=== PATIENT | female | born 1955 | race Caucasian/White ===

== ENCOUNTER → 2018-04-05 07:00 | Outpatient (CLI) | payer OTHER, SELFPAY ==
--- NOTE | 2018-04-05 06:59 | BI_ITS ---
MAMMOGRAPHY - BILATERAL SCREENING REASON FOR EXAM: Female, 62 years old. Routine annual screening examination. PERTINENT HISTORY: Mother with breast cancer. Remote left stereotactic breast biopsy. TECHNIQUE: Digital bilateral breast salty (3D mammographic acquisition) in the CC and MLO projections. 2-D mediolateral oblique (MLO) and craniocaudad (CC) views of both breasts were obtained. CAD: Full Field Digital Mammography with Computer Added Detection was performed. COMPARISON: Comparison is made with prior study dated January 28, 2017 and May 19, 2015. FINDINGS: Breast Composition: The breasts are extremely dense, which lowers the sensitivity of mammography. There are no dominant masses or suspicious calcifications. Once again, a tissue clip marker is seen in the upper lateral aspect of the left breast. This is unchanged. No other significant abnormalities are identified. There has been no significant change since the prior study. BI/SCREENING MAMM (CAD), BILAT IMPRESSION: Stable bilateral screening mammogram. Yearly follow-up mammogram recommended. (A) ASSESSMENT CATEGORY: BIRADS Category 2: Benign. A letter regarding these results will be sent to the patient by the facility within 30 days. Approximately 10% of breast cancers are not detected by mammography. A normal mammogram should not delay biopsy of a clinically suspicious abnormality. [id number] Electronically Signed: Chris Shaffer MD at 8:31 EST Tel [phone], Service support ,
--- OUTSIDE RECORDS SUMMARY | 2018-05-22 00:46 | XMS RPT_ITS ---
:1955 Author Organization [facility] Care Team Providers Name Role Phone Tessa Woodard Attending Unavailable Shiva Walls Primary Care Unavailable PROBLEMS PROBLEMS DATE TYPE CONDITION / CODE ATTENDING STATUS SOURCE 05/08/2018 Unknown Z12.31 - Tessa Woodard Active [facility] Encounter for [facility] mammogram for Repository malignant neoplasm of breast / Z12.31(ICD-10) PROCEDURES PROCEDURES No Procedure Records FoundRESULTS RESULTS SCREENING MAMM (CAD), Observed: 04/05/2018 Status: F Source: [place] 6:59 AM [facility] REPOSITORY [facility] Imaging Services [address] [place] [address] SCREENING MAMM (CAD), BILAT MR#: [id number] Acct: [id number] Name: JACQUELINE SANDHU Rep #: [id number] : 1955 F 62 From: Chris Shaffer MD PCP: Shiva Walls MD Status: [facility] CL Study: SCREENING MAMM (CAD), BILAT Date of Exam: 04/05/18 Exam# [id number] Ordering Dr: Tessa Woodard MD MAMMOGRAPHY - BILATERAL SCREENING REASON FOR EXAM: Female, 62 years old. Routine annual screening examination. PERTINENT HISTORY: Mother with breast cancer. Remote left stereotactic breast biopsy. TECHNIQUE: Digital bilateral breast salty (3D mammographic acquisition) in the CC and MLO projections. 2-D mediolateral oblique (MLO) and craniocaudad (CC) views of both breasts were obtained. CAD: Full Field Digital Mammography with Computer Added Detection was performed. COMPARISON: Comparison is made with prior study dated January 28, 2017 and May 19, 2015. FINDINGS: Breast Composition: The breasts are extremely dense, which lowers the sensitivity of mammography. There are no dominant masses or suspicious calcifications. Once again, a tissue clip marker is seen in the upper lateral aspect of the left breast. This is unchanged. No other significant abnormalities are identified. There has been no significant change since the prior study. BI/SCREENING MAMM (CAD), BILAT IMPRESSION: Stable bilateral screening mammogram. Yearly follow-up mammogram recommended. (A) ASSESSMENT CATEGORY: BIRADS Category 2: Benign. A letter regarding these results will be sent to the patient by the facility within 30 days. Approximately 10% of breast cancers are not detected by mammography. A normal mammogram should not delay biopsy of a clinically suspicious abnormality. [id number] Electronically Signed: Chris Shaffer MD at 8:31 EST Tel [phone], Service support , CC: Tessa Woodard MD; Shiva Walls MD [employer] Attendant: Signed ALLERGIES ALLERGIES DATE TYPE / CODE NAME / CODE REACTION SEVERITY SOURCE 10/17/2014 Drug No Known Unknown [facility] Former[facility] Allergy/4160 Allergies/F00 Hospital [address](SNOMED [id number](RXNOR Repository CT) M) ENCOUNTERS ENCOUNTERS ADMIT/DISCHARGE ACCOUNT ADMITTING ENCOUNTER LOCATION SOURCE NUMBER CLASS 04/05/2018 [id number] Ambulatory [facility] [address] [facility] ing:OPBI Repository PAYERS PAYERS ENCOUNTER GUARANTOR PAYER SUBSCRIBER SOURCE 04/05/2018 LE [facility] Primary JACQUELINE [id number] Insurance:MEDICAL PAIGERDOB: [facility] [id number] Number: Repository [id number]: ([phone] [id number] [phone] () Date:[id number] [address] [place], [place] [address]WP: 04/05/2018 Secondary NOT GIVENUNK [facility] Insurance:SELF PAY [facility] Number: Effective Repository Date:2018-02-19
== END ==
PROVIDERS: Family Provider Family Medicine; PCP Family Medicine; Visit Provider Obstetrics & Gynecology
DX: Z12.31 Encounter for screening mammogram for malignant neoplasm of breast (principal)
CPT/HCPCS: 77063; 77067

== ENCOUNTER → 2019-06-04 07:54 | Outpatient (CLI) | payer OTHER, SELFPAY ==
--- NOTE | 2019-06-04 07:56 | BI_ITS ---
MAMMOGRAPHY - BILATERAL SCREENING REASON FOR EXAM: Female, 63 years old. Routine annual screening examination. PERTINENT HISTORY: Mother with breast cancer. Remote left stereotactic breast biopsy. TECHNIQUE: Digital bilateral breast asif (3D mammographic acquisition) in the CC and MLO projections. 2-D mediolateral oblique (MLO) and craniocaudad (CC) views of both breasts were obtained. CAD: Full Field Digital Mammography with Computer Added Detection was performed. COMPARISON: Comparison is made with prior examination dated April 05, 2018 and January 28, 2017. FINDINGS: Breast Composition: The breasts are extremely dense, which lowers the sensitivity of mammography. There are no dominant masses or suspicious calcifications. A tissue clip marker is once again seen in the upper lateral aspect of the left breast. No other significant abnormalities are identified. There has been no significant change since the prior study. BI/SCREEN MAMM (CAD) W/ASIF BILAT IMPRESSION: Stable bilateral screening mammogram. Yearly follow-up mammogram recommended. (A) ASSESSMENT CATEGORY: Approximately 10% of breast cancers are not detected by mammography. A normal mammogram should not delay biopsy of a clinically suspicious abnormality. [id number] Electronically Signed: Chris Shaffer, at 8:41 EST , Service support ,
--- NOTE | 2019-06-04 08:18 | BD_ITS ---
STUDY: DUAL ENERGY X-RAY ABSORPTIOMETRY / DXA REASON FOR EXAM: Female, 63 years old. INDUSTRIAL ELECTRICIAN -- HX OF HRT -- TAKES 1000MG CALCIUM + MULTIVITAMIN -- HX OF TAKING FOSAMAX IN PAST FOR 3 YRS -- DOES MODERATE AMOUNT OF EXERCISE -- FAMILY HX OF OSTEO- MOTHER -- NO MIRTHA TECHNIQUE: Bone Mineral Density (BMD) measurements of lumbar spine and bilateral hips were obtained. COMPARISON: Comparison is made with prior examination dated May 19, 2015. FINDINGS: Lumbar Spine (L1-L4): g/cm2 (0.948) / T-score (-1.9) / Z-score (-0.6) Findings are suggestive of osteopenia with a moderate fracture risk. Left Femur Total: g/cm2 (0.690) / T-score (-2.5) / Z-score (-1.5) Left Femoral Neck: g/cm2 (0.664) / T-score (-2.7) / Z-score (-1.4) Right Femur Total: g/cm2 (0.707) / T-score (-2.4) / Z-score (-1.4) Right Femoral Neck: g/cm2 (0.701) / T-score (-2.4) / Z-score (-1.1) The T-Scores on the most recent prior examination were: Lumbar Spine (L1-L4): There has been worsening of bone density since the previous examination. Left Femur Total: which represents a worsening of 7%. Right Femur Total: which represents a worsening of 3.9%. BD/Dexa Bone Density Study IMPRESSION: The patient is considered osteoporotic as outlined below according to World Tito Organization (WHO) criteria with a high fracture risk. There has been worsening of bone density since the previous examination. Reference Information: The T-score is the number of standard deviations above or below the standard which is normal for young adults at their peak bone mineral density. The World Health Organization (WHO) interprets the T-scores as follows: Above -1 Normal bone density Between -1 and -2.5 Osteopenia Equal to / or below -2.5 Osteoporosis As a practical clinical guideline, osteopenia may be graded as follows: Mild -1 through -1.5 Moderate -1.6 through -2.0 Severe -2.1 through -2.4 The Z-score is the number of standard deviations above or below age-matched controls. A Z-score of less than -1.5 would be considered abnormal. References: 1. NIH Osteoporosis and Related Bone Diseases http://www.osteo.org 2. International Society for Clinical Densitometry http://www.iscd.org 3. National Osteoporosis Foundation http://www.nof.org Electronically Signed: Chris Shaffer, at 10:13 EST , Service support ,
== END ==
PROVIDERS: PCP Family Medicine; Referring Provider Student in an Organized Health Care Education/Training Program; Visit Provider Student in an Organized Health Care Education/Training Program
DX: Z12.31 Encounter for screening mammogram for malignant neoplasm of breast (principal); M81.0 Age-related osteoporosis without current pathological fracture; Z80.3 Family history of malignant neoplasm of breast
CPT/HCPCS: 77063; 77067; 77080

== ENCOUNTER → 2021-01-19 13:06 | Outpatient (CLI) | payer OTHER, SELFPAY | PROVIDERS: PCP Student in an Organized Health Care Education/Training Program; Referring Provider Student in an Organized Health Care Education/Training Program; Visit Provider Student in an Organized Health Care Education/Training Program | DX: Z01.84 Encounter for antibody response examination (principal) | CPT/HCPCS: 36415; 86769 ==

== ENCOUNTER 2021-12-03 12:54 | Emergency (ER) | payer OTHER, SELFPAY ==
[2021-12-03 12:55] VITALS: BP 144/90; PULSE 83; RESP 18; TEMP 36.9; O2SAT 99; BMI 17.6
--- NOTE | 2021-12-03 13:10 | RAD_ITS ---
HISTORY: pain. TECHNIQUE: XR Ribs Unilateral W/ PA Chest Min 3 Views. COMPARISON: 01/24/2017. FINDINGS: CARDIOMEDIASTINAL BORDERS: Cardiac silhouette within normal limits in size. Mediastinal contour unremarkable. LUNGS: Radiographically clear. PLEURA: No pleural effusion or pneumothorax seen. OSSEOUS STRUCTURES: No acute displaced rib fracture identified. RAD/Ribs Uni Min 3V w/PA Chest IMPRESSION: No acute abnormality identified. Electronically Signed: Flower Joyce MD at 13:33 EDT ,
--- NOTE | 2021-12-03 13:16 | ED.VIS.CHEST ---
HPI History of Present Illness Chief Complaint: Chest Pain Informant: patient Narrative Narrative: Patient presents with an area on the right anterior lateral lower rib cage that is been sore for about 4 5 days. She states she was doing a lot of gardening. She thought she heard it gardening. There was not a specific event that suddenly cause pain but its been sore since. It is mostly sore to press on the area. She does not and has never felt short of breath. Her states she coughed a little last night but she generally has not been coughing. She does not feel ill. No congestion. No problems eating or drinking or pain with eating or drinking. No history of biliary disease. No change in medicines. No recent travel surgery or history of DVT or PE. She has been wearing a splint on her right foot for about 2 weeks. But if the due to inflammation of the toes and she takes the splint off frequently. She has no swelling or discomfort in the leg at all. She overall does not feel ill. She just has a sore area with palpation. She is about to take a trip up to [place] and wanted to make sure that she did not have a pneumonia or something like that developing before she left. She went to urgent care and because she had chest pain she was sent here. [facility] Medical History Anxiety with depression Vitamin D deficiency Home Medications ascorbic acid (vitamin C) 500 mg capsule mg PO 02/22/21 [History Last Taken Unknown] aspirin 81 mg chewable tablet 81 mg PO DAILY 02/22/21 [History Last Taken Unknown] calcium citrate 315 mg calcium-vitamin D3 6.25 mcg (250 unit) tablet (Citracal + Vitamin D Maximum) 1 tab PO DAILY 02/22/21 [History Last Taken Unknown] cholecalciferol (vitamin D3) 250 mcg (10,000 unit) capsule 250 mcg PO DAILY 02/22/21 [History Last Taken Unknown] estradiol 0.01% (0.1 mg/gram) vaginal cream (Estrace) See Rx Instructions vaginal .COMPLEX #42.5 grams 02/22/21 [Rx Last Taken Unknown] krill oil 500 mg capsule mg PO 02/22/21 [History Last Taken Unknown] trazodone 300 mg tablet 300 mg PO DAILY 02/22/21 [History Last Taken Unknown] venlafaxine 100 mg tablet 100 mg PO DAILY 02/22/21 [History Last Taken Unknown] venlafaxine 75 mg tablet 75 mg PO DAILY 02/22/21 [History Last Taken Unknown] zinc 50 mg tablet 50 mg PO DAILY 02/22/21 [History Last Taken Unknown] Allergy/AdvReac Type Severity Reaction Status Date / Time No Known Allergies Allergy Verified 12/03/21 12:58 Family History Mother Breast cancer Father Heart disease Grandmother Breast cancer CVA (cerebral vascular accident) Grandfather Prostate CA Diabetes Surgical History H/O: hysterectomy History of bladder surgery Hx of wisdom tooth extraction Varicose vein of leg Social History Smoking Status: Never smoker alcohol intake: never substance use type: does not use caffeine: Yes what type of physical activity do you participate in: walking seatbelt use: always do you feel safe at home: Yes additional social history: retired- Den ROS ROS ED Constitutional Constitutional ED: Denies chills, fever(s) or sweats ENT ENT ED: Denies rhinorrhea or sore throat Cardiovascular Cardiovascular: Reports as per HPI; Denies orthopnea or paroxysmal nocturnal dyspnea Respiratory/Chest Respiratory/Chest: Denies dyspnea, dyspnea on exertion, orthopnea, paroxysmal nocturnal dyspnea or sputum Gastrointestinal Gastrointestinal: Denies abdominal pain, nausea or vomiting Genitourinary Genitourinary ED: Denies hematuria Musculoskeletal Musculoskeletal: Denies arthralgias, back pain, myalgias or neck pain Integumentary Denies rash Neurologic Neurologic: Denies headache(s) Endocrine Endocrinology: Denies polydipsia or polyuria Hematologic/Lymphatic Hematologic/Lymphatic: Denies easy bleeding or easy bruising Allergic/Immunologic Allergic/Immunologic ED: Denies urticaria EXAM Physical Exam Const Vital Signs: 12/03/21 12:55 12/03/21 13:07 Temperature 98.5 F Temperature Source Temporal Pulse Rate 83 Respiratory Rate 18 Respiratory Effort Normal Blood Pressure 144/90 H Blood Pressure Mean 108 Pulse Ox 99 Oxygen Delivery Method Room Air Positive well nourished and well developed General Appearance ED: well developed and NAD; Negative for pallor HEENT Reports moist mucous membranes Eyes EOMs intact bilaterally Neck no lymphadenopathy, supple and no JVD Chest Wall inspection of chest normal Chest Narrative: There are no vesicles that I see. No erythema. No change in skin color. There is a small area about 3 to 4 cm around on the anterior axillary line down low in the rib cage that has localized tenderness. But I do not see or feel any abnormalities. Resp normal respiratory effort and clear to auscultation bilaterally Resp Narrative: No pain with deep breaths Cardio regular rate and regular rhythm GI normal to inspection, nondistended, normoactive bowel sounds GI Narrative: Abdomen is soft. There is no right upper quadrant tenderness. There was a paper sent over from the urgent care about right upper quadrant pain but she is not having pain in this area. This is clearly right anterior lateral rib pain. Below the ribs is not tender. Back/Spine no CVA tenderness Extremity normal to inspection Extremity Narrative: She has a removable Velcro splint on her lower right leg. But there is no edema or cords. No swelling. No distended veins. General Extremety ED: Negative for edema General Extremity: Negative for edema Neuro Sensorium / Orientation: awake and alert Psych mental status grossly normal Skin no rashes or lesions noted General Skin Exam: Negative for jaundice or pallor Rashes: No rashes noted MDM MDM MDM Narrative Medical decision making narrative: Three-view x-ray of chest and right rib cage looked at by me read by radiology shows no acute process. I talked with the patient again. She has reproducible chest wall pain with palpation and slightly with motion after doing a lot of gardening. She is not short of breath at any time. No sputum production or hemoptysis. No pleuritic pain. No hypoxia tachycardia or tachypnea. I do not think we need to pursue pulmonary embolus. Her abdomen is also benign and she has no nausea vomiting or trouble eating. I do not think this represents an atypical cholecystitis type picture. I think rest and [id number] medications and ice are appropriate. She is comfortable with this plan. We did discuss reasons for return. Radiography Diagnostic Testing: Clinical Impression(s) from Imaging Studies Ribs w/Chest X-Ray 12/03/21 13:10 IMPRESSION: No acute abnormality identified. Electronically Signed: Flower Joyce MD at 13:33 EDT , Discharge Plan Triage Chief Complaint: Chest Pain ED Provider: Jese Thompson Dx/Rx/DC Orders Clinical Impression: Right-sided chest wall pain Instructions: ED Chest Pain, Uncertain Cause Prescriptions: No Action zinc 50 mg tablet 50 mg PO DAILY trazodone 300 mg tablet 300 mg PO DAILY venlafaxine 100 mg tablet 100 mg PO DAILY venlafaxine 75 mg tablet 75 mg PO DAILY ascorbic acid (vitamin C) 500 mg capsule PO cholecalciferol (vitamin D3) 250 mcg (10,000 unit) capsule 250 mcg PO DAILY aspirin 81 mg tablet,chewable 81 mg PO DAILY krill oil 500 mg capsule PO calcium citrate-vitamin D3 [Citracal + D Maximum] 315 mg-6.25 mcg (250 unit) tablet 1 tab PO DAILY estradiol [Estrace] 0.01 % (0.1 mg/gram) cream See Rx Instructions vaginal .COMPLEX Qty: 42.5 3RF Rx Instructions: use fingertip amount or 1-2g every night vaginally x 2 weeks, then 1-3x weekly for maintenance Primary Care Provider: Jay Morales Referrals: Jay Morales, [Primary Care Provider] - 1 Week if not improving Disposition Disposition: Home, Self Care
== END 2021-12-03 14:21 | disposition home or self-care (01) ==
PROVIDERS: Emergency Provider Emergency Medicine; PCP Student in an Organized Health Care Education/Training Program; Visit Provider Emergency Medicine
DX: R07.89 Other chest pain (principal)
CPT/HCPCS: 71101; 99282

== ENCOUNTER → 2022-03-04 | Outpatient (CLI) | payer OTHER, SELFPAY ==
--- NOTE | 2022-03-04 08:01 | BI_ITS ---
MAMMOGRAPHY - BILATERAL SCREENING REASON FOR EXAM: Female, 66 years old. Routine annual screening examination. PERTINENT HISTORY: Mother with breast cancer. Grandmother with breast cancer. Prior left stereotactic breast biopsy. TECHNIQUE: Digital bilateral breast asif (3D mammographic acquisition) in the CC and MLO projections. 2-D mediolateral oblique (MLO) and craniocaudad (CC) views of both breasts were obtained. CAD: Full Field Digital Mammography with Computer Added Detection was performed. COMPARISON: Comparison is made with prior examination dated 01/03/2020 and 04/05/2018. FINDINGS: Breast Composition: The breasts are extremely dense, which lowers the sensitivity of mammography. There are no dominant masses or suspicious calcifications. A tissue clip marker is seen in the upper lateral aspect of the left breast. No other significant abnormalities are identified. There has been no significant change since the prior study. BI/SCRN MAMM (CAD)W/ASIF BILAT IMPRESSION: Stable bilateral screening mammogram. Yearly follow-up mammogram recommended. (A) ASSESSMENT CATEGORY: BIRADS Category 2: Benign. A letter regarding these results will be sent to the patient by the facility within 30 days. Approximately 10% of breast cancers are not detected by mammography. A normal mammogram should not delay biopsy of a clinically suspicious abnormality. [id number] Electronically Signed: Chris Shaffer MD at 9:21 EST ,
== END | disposition home or self-care (01) ==
LOC: OPBI 08:00
PROVIDERS: PCP Student in an Organized Health Care Education/Training Program; Visit Provider Nurse Practitioner Women's Health
DX: Z12.31 Encounter for screening mammogram for malignant neoplasm of breast (principal); Z80.3 Family history of malignant neoplasm of breast
CPT/HCPCS: 77063; 77067

== ENCOUNTER → 2022-05-30 | Outpatient (CLI) | payer OTHER, SELFPAY ==
[2022-05-30 15:15] LABS: NATERA MAILED SPECIMEN
== END | disposition home or self-care (01) ==
LOC: PAVLAB 14:11
PROVIDERS: PCP Student in an Organized Health Care Education/Training Program; Referring Provider Nurse Practitioner Women's Health; Visit Provider Nurse Practitioner Women's Health
DX: Z00.00 Encounter for general adult medical examination without abnormal findings (principal); Z80.3 Family history of malignant neoplasm of breast
CPT/HCPCS: 36415

== ENCOUNTER → 2023-06-20 | Outpatient (CLI) | payer MEDICARE, SELFPAY ==
--- NOTE | 2023-06-20 07:28 | BI_ITS ---
MAMMOGRAPHY - BILATERAL SCREENING REASON FOR EXAM: Female, 67 years old. Routine annual screening examination. PERTINENT HISTORY: Mother with breast cancer. Grandmother with breast cancer. Remote left stereotactic breast biopsy. TECHNIQUE: Digital bilateral breast asif (3D mammographic acquisition) in the CC and MLO projections. 2-D mediolateral oblique (MLO) and craniocaudad (CC) views of both breasts were obtained. CAD: Full Field Digital Mammography with Computer Added Detection was performed. COMPARISON: Comparison is made with prior study March 04, 2022 and June 04, 2019. FINDINGS: Breast Composition: The breasts are extremely dense, which lowers the sensitivity of mammography. There are no dominant masses or suspicious calcifications. A tissue clip marker is in the upper lateral aspect of the left breast. No other significant abnormalities are identified. There has been no significant change since the prior study. BI/SCRN MAMM (CAD)W/ASIF BILAT IMPRESSION: Stable bilateral screening mammogram. Yearly follow-up mammogram recommended. (A) ASSESSMENT CATEGORY: BIRADS Category 2: Benign. A letter regarding these results will be sent to the patient by the facility within 30 days. Approximately 10% of breast cancers are not detected by mammography. A normal mammogram should not delay biopsy of a clinically suspicious abnormality. [id number] Electronically Signed: Chris Shaffer MD at 8:36 EST ,
--- OUTSIDE RECORDS SUMMARY | 2023-06-20 07:30 | XMS RPT_ITS | CCD ---
Author Name Unknown Address [address] [place] [address] Organization [facility] Care Team Providers Care Day Spa Manager Name Role Phone Jay Olivier DO Primary Care Provider [phone] JAY OLIVIER Primary Care Unavailable MARIANNA GERMAN Attending Unavailable OLIVIERJAY Referring Unavailable OLIVIER, JAY Primary Care Unavailable OLIVIERJAY Attending Unavailable OLIVIER JAY Primary Care Unavailable MAXI, MARIANNA Referring Unavailable OLIVIER JAY Primary Care Unavailable MAXIMARIANNA Referring Unavailable OLIVIER, JAY Primary Care Unavailable OLIVIER, JAY Primary Care Unavailable MAXI, MARIANNA Referring Unavailable OLIVIER, JAY Primary Care Unavailable MARIANNA GERMAN Attending Unavailable OLIVIERJAY Primary Care Unavailable OLIVIER, JAY Primary Care Unavailable MAXIMARIANNA MEDINA Referring Unavailable OLIVIERJAY Referring Unavailable OLIVIER, JAY Primary Care Unavailable Jay Olivier DO Primary Care Provider [phone] Medications Current Medications Medication Drug Class(es) Dates Sig (Normalized) Sig (Original) 1 ml denosumab 60 mg/ml prefilled syringe (1 source) RANK Ligand Inhibitor Start: 08-26-2020 End: 08-21-2021 denosumab 60 mg injection (PROLIA) doxycycline hyclate 100 mg oral tablet (1 source) Tetracycline-clas s Drug Start: 05-04-2022 End: 05-14-2022 take 1 tablet by mouth twice daily doxycycline (VIBRA-TABS) 100 mg tablet Indications: Subacute cough Take 1 tablet by mouth twice daily for 10 days. 20 tablet 0 05/04/2022 05/14/2022 Active Completed/Discontinued Medications Medication Drug Class(es) Dates Sig (Normalized) Sig (Original) alendronic acid 70 mg oral tablet (5 sources) Bisphosphonate Start: 06-18-2019 End: 11-25-2021 take 1 tablet by mouth every week alendronate (FOSAMAX) 70 mg tablet Take 1 tablet by mouth one time a week. Take with a full glass of water, on an empty stomach; do NOT lie down for 30minutes. 12 tablet 3 06/18/2019 11/25/2021 Discontinued Problems Active Problems Problem Classification Problem Date Documented Da te Episodic/Chronic Abdominal pain (3 sources) Right upper quadrant pain; Translations: [Right upper quadrant pain] Onset: 04-26-2022 Episodic Chronic obstructive pulmonary disease and bronchiectasis (17 sources) Mucopurulent chronic bronchitis; Translations: [Mucopurulent chronic bronchitis] Onset: 05-13-2019 05-13-2019 Chronic Disorders of lipid metabolism (18 sources) Dyslipidemia; Translations: [Hyperlipidemia, unspecified] Onset: 05-13-2019 05-13-2019 Chronic Miscellaneous mental health disorders (5 sources) Chronic insomnia; Translations: [Psychophysiologic insomnia] Onset: 11-22-2021 Chronic Nutritional deficiencies (17 sources) Vitamin D deficiency; Translations: [Vitamin D deficiency, unspecified] Onset: 11-12-2010 11-12-2010 Chronic Other connective tissue disease (1 source) Pain in right foot; Translations: [Pain in right foot] Episodic Other gastrointestinal disorders (2 sources) Right upper quadrant abdominal mass; Translations: [Right upper quadrant abdominal swelling, mass and lump] Episodic Other lower respiratory disease (1 source) Cough; Translations: [Subacute cough] Episodic Other skin disorders (1 source) Localized swelling of right foot; Translations: [Localized swelling, mass and lump, right lower limb] Episodic Residual codes; unclassified (2 sources) Poor short-term memory ; Translations: [Other amnesia] Episodic Residual codes; unclassified (1 source) Family history of dementia; Translations: [Family history of other mental and behavioral disorders] Episodic Residual codes; unclassified (1 source) Other amnesia; Translations: [Poor short term memory] Onset: 08-05-2022 Episodic Past or Other Problems Problem Classification Problem Date Documented Da te Episodic/Chronic Hemorrhoids (17 sources) Internal hemorrhoids; Translations: [Other hemorrhoids] Onset: 8 11-15-2007 Episodic Nonmalignant breast conditions (17 sources) Breast problem; Translations: [Disorder of breast, unspecified] Onset: 7 03-13-2007 Episodic Other and unspecified benign neoplasm (17 sources) Benign neoplasm of colon; Translations: [Benign neoplasm of colon, unspecified] Onset: 8 11-15-2007 Episodic Other bone disease and musculoskeletal deformities (17 sources) Osteopenia; Translations: [Other specified disorders of bone density and structure, multiple sites] Onset: 0 05-13-2019 Episodic Other connective tissue disease (17 sources) Lateral epicondylitis of left humerus; Translations: [Lateral epicondylitis, left elbow] Onset: 0 06-20-2019 Episodic Other connective tissue disease (1 source) Pain in right foot; Translations: [Foot pain, right] Onset: 2 Episodic Other gastrointestinal disorders (1 source) Right upper quadrant abdominal swelling, mass and lump; Translations: [Right upper quadrant abdominal mass] Onset: 3 Episodic Other screening for suspected conditions (not mental disorders or infectious disease) (20 sources) Decreased triiodothyronine level; Translations: [Other specified abnormal findings of blood chemistry] Onset: 0 05-13-2019 Episodic Other skin disorders (1 source) Localized swelling, mass and lump, right lower limb; Translations: [Localized swelling of right foot] Onset: 2 Episodic Pneumonia (except that caused by tuberculosis or sexually transmitted disease) (17 sources) Pneumonia; Translations: [Pneumonia, unspecified organism] Onset: 1 04-19-2019 Episodic Results Test Name Value Interpretation Reference Range Facil ity Vital Signs Date Time Vital Sign Value Performing Clinician Faci lity 07-18-2022 14:06-0400 Body temperature 98.29 [degF] Jay Olivier DO Work Phone: [facility] 07-18-2022 14:06-0400 Body weight 48.53 kg Jay Olivier DO Work Phone: [facility] 07-18-2022 14:06-0400 Diastolic blood pressure 96 mm[Hg] Jay Olivier DO Work Phone: [facility] 07-18-2022 14:06-0400 Heart rate 64 /min Jay Olivier DO Work Phone: [facility] 07-18-2022 14:06-0400 Respiratory rate 16 /min Jay Olivier DO Work Phone: [facility] 07-18-2022 14:06-0400 Systolic blood pressure 146 mm[Hg] Jay Olivier DO Work Phone: [facility] 04-13-2022 15:19-0500 Body weight 48.44 kg Marianna Maxi [employer]CKING SUPERVISOR.[employer] Work Phone: [facility] 04-13-2022 15:19-0500 Diastolic blood pressure 80 mm[Hg] Marianna Maxi WRECKING SUPERVISOR.[employer] Work Phone: [facility] 04-13-2022 15:19-0500 Heart rate 72 /min Marianna Maxi WRECKING SUPERVISOR.[employer]ER Work Phone: [facility] 04-13-2022 15:19-0500 Respiratory rate 16 /min Marianna Maxi WRECKING SUPERVISOR.[employer]ER Work Phone: [facility] 04-13-2022 15:19-0500 SaO2% (BldA) [Mass fraction] 98 % Marianna Maxi WRECKING SUPERVISOR.[employer] Work Phone: [facility] 04-13-2022 15:19-0500 Systolic blood pressure 118 mm[Hg] Marianna Maxi WRECKING SUPERVISOR.[employer] Work Phone: [facility] 11-22-2021 15:31-0400 Body weight 47.9 kg Marianna Maxi WRECKING SUPERVISOR.[employer]ER Work Phone: [facility] 11-22-2021 15:31-0400 Diastolic blood pressure 86 mm[Hg] Marianna Maxi WRECKING SUPERVISOR.[employer]ER Work Phone: [facility] 11-22-2021 15:31-0400 Heart rate 64 /min Marianna Maxi WRECKING SUPERVISOR.[employer] Work Phone: [facility] 11-22-2021 15:31-0400 Respiratory rate 16 /min Marianna Maxi WRECKING SUPERVISOR.[employer] Work Phone: [facility] 11-22-2021 15:31-0400 SaO2% (BldA) [Mass fraction] 99 % Marianna Maxi WRECKING SUPERVISOR.[employer] Work Phone: [facility] 11-22-2021 15:31-0400 Systolic blood pressure 142 mm[Hg] Marianna Maxi WRECKING SUPERVISOR.[employer] Work Phone: [facility] Encounters Encounter Date Encounter Type Care Provider Facility Start: 10-31-2022 Refill Jay Richmilka tom DO Work Phone: [facility] Procedures Date Procedure Procedure Detail Performing Clinician Start: 04-26-2022 Ct abdomen w/contras t material Marianna Maxi WRECKING SUPERVISOR.[employer] Work Phone: Start: 08-24-2020 Adult depression scr eening assessment Jay Olivier DO Work Phone: Start: 07-23-2020 Mammography Jay pate DO Work Phone: Start: 06-19-2019 Lipid 1996 panel - S pito or Plasma Ct Wstr Start: 03-11-2019 Colonoscopy Jay pate DO Work Phone: Plan of Treatment Date Care Activity Detail Author Start: 05-10-2027 Urine microalbumin profile [facility] Start: 07-18-2025 DIABETES SCREEN DIABETES SCREEN [facility] Start: 07-18-2025 Diabetes Screening Diabetes Screening [facility] Start: 04-13-2025 DIABETES SCREEN DIABETES SCREEN [facility] Start: 06-19-2024 Lipid 1996 panel - Serum or Plasma Lipid Screening [facility] Start: 06-19-2024 LIPID SCREEN LIPID SCREEN [facility] Start: 12-23-2022 Influenza vaccination [facility] Start: 2022 Advance Directive Discussion Advance Directive Discussion [facility] Start: 2022 Bone Density Screening Bone Density Screening [facility] Start: 2022 Pneumococcal Vaccine: 65+ (2 - PCV) Pneumococcal Vaccine: 65+ (2 - PCV) [facility] Start: 07-20-2022 End: 09-19-2022 Thyrotropin [Units/volume] in Serum or Plasma TSH BLD Lab Routine Low serum triiodothyronine (T3) Expected: 07/20/2022, Expires: 09/19/2022 [facility] Work Phone: Immunizations Immunization Date Immunization Notes Care Provider Jeanne long 02-02-2022 influenza, seasonal, injectable Jay Olivier DO Work Phone: [facility] Work Phone: 02-02-2022 influenza virus vacc ine, unspecified formulation Ct [facility] 01-19-2021 influenza, injectabl e, quadrivalent, contains preservative Jay Olivier DO Work Phone: [facility] Work Phone: 10-21-2019 zoster vaccine recombinant Jay Olivier DO Work Phone: [facility] Work Phone: 05-13-2019 pneumococcal polysaccharide vaccine, 23 valent Jay Olivier DO Work Phone: [facility] Work Phone: 05-13-2019 zoster vaccine recombinant Jay Olivier DO Work Phone: [facility] Work Phone: 01-08-2019 influenza, injectabl e, quadrivalent, contains preservative Jay Olivier DO Work Phone: [facility] 05-10-2017 tetanus toxoid, redu jesse diphtheria toxoid, and acellular pertussis vaccine, adsorbed Jay Olivier DO Work Phone: [facility] 08-13-2014 zoster vaccine, live Jay Olivier DO Work Phone: [facility] 07-11-2011 tetanus and diphther ia toxoids, adsorbed, preservative free, for adult use (2 Lf of tetanus toxoid and 2 Lf of diphtheria toxoid) Jay Olivier DO Work Phone: [facility] 02-22-2007 influenza virus vacc ine, unspecified formulation Jay Olivier DO Work Phone: [facility] Payers Date Payer Category Payer Unknown MMO MMO [employer] [id number] 2019-Present [phone] [address] [place] [address] PPO [id number] 2019 Unknown [id number] 2019 Unknown [id number] Social History Date Type Detail Facility Start: 12-03-2021 Tobacco smoking stat us [facility] Never smoked tobacco [facility] Work Phone: Start: 01-19-2021 End: 04-13-2022 Alcohol intake Current non-drinker of alcohol (finding) [facility] Start: 08-24-2020 History SDOH Alcohol Frequency 1 [facility] Start: 08-24-2020 History SDOH Social Connections Phone 5 [facility] Start: 08-24-2020 History SDOH Social Connections Caodaism 3 [facility] Start: 08-24-2020 History SDOH Physica l Activity MPS 4 [facility] Start: 08-24-2020 History SDOH Transpo rt Med 2 [facility] Start: 08-24-2020 Education 18 [facility] Start: 1955 Sex Assigned At Female C [facility] Start: 11-12-2021 End: 11-22-2021 Exposure to SARS-CoV-2 (event) Not sure [facility] Start: 12-03-2021 Tobacco use and exposure Smokeless tobacco non-user [facility] Start: 03-29-2020 End: 07-18-2022 History of Social function [facility] Work Phone: Start: 03-29-2020 End: 07-18-2022 Tobacco use panel [facility] Work Phone: Adult Depression Screening Assessment 2 [facility] Work Phone: Start: 02-18-2019 Gender identity Identifies as female gender (finding) [facility] Start: 10-28-2019 Sexual orientation Heterosexual (fin ding) [facility] Are you now , , , , never or living with a partner? [facility] How often to you hav e a drink containing alcohol? Never [facility] Do you feel stress - tense, restless, nervous, or anxious, or unable to sleep at night because your mind is troubled all the time - these days [OSQ] Not at all [facility] (I/We) worried wheth er (my/our) food would run out before (I/we) got money to buy more. Never true [facility] In the past 12 month s, was there a time when you were not able to pay the mortgage or rent on time? No [facility] Clinical Notes 06-01-2021 to 10-31-2022 Telephone Encounter - Deysi Ramírez Ma - 10/31/2022 1:40 PM EDTTelephone Encounter - Jacqueline Parker - 10/31/2022 10:56 AM EDTTelephone Encounter - Carmen Farfan - 09/01/2022 11:43 AM EDT Note Date & Type Note Facility 10-31-2022 Miscellaneous Notes Formattin g of this note might be different from the original. Last office visit: 07/18/22 F/u scheduled: none Deysi Ramírez Ma Patient has been identified by name and date of : Yes Last office visit in this department: 07/18/2022 RX INSTRUCTIONS: Patient aware RX will be sent to pharmacy. No need to notify patient. Patient phones requesting refills as follows: Requested Prescriptions Pending Prescriptions Disp Refills venlafaxine ER (EFFEXOR XR) 75 mg 24 hr capsule 90 capsule 1 Sig: Take 1 capsule by mouth once daily. Please review and advise. Jacqueline Amezcua documented in this encounter [facility] 09-01-2022 Miscellaneous Notes Formattin g of this note might be different from the original. PSS calls and reports pt requesting refill trazodone Last refilled 11/22/2021 #90 2 refills. Carmen Farfan documented in this encounter [facility] 08-29-2022 Miscellaneous Notes Formattin g of this note might be different from the original. Pharmacy request denied. Patient needs to contact office for refills. Albina Vazquez MA documented in this encounter [facility] 08-10-2022 Note Patient Outreach (IN [facility]) JACQUELINE SANDHU ([id number]) 1955 F Date Time Provider Department 08/10/22 JAY OLIVIER During your visit today, we recorded the following information about you: Allergies As of Date: 08/10/2022 (No Known Allergies) Date Reviewed: 04/21/2022 Reviewed by: Noemi Ruiz, RT(R) - Fully Assessed Visit Diagnosis:Encounter for screening mammogram for breast cancer [Z12.31] Order(s):[facility] SCREENING W ASIF [3001080] Order #: [id number] FUTURE Prescriptions as of 08/15/2022 - venlafaxine ER (EFFEXOR XR) 75 mg 24 hr capsule Take 1 capsule by mouth once daily. - traZODone HCl (DESYREL) 300 mg tablet Take 1 tablet by mouth daily at bedtime. - Biotin 10,000 mcg cap Take 1 capsule by mouth once daily. - vit A,C,B-Xwbw-Tynxsd (OCUVITE PRESERVISION) 7,160-113-100 vjkz-tk-biii tab Take 1 tablet by mouth daily with breakfast. - Cholecalciferol, Vitamin D3, 50 mcg (2,000 unit) cap Take 1 tablet by mouth once daily. - Calcium Carb-Cholecalciferol (NUBIA-600 WITH VITAMIN D) 600 (1,500)-200 mg-unit ORAL Tab Take one(1) tablet twice daily. Problem List As Of Date 08/10/2022 Noted Resolved BREAST DISORDER NOS [N64.9] 03/13/2007 BENIGN NEOPLASM LG BOWEL [D12.6] 11/15/2007 INT HEMORRHOID W/O COMPL [K64.8] 11/15/2007 Vitamin D deficiency [E55.9] 11/12/2010 Pneumonia [J18.9] 08/2010 Osteopenia of multiple sites [M85.89] 05/13/2019 T3 low in serum [R79.89] 05/13/2019 Dyslipidemia [E78.5] 05/13/2019 Bronchitis, mucopurulent recurrent (HCC) [J41.1]05/13/2019 Well adult exam [Z00.00] 05/13/2019 Epicondylitis, lateral, left [M77.12] 06/20/2019 Encounter Status:Closed by FRANDY APONTEUSER on 08/15/22 [facility] 07-20-2022 Miscellaneous Notes Formattin g of this note might be different from the original. Pt was notified of results & voiced understanding. Pt states she will repeat in 2-4 wks. Meli Portillo LPN Left message to return call. Please inform patient that her labs are all okay except for low T3 thyroid levels. Her free t4 and TSH levels for thyroid are normal. Would recommend thyroid labs be rechecked in 2-4 weeks, these are ordered Jay Olivier DO documented in this encounter [facility] 07-18-2022 Note HNO ID: [id number] Author: Jay Olivier DO Service: ? Author Type: Physician Type: Progress Notes Filed: 07/21/2022 10:36 AM Note Text: CC: Jacqueline Sandhu is a 66 year old female who presents to the office for follow up HPI: Struggling recently with concerns for memory loss. Has had a lot of recent stress in her life since her son living in [place] and his with metastatic breast cancer with poor prognosis and her daughter lives in [place] with her other 2 grandchildren and helping care for her aging parents, mother has dementia and father with macular degeneration. 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 Otherwise eats a very healthy high vegetable and healthy fat diet. Minimal sugar and processed foods, no soda in diet. + fatigue PAST MEDICAL HISTORY Diagnosis Date Anxiety disorder in conditions classified elsewhere Benign neoplasm of colon Diffuse cystic mastopathy 02/13/07 Family history of abdominal aortic aneurysm Female bladder prolapse Insomnia, unspecified Internal hemorrhoids without mention of complication Pneumonia 08/2010 Sleep apnea [address] Anthony Snoring Varicose vein of leg PAST SURGICAL HISTORY Procedure Laterality Date COLONOSCOPY FLX DX W/COLLJ SPEC WHEN PFRMD 03/11/2019 Colonoscopy COLSC FLX W/RMVL OF TUMOR POLYP LESION SNARE TQ 11/15/2007 inflammatory polyp OTHER 06/2009 Bladder repair - Dr. Arndt PAST SURGICAL HISTORY OF 1988 varicose stripping, left leg X2 SEPTOPLASTY 09/2010 STEREOTACTIC CORE BIOPSY 02/05/07 LEFT VAGINAL HYSTERECTOMY UTERUS 250 GM/< 1987 Current Outpatient Medications Medication Sig venlafaxine ER (EFFEXOR XR) 75 mg 24 hr capsule Take 1 capsule by mouth once daily. traZODone HCl (DESYREL) 300 mg tablet Take 1 tablet by mouth daily at bedtime. Biotin 10,000 mcg cap Take 1 capsule by mouth once daily. vit A,C,Z-Cbjn-Ntxhuu (OCUVITE PRESERVISION) 7,160-113-100 yiou-zb-olgv tab Take 1 tablet by mouth daily with breakfast. Cholecalciferol, Vitamin D3, 50 mcg (2,000 unit) cap Take 1 tablet by mouth once daily. Calcium Carb-Cholecalciferol (NUBIA-600 WITH VITAMIN D) 600 (1,500)-200 mg-unit ORAL Tab Take one(1) tablet twice daily. No current facility-administered medications for this visit. ALLERGIES No Known Allergies Social History Tobacco Use Smoking status: Never Smokeless tobacco: Never Vaping Use Vaping Use: Never used Substance Use Topics Alcohol use: No Drug use: No ROS: See HPI PE: BP 146/96 Pulse 64 Temp (Src) 98.3 (Right Tympanic) Resp 16 Wt 107 lb (48.5kg) Gen: AANDOX3, NAD, non-toxic appearing HEENT: PERRLA, EOMs intact b/l, nares without drainage, pharynx without erythema, exudate, lesions, or drainage. Uvula midline. Neck: No LAD, no thyromegaly, no meningismus. CV: RRR, no murmur Lungs: CTA b/l, no wheezing Skin: No rashes, lesions, or wounds on exposed skin. Non focal normal neurologic exam except for mild hyperreflexia patellar reflexes at 3/4 b/l and mild dis coordination of rapid alternating hand movements. MINI MENTAL STATE EXAMINATION ORIENTATION 1. What is the.. ? year season date day month 08/26 2. Where are we? [facility] Floor 08/26 REGISTRATION 3. Name 3 objects, ask patient to repeat all three afterwards. 06/24 ATTENTION AND CALCULATION 4. serial sevens OR spell WORLD backwards 08/26 RECALL 5.Repeat the objects from question #3 06/24 LANGUAGE 6. Point to a pencil and a watch, have patient name them 05/26 7. Have the patient repeat 'no ifs ands or buts' 04/24 8. Have the patient follow a three-step command: 'Take a piece of paper in your right hand. Fold the paper in half. Put the paper on the floor.' 06/24 9. Have the patient read and obey the following 'Close your eyes' 04/24 10. Have the patient write a sentence of his/her choice 04/24 11. Have the patient copy the design: (Intersecting quadrangles) 04/24 [id number]) Has there ever been a period of time when you were not your usual self and... ... you felt so good or so hyper that other people thought you were not your normal self or you were so hyper that you got into trouble? No ... you were so irritable that you shouted at people or started fights or arguments? No ... you felt much more self-confident than usual? No ... you got much less sleep than usual and found you didn't really miss it? No ... you were much more talkative or spoke much faster than usual? No ... thoughts raced through your head or you couldn't slow your mind down? No ... you were so easily distracted by things around you that you had trouble concentrating or staying on track? No ... you had much more energy than usual? No ... you were much more social or outgoing than usual, for example, you telephoned friends in the middle of the night? (more content not included)... [facility] 07-18-2022 History of Presen t illness Narrative CC: Jacqueline Sandhu is a 66 year old female who presents to the office for follow up HPI: Struggling recently with concerns for memory loss. Has had a lot of recent stress in her life since her son living in [place] and his with metastatic breast cancer with poor prognosis and her daughter lives in [place] with her other 2 grandchildren and helping care for her aging parents, mother has dementia and father with macular degeneration. 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 Otherwise eats a very healthy high vegetable and healthy fat diet. Minimal sugar and processed foods, no soda in diet. + fatigue PAST MEDICAL HISTORY Diagnosis Date Anxiety disorder in conditions classified elsewhere Benign neoplasm of colon Diffuse cystic mastopathy 02/13/07 Family history of abdominal aortic aneurysm Female bladder prolapse Insomnia, unspecified Internal hemorrhoids without mention of complication Pneumonia 08/2010 Sleep apnea [address] Anthony Snoring Varicose vein of leg PAST SURGICAL HISTORY Procedure Laterality Date COLONOSCOPY FLX DX W/COLLJ SPEC WHEN PFRMD 03/11/2019 Colonoscopy COLSC FLX W/RMVL OF TUMOR POLYP LESION SNARE TQ 11/15/2007 inflammatory polyp OTHER 06/2009 Bladder repair - Dr. Arndt PAST SURGICAL HISTORY OF 1988 varicose stripping, left leg X2 SEPTOPLASTY 09/2010 STEREOTACTIC CORE BIOPSY 02/05/07 LEFT VAGINAL HYSTERECTOMY UTERUS 250 GM/< 1987 Current Outpatient Medications Medication Sig venlafaxine ER (EFFEXOR XR) 75 mg 24 hr capsule Take 1 capsule by mouth once daily. traZODone HCl (DESYREL) 300 mg tablet Take 1 tablet by mouth daily at bedtime. Biotin 10,000 mcg cap Take 1 capsule by mouth once daily. vit A,C,M-Cmpi-Exvzxt (OCUVITE PRESERVISION) 7,160-113-100 jxgn-ym-dwwz tab Take 1 tablet by mouth daily with breakfast. Cholecalciferol, Vitamin D3, 50 mcg (2,000 unit) cap Take 1 tablet by mouth once daily. Calcium Carb-Cholecalciferol (NUBIA-600 WITH VITAMIN D) 600 (1,500)-200 mg-unit ORAL Tab Take one(1) tablet twice daily. No current facility-administered medications for this visit. ALLERGIES No Known Allergies Social History Tobacco Use Smoking status: Never Smokeless tobacco: Never Vaping Use Vaping Use: Never used Substance Use Topics Alcohol use: No Drug use: No ROS: See HPI PE: BP 146/96 Pulse 64 Temp (Src) 98.3 (Right Tympanic) Resp 16 Wt 107 lb (48.5kg) Gen: A&OX3, NAD, non-toxic appearing HEENT: PERRLA, EOMs intact b/l, nares without drainage, pharynx without erythema, exudate, lesions, or drainage. Uvula midline. Neck: No LAD, no thyromegaly, no meningismus. CV: RRR, no murmur Lungs: CTA b/l, no wheezing Skin: No rashes, lesions, or wounds on exposed skin. Non focal normal neurologic exam except for mild hyperreflexia patellar reflexes at 3/4 b/l and mild dis coordination of rapid alternating hand movements. MINI MENTAL STATE EXAMINATION ORIENTATION 1. What is the.. ? year season date day month 08/26 2. Where are we? [facility] Floor 08/26 REGISTRATION 3. Name 3 objects, ask patient to repeat all three afterwards. 06/24 ATTENTION AND CALCULATION 4. serial sevens OR spell WORLD backwards 08/26 RECALL 5.Repeat the objects from question #3 06/24 LANGUAGE 6. Point to a pencil and a watch, have patient name them 05/26 7. Have the patient repeat 'no ifs ands or buts' 04/24 8. Have the patient follow a three-step command: 'Take a piece of paper in your right hand. Fold the paper in half. Put the paper on the floor.' 06/24 9. Have the patient read and obey the following 'Close your eyes' 04/24 10. Have the patient write a sentence of his/her choice 04/24 11. Have the patient copy the design: (Intersecting quadrangles) 04/24 [id number]) Has there ever been a period of time when you were not your usual self and... ... you felt so good or so hyper that other people thought you were not your normal self or you were so hyper that you got into trouble? No ... you were so irritable that you shouted at people or started fights or arguments? No ... you felt much more self-confident than usual? No ... you got much less sleep than usual and found you didn't really miss it? No ... you were much more talkative or spoke much faster than usual? No ... thoughts raced through your head or you couldn't slow your mind down? No ... you were so easily distracted by things around you that you had trouble concentrating or staying on track? No ... you had much more energy than usual? No ... you were much more social or outgoing than usual, for example, you telephoned friends in the middle of the night? No ... you were much more interested in sex than usual? No ... you did things that were unusual for you or that other people might have thought were excessive, foolish, or risky? No ... spending money got you or your family into trouble? No 2) If you checked YES to more than one of the above, have several of these ever happened during the same period of time? No 3) How much of a problem did any of these cause you, like being unable to work; having family, money or legal troubles; getting into arguments or fights? (select one response only, please) No problem. Normal clock drawing ASSESSMENT/PLAN: 1. Poor short term memory - ICD9: 780.93, ICD10: R41.3 Recommend labs to be checked. MMSE 30/30. Consider CT brain as d/w her today since her neurologic examination was slightly abnormal. Has risk of dementia- mother with Alzheimer's - TSH BLD - T4 FREE/FREE THYROX - T3 FREE BLD - CBC + DIFF - COMP METABOLIC PANEL - VITAMIN B12 BLOOD - VITAMIN D 25 HYDROXY - FOLATE SERUM - MAGNESIUM BLD Jay Olivier DO Return if no improvement. Follow up with Jay Olivier DO. To ER if develops chest pain, shortness of breath Discussed risks, benefits, alternatives, and potential side effects of medications. Patient/Guardian expressed understanding and agreed with the plan. See patient instructions. Jay Olivier DO [address] [place] [id number] documented in this encounter [facility] 05-05-2022 Miscellaneous Notes Formattin g of this note might be different from the original. Pt informed, verbalized understanding Carmen Rosado Ma Please inform patient that I am absolutely okay with treating her with a steroid and antibiotic to see if cough resolves. If it doesn't, then recommend CT chest Jay Olivier DO The following approved medication requests have been transmitted electronically. Requested Prescriptions Signed Prescriptions Disp Refills doxycycline (VIBRA-TABS) 100 mg tablet 20 tablet 0 Sig: Take 1 tablet by mouth twice daily for 10 days. Authorizing Provider: JAY OLIVIER methylPREDNISolone (MEDROL, KASIA,) 4 mg Dose-Pack 21 tablet 0 Sig: Follow dosing instructions, take with food. Authorizing Provider: JAY OLIVIER DO Spoke with pt she states yes the bottom of that ct report there is mention of her bottom rt lung. She states and this cough has not gotten better in last two weeks. Brings nothing up with it, no fevers. Family was sick with strep but around mona time. Been just doing teas no meds for this. States this was just caught with lung by accident. Please call patient and clarify. I just see a CT abd/pelvis done as ordered by Luci. No lung testing. How long has cough been going on? Any sputum? Any fevers? Sick contacts? Any medication use? Jay Olivier DO Patient asking pcp to review and advise on CT results. Reports she has a dry cough and is getting worse. No fever. documented in this encounter [facility] 04-26-2022 Note HNO ID: [id number] Author: RT Fransisco(R) Service: ? Author Type: Power System Engineer Type: Progress Notes Filed: 04/26/2022 3:41 PM Note Text: Radiology Service Progress Note DATE OF SERVICE: April 26, 2022 TIME: 3:40 PM PATIENT IDENTITY VERIFICATION COMPLETED USING TWO (2) STANDARD IDENTIFIERS: Name and Date of confirmed by patient verbally. FALL SCREENING: Has the patient had 2 falls in the last year or 1 fall with injury or currently using an Ambulatory Assistive Device (Walker, Cane, Wheelchair, Crutches, etc.)? No PATIENT GENDER DATA: Female. status: : No status: NO. PATIENT RELEVANT IMPLANT DATA REVIEWED: Yes ALLERGIES: Reviewed and unchanged CONTRAST ALLERGY: NO. EXAM: CT -CONTRAST INDUCED NEPHROPATHY RISK FACTORS: Patient age > 60 years CREATININE: Creatinine Date Value Ref Range Status 04/13/2022 0.70 0.58 - 0.96 mg/dL Final 01/08/2019 0.69 0.58 - 0.96 mg/dL Final 08/24/2007 0.7 0.7 - 1.4 mg/dL Final Estimated Glomerular Filtration Rate Date Value Ref Range Status 04/13/2022 97 >=60 mL/min/1.73m? Final Comment: Estimated Glomerular Filtration Rate (eGFR) is calculated using the 2020 CKD-EPI creatinine equation. This equation utilizes serum creatinine, sex, and age as parameters. The creatinine assay has traceable calibration to isotope dilution-mass spectrometry. Refer to KDIGO guidelines for clinical interpretation. In patients with unstable renal function, e.g. those with acute kidney injury, the eGFR may not accurately reflect actual GFR. eGFR- Date Value Ref Range Status 01/08/2019 >60 Final P.O.C.T. RESULTS: POC done: Yes, See Lab Tab April 26, 2022 TREATMENT: N/A PERIPHERAL IV DATA: Ambulatory: A peripheral IV was started in the Left antecubital site with a Angio cath: 22 gauge. RADIOLOGY DEPARTMENT: CT; Exam(s) Completed: Abdomen SIGNATURE: RT Marcus(R) PATIENT NAME: Jacqueline Sandhu DATE: April 26, 2022 TIME: 3:40 PM [facility] 04-26-2022 History of Presen t illness Narrative Radiology Service Progress Note DATE OF SERVICE: April 26, 2022 TIME: 3:40 PM PATIENT IDENTITY VERIFICATION COMPLETED USING TWO (2) STANDARD IDENTIFIERS: Name and Date of confirmed by patient verbally. FALL SCREENING: Has the patient had 2 falls in the last year or 1 fall with injury or currently using an Ambulatory Assistive Device (Walker, Cane, Wheelchair, Crutches, etc.)? No PATIENT GENDER DATA: Female. status: : No status: NO. PATIENT RELEVANT IMPLANT DATA REVIEWED: Yes ALLERGIES: Reviewed and unchanged CONTRAST ALLERGY: NO. EXAM: CT -CONTRAST INDUCED NEPHROPATHY RISK FACTORS: Patient age > 60 years CREATININE: Creatinine Date Value Ref Range Status 04/13/2022 0.70 0.58 - 0.96 mg/dL Final 01/08/2019 0.69 0.58 - 0.96 mg/dL Final 08/24/2007 0.7 0.7 - 1.4 mg/dL Final Estimated Glomerular Filtration Rate Date Value Ref Range Status 04/13/2022 97 >=60 mL/min/1.73m Final Comment: Estimated Glomerular Filtration Rate (eGFR) is calculated using the 2020 CKD-EPI creatinine equation. This equation utilizes serum creatinine, sex, and age as parameters. The creatinine assay has traceable calibration to isotope dilution-mass spectrometry. Refer to KDIGO guidelines for clinical interpretation. In patients with unstable renal function, e.g. those with acute kidney injury, the eGFR may not accurately reflect actual GFR. eGFR- Date Value Ref Range Status 01/08/2019 >60 Final P.O.C.T. RESULTS: POC done: Yes, See Lab Tab April 26, 2022 TREATMENT: N/A PERIPHERAL IV DATA: Ambulatory: A peripheral IV was started in the Left antecubital site with a Angio cath: 22 gauge. RADIOLOGY DEPARTMENT: CT; Exam(s) Completed: Abdomen SIGNATURE: RT Marcus(R) PATIENT NAME: Jacqueline Sandhu DATE: April 26, 2022 TIME: 3:40 PM documented in this encounter [facility] 04-13-2022 Note HNO ID: [id number] Author: Marianna German APRN.CHAINSTITCH P[employer]S OUTSEAMER Service: ? Author Type: Nurse Practitioner Type: Progress Notes Filed: 04/14/2022 9:02 AM Note Text: Chief Complaint Patient presents with: Hernia: Right side of abdomen x couple years, area is painful HPI Jacqueline Sandhu is a 66 year old female who presents here today for Above Complaints. Today: For a couple years has had a bulge just below her right ribs in her upper stomach. Now has become painful. Coughing, exercising, carrying grandkids causes increased pain. Memory has been a concern. With significant family stresses right now seems exacerbated. Mother has dementia. Short term memory is worst. Past medical history, appointments, medications, allergies reviewed. Previous Medical History PAST MEDICAL HISTORY Diagnosis Date Anxiety disorder in conditions classified elsewhere Benign neoplasm of colon Diffuse cystic mastopathy 02/13/07 Family history of abdominal aortic aneurysm Female bladder prolapse Insomnia, unspecified Internal hemorrhoids without mention of complication Pneumonia 08/2010 Sleep apnea [address] Anthony Snoring Varicose vein of leg Previous Surgical History PAST SURGICAL HISTORY Procedure Laterality Date COLONOSCOPY FLX DX W/COLLJ SPEC WHEN PFRMD 03/11/2019 Colonoscopy COLSC FLX W/RMVL OF TUMOR POLYP LESION SNARE TQ 11/15/2007 inflammatory polyp OTHER 06/2009 Bladder repair - Dr. Meier-Karlie PAST SURGICAL HISTORY OF 1988 varicose stripping, left leg X2 SEPTOPLASTY 09/2010 STEREOTACTIC CORE BIOPSY 02/05/07 LEFT VAGINAL HYSTERECTOMY UTERUS 250 GM/< 1987 Family History FAMILY HISTORY Problem Relation Age of Onset Breast Cancer Mother Cancer Mother Cancer Maternal Grandmother Stroke Maternal Grandmother Cancer Maternal Grandfather Diabetes Maternal Grandfather Prostate Cancer Maternal Grandfather Coronary Artery Disease Father CABG Ischemic Heart Disease Paternal Grandmother MT at 50 Patient Allergies ALLERGIES No Known Allergies Current Medications Current Outpatient Medications on File Prior to Visit Medication Sig venlafaxine ER (EFFEXOR XR) 75 mg 24 hr capsule Take 1 capsule by mouth once daily. traZODone HCl (DESYREL) 300 mg tablet Take 1 tablet by mouth daily at bedtime. Biotin 10,000 mcg cap Take 1 capsule by mouth once daily. vit A,C,U-Hkos-Efymsi (OCUVITE PRESERVISION) 7,160-113-100 hmmh-rv-zghy tab Take 1 tablet by mouth daily with breakfast. Cholecalciferol, Vitamin D3, 50 mcg (2,000 unit) cap Take 1 tablet by mouth once daily. Calcium Carb-Cholecalciferol (NUBIA-600 WITH VITAMIN D) 600 (1,500)-200 mg-unit ORAL Tab Take one(1) tablet twice daily. No current facility-administered medications on file prior to visit. Social History Social History Tobacco Use Smoking status: Never Smokeless tobacco: Never Vaping Use Vaping Use: Never used Substance Use Topics Alcohol use: No Drug use: No Review of Symptoms REVIEW OF SYSTEMS See HPI, otherwise negative EXAM: BP 118/80 (BP Site: Left Arm, BP Position: Sitting, BP Cuff Size: Regular Adult) Pulse 72 Resp 16 Wt 48.4 kg (106 lb 12.8 oz) SpO2 98% BMI 18.33 kg/m? General Appearance: Well appearing, alert, in no acute distress, well-hydrated, well nourished.. Lungs: Lungs clear to auscultation. No wheezing, rhonchi, rales.. Heart: RRR without murmur, gallop, or rubs. No ectopy. Abdomen: Normal abdominal exam, Abdomen soft, non-tender. Bowel sounds normal. No masses, organomegaly. Health Maintenance List COVID-19 VACCINE(1) Never done HEPATITIS C SCREENING Never done HIV SCREENING Never done HPV TESTING Never done COLORECTAL CANCER SCREENING due on 03/11/2021 DEPRESSION ASSESSMENT Never done MAMMOGRAM due on 07/23/2021 INFLUENZA(1) due on 12/23/2021 DIABETES SCREEN due on 01/08/2022 LIPID SCREEN due on 06/19/2024 DTAP,TDAP,TD(2 - Td or Tdap) due on 05/10/2027 SHINGRIX VACCINE Completed PAP TESTING Discontinued Data reviewed Previous results, office notes ASSESSMENT/PLAN: 1. RUQ pain - ICD9: 789.01, ICD10: R10.11 (primary diagnosis) Despite negative assessment given today, per patient and 's report over the past 2 years and worsening pain, CT is necessary to assess for hernia. - CT ABDOMEN W IVCON 2. Right upper quadrant abdominal mass - ICD9: 789.31, ICD10: R19.01 Despite negative assessment given today, per patient and 's report over the past 2 years and worsening pain, CT is necessary to assess for hernia. - CT ABDOMEN W IVCON 3. Preprocedural examination - ICD9: V72.84, ICD10: Z01.818 - IV CONTRAST (RADIOLOGY PROCEDURE) - ENTERIC CONTRAST (RADIOLOGY PROCEDURE) - CBC - COMP METABOLIC PANEL 4. Poor short term memory - ICD9: 780.93, ICD10: R41.3 Suspect r/t significant stress. She will schedule another appointment for MMSE. Likely no CT at that time, but continue to monit (more content not included)... [facility] 04-13-2022 History of Presen t illness Narrative Chief Complaint Patient presents with: Hernia: Right side of abdomen x couple years, area is painful HPI Jacqueline Sandhu is a 66 year old female who presents here today for Above Complaints. Today: For a couple years has had a bulge just below her right ribs in her upper stomach. Now has become painful. Coughing, exercising, carrying grandkids causes increased pain. Memory has been a concern. With significant family stresses right now seems exacerbated. Mother has dementia. Short term memory is worst. Past medical history, appointments, medications, allergies reviewed. Previous Medical History PAST MEDICAL HISTORY Diagnosis Date Anxiety disorder in conditions classified elsewhere Benign neoplasm of colon Diffuse cystic mastopathy 02/13/07 Family history of abdominal aortic aneurysm Female bladder prolapse Insomnia, unspecified Internal hemorrhoids without mention of complication Pneumonia 08/2010 Sleep apnea [address] Anthony Snoring Varicose vein of leg Previous Surgical History PAST SURGICAL HISTORY Procedure Laterality Date COLONOSCOPY FLX DX W/COLLJ SPEC WHEN PFRMD 03/11/2019 Colonoscopy COLSC FLX W/RMVL OF TUMOR POLYP LESION SNARE TQ 11/15/2007 inflammatory polyp OTHER 06/2009 Bladder repair - Dr. Arndt PAST SURGICAL HISTORY OF 1988 varicose stripping, left leg X2 SEPTOPLASTY 09/2010 STEREOTACTIC CORE BIOPSY 02/05/07 LEFT VAGINAL HYSTERECTOMY UTERUS 250 GM/< 1987 Family History FAMILY HISTORY Problem Relation Age of Onset Breast Cancer Mother Cancer Mother Cancer Maternal Grandmother Stroke Maternal Grandmother Cancer Maternal Grandfather Diabetes Maternal Grandfather Prostate Cancer Maternal Grandfather Coronary Artery Disease Father CABG Ischemic Heart Disease Paternal Grandmother MT at 50 Patient Allergies ALLERGIES No Known Allergies Current Medications Current Outpatient Medications on File Prior to Visit Medication Sig venlafaxine ER (EFFEXOR XR) 75 mg 24 hr capsule Take 1 capsule by mouth once daily. traZODone HCl (DESYREL) 300 mg tablet Take 1 tablet by mouth daily at bedtime. Biotin 10,000 mcg cap Take 1 capsule by mouth once daily. vit A,C,W-Sblo-Iqojdt (OCUVITE PRESERVISION) 7,160-113-100 exji-uz-dvlj tab Take 1 tablet by mouth daily with breakfast. Cholecalciferol, Vitamin D3, 50 mcg (2,000 unit) cap Take 1 tablet by mouth once daily. Calcium Carb-Cholecalciferol (NUBIA-600 WITH VITAMIN D) 600 (1,500)-200 mg-unit ORAL Tab Take one(1) tablet twice daily. No current facility-administered medications on file prior to visit. Social History Social History Tobacco Use Smoking status: Never Smokeless tobacco: Never Vaping Use Vaping Use: Never used Substance Use Topics Alcohol use: No Drug use: No Review of Symptoms REVIEW OF SYSTEMS See HPI, otherwise negative EXAM: BP 118/80 (BP Site: Left Arm, BP Position: Sitting, BP Cuff Size: Regular Adult) Pulse 72 Resp 16 Wt 48.4 kg (106 lb 12.8 oz) SpO2 98% BMI 18.33 kg/m General Appearance: Well appearing, alert, in no acute distress, well-hydrated, well nourished.. Lungs: Lungs clear to auscultation. No wheezing, rhonchi, rales.. Heart: RRR without murmur, gallop, or rubs. No ectopy. Abdomen: Normal abdominal exam, Abdomen soft, non-tender. Bowel sounds normal. No masses, organomegaly. Health Maintenance List COVID-19 VACCINE(1) Never done HEPATITIS C SCREENING Never done HIV SCREENING Never done HPV TESTING Never done COLORECTAL CANCER SCREENING due on 03/11/2021 DEPRESSION ASSESSMENT Never done MAMMOGRAM due on 07/23/2021 INFLUENZA(1) due on 12/23/2021 DIABETES SCREEN due on 01/08/2022 LIPID SCREEN due on 06/19/2024 DTAP,TDAP,TD(2 - Td or Tdap) due on 05/10/2027 SHINGRIX VACCINE Completed PAP TESTING Discontinued Data reviewed Previous results, office notes ASSESSMENT/PLAN: 1. RUQ pain - ICD9: 789.01, ICD10: R10.11 (primary diagnosis) Despite negative assessment given today, per patient and 's report over the past 2 years and worsening pain, CT is necessary to assess for hernia. - CT ABDOMEN W IVCON 2. Right upper quadrant abdominal mass - ICD9: 789.31, ICD10: R19.01 Despite negative assessment given today, per patient and 's report over the past 2 years and worsening pain, CT is necessary to assess for hernia. - CT ABDOMEN W IVCON 3. Preprocedural examination - ICD9: V72.84, ICD10: Z01.818 - IV CONTRAST (RADIOLOGY PROCEDURE) - ENTERIC CONTRAST (RADIOLOGY PROCEDURE) - CBC - COMP METABOLIC PANEL 4. Poor short term memory - ICD9: 780.93, ICD10: R41.3 Suspect r/t significant stress. She will schedule another appointment for MMSE. Likely no CT at that time, but continue to monitor. 5. Family history of dementia - ICD9: V17.2, ICD10: Z81.8 Suspect r/t significant stress. She will schedule another appointment for MMSE. Likely no CT at that time, but continue to monitor. Marianna German APRN.CNP documented in this encounter [facility] 03-24-2022 Miscellaneous Notes Formattin g of this note might be different from the original. Last office visit: 11/22/21 F/u scheduled: none Deysi Ramírez Ma documented in this encounter [facility] 02-11-2022 Miscellaneous Notes Formattin g of this note is different from the original. The following approved medication requests have been transmitted electronically. Requested Prescriptions Signed Prescriptions Disp Refills ciprofloxacin HCl (CIPRO) 500 mg tablet 20 tablet 0 Sig: Take 1 tablet by mouth twice daily for 10 days. Authorizing Provider: JAY OLIVIER DO documented in this encounter [facility] 12-03-2021 Note HNO ID: [id number] Author: Misbah Roger APRN.CHAINSTITCH P[employer] OUTSEAMER Service: ? Author Type: Nurse Practitioner Type: Progress Notes Filed: 12/03/2021 12:55 PM Note Text: Subjective HPI HPI Jacqueline Sandhu is a 66 year old female who presents today for CC of right rib pain. This started 6 days ago/worsening. Has tried otc medication for relief. Symptoms are worsened by nothing. Has gallbladder intact. Had drippy nose and cough/resolved. .Patient presents with: side pain: R side pain, cough, runny nose x6 days PAST MEDICAL HISTORY Diagnosis Date Anxiety disorder in conditions classified elsewhere Benign neoplasm of colon Diffuse cystic mastopathy 02/13/07 Family history of abdominal aortic aneurysm Female bladder prolapse Insomnia, unspecified Internal hemorrhoids without mention of complication Pneumonia 08/2010 Sleep apnea [address] Anthony Snoring Varicose vein of leg PAST SURGICAL HISTORY Procedure Laterality Date COLONOSCOPY FLX DX W/COLLJ SPEC WHEN PFRMD 03/11/2019 Colonoscopy COLSC FLX W/RMVL OF TUMOR POLYP LESION SNARE TQ 11/15/2007 inflammatory polyp OTHER 06/2009 Bladder repair - Dr. Arndt PAST SURGICAL HISTORY OF 1988 varicose stripping, left leg X2 SEPTOPLASTY 09/2010 STEREOTACTIC CORE BIOPSY 02/05/07 LEFT VAGINAL HYSTERECTOMY UTERUS 250 GM/< 1986 ALLERGIES Patient has no known allergies. MEDICATIONS traZODone HCl (DESYREL) 300 mg tablet Take 1 tablet by mouth daily at bedtime. venlafaxine ER (EFFEXOR XR) 75 mg 24 hr capsule Take 1 capsule by mouth once daily. Biotin 10,000 mcg cap Take 1 capsule by mouth once daily. vit A,C,V-Yzcl-Gmgyai (OCUVITE PRESERVISION) 7,160-113-100 ybzh-zi-rprs tab Take 1 tablet by mouth daily with breakfast. Cholecalciferol, Vitamin D3, (VITAMIN D-3) 2,000 unit ORAL Cap Take 1 tablet by mouth once daily. Calcium Carb-Cholecalciferol (NUBIA-600 WITH VITAMIN D) 600 (1,500)-200 mg-unit ORAL Tab Take one(1) tablet twice daily. FAMILY HISTORY Problem Relation Age of Onset Breast Cancer Mother Cancer Mother Cancer Maternal Grandmother Stroke Maternal Grandmother Cancer Maternal Grandfather Diabetes Maternal Grandfather Prostate Cancer Maternal Grandfather Coronary Artery Disease Father CABG Ischemic Heart Disease Paternal Grandmother MT at 50 Social History Tobacco Use Smoking status: Never Smokeless tobacco: Never Vaping Use Vaping Use: Never used Substance Use Topics Alcohol use: No Drug use: No ROS Objective Blood pressure 120/84, pulse 85, temperature 36.8 ?C (98.3 ?F), resp. rate 20, weight 47.6 kg (105 lb), SpO2 100 %. Physical Exam Constitutional: General: She is not in acute distress. Appearance: She is not toxic-appearing or diaphoretic. HENT: Head: Normocephalic and atraumatic. Pulmonary: Effort: Pulmonary effort is normal. No accessory muscle usage or respiratory distress. Abdominal: General: Abdomen is flat. Bowel sounds are normal. Palpations: Abdomen is soft. Tenderness: There is abdominal tenderness in the right upper quadrant. There is guarding. Neurological: Mental Status: She is alert and oriented to person, place, and time. ASSESSMENT/PLAN: 1. RUQ pain - ICD9: 789.01, ICD10: R10.11 D/t worsening s/s and guarding on exam. I will refer patient to ER. Will drive pov to [facility] ER. Misbah Roger APRN.CHAINSTITCH PANTS OUTSEAMER [facility] 11-22-2021 Note HNO ID: [id number] Author: RT David(R) Service: ? Author Type: Power System Engineer Type: Progress Notes Filed: 11/22/2021 4:28 PM Note Text: Radiology Service Progress Note PATIENT NAME: Jacqueline Sandhu DATE OF SERVICE: November 22, 2021 TIME: 4:16 PM PATIENT IDENTITY VERIFICATION COMPLETED USING TWO (2) IDENTIFIERS: Name and Date of confirmed by patient verbally. FALL SCREENING: Has the patient had 2 falls in the last year or 1 fall with injury or currently using an Ambulatory Assistive Device (Walker, Cane, Wheelchair, Crutches, etc.)? No PATIENT GENDER DATA: Female. status: : No status: NO. PATIENT RELEVANT IMPLANT DATA REVIEWED: Yes RADIOLOGY DEPARTMENT: General X-ray: Exam(s) Completed: Lower Extremity X-Ray(s): Foot, Right PERIPHERAL IV DATA: Not applicable SIGNED BY: RT David(R) November 22, 2021 4:16 PM [facility] 11-22-2021 Miscellaneous Notes Spoke with patient. Given message from provider's office. Patient verbalizes understanding. Flaca Osborn RN Message left to return call. Alyson Pritchett LPN Please let Jacqueline know that there is no fracture in her foot or toes. Let's give the interventions that we planned today, including the boot, 2 weeks. If no improvement or things are worsening, we'll get her in to see podiatry. Marianna German APRN.OPAL documented in this encounter [facility] 11-22-2021 Note HNO ID: [id number] Author: Marianna German APRN.CNP Service: ? Author Type: Nurse Practitioner Type: Progress Notes Filed: 11/25/2021 10:11 AM Note Text: Chief Complaint Patient presents with: Foot Pain (Midfoot): right foot HPI Jacqueline Sandhu is a 65 year old female who presents here today for Above Complaints.. About 5-6 days ago her toes on her right foot started hurting, are swollen. Hurts on the bottoms of her toes. No injury. Wearing tennis shoes, but this makes the puffiness worse. Took Tylenol, which took the edge off. Icing helps, but is temporary. Past medical history, appointments, medications, allergies reviewed. Previous Medical History PAST MEDICAL HISTORY Diagnosis Date - Anxiety disorder in conditions classified elsewhere - Benign neoplasm of colon - Diffuse cystic mastopathy 02/13/07 - Family history of abdominal aortic aneurysm - Female bladder prolapse - Insomnia, unspecified - Internal hemorrhoids without mention of complication - Pneumonia 08/2010 - Sleep apnea [address] Anthony - Snoring - Varicose vein of leg Previous Surgical History PAST SURGICAL HISTORY Procedure Laterality Date - COLONOSCOPY FLX DX W/COLLJ SPEC WHEN PFRMD 03/11/2019 Colonoscopy - COLSC FLX W/RMVL OF TUMOR POLYP LESION SNARE TQ 11/15/2007 inflammatory polyp - OTHER 06/2009 Bladder repair - Dr. Arndt - PAST SURGICAL HISTORY OF 1988 varicose stripping, left leg X2 - SEPTOPLASTY 09/2010 - STEREOTACTIC CORE BIOPSY 02/05/07 LEFT - VAGINAL HYSTERECTOMY UTERUS 250 GM/< 1987 Family History FAMILY HISTORY Problem Relation Age of Onset - Breast Cancer Mother - Cancer Mother - Cancer Maternal Grandmother - Stroke Maternal Grandmother - Cancer Maternal Grandfather - Diabetes Maternal Grandfather - Prostate Cancer Maternal Grandfather - Coronary Artery Disease Father CABG - Ischemic Heart Disease Paternal Grandmother MT at 50 Patient Allergies ALLERGIES No Known Allergies Current Medications Current Outpatient Medications on File Prior to Visit Medication Sig - traZODone HCl (DESYREL) 300 mg tablet Take 1 tablet by mouth daily at bedtime. - venlafaxine ER (EFFEXOR XR) 150 mg 24 hr capsule Take 1 capsule by mouth once daily. - Biotin 10,000 mcg cap Take 1 capsule by mouth once daily. - vit A,C,A-Iiil-Cvlcwn (OCUVITE PRESERVISION) 7,160-113-100 yomu-ed-hbtr tab Take 1 tablet by mouth daily with breakfast. - Cholecalciferol, Vitamin D3, (VITAMIN D-3) 2,000 unit ORAL Cap Take 1 tablet by mouth once daily. - Calcium Carb-Cholecalciferol (NUBIA-600 WITH VITAMIN D) 600 (1,500)-200 mg-unit ORAL Tab Take one(1) tablet twice daily. - alendronate (FOSAMAX) 70 mg tablet Take 1 tablet by mouth one time a week. Take with a full glass of water, on an empty stomach; do NOT lie down for 30minutes. (Patient not taking: Reported on 11/22/2021 ) - tacrolimus (PROTOPIC) 0.1 % ointment Apply 1 application to affected area twice daily. - COMPOUNDED PRESCRIPTION Stool softner as needed. No current facility-administered medications on file prior to visit. Social History Social History Tobacco Use - Smoking status: Never Smoker - Smokeless tobacco: Never Used Vaping Use - Vaping Use: Never used Substance Use Topics - Alcohol use: No - Drug use: No Review of Symptoms REVIEW OF SYSTEMS see HPI, otherwise negative EXAM: BP 142/86 (BP Site: Left Arm, BP Position: Sitting, BP Cuff Size: Regular Adult) Pulse 64 Resp 16 Wt 47.9 kg (105 lb 9.6 oz) SpO2 99% BMI 18.13 kg/m? General Appearance: Thin. Musculoskeletal: swelling to middle 3 toes of right foot. Painful to palpation plantar and dorsal surfaces of toes. Decreased ROM, likely d/t edema. Health Maintenance List COVID-19 VACCINE(1) Never done HEPATITIS C SCREENING Never done HIV SCREENING Never done HPV TESTING Never done COLORECTAL CANCER SCREENING due on 03/11/2021 MAMMOGRAM due on 07/23/2021 DEPRESSION SCREENING due on 08/24/2021 INFLUENZA(1) due on 12/23/2021 DIABETES SCREEN due on 01/08/2022 LIPID SCREEN due on 06/19/2024 DTAP,TDAP,TD(2 - Td or Tdap) due on 05/10/2027 SHINGRIX VACCINE Completed PAP TESTING Discontinued Data reviewed Previous records, office notes ASSESSMENT/PLAN: 1. Foot pain, right - ICD9: 729.5, ICD10: M79.671 (primary diagnosis) Concern for stress fracture. Boot given, icing with frozen water bottle, ibuprofen/acetaminophen prn, elevate foot. - XR FOOT GENERAL 3V AP/LAT/OBL RIGHT - PNEUMATI WALKING BOOT PREFAB 2. Localized swelling of right foot - ICD9: 729.81, ICD10: R22.41 Concern for stress fracture. Boot given, icing with frozen water bottle, ibuprofen/acetaminophen prn, elevate foot. - XR FOOT GENERAL 3V AP/LAT/OBL RIGHT - PNEUMATI WALKING BOOT PREFAB 3. Chronic insomnia - ICD9: 780.52, ICD10: F51.04 Trazodone refill given. Would like to begin cutting back on Effexor. (more content not included)... [facility] 11-22-2021 Instructions Marianna German APRN.CNP - 11/22/2021 3:57 PM EDT Cut back your Effexor to 75mg daily. I sent this to [facility] in [place]. Have your foot xray completed. Ice your foot with a frozen water bottle 3-4 times daily for 15-20 minutes at a time. Use ibuprofen/Tylenol as needed for pain, swelling. Elevate your foot as much as possible. Keep your boot on whenever up and around and walking. Ok to have off when sitting and propping it up, ok to be off when you're sleeping. documented in this encounter [facility] 11-22-2021 History of Presen t illness Narrative Chief Complaint Patient presents with: Foot Pain (Midfoot): right foot HPI Jacqueline Sandhu is a 65 year old female who presents here today for Above Complaints.. About 5-6 days ago her toes on her right foot started hurting, are swollen. Hurts on the bottoms of her toes. No injury. Wearing tennis shoes, but this makes the puffiness worse. Took Tylenol, which took the edge off. Icing helps, but is temporary. Past medical history, appointments, medications, allergies reviewed. Previous Medical History PAST MEDICAL HISTORY Diagnosis Date Anxiety disorder in conditions classified elsewhere Benign neoplasm of colon Diffuse cystic mastopathy 02/13/07 Family history of abdominal aortic aneurysm Female bladder prolapse Insomnia, unspecified Internal hemorrhoids without mention of complication Pneumonia 08/2010 Sleep apnea [address] Anthony Snoring Varicose vein of leg Previous Surgical History PAST SURGICAL HISTORY Procedure Laterality Date COLONOSCOPY FLX DX W/COLLJ SPEC WHEN PFRMD 03/11/2019 Colonoscopy COLSC FLX W/RMVL OF TUMOR POLYP LESION SNARE TQ 11/15/2007 inflammatory polyp OTHER 06/2009 Bladder repair - Dr. Arndt PAST SURGICAL HISTORY OF 1988 varicose stripping, left leg X2 SEPTOPLASTY 09/2010 STEREOTACTIC CORE BIOPSY 02/05/07 LEFT VAGINAL HYSTERECTOMY UTERUS 250 GM/< 1987 Family History FAMILY HISTORY Problem Relation Age of Onset Breast Cancer Mother Cancer Mother Cancer Maternal Grandmother Stroke Maternal Grandmother Cancer Maternal Grandfather Diabetes Maternal Grandfather Prostate Cancer Maternal Grandfather Coronary Artery Disease Father CABG Ischemic Heart Disease Paternal Grandmother MT at 50 Patient Allergies ALLERGIES No Known Allergies Current Medications Current Outpatient Medications on File Prior to Visit Medication Sig traZODone HCl (DESYREL) 300 mg tablet Take 1 tablet by mouth daily at bedtime. venlafaxine ER (EFFEXOR XR) 150 mg 24 hr capsule Take 1 capsule by mouth once daily. Biotin 10,000 mcg cap Take 1 capsule by mouth once daily. vit A,C,Q-Egsv-Aswvzs (OCUVITE PRESERVISION) 7,160-113-100 cpbl-me-wnms tab Take 1 tablet by mouth daily with breakfast. Cholecalciferol, Vitamin D3, (VITAMIN D-3) 2,000 unit ORAL Cap Take 1 tablet by mouth once daily. Calcium Carb-Cholecalciferol (NUBIA-600 WITH VITAMIN D) 600 (1,500)-200 mg-unit ORAL Tab Take one(1) tablet twice daily. alendronate (FOSAMAX) 70 mg tablet Take 1 tablet by mouth one time a week. Take with a full glass of water, on an empty stomach; do NOT lie down for 30minutes. (Patient not taking: Reported on 11/22/2021 ) tacrolimus (PROTOPIC) 0.1 % ointment Apply 1 application to affected area twice daily. COMPOUNDED PRESCRIPTION Stool softner as needed. No current facility-administered medications on file prior to visit. Social History Social History Tobacco Use Smoking status: Never Smoker Smokeless tobacco: Never Used Vaping Use Vaping Use: Never used Substance Use Topics Alcohol use: No Drug use: No Review of Symptoms REVIEW OF SYSTEMS see HPI, otherwise negative EXAM: BP 142/86 (BP Site: Left Arm, BP Position: Sitting, BP Cuff Size: Regular Adult) Pulse 64 Resp 16 Wt 47.9 kg (105 lb 9.6 oz) SpO2 99% BMI 18.13 kg/m General Appearance: Thin. Musculoskeletal: swelling to middle 3 toes of right foot. Painful to palpation plantar and dorsal surfaces of toes. Decreased ROM, likely d/t edema. Health Maintenance List COVID-19 VACCINE(1) Never done HEPATITIS C SCREENING Never done HIV SCREENING Never done HPV TESTING Never done COLORECTAL CANCER SCREENING due on 03/11/2021 MAMMOGRAM due on 07/23/2021 DEPRESSION SCREENING due on 08/24/2021 INFLUENZA(1) due on 12/23/2021 DIABETES SCREEN due on 01/08/2022 LIPID SCREEN due on 06/19/2024 DTAP,TDAP,TD(2 - Td or Tdap) due on 05/10/2027 SHINGRIX VACCINE Completed PAP TESTING Discontinued Data reviewed Previous records, office notes ASSESSMENT/PLAN: 1. Foot pain, right - ICD9: 729.5, ICD10: M79.671 (primary diagnosis) Concern for stress fracture. Boot given, icing with frozen water bottle, ibuprofen/acetaminophen prn, elevate foot. - XR FOOT GENERAL 3V AP/LAT/OBL RIGHT - PNEUMATI WALKING BOOT PREFAB 2. Localized swelling of right foot - ICD9: 729.81, ICD10: R22.41 Concern for stress fracture. Boot given, icing with frozen water bottle, ibuprofen/acetaminophen prn, elevate foot. - XR FOOT GENERAL 3V AP/LAT/OBL RIGHT - PNEUMATI WALKING BOOT PREFAB 3. Chronic insomnia - ICD9: 780.52, ICD10: F51.04 Trazodone refill given. Would like to begin cutting back on Effexor. Will cut from Effexor 150mg daily to 75mg daily. - TRAZODONE 300 MG TABLET Marianna German APRN.CHAINSTITCH PANTS OUTSEAMER documented in this encounter [facility] 08-25-2021 Miscellaneous Notes Message sent through my chart. Patient is overdue for blood work. Blood work orders placed. The following approved medication requests have been transmitted electronically. Signed Prescriptions Disp Refills traZODone HCl (DESYREL) 300 mg tablet 90 tablet 0 Sig: Take 1 tablet by mouth daily at bedtime. CHALO: No Authorizing Provider: MONTY KUMARI APRN.CHAINSTITCH PANTS OUTSEAMER Patient has been identified by name and date of : Yes Patient phones for refill(s): Pending Prescriptions Disp Refills TRAZODONE 300 MG TABLET 90 tablet 3 Sig: Take 1 tablet by mouth daily at bedtime. CHALO: No Date of last office visit with pcp: 01-19-21. Next appt: none Last 2 Encounter Wt Readings: Date: Wt: 01/19/2021 48.5 kg (107 lb) 08/26/2020 48.1 kg (106 lb) Previous labs/tests for medication: Blood Pressure: BUN (mg/dL) Date Value 01/08/2019 16 Sodium (mmol/L) Date Value 01/08/2019 139 Last 1 Encounter BP Readings: Date: BP: 01/19/2021 136/80 Liver Function: ALT (U/L) Date Value 01/08/2019 16 AST (U/L) Date Value 01/08/2019 21 Please advise. Thank you. Swapnil oCwart RN documented in this encounter [facility] 06-01-2021 Miscellaneous Notes The following approved medication requests have been transmitted electronically. Signed Prescriptions Disp Refills venlafaxine ER (EFFEXOR XR) 150 mg 24 hr capsule 10 capsule 0 Sig: Take 1 capsule by mouth once daily. CHALO: No Authorizing Provider: JAY OLIVIER DO documented in this encounter [facility] Diagnosis Encounter for screening mammogram for breast cancer [facility] Diagnosis Foot pain, right- Primary Pain in limb Localized swelling of right foot Chronic insomnia Insomnia, unspecified documented in this encounter [facility] note* Diagnosis RUQ pain- Primary Abdominal pain, right upper quadrant Right upper quadrant abdominal mass Abdominal or pelvic swelling, mass, or lump, right upper quadrant Preprocedural examination Preoperative examination, unspecified Poor short term memory Memory loss Family history of dementia Family history of other neurological diseases documented in this encounter [facility] note* Diagnosis Subacute cough- Primary Cough documented in this encounter [facility] note* Diagnosis Low serum triiodothyronine (T3)- Primary documented in this encounter [facility] note* Diagnosis Poor short term memory- Primary Memory loss documented in this encounter [facility] note* Diagnosis Encounter for screening mammogram for breast cancer documented in this encounter [facility] note* Diagnosis Chronic insomnia Insomnia, unspecified documented in this encounter [facility] note* Diagnosis Chronic insomnia Insomnia, unspecified documented in this encounter [facility] note* Diagnosis RUQ pain Abdominal pain, right upper quadrant Right upper quadrant abdominal mass Abdominal or pelvic swelling, mass, or lump, right upper quadrant documented in this encounter [facility] for referral (narrative)* Diagnostic Procedure Only (Routine) - Pending Review Specialty Diagnoses / Procedures Referred By Keith tatum Referred To Contact [facility] Diagnoses Encounter for screening mammogram for breast cancer Procedures [place] SCREENING W ASIF SCREENING DIGITAL BREAST TOMOSYNTHESIS BI SCREENING MAMMOGRAPHY BI 2-VIEW BREAST INC Jay Voung DO [address] [place] [address] [facility] [address] [place] [id number] Referral ID Status Reason Start Date Expiration Date Visits Requested Visits Authorized [id number] Pending Review Auto-Generat ed Referral 09/01/2021 10/01/2022 1 1 [facility] for referral (narrative)* Diagnostic Procedure Only (Urgent) - Closed Specialty Diagnoses / Procedures Referred By Keith tautm Referred To Contact XR IMAGING Diagnoses Foot pain, right Localized swelling of right foot Procedures XR FOOT GENERAL 3V AP/LAT/OBL RIGHT RADEX FOOT COMPLETE MINIMUM 3 VIEWS Marianna German APRN.CH[employer]ST[employer] OUTSEAMER [address] [place] [address] Xr Imaging Referral ID Status Reason Start Date Expiration Date V isits Requested Visits Authorized [id number] Closed Auto-Generate d Referral 11/22/2021 12/22/2022 1 1 [facility] Diagnostic Procedure Only (Routine) - Pending Review Specialty Diagnoses / Procedures Referred By Contac t Referred To Contact [facility] Diagnoses Encounter for screening mammogram for breast cancer Procedures [place] SCREENING W ASIF SCREENING DIGITAL BREAST TOMOSYNTHESIS BI SCREENING MAMMOGRAPHY BI 2-VIEW BREAST INC CAD Jya Olivier DO [address] [place] [address] [facility] [address] [place] [address] Referral ID Status Reason Start Date Expiration Date Visits Requested Visits Authorized [id number] Pending Review Auto-Generat ed Referral 08/10/2022 09/09/2023 1 1 [facility] Advance Directives Documents on File Type Date Recorded Patient E M Assembler Expl anation Advance Directive(s) 03/11/2019 1:35 PM Documents on File Type Date Recorded Patient E M Assembler Expl anation Advance Directive(s) 03/11/2019 1:35 PM Reason for Referral Specialty Diagnoses / Procedures Referred By Contac t Referred To Contact CT IMAGING Diagnoses RUQ pain Right upper quadrant abdominal mass Procedures CT ABDOMEN W IVCON CT ABDOMEN W/CONTRAST Marianna German APRN.[employer]SE[employer]ER [address] [place] [address] Ct Imaging Referral ID Status Reason Start Date Expiration Date Visits Requested Visits Authorized [id number] Authorized Auto-Generat ed Referral 05/28/2022 2 2 Specialty Diagnoses / Procedures Referred By Contac t Referred To Contact CT IMAGING Diagnoses RUQ pain Right upper quadrant abdominal mass Procedures CT ABDOMEN W IVCON CT ABDOMEN W/CONTRAST Marianna German, WRECKING SUPERVISOR.CH[employer]STITCH PANTS OUTSEAMER [address] [place] [address] [place] [address] Referral ID Status Reason Start Date Expiration Date V isits Requested Visits Authorized [id number] Closed Auto-Generate d Referral 04/13/2022 05/28/2022 2 2 Summary Purpose Family History No Family History Records Found Additional Source Comments Source Comments (unrecognize d section and content) In the event this informatio n is protected by the Federal Confidentiality of Alcohol and Drug Abuse Patient Records regulations: The Federal rules restrict any use of the information to criminally investigate or prosecute any alcohol or drug abuse patient.[facility] event this information is protected by the Federal Confidentiality of Alcohol and Drug Abuse Patient Records regulations: The Federal rules restrict any use of the information to criminally investigate or prosecute any alcohol or drug abuse patient.[facility] the event this information is protected by the Federal Confidentiality of Alcohol and Drug Abuse Patient Records regulations: The Federal rules restrict any use of the information to criminally investigate or prosecute any alcohol or drug abuse patient.[facility] the event this information is protected by the Federal Confidentiality of Alcohol and Drug Abuse Patient Records regulations: The Federal rules restrict any use of the information to criminally investigate or prosecute any alcohol or drug abuse patient.[facility] the event this information is protected by the Federal Confidentiality of Alcohol and Drug Abuse Patient Records regulations: The Federal rules restrict any use of the information to criminally investigate or prosecute any alcohol or drug abuse patient.[facility] the event this information is protected by the Federal Confidentiality of Alcohol and Drug Abuse Patient Records regulations: The Federal rules restrict any use of the information to criminally investigate or prosecute any alcohol or drug abuse patient.[facility] the event this information is protected by the Federal Confidentiality of Alcohol and Drug Abuse Patient Records regulations: The Federal rules restrict any use of the information to criminally investigate or prosecute any alcohol or drug abuse patient.[facility] the event this information is protected by the Federal Confidentiality of Alcohol and Drug Abuse Patient Records regulations: The Federal rules restrict any use of the information to criminally investigate or prosecute any alcohol or drug abuse patient.[facility] the event this information is protected by the Federal Confidentiality of Alcohol and Drug Abuse Patient Records regulations: The Federal rules restrict any use of the information to criminally investigate or prosecute any alcohol or drug abuse patient.[facility] the event this information is protected by the Federal Confidentiality of Alcohol and Drug Abuse Patient Records regulations: The Federal rules restrict any use of the information to criminally investigate or prosecute any alcohol or drug abuse patient.[facility] the event this information is protected by the Federal Confidentiality of Alcohol and Drug Abuse Patient Records regulations: The Federal rules restrict any use of the information to criminally investigate or prosecute any alcohol or drug abuse patient.[facility] the event this information is protected by the Federal Confidentiality of Alcohol and Drug Abuse Patient Records regulations: The Federal rules restrict any use of the information to criminally investigate or prosecute any alcohol or drug abuse patient.[facility] the event this information is protected by the Federal Confidentiality of Alcohol and Drug Abuse Patient Records regulations: The Federal rules restrict any use of the information to criminally investigate or prosecute any alcohol or drug abuse patient.[facility] the event this information is protected by the Federal Confidentiality of Alcohol and Drug Abuse Patient Records regulations: The Federal rules restrict any use of the information to criminally investigate or prosecute any alcohol or drug abuse patient.[facility] the event this information is protected by the Federal Confidentiality of Alcohol and Drug Abuse Patient Records regulations: The Federal rules restrict any use of the information to criminally investigate or prosecute any alcohol or drug abuse patient.[facility] the event this information is protected by the Federal Confidentiality of Alcohol and Drug Abuse Patient Records regulations: The Federal rules restrict any use of the information to criminally investigate or prosecute any alcohol or drug abuse patient.[facility] the event this information is protected by the Federal Confidentiality of Alcohol and Drug Abuse Patient Records regulations: The Federal rules restrict any use of the information to criminally investigate or prosecute any alcohol or drug abuse patient.[facility] Reason for Visit (unrecogniz ed section and content) Specialty Diagnoses / Procedures Referred By Contac t Referred To Contact CT IMAGING Diagnoses RUQ pain Right upper quadrant abdominal mass Procedures CT ABDOMEN W IVCON CT ABDOMEN W/CONTRAST Marianna German, WRECKING SUPERVISOR.CHAINSTITCH PANTS OUTSEAMER [address] [place] [address] [place] [address] Referral ID Status Reason Start Date Expiration Date V isits Requested Visits Authorized [id number] Closed Auto-Generate d Referral 04/13/2022 05/28/2022 2 2 Reason Comments Refill Request Reason Onset Date Comments Refill Request 08/25/2021 Reason Comments Results Reason Comments Foot Pain (Midfoot) right foot Reason Onset Date Comments Refill Request 03/24/2022 Reason Comments Hernia Right side of abdome n x couple years, area is painful Reason Comments Results Lab Reason Comments Follow Up Reason Onset Date Comments Refill Request 09/01/2022 Reason Comments Orders Reason Onset Date Comments Refill Request 10/31/2022 Specialty Diagnoses / Procedures Referred By Keith tatum Referred To Contact CT IMAGING Diagnoses RUQ pain Right upper quadrant abdominal mass Procedures CT ABDOMEN W IVCON CT ABDOMEN W/CONTRAST Marianna German, WRECKING SUPERVISOR.CH[employer] PANTS OUTSEAMER [address] [facility] [place] [place] [address] [place] [address] Referral ID Status Reason Start Date Expiration Date V isits Requested Visits Authorized [id number] Closed Auto-Generate d Referral 04/13/2022 05/28/2022 [address] Care Teams (unrecognized sec tion and content) Day Spa Manager Relationship Specialty Start Date End Date Jay Olivier, DO [address] [place] [address] PCP - General Family Practice 05/13/19 Day Spa Manager Relationship Specialty Start Date End Date Jay Olivier DO [address] [place] [address] PCP - General Family Practice 05/13/19 Day Spa Manager Relationship Specialty Start Date End Date Jay Olivier, DO [address] [place] [address] PCP - General Family Practice 05/13/19 Day Spa Manager Relationship Specialty Start Date End Date Jay Olivier, DO [address] [place] [address] PCP - General Family Practice 05/13/19 Day Spa Manager Relationship Specialty Start Date End Date Jay Olivier, DO [address] [place] [address] PCP - General Family Medicine 05/13/19 Day Spa Manager Relationship Specialty Start Date End Date Jay Olivier DO [address] [place] [address] PCP - General Family Medicine 05/13/19 Day Spa Manager Relationship Specialty Start Date End Date Jay Olivier, DO [address] [place] [address] PCP - General Family Medicine 05/13/19 Day Spa Manager Relationship Specialty Start Date End Date Jay Olivier, DO [address] [place] [address] PCP - General Family Medicine 05/13/19 Day Spa Manager Relationship Specialty Start Date End Date Jay Olivier, DO [address] [place] [address] PCP - General Family Medicine 05/13/19 Day Spa Manager Relationship Specialty Start Date End Date Jay Olivier, DO [address] [place] [address] PCP - General Family Medicine 05/13/19 Day Spa Manager Relationship Specialty Start Date End Date Jay Olivier, DO [address] [place] [address] PCP - General Family Medicine 05/13/19 Day Spa Manager Relationship Specialty Start Date End Date Jay Olivier, DO [address] [place] [address] PCP - General Family Medicine 05/13/19 Day Spa Manager Relationship Specialty Start Date End Date Jay Olivier DO [address] [place] [address] PCP - General Family Medicine 05/13/19 Day Spa Manager Relationship Specialty Start Date End Date Jay Olivier DO [address] [place] [address] PCP - General Family Medicine 05/13/19 Day Spa Manager Relationship Specialty Start Date End Date Jay Olivier DO [address] [place] [address] PCP - General Family Medicine 05/13/19 INFORMATION SOURCE (unrecogn ized section and content) FOR RECORDS PERTAINING TO PATIENTS WHO ARE OR HAVE BEEN ENROLLED IN A CHEMICAL DEPENDENCY/SUBSTANCEABUSE PROGRAM, SOME INFORMATION MAY BE OMITTED. This clinical summary was aggregated from multiple sources. Caution should be exercised in using it in the provision of clinical care. This summary normalizes information from multiple sources, and as a consequence, information in this document may materially change the coding, format and clinical context of patient data. In addition, data may be omitted in some cases. CLINICAL DECISIONS SHOULD BE BASED ON THE PRIMARY CLINICAL RECORDS. [employer] provides no warranty or guarantee of the accuracy or completeness of information in this document.
== END | disposition home or self-care (01) ==
LOC: OPBI 07:28
PROVIDERS: PCP Student in an Organized Health Care Education/Training Program; Referring Provider Nurse Practitioner Women's Health; Visit Provider Nurse Practitioner Women's Health
DX: Z12.31 Encounter for screening mammogram for malignant neoplasm of breast (principal); Z80.3 Family history of malignant neoplasm of breast
CPT/HCPCS: 77063; 77067

== ENCOUNTER → 2023-07-17 | Outpatient (CLI) | payer MEDICARE, SELFPAY ==
--- NOTE | 2023-07-17 08:01 | US_ITS ---
STUDY: ULTRASOUND OF THE FEMALE PELVIS - COMPLETE REASON FOR EXAM: Female, 67 years old. Left adnexal mass LMP: Patient is postmenopausal. Status post hysterectomy. TECHNIQUE: Transabdominal and Transvaginal TECHNICAL QUALITY: Adequate. COMPARISON: None. FINDINGS: The patient is status post hysterectomy. The right ovary is non-visualized due to overlying bowel gas. The left ovary is non-visualized due to overlying bowel gas. There is no fluid in the cul-de-sac. The pre void volume of the bladder was 342 ml. US/Pelvic w/ Transvaginal IMPRESSION: Status post hysterectomy. The ovaries were not visualized due to overlying bowel gas. Electronically Signed: Chris Shaffer MD at 10:16 EDT ,
== END | disposition home or self-care (01) ==
PROVIDERS: PCP Student in an Organized Health Care Education/Training Program; Referring Provider Nurse Practitioner Women's Health; Visit Provider Nurse Practitioner Women's Health
DX: N83.9 Noninflammatory disorder of ovary, fallopian tube and broad ligament, unspecified (principal); Z78.0 Asymptomatic menopausal state
CPT/HCPCS: 76830; 76856

== ENCOUNTER → 2024-06-21 | Outpatient (CLI) | payer MEDICARE, SELFPAY ==
--- NOTE | 2024-06-21 09:10 | BI_ITS ---
PROCEDURE: SCRN MAMM (CAD)W/ASIF BILAT REASON FOR EXAM: F, Age 68 y/o, presents for annual screening mammogram. Family history of breast cancer in her mother at age 65 and maternal grandmother. TECHNIQUE: Bilateral screening digital breast tomosynthesis with 2D and 3D images. Computer aided detection. COMPARISON: 06/20/2023, 03/04/2022 FINDINGS: The breasts are heterogeneously dense which may obscure small masses. The mammogram demonstrates that the patient has dense breasts. Supplemental screening with whole breast ultrasound or MRI may be considered for further evaluation. No suspicious masses, areas of developing architectural distortion, or suspicious calcifications. BI/SCRN MAMM (CAD)W/ASIF BILAT IMPRESSION: There is no mammographic evidence of malignancy. BI-RADS 1: NEGATIVE. RECOMMEND ANNUAL MAMMOGRAPHIC SCREENING. Follow-up code: Routine Follow-up The patient will be notified of the results by letter. Reading Location: [id number]
== END | disposition home or self-care (01) ==
LOC: OPBI 09:09
PROVIDERS: PCP Student in an Organized Health Care Education/Training Program; Referring Provider Nurse Practitioner Women's Health; Visit Provider Nurse Practitioner Women's Health
DX: Z12.31 Encounter for screening mammogram for malignant neoplasm of breast (principal)
CPT/HCPCS: 77063; 77067

== ENCOUNTER 2025-02-05 09:43 | Day surgery (SDC) | payer MEDICARE, SELFPAY ==
[2025-02-05] VITALS (8 sets, daily range): BP systolic 106–123; BP diastolic 70–84; PULSE 55–68; RESP 16–18; TEMP 36.3–36.6; O2SAT 98–100; BMI 17.7
[2025-02-05] MEDS: Lactated Ringers 1,000 ML 15 ML IV (10:30)
== END 2025-02-05 12:50 | disposition home or self-care (01) ==
LOC: EN 09:44 → AC 09:47
PROVIDERS: PCP Student in an Organized Health Care Education/Training Program; Referring Provider Student in an Organized Health Care Education/Training Program; Visit Provider Internal Medicine Gastroenterology
PROC: 0DJD8ZZ Inspection of Lower Intestinal Tract, Via Natural or Artificial Opening Endoscopic (ICD-10-PCS; CPT 45378; principal; 2025-02-05 10:40)
DX: R19.5 Other fecal abnormalities (principal); K63.5 Polyp of colon; G47.30 Sleep apnea, unspecified; Z99.89 Dependence on other enabling machines and devices; Z90.710 Acquired absence of both cervix and uterus
CPT/HCPCS: 45380; 88305; J2405

== ENCOUNTER 2025-03-16 15:46 | Emergency (ER) | payer MEDICARE, SELFPAY ==
[2025-03-16] VITALS (16 sets, daily range): BP systolic 137–206; BP diastolic 79–128; PULSE 60–109; RESP 12–22; TEMP 36.6; O2SAT 82–100; BMI 20.2
--- NOTE | 2025-03-16 15:51 | CT_ITS ---
PROCEDURE: SPINE CERVICAL WITHOUT CONTRAS; BRAIN/HEAD WITHOUT CONTRAST N/A REASON FOR EXAM: FALL UNABLE TO CLEAR C-SPINE; ACUTE HEADACHE, GCS 3, DISCONJUGATE GAZE TECHNIQUE: Procedure Code: CTSPC; CTBR Modality: CT Procedure: SPINE CERVICAL WITHOUT CONTRAS; BRAIN/HEAD WITHOUT CONTRAST Coronal and Sagittal reconstruction series were provided. One or more dose reduction techniques were used (e.g., Automated exposure control, adjustment of the mA and/or kV according to patient size, use of iterative reconstruction technique. RADIATION DOSE SUMMARY: CTDlvol: 12.26 mGy DLP: 1187.42 mGycm COMPARISON: None. FINDINGS: CT head: Large acute intraventricular hemorrhage with hemodynamic level and ventriculomegaly. The hemorrhage is likely originating from acute parenchymal right basilar ganglia hemorrhage. Diffuse brain edema. Midline shift to the left by 8 mm. No uncal or transtentorial herniation. CT cervical spine: Alignment: Normal alignment. Vertebrae: No acute bony abnormalities. Soft Tissues: No soft tissue abnormalities. ET tube and NG tube are in place. Disc levels: Disc space narrowing, facet joint arthropathy and mild bilateral foramina stenosis at C3-C4. Left facet joint arthropathy at C2-C3 causing severe left foramina stenosis. Tubes and lines: NG tube and ET tube are in place. CT/Brain/Head without Contrast IMPRESSION: Acute parenchymal and intraventricular hemorrhage with ventriculomegaly. Midli ne shift to the left by 8 mm. No acute skull fracture. No acute injury to the cervical spine. Findings were discussed with Dr. Garsia on 03/16/2025 4:28 p.m. Reading Location: [facility]
--- NOTE | 2025-03-16 15:51 | EKG12_ITS ---
Test Reason : Blood Pressure : */* mmHG Vent. Rate : 82 BPM Atrial Rate : 82 BPM P-R Int : 142 ms QRS Dur : 86 ms QT Int : 406 ms P-R-T Axes : 74 70 201 degrees QTcB Int : 474 ms Normal sinus rhythm Marked ST abnormality, possible inferior subendocardial injury Abnormal ECG Confirmed by JANE NIEVES, JESUS ([id number]), electronic news gathering editor MATEUS PARTIDA ([id number]) on 03/17/2025 1:08:56 PM Referred By: Confirmed By: JESUS LARA MD
--- NOTE | 2025-03-16 15:53 | EX.ED.DYSGE1 ---
HPI History of Present Illness Chief Complaint: Unresponsive Detail of Chief Complaint: Unresponsiveness Informant: EMS Onset/Context/Timing Onset: Hours Context: Sudden Onset Timing: Continuous Quality: Unresponsive Location: Presents from home Current Severity: Severe Maximum Severity: Severe Worsened by: Unknown Relieved by: Unknown nodes Associated Symptoms Associated Symptoms: Unable to determine Narrative Narrative: Per EMS patient is on no medication with no past medical history. Her BGT was 208. She apparently complained of a headache. She was last known well at 1300. She was found unresponsive on the floor and had aspirated per EMS. No other history is available. Prior similar symptoms: No Recent Illness/Hospitalization: No PFSH PFS Medical History Wears glasses Wears contact lenses Anxiety Arthritis Kidney stones Non-smoker CPAP (continuous positive airway pressure) dependence Sleep apnea History of stress test Vitamin D deficiency Anxiety with depression Home Medications ?Medication ?Instructions ?Recorded ?Last Taken ?Type calcium 315 mg (as 1 tab PO DAILY 02/22/21 02/04/25 History citrate)-vitamin D3 6.25 mcg (250 unit) tablet (Citracal + Vitamin D Maximum) cholecalciferol (vitamin D3) 250 250 mcg PO DAILY 02/22/21 02/04/25 History mcg (10,000 unit) capsule krill oil 500 mg capsule 500 mg PO DAILY 02/22/21 02/01/25 History trazodone 300 mg tablet 300 mg PO DAILY 02/22/21 02/04/25 History venlafaxine 75 mg tablet 75 mg PO DAILY 02/22/21 02/04/25 History Brain & Power Boost 4 tab PO DAILY 12/18/24 02/04/25 History acetylcysteine 600 mg capsule (NAC) 600 mg PO QDAY 12/18/24 02/04/25 History Allergy/AdvReac Type Severity Reaction Status Date / Time No Known Allergies Allergy Verified 03/16/25 17:01 Family History Mother Breast cancer Father Heart disease Grandmother Breast cancer CVA (cerebral vascular accident) Grandfather Prostate CA Diabetes Surgical History Hx of wisdom tooth extraction Varicose vein of leg History of bladder surgery H/O: hysterectomy Social History Smoking Status: Never smoker alcohol intake: never substance use type: does not use caffeine: Yes what type of physical activity do you participate in: walking seatbelt use: always do you feel safe at home: Yes additional social history: retired- Den ROS ROS ED Review of Systems ROS Unobtainable: due to mental status EXAM Physical Exam Const Vital Signs: 03/16/25 15:47 03/16/25 15:52 03/16/25 16:00 Temperature 98 F Temperature Source Temporal Pulse Rate 109 H 65 Respiratory Rate 22 H 12 Respiratory Effort Mechanically Ventilated Respiratory Depth Normal Respiratory Pattern Normal Blood Pressure 164/128 H 206/117 H Blood Pressure Mean 140 146 Pulse Ox 100 100 Oxygen Delivery Method Ambu-Bag Mechanical Ventilator Fraction of Inspired Oxygen (FIO2) 03/16/25 16:05 03/16/25 16:09 03/16/25 16:20 Temperature Temperature Source Pulse Rate 66 62 Respiratory Rate 14 14 Respiratory Effort Respiratory Depth Respiratory Pattern Normal Blood Pressure Blood Pressure Mean Pulse Ox 95 Oxygen Delivery Method Mechanical Ventilator Fraction of Inspired Oxygen (FIO2) 100 03/16/25 16:22 03/16/25 16:24 03/16/25 16:26 Temperature Temperature Source Pulse Rate 63 68 60 Respiratory Rate 16 14 14 Respiratory Effort Respiratory Depth Respiratory Pattern Blood Pressure 180/113 H 175/97 H 175/97 H Blood Pressure Mean 135 123 120 Pulse Ox 100 100 100 Oxygen Delivery Method Mechanical Ventilator Fraction of Inspired Oxygen (FIO2) 03/16/25 16:30 03/16/25 16:35 Temperature Temperature Source Pulse Rate 74 63 Respiratory Rate 14 14 Respiratory Effort Respiratory Depth Respiratory Pattern Blood Pressure 168/92 H 168/92 H Blood Pressure Mean 116 117 Pulse Ox 100 99 Oxygen Delivery Method Mechanical Ventilator Mechanical Ventilator Fraction of Inspired Oxygen (FIO2) Positive well nourished and well developed Constitutional Narrative: Patient is being bagged. She obviously aspirated. There is emesis noted on her face and chest. General Appearance ED: well developed; Negative for pallor HEENT Reports moist mucous membranes HEENT Narrative: Head is atraumatic normocephalic. Ears normal. Nares patent. Posterior pharynx reveals gastric contents. Eyes Negative for PERRL Eyes Narrative: Right pupil slightly larger than left. She has disconjugate gaze. General Eye ED: Negative for pale conjunctiva or scleral icterus Neck no lymphadenopathy and No supple Chest Wall inspection of chest normal and palpation of chest normal Resp No normal respiratory effort and No clear to auscultation bilaterally Resp Narrative: Rhonchorous breath sounds noted bilaterally. Breath sounds are symmetric. She was being ventilated by [id number]. Cardio regular rhythm, S1 normal heart sound, S2 normal heart sound and no murmurs Rate: tachycardic GI normal to inspection, nondistended, normoactive bowel sounds, non-tender, non-distended and no masses; Negative for hepatosplenomegaly Back/Spine Back/Spine Narrative: Inspection of the back appears normal. Unable to turn she has tenderness because she has a GCS of 3. Extremity normal to inspection Neuro No oriented x3, No CN's II-XII intact bilaterally and No no sensory deficits noted Neuro Narrative: GCS 3 Psych Psych Narrative: Unresponsive Skin no rashes or lesions noted and no wounds General Skin Exam: Negative for jaundice or pallor MDM MDM MDM Narrative Medical decision making narrative: With history of headache the procedure to her unresponsiveness considered she is an intracranial bleed. Since patient is unable to protect her airway she was innervated by RSI technique. She only required 10 mg of etomidate. She was easily orotracheally mated using glide scope. There is evidence that she aspirated. There was appropriate color change on the capnometer. Breath sounds were noted bilaterally. Will place patient in c-collar and obtain cervical spine CAT scan as well as CT of the head. Since there is no history of allergies we will treat her aspiration with Unasyn. She was placed on a ventilator. Ordered a propofol drip after successful intubation. Respiratory therapist informing that she is biting down on the tube. For this reason she received rocuronium 50 mg. Patient received 1 g/kg of mannitol, placed on Cardene drip for blood pressure control and Keppra. She received approximately 28 mg/kg. History & Record Review Discussion w/independent historian: EMS personnel and Family Lab Data Attestation: I reviewed the patient's lab results. Lab results narrative: UA is unremarkable. CBC reveals elevated white count at 13.8 with slight shift. H&H and platelet count normal. Comprehensive metabolic panel reveals an anion gap of 16. CO2 is normal. AST is slightly elevated. Coags are normal. Labs: Laboratory Results - last 24 hr 11/23/25 11/23/25 11/23/25 15:52 16:20 16:21 WBC 13.8 H RBC 4.94 Hgb 14.8 Hct 44.6 MCV 90.3 MCH 30.0 MCHC 33.2 RDW Std Deviation 42.7 RDW Coeff of Shelley 13.0 Plt Count 263 MPV 10.0 Immature Gran % (Auto) 0.300 Neut % (Auto) 90.4 H Lymph % (Auto) 5.6 L Thomas % (Auto) 3.3 Eos % (Auto) 0.1 Baso % (Auto) 0.3 Absolute Neuts (auto) 12.5 H Absolute Lymphs (auto) 0.77 L Nucleated RBC % 0 PT Cancelled INR Cancelled APTT Cancelled Sodium 137 Potassium 3.4 Chloride 96 L Carbon Dioxide 24.6 Anion Gap 16 H BUN 14 Creatinine 0.85 Estim Creat Clear Calc 54.14 Est GFR (MDRD) Non-Af 75 BUN/Creatinine Ratio 16.3 Glucose 201 H Calcium 8.9 Total Bilirubin 0.47 AST 35 H ALT 26 Alkaline Phosphatase 77 Troponin T High Sens 27 H Total Protein 8.0 Albumin 4.9 H Globulin 3.2 Albumin/Globulin Ratio 1.5 Urine Color Straw Urine Clarity Clear Urine pH 8.0 Ur Specific [place] 1.015 Urine Protein 30 H Urine Glucose (UA) 50 H Urine Ketones 15 H Urine Occult Blood 10 H Urine Nitrite Negative Urine Bilirubin Negative Urine Urobilinogen Normal Ur Leukocyte Esterase Negative Urine RBC 0-5 SEEN Urine WBC 0 SEEN Ur Squamous Epith Cells 0 SEEN Urine Bacteria 0 SEEN Urine Mucus 0 SEEN 03/16/25 16:52 WBC RBC Hgb Hct MCV MCH MCHC RDW Std Deviation RDW Coeff of Shel[place] Plt Count MPV Immature Gran % (Auto) Neut % (Auto) Lymph % (Auto) Thomas % (Auto) Eos % (Auto) Baso % (Auto) Absolute Neuts (auto) Absolute Lymphs (auto) Nucleated RBC % PT 13.4 INR 1.0 APTT 23.1 L Sodium Potassium Chloride Carbon Dioxide Anion Gap BUN Creatinine Estim Creat Clear Calc Est GFR (MDRD) Non-Af BUN/Creatinine Ratio Glucose Calcium Total Bilirubin AST ALT Alkaline Phosphatase Troponin T High Sens Total Protein Albumin Globulin Albumin/Globulin Ratio Urine Color Urine Clarity Urine pH Ur Specific [place] Urine Protein Urine Glucose (UA) Urine Ketones Urine Occult Blood Urine Nitrite Urine Bilirubin Urine Urobilinogen Ur Leukocyte Esterase Urine RBC Urine WBC Ur Squamous Epith Cells Urine Bacteria Urine Mucus ABG Data ABG results: ABG 03/16/25 16:16 Specimen Type ART Sample Site R Radial pH 7.44 Bicarbonate Actual 25.7 Total CO2 27 Base Excess 2 O2 Saturation 100 H O2 % 100.0 ABG pCO2 37.7 ABG pO2 487 H* Respiration Rate 14 O2 Delivery Device Adult Vent Vent Mode AC Tidal Volume 450.0 POC PEEP 5 Crit Call To/Read Back Yes Blood Gas Notified Whom JAN Blood Gas Notified Time 16:18:13 Radiography Chest X-Ray - ED: 1 View and Read by ED Physician (Endotracheal tube is approximate 3 cm from the greg. OG is in proper position. She has mild hyperaeration. There is no evidence of infiltrate. There is no Insa pneumothorax or effusion. Cardiac silhouette and size normal. This independently reviewed interpreted by me at 1623) Diagnostic Testing: Clinical Impression(s) from Imaging Studies Brain CT 03/16/25 15:51 IMPRESSION: Acute parenchymal and intraventricular hemorrhage with ventriculomegaly. Midline shift to the left by 8 mm. No acute skull fracture. No acute injury to the cervical spine. Findings were discussed with Dr. Garsia on 03/16/2025 4:28 p.m. Reading Location: [facility] Cervical Spine CT 03/16/25 15:56 IMPRESSION: Acute parenchymal and intraventricular hemorrhage with ventriculomegaly. Midline shift to the left by 8 mm. No acute skull fracture. No acute injury to the cervical spine. Findings were discussed with Dr. Garsia on 03/16/2025 4:28 p.m. Reading Location: [facility] EKG Initial EKG: Attestation: I personally reviewed and interpreted this EKG as follows: Interpretation: Sinus Rhythm (Obtained postintubation. Rate is 82. There is marked ST changes which is not inconsistent with an intracranial bleed. This may also represent true cardiac ischemia. For this reason we will add on troponin. ND interval is under 42 ms. QS duration 86 ms. QT duration 406 ms. [place] is normal.) Management Discussion w/another healthcare provider: Sorting Livestock Worker (Spoke with neurosurgeon at [facility] who is excepted patient in ED to ED. Agrees with Keppra, mannitol and Cardene drip.) Procedures Intubations Intubation Method: orotracheal Intubation Verification: Positive color change and Bilateral breath sounds confirmed Intubation Complications: no complications Critical Care Time Critical Care Time: Yes Critical care time (excluding procedures): 30-74 minutes (31), Discussing w/Patient &/or Family/Mail Handler Equipment Operator (Informed and brother patient's condition. Informed him that should be transferred to [facility] and the neurosurgeon I spoke to), Discussing w/Consultants (Vascular neurosurgeon at [facility]), Arranging Admission or Transfer, Performing Direct Patient Care at Bedside (Intubation by RSI technique) and - ([facility] critical care nurse was informed of patient's history, physical, treatment and findings. 169.) Discharge Plan Triage Chief Complaint: Unresponsive ED Provider: Jaren Garsia Dx/Rx/DC Orders Clinical Impression: Hypertensive emergency, Hemorrhage of brain, nontraumatic, Andrew coma scale score 3-8, at arrival to emergency department, Aspiration pneumonitis Prescriptions: No Action trazodone 300 mg tablet 300 mg PO DAILY venlafaxine 75 mg tablet 75 mg PO DAILY cholecalciferol (vitamin D3) 250 mcg (10,000 unit) capsule 250 mcg PO DAILY krill oil 500 mg capsule 500 mg PO DAILY calcium citrate-vitamin D3 [Citracal + D Maximum] 315 mg-6.25 mcg (250 unit) tablet 1 tab PO DAILY acetylcysteine [NAC] 600 mg capsule 600 mg PO QDAY Brain & Power Boost 4 tab PO DAILY Primary Care Provider: Jay Morales Referrals: Jay Morales DO [Primary Care Provider, Medical] Print Language: Hungarian Disposition Disposition: Acute Care Hospital Discharge Location: [facility] [place]
--- OUTSIDE RECORDS SUMMARY | 2025-03-16 15:55 | XMS RPT_ITS | CCD ---
Author Organization [facility] Care Team Providers Care Dog Handler Name Role Phone Jay Morales DO Primary Care Provider Dr. Jay Morales Primary Care Provider Dr. Jay Morales Referring Provider Stacey SPEECH CORRECTION ASSISTANT, SPEECH CORRECTION ASSISTANT-C Tanvi Attending Provider Jay Morales DO Primary Care Provider Dr. Jay Morales Primary Care Provider Dr. Jay Morales Referring Provider Stacey SPEECH CORRECTION ASSISTANT, SPEECH CORRECTION ASSISTANT-C Tanvi Attending Provider Jay Morales DO Primary Care Provider Roddy NEWS VIDEO EDITOR.HL7 INTERFACE DEVELOPERNaila Unavailable Urvashi NEWS VIDEO EDITOR.Zain JOSEPH Unavailable Dr. Jay Morales DO Primary Care Provider Stacey SPEECH CORRECTION ASSISTANT-C, Tanvi Attending Provider Stacey SPEECH CORRECTION ASSISTANT-CTanvi Referring Provider Sameer NEWS VIDEO EDITOR.Leela JOSEPH Unavailable Dr. Jay Morales DO Primary Care Provider [phone] Dr. Jay Morales DO Referring Provider Dr. Miguelangel Waller DO Attending Provider JAY MORALES Attending Unavailable JAY MORALES Primary Care Unavailable KORINA CALDWELL Attending Unavailable JAY MORALES Primary Care Unavailable MARTINE ALMONTE Attending Unavailable MORALES, JAY L Primary Care Unavailable VICKI LANDINEKAH Attending Unavailable MORALES, JAY L Primary Care Unavailable URVASHI, ZAIN Referring Unavailable MORALES, JAY L Primary Care Unavailable MORALES, JAY L Referring Unavailable MORALES, JAY L Primary Care Unavailable MORALES, JAY L Referring Unavailable MORALES, JAY L Primary Care Unavailable Morales Dr. Jay MADSEN Primary Care Physician Friend , Dr. Means Attending Physician Friend , Dr. Means Nurse Practitioner Morales, Jay Primary Care Unavailable Stacey SPEECH CORRECTION ASSISTANT, Tanvi Attending Unavailable Stacey SPEECH CORRECTION ASSISTANT, Tanvi Referring Unavailable Morales, Jay Referring Unavailable Morales, Jay Primary Care Unavailable FriendMiguelangel Attending Unavailable Morales, Jay Referring Unavailable Morales, Jay Primary Care Unavailable Miguelangel Waller Consulting Unavailable Miguelangel Waller Attending Unavailable Morales, Jay Referring Unavailable Amy Osman Attending Unavailable Morales, Jay Primary Care Unavailable Morales, Jay Referring Unavailable Miguelangel Waller Attending Unavailable Morales, Jay Primary Care Unavailable Medications Current Medications Medication Drug Class(es) Dates Sig (Normalized) Sig (Original) acetylcysteine 600 mg oral capsule (18 sources) Antidote, Mucolytic, Antidote for Acetaminophen Overdose Start: 12-18-2024 take 1 capsule by mouth once daily acetylcysteine ( NAC ORAL) Take by mouth. Active ascorbic acid 113 mg / beta carotene 7160 mg / cuprous oxide 0.4 mg / dl-alpha tocopheryl acetate 100 unt / zinc oxide 17.4 mg oral tablet (20 sources) Vitamin C Start: 01-08-2019 take 1 tablet by mouth once daily at breakfast vit A,C,D-Lknz-Bizhqr (OCUVITE PRESERVISION) 7,160-113-100 okmu-lw-ejuu tab Take 1 tablet by mouth daily with breakfast. 01/08/2019 Active Comment on above: Take 1 tablet by shai th daily with breakfast. azithromycin 250 mg oral tablet (1 source) Macrolide Antimicrobial Start: 08-05-2024 End: 08-05-2024 take 2 tablets by mouth once, then take 1 tablet by mouth once daily azithromycin (ZITHROMAX Z-KASIA) 250 mg tablet Indications: Acute bronchitis, unspecified organism Take 2 tablets by mouth one time only for 1 dose. THEN 1 TAB DAILY FOR 4 DAYS. 6 tablet 08/05/2024 08/05/2024 Active benzonatate 100 mg oral capsule (3 sources) Non-narcotic Antitussive Start: 08-09-2024 End: 08-24-2024 take 1 capsule by mouth three times daily as needed benzonatate (TESSALON PERLES) 100 mg capsule Indications: Seasonal allergic rhinitis, unspecified trigger Take 1 capsule by mouth three times a day as needed for up to 15 days. 45 capsule 08/09/2024 08/24/2024 Active Start: 02-12-2024 End: 02-27-2024 take 1 capsule by mouth three times daily as needed benzonatate (TESSALON PERLES) 100 mg capsule Indications: Seasonal allergic rhinitis, unspecified trigger Take 1 capsule by mouth three times a day as needed for up to 15 days. 45 capsule 02/12/2024 02/27/2024 Active biotin 10 mg oral capsule (20 sources) Start: 01-08-2019 take 1 capsule by mouth once daily Biotin 10,000 mcg cap Take 1 capsule by mouth once daily. 01/08/2019 Active Comment on above: Take 1 capsule by [facility] once daily. Brain & Power Boost (2 sources) Start: 12-18-2024 Start: 12-18-2024 Brain & Power Boost Active PO December 18, 2024 12:00am calcium carbonate 1500 mg / cholecalciferol 200 unt oral tablet (20 sources) Vitamin D Start: 01-30-2007 take 1 tablet by mouth twice daily Calcium Carb-Cholecalciferol (NUBIA-600 WITH VITAMIN D) 600 (1,500)-200 mg-unit ORAL Tab Take one(1) tablet twice daily. 0 01/30/2007 Active Comment on above: Take one(1) tablet t wice daily. calcium citrate 1500 mg / cholecalciferol 250 unt oral tablet (8 sources) Vitamin D Start: 02-22-2021 cephalexin 500 mg oral capsule (1 source) Cephalosporin Antibacterial Start: 08-20-2024 End: 08-25-2024 take 1 capsule by mouth three times daily cephALEXin (KEFLEX) 500 mg capsule Take 1 capsule by mouth three times a day for 5 days. 15 capsule 08/20/2024 08/25/2024 Active cholecalciferol 0.25 mg oral capsule (20 sources) Vitamin D Start: 02-22-2021 take 1 capsule by mouth once daily take 1 tablet by mouth once ramona y Cholecalciferol, Vitamin D3, 50 mcg (2,000 unit) cap Take 1 tablet by mouth once daily. Active Comment on above: Take 1 tablet by shai th once daily. 1 ml denosumab 60 mg/ml prefilled syringe (10 sources) RANK Ligand Inhibitor Start: 11-06-2024 End: 10-31-2025 denosumab 60 mg injection (PROLIA) Start: 11-06-2024 End: 10-31-2025 60 mg, SUBCUTANEOUS, EVERY 6 MONTHS, 2 doses, First dose on Mon11/06/24 at 0000, Last dose on Mon05/05/25 at 0000, Allow To Come To Room Temperature Before Administration. REFRIGERATE Start: 10-30-2024 End: 10-30-2024 denosumab (PROLIA) 60 mg/mL syringe Indications: Osteoporosis without current pathological fracture, unspecified osteoporosis type Inject 60 mg subcutaneously one time only for 1 dose. Q 6 months 1 mL 10/30/2024 10/30/2024 Start: 08-23-2023 End: 08-23-2023 inject 1 mL by subcutaneous injection once denosumab (PROLIA) 60 mg/mL Indications: Osteoporosis without current pathological fracture, unspecified osteoporosis type Inject 1 mL subcutaneously one time only for 1 dose. 1 mL 5 08/23/2023 08/23/2023 Start: 08-26-2020 End: 08-21-2021 denosumab 60 mg injection (P ROLIA) doxycycline hyclate 100 mg oral tablet (1 source) Tetracycline-class Drug Start: 05-04-2022 End: 05-14-2022 take 1 tablet by mouth twice daily doxycycline (VIBRA-TABS) 100 mg tablet Indications: Subacute cough Take 1 tablet by mouth twice daily for 10 days. 20 tablet 0 05/04/2022 05/14/2022 Active Comment on above: Take 1 tablet by shai th twice daily for 10 days. krill oil 500 mg oral capsule (20 sources) Start: 02-22-2021 take 1 capsule by mouth once daily Start: 02-22-2021 Krill Oil Acti ve MG PO February 22, 2021 12:00am iecvu-kv-[id number]-dha-e wx-didjave-hav (KRILL OIL) 1,399-755-16-80 mg cap Take by mouth. Active methylPREDNISolone (2 sources) Corticosteroid Start: 02-12-2024 End: 02-18-2024 methylPREDNISolone (MEDROL, KASIA,) 4 mg Dose-Pack Indications: Seasonal allergic rhinitis, unspecified trigger Follow dosing instructions, take with food. 21 tablet 02/12/2024 02/18/2024 Active Start: 05-04-2022 End: 05-10-2022 methylPREDNISolone (MEDROL, KASIA,) 4 mg Dose-Pack Indications: Subacute cough Follow dosing instructions, take with food. 21 tablet 0 05/04/2022 05/10/2022 Active Comment on above: Follow dosing instru ctions, take with food. nitrofurantoin, macrocrystals 25 mg / nitrofurantoin, monohydrate 75 mg oral capsule (1 source) Nitrofuran Antibacterial Start: End: take 1 capsule by mouth twice daily at mealtime nitrofurantoin monohydrate and macrocrystal (MACROBID) 100 mg capsule Indications: UTI symptoms Take 1 capsule by mouth two times a day with meals for 7 days. 14 capsule 07/25/2024 08/01/2024 Active polyethylene glycol 3350 946645 mg / potassium chloride 2970 mg / sodium bicarbonate 6740 mg / sodium chloride 5860 mg / sodium sulfate 64055 mg powder for oral solution (1 source) Osmotic Laxative Start: End: peg 3350-Electrolytes (GOLYTELY) 236-22.74-6.74 -5.86 gram suspension Take 4,000 mL by mouth one time only for 1 dose. Refer to printed prep instructions from your provider. 4000 mL 10/15/2024 10/15/2024 Active traZODone hydrochloride 300 mg oral tablet (20 sources) Serotonin Reuptake Inhibitor Start: End: take 1 tablet by mouth once daily Comment on above: Take 1 tablet by shai th daily at bedtime. Turmeric extract (16 sources) TURMERIC ORAL Ta ke by mouth. Active 24 hr venlafaxine 75 mg extended release oral capsule (20 sources) Serotonin and Norepinephrine Reuptake Inhibitor Start: 024 End: 025 take 1 capsule by mouth once daily venlafaxine ER (EFFEXOR XR) 75 mg 24 hr capsule Take 1 capsule by mouth once daily. 90 capsule 1 09/17/2024 Active Start: 11-22-2021 End: 10-31-2022 take 1 capsule by mouth once daily venlafaxine ER (EFFEXOR XR) 75 mg 24 hr capsule Take 1 capsule by mouth once daily. 90 capsule 1 03/24/2022 10/31/2022 Discontinued Start: 03-09-2021 End: 11-22-2021 take 1 capsule by mouth once daily venlafaxine ER (EFFEXOR XR) 150 mg 24 hr capsule Take 1 capsule by mouth once daily. 10 capsule 0 06/01/2021 11/22/2021 Discontinued Start: 02-22-2021 take 1 tablet by shai th once daily Start: 02-22-2021 End: 07-05-2023 take 1 tablet by mouth once daily Venlafaxine 100 mg tablet Discontinued 100 mg PO DAILY February 22, 2021 12:00am July 05, 2023 9:15am Comment on above: Take 1 capsule by mo [facility] once daily. vitamin b complex capsule (16 sources) take 1 capsule by mouth once daily vitamin b complex capsule Take 1 capsule by mouth once daily. 50 Active Completed/Discontinued Medications Medication Drug Class(es) Dates [...] 30minutes. 12 tablet 3 06/18/2019 11/25/2021 Discontinued Comment on above: Take 1 tablet by shai th one time a week. Take with a full glass of water, on an empty stomach; do NOT lie down for 30minutes. ascorbic acid 500 mg oral capsule (8 sources) Vitamin C Start: 02-22-2021 End: 08-27-2025 Ascorbic Acid (Vitamin C) 500 mg capsule Discontinued mg PO February 22, 2021 12:00am December 18, 2024 7:53am Start: 02-22-2021 Ascorbic Acid (Vitamin C) Active MG PO February 22, 2021 12:00am aspirin 81 mg chewable tablet (8 sources) Platelet Aggregation Inhibitor, Nonsteroidal Anti-inflammatory Drug Start: 02-22-2021 End: 12-18-2024 take 1 tablet by mouth once daily Aspirin 81 mg tablet,chewable Discontinued 81 mg PO DAILY February 22, 2021 12:00am December 18, 2024 7:53am ciprofloxacin 500 mg oral tablet (1 source) Quinolone Antimicrobial Start: 02-11-2022 End: 02-21-2022 take 1 tablet by mouth twice daily ciprofloxacin HCl (CIPRO) 500 mg tablet Take 1 tablet by mouth twice daily for 10 days. 20 tablet 0 02/11/2022 02/21/2022 Comment on above: Take 1 tablet by shai twice daily for 10 days. COMPOUNDED PRESCRIPTION (5 sources) End: 11-25-2021 COMPOUNDED PRESCRIPTION Stool softner as needed. 0 11/25/2021 Discontinued COMPOUNDED PRESC RIPTION Stool softner as needed. 0 Active Comment on above: Stool softner as nee ded. enteric contrast (will be provided with radiology test) (1 source) Start: 04-13-2022 End: 04-14-2022 enteric contrast (will be provided with radiology test) Indications: Preprocedural examination For CT ABD W IVCON order Administer, As Directed One Time Only, via Oral, Rectal, both Oral and Rectal, Enteric Tube, Stoma or Indwelling Catheter, Enteric Contrast as designated per enteric contrast guidelines 1 Each 0 04/13/2022 04/14/2022 Comment on above: For CT ABD W IVCON o rder Administer, As Directed One Time Only, via Oral, Rectal, both Oral and Rectal, Enteric Tube, Stoma or Indwelling Catheter, Enteric Contrast as designated per enteric contrast guidelines estradiol 0.1 mg/ml vaginal cream (12 sources) Estrogen Start: 02-22-2021 End: 02-03-2025 Estradiol (Estrace) 0.01 % (0.1 mg/gram) cream Discontinued 0 VAGINAL .COMPLEX 42.5 3 July 05, 2023 9:22am February 03, 2025 10:00am use fingertip amount or 1-2g every night vaginally x 2 weeks, then 1-3x weekly for maintenance Start: 02-22-2021 End: 07-05-2023 Estradiol (Estrace) 0.01 % ( 0.1 mg/gram) cream Active 0 VAGINAL .COMPLEX 42.5 July 05, 2023 9:22am use fingertip amount or 1-2g every night vaginally x 2 weeks, then 1-3x weekly for maintenance iv contrast (will be provided with radiology test) (1 source) Start: 04-13-2022 End: 04-14-2022 iv contrast (will be provided with radiology test) Indications: Preprocedural examination CT ABD W -Inject, intravenously, once for 1 dose.No IV access, insert saline lock prior to the beginning of sedation, infusion, injection of imaging exam. Discontinue saline lock post exam. If Pt. has a central line or IVAD, may access for administration according to line specific nursing protocol. Once exam is complete flush line and de-access according to line specific nursing protocol in the CT contrast administration guidelines link. 1 Each 0 04/13/2022 04/14/2022 Comment on above: CT ABD W -Inject, intravenously, once fo r 1 dose.No IV access, insert saline lock prior to the beginning of sedation, infusion, injection of imaging exam. Discontinue saline lock post exam. If Pt. has a central line or IVAD, may access for administration according to line specific nursing protocol. Once exam is complete flush line and de-access according to line specific nursing protocol in the CT contrast administration guidelines link. tacrolimus 0.001 mg/mg topical ointment (5 sources) Calcineurin Inhibitor Immunosuppressant Start: 01-08-2019 End: 11-25-2021 tacrolimus (PROTOPIC) 0.1 % ointment Indications: Eczematous dermatitis of upper and lower eyelids of both eyes Apply 1 application to affected area twice daily. 30 g 1 01/08/2019 11/25/2021 Discontinued Comment on above: Apply 1 application to affected area twi ce daily. Zinc (8 sources) Start: 02-22-2021 End: 12-18-2024 take 1 tablet by mouth once daily Zinc 50 mg tablet Discontinued 50 mg PO DAILY February 22, 2021 12:00am December 18, 2024 7:53am Start: 02-22-2021 take 1 tablet by mouth once da steff Zinc 50 mg tablet Active 50 mg PO DAILY February 22, 2021 12:00am Start: 02-22-2021 take 50 mg by mouth once daily Zinc Active 50 MG PO DAILY February 21, 2021 11:00pm Start: 02-22-2021 take 50 mg by mouth once daily Zinc Active 50 MG PO DAILY February 22, 2021 12:00am Problems Active Problems Problem Classification Problem Date Documented Da te Episodic/Chronic Abdominal pain (2 sources) Right upper quadrant pain; Translations: [Right upper quadrant pain] Episodic Acquired foot deformities (2 sources) Hammer toe; Translations: [Other hammer toe(s) (acquired), right foot] 08-10-2023 Chronic Acute bronchitis (1 source) Acute bronchitis; Translations: [Acute bronchitis, unspecified] 08-05-2024 Episodic Anxiety disorders (1 source) Generalized anxiety disorder; Translations: [GONZALO (generalized anxiety disorder)] Onset: 02-04-2025 Chronic Chronic obstructive pulmonary disease and bronchiectasis (20 sources) Mucopurulent chronic bronchitis; Translations: [Mucopurulent chronic bronchitis] Onset: 05-13-2019 05-13-2019 Chronic Disorders of lipid metabolism (20 sources) Dyslipidemia; Translations: [Hyperlipidemia, unspecified] Onset: 05-13-2019 05-13-2019 Chronic Genitourinary symptoms and ill-defined conditions (1 source) Urinary symptoms ; Translations: [Unspecified symptoms and signs involving the genitourinary system] 07-25-2024 Episodic Headache; including migraine (1 source) Headache; Translations: [Headaches] 08-01-2023 Episodic Immunizations and screening for infectious disease (1 source) Encounter for immunization; Translations: [Encounter for immunization] Onset: 02-04-2025 Episodic Menopausal disorders (8 sources) Atrophic vaginitis; Translations: [Postmenopausal atrophic vaginitis] 05-30-2022 Chronic Comment on above: estrace cream Miscellaneous mental health disorders (8 sources) Chronic insomnia; Translations: [Psychophysiologic insomnia] Onset: 02-04-2025 Chronic Nonspecific chest pain (8 sources) Chest wall pain; Translations: [Other chest pain] 12-11-2021 Episodic Nutritional deficiencies (20 sources) Vitamin D deficiency; Translations: [Vitamin D deficiency, unspecified] Onset: 11-12-2010 11-12-2010 Chronic Osteoporosis (11 sources) Osteoporosis; Translations: [Age-related osteoporosis without current pathological fracture] Onset: 11-07-2024 07-05-2023 Chronic Comment on above: prolia PCP Other congenital anomalies (1 source) Porokeratosis; Translations: [Other specified congenital malformations of skin] 08-10-2023 Chronic Other congenital anomalies (3 sources) Herniated urinary bladder 07-05-2023 Chronic Comment on above: multiple repairs, se en [place]. Restart estradiol cream, is doing pelvic floor exercises Other connective tissue disease (2 sources) Pain in right foot; Translations: [Pain in right foot] Episodic Other female genital disorders (4 sources) Mass of uterine adnexa; Translations: [Other specified conditions associated with female genital organs and menstrual cycle] 07-05-2023 Episodic Comment on above: left-US Other female genital disorders (1 source) Other specified conditions associated with female genital organs and menstrual cycle; Translations: [Other specified symptoms associated with female genital organs] 07-05-2023 Episodic Other gastrointestinal disorders (2 sources) Right upper quadrant abdominal mass; Translations: [Right upper quadrant abdominal swelling, mass and lump] Episodic Other gastrointestinal disorders (4 sources) Stool DNA-based colorectal cancer screening positive; Translations: [Other fecal abnormalities] 10-15-2024 Episodic Other gastrointestinal disorders (2 sources) Other fecal abnormalities; Translations: [Other fecal abnormalities] Onset: 02-20-2025 Episodic Other lower respiratory disease (1 source) Cough; Translations: [Subacute cough] Episodic Other skin disorders (2 sources) Localized swelling of right foot; Translations: [Localized swelling, mass and lump, right lower limb] Episodic Other skin disorders (1 source) Callosity between toes; Translations: [Corns and callosities] 08-10-2023 Episodic Other upper respiratory disease (2 sources) Seasonal allergic rhinitis; Translations: [Other seasonal allergic rhinitis] 02-12-2024 Chronic Residual codes; unclassified (3 sources) Poor short-term memory ; Translations: [Other amnesia] Episodic Residual codes; unclassified (2 sources) Family history of dementia; Translations: [Family history of other mental and behavioral disorders] Episodic Residual codes; unclassified (6 sources) Family history of malignant neoplasm of breast in first degree relative; Translations: [Family history of malignant neoplasm of breast] 05-30-2022 Episodic Comment on above: Mother 2003. Empower negative. Patient did take tamoxifen X 5 yr as preventative. Residual codes; unclassified (2 sources) Family history of malignant neoplasm of breast; Translations: [Family history of malignant neoplasm of breast] 05-30-2022 Episodic Residual codes; unclassified (1 source) Forgetful; Translations: [Other general symptoms and signs] 08-01-2023 Episodic Residual codes; unclassified (1 source) Menopause present; Translations: [Asymptomatic menopausal state] 08-03-2023 Episodic Unclassified (7 sources) Herniated urinary bladder; Translations: [Cystocele] 02-22-2021 Unclassified (2 sources) Patient encounter status 10-15-2024 Past or Other Problems Problem Classification Problem Date Documented Date Episodic/Chronic Diabetes mellitus without complication (2 sources) Hyperglycemia; Translations: [Hyperglycemia, unspecified] Onset: 08-21-2024 08-05-2024 Episodic Hemorrhoids (20 sources) Internal hemorrhoids; Translations: [Other hemorrhoids] Onset: 11-15-2007 11-15-2007 Episodic Malaise and fatigue (19 sources) Fatigue; Translations: [Other fatigue] Onset: 08-05-2024 08-05-2024 Episodic Nonmalignant breast conditions (20 sources) Breast problem; Translations: [Disorder of breast, unspecified] Onset: 03-13-2007 03-13-2007 Episodic Other and unspecified benign neoplasm (20 sources) Benign neoplasm of colon; Translations: [Benign neoplasm of colon, unspecified] Onset: 11-15-2007 11-15-2007 Episodic Other bone disease and musculoskeletal deformities (20 sources) Osteopenia; Translations: [Other specified disorders of bone density and structure, multiple sites] Onset: 05-13-2019 05-13-2019 Episodic Other connective tissue disease (20 sources) Lateral epicondylitis of left humerus; Translations: [Lateral epicondylitis, left elbow] Onset: 06-20-2019 06-20-2019 Episodic Other screening for suspected conditions (not mental disorders or infectious disease) (20 sources) Decreased triiodothyronine level; Translations: [Other specified abnormal findings of blood chemistry] Onset: 05-13-2019 05-13-2019 Episodic Pneumonia (except that caused by tuberculosis or sexually transmitted disease) (20 sources) Pneumonia; Translations: [Pneumonia, unspecified organism] Onset: 08-22-2010 04-19-2019 Episodic Urinary tract infections (19 sources) Recurrent urinary tract infection; Translations: [Urinary tract infection, site not specified] Onset: 08-05-2024 08-05-2024 Episodic Results Test Name Value Interpretation Reference Range Facility Surgical pathology reportOrd ered By: Sandra Mcgowan on 02-14-2025 Surgical pathology study [facility] Colonoscopy Reporton 025 Colonoscopy Report [facility] Medical Records Department [address] [place] [address] Colonoscopy Report MR#: [id number] Acct: [id number] Name: JACQUELINE GASTON Rep #: [id number] : 1955 69 From: Miguelangel Waller DO PCP: Dr. Jay Morales, Status:[facility] Patient Name: Jacqueline Gaston Procedure Date: 02/05/2025 9:24 AM Date of : 1955 Age: 69 Procedure: Colonoscopy Indications: Screening for colorectal malignant neoplasm Providers: Miguelangel Waller DO Referring MD: Jay Morales Medicines: Monitored Anesthesia Care Patient Profile: This is a 69 year old female. Refer to note in patient chart for documentation of history and physical. Last Colonoscopy: several years ago. Complications: No immediate complications. Procedure: Pre-Anesthesia Assessment: - Prior to the procedure, a History and Physical was performed, and patient medications and allergies were reviewed. The patient is competent. The risks and benefits of the procedure and the sedation options and risks were discussed with the patient. All questions were answered and informed consent was obtained. Patient identification and proposed procedure were verified by the physician in the pre-procedure area. Mental Status Examination: alert and oriented. Airway Examination: normal oropharyngeal airway and neck mobility. Respiratory Examination: clear to auscultation. CV Examination: normal. ASA Grade Assessment: II - A patient with mild systemic disease. After reviewing the risks and benefits, the patient was deemed in satisfactory condition to undergo the procedure. The anesthesia plan was to use monitored anesthesia care (MAC). Immediately prior to administration of medications, the patient was re-assessed for adequacy to receive sedatives. The heart rate, respiratory rate, oxygen saturations, blood pressure, adequacy of pulmonary ventilation, and response to care were monitored throughout the procedure. The physical status of the patient was re-assessed after the procedure. After I obtained informed consent, the scope was passed under direct vision. Throughout the procedure, the patient's blood pressure, pulse, and oxygen saturations were monitored continuously. The pediatric colonoscope was introduced through the anus and advanced to the cecum, identified by appendiceal orifice and ileocecal valve. The colonoscopy was performed without difficulty. The patient tolerated the procedure well. The quality of the bowel preparation was adequate. The ileocecal valve, appendiceal orifice, and rectum were photographed. Scope In: 11:20:23 AM Scope Withdrawal Time 0 hours 14 minutes 3 seconds Scope Out: 11:49:24 AM Total Procedure Duration Time 0 hours 29 minutes 1 second Findings: The perianal and digital rectal examinations were normal. A 5 mm polyp was found in the hepatic flexure. The polyp was sessile. The polyp was removed with a jumbo cold forceps. Resection and retrieval were complete. Verification of patient identification for the specimen was done. Estimated blood loss was minimal. The exam was otherwise without abnormality on direct and retroflexion views. Impression: - One 5 mm polyp at the hepatic flexure, removed with a jumbo cold forceps. Resected and retrieved. - The examination was otherwise normal on direct and retroflexion views. Recommendation: - Discharge patient to home. - Resume previous diet. - Continue present medications. - Await pathology results. - Repeat colonoscopy in 5 years for surveillance. Procedure Code(s): --- Professional --- 84160, Colonoscopy, flexible; with biopsy, single or multiple CPT copyright 2021 [employer]. All rights reserved. The codes documented in this report are preliminary and upon vasc tech review may be revised to meet current compliance requirements. Miguelangel Waller DO 02/05/2025 11:59:52 AM This report has been signed electronically. Number of Addenda: 0 Note Initiated On: 02/05/2025 9:24 AM 02/05/25 1200 Date Miguelangel Owensignchika Signature: Date (if indicated) CC: Dr. Jay Morales DO; Miguelangel Waller DO Date Dictated: 02/05/2524 Date Transcribed: After School Teacher: RF Signed [facility] MR/OP.Sandoval 02-05-2025 MR/OP.[facility] Medical Records Department [address] [place] [address] Provation Physician Letter MR#: [id number] Acct: [id number] Name: JACQUELINE GASTON Rep #: [id number] : 1955 69 From: Miguelangel Waller DO PCP: Dr. Jay Morales DO Status:REG [facility] 02/05/2025 Jay Morales [address] [place] [address] Re : Colonoscopy procedure for Jacqueline Gaston Dear Dr. Morales This procedure was performed on Monday, February 05, 2025. My impressions and recommendations are as follows: Impressions : - One 5 mm polyp at the hepatic flexure, removed with a jumbo cold forceps. Resected and retrieved. - The examination was otherwise normal on direct and retroflexion views. Recommendations : - Discharge patient to home. - Resume previous diet. - Continue present medications. - Await pathology results. - Repeat colonoscopy in 5 years for surveillance. My findings are described in the full procedure note, which is enclosed. If I can be of further assistance, please feel free to contact me at . Sincerely, Miguelangel Waller DO 02/05/2025 11:59:52 AM This report has been signed electronically. 02/05/25 1200 Date Miguelangel Waller DO Cosignchika Signature: Date (if indicated) CC: Dr. Jay Morales DO; Miguelangel Waller DO Date Dictated: 02/05/25923 Date Transcribed: After School Teacher: RF Signed [facility] MR/POSTOP.ANE 02-05-2025 MR/POSTOP.[facility] Medical Records Department [address] [place] [address] Anesthesia Postop Eval I 02/05/25 1219 MR#: [id number] Acct: [id number] Name: JACQUELINE GASTON Rep #: [id number] : 1955 69 From: Jose Inman PCP: Dr. Jay Morales DO Status:REG SDC Y Race: C Location: [place] [address] Anesthesia: Postop Eval I Current Vital Signs Temperature: 97.3 F Pulse Rate: 64 Blood Pressure: 109/70 Respiratory Rate: 16 Pulse Ox: 100 Oxygen Delivery Method: Room Air Assessment Airway patent: Yes Spontaneous unlabored respirations: Yes Mental status: Awake and Calm nausea: No Vomiting: No Anesthesia Complication: No Fluid Hydration Crystalloid volume administer (ml): 800 Total IV fluid infused: 800 Progress Note Anesthesia document: Postop Eval 1 completed: Yes 02/05/25 1223 Date Jose Lam Signature: Date CC: Signed [facility] MR/VESGJWEL8yp 02-05-2025 MR/POST[address] Medical Records Department [address] [place] [address] Anesthesia Postop Eval II 02/05/25 1354 MR#: [id number] Acct: [id number] Name: JACQUELINE GASTON Rep #: [id number] : 1955 69 From: Trace Harris MD PCP: Dr. Jay Morales, DO Status:DEP [facility] Y Race: C Location: [place] Anesthesia Postop Eval I Sum Postop Eval Completion status Anesthesia document: Postop Eval 1 completed: Yes Anesthesia Postop Eval I Summary Anesthesia Postop Eval I Summary: Anesthesia Postop Eval I: Assessment Summary Airway patent Yes 02/05/25 12:21 [email or web address] Spontaneous unlabored Yes 02/05/25 12:21 [email or web address] respirations Mental status Awake,Calm 02/05/25 12:21 [email or web address] nausea No 02/05/25 12:21 [email or web address] Vomiting No 02/05/25 12:21 [email or web address] Anesthesia Postop Eval I: Fluid Summary Crystalloid volume administer 800 02/05/25 12:21 [email or web address] (ml) Colloids volume administered ( ml) Blood Product volume administered (ml) Total IV fluid infused 800 02/05/25 12:21 [email or web address] Anesthesia Postop Eval I: Summary Notes Anesthesia Complication No 02/05/25 12:21 [email or web address] Anesthesia Complication Comment: Post-operative progress note Anesthesia: Postop Eval II Evaluation Mental status: Awake and Calm Pain Level: 1 nausea: No Vomiting: No Complications Anesthesia Complication: No 02/05/25 1354 Date Trace Harris MD [facility] Signature: Date CC: Signed Normal [facility] Surgery Specimen Level Charles 02-05-2025 Surgery Specimen Level IV ---- Patient Age/Sex Location Account Attending Physician ---- JACQUELINE GASTON 69/F EN [id number] Miguelangel Waller DO ---- Specimen: [id number] Received: 02/05/25 Status: JN Anand Num: [id number] Spec Type: COLON BX Subm Dr: Miguelangel Waller DO HEADER OPERATION: Colonoscopy with biopsy PRE-OP DIAGNOSIS: Positive colorectal cancer screening using Cologuard test TISSUE SUBMITTED: A- Hepatic flexure biopsy ---- MICROSCOPIC DIAGNOSIS A. Colon, hepatic flexure, biopsy: * Tubular adenoma MICROSCOPIC DESCRIPTION Slides are reviewed. GROSS DESCRIPTION A. Received in fixative is one container labeled with the patient's name and designated Hepatic flexure biopsy. The specimen consists of one irregular fragment of arias tissue that measures 0.2 cm. The specimen is totally submitted in one cassette. DC 02/05/2025 CPT:14760 ---- Patient Age/Sex Location Account Attending Physician ---- JACQUELINE GASTON 69/F EN [id number] Miguelangel Waller DO ---- Signed (signature on file) Dr. Sandra Mcgowan DO 02/14/25 161 ---- Normal [facility] Comment on above: Performed By: #### P MIREILLE #### [facility] [address] [place], [address] Abdiel 02-04-2025 CNOV Office Visit (WALTPWS ) JACQUELINE GASTON ([id number]) 1955 F Date Time Provider Department 02/04/25 7:00 AM ZAIN LANDIN During your visit today, we recorded the following information about you: Pulse Blood pressure Weight 83/minute 130/64 46 kg Zain Landin APRN.HL7 INTERFACE DEVELOPER 02/04/2025 7:46 AM Signed 02/04/2025 Recording using ambient Rainbow software for draft documentation of the visit was discussed with the patient/authorized food service sales representatives; all questions welcomed and answered. Patient/authorized food service sales representatives agreed to proceed HPI: The patient is a 69-year-old female with insomnia, presenting for evaluation of difficulty maintaining sleep and medication management. Jacqueline is a 69-year-old female with a history of insomnia, presenting for a follow-up visit. Insomnia: - Difficulty staying asleep; wakes up at 0330 and unable to return to sleep. - Currently taking Trazodone 300 mg. - Previously on Effexor XR 150 mg, now taking 75 mg. - Has not tried Ambien. Colonoscopy: - Scheduled for a colonoscopy with Dr. Waller. - Expresses desire to get it over with. Family Concerns: - Mother is currently in [facility], receiving rehab following a hip fracture, experiencing increased confusion and pain. - Mother is receiving PT; pain managed with intermittent Oxycodone. - Jacqueline is concerned about her father's desire to bring her mother home before she is ready. - Jacqueline and her sister, Caroline, are providing support and care, leading to stress and disrupted sleep. PAST MEDICAL HISTORY Diagnosis Date Anxiety disorder in conditions classified elsewhere Benign neoplasm of colon Diffuse cystic mastopathy 02/13/07 Family history of abdominal aortic aneurysm Female bladder prolapse Insomnia, unspecified Internal hemorrhoids without mention of complication Pneumonia 08/2010 Sleep apnea [address] Anthony Snoring Varicose vein of leg Current Outpatient Medications on File Prior to Visit Medication Sig traZODone HCl (DESYREL) 300 mg tablet Take 1 tablet by mouth daily at bedtime. TURMERIC ORAL Take by mouth. vitamin b complex capsule Take 1 capsule by mouth once daily. 50 huisa-qi-6-dha-epa-jose miguel spho-ast (KRILL OIL) 1,669-819-99-80 mg cap Take by mouth. acetylcysteine (NAC ORAL) Take by mouth. Biotin 10,000 mcg cap Take 1 capsule by mouth once daily. vit A,C,Z-Emkd-Hbmtaa (OCUVITE PRESERVISION) 7,160-113-100 msrh-pg-bwyd tab Take 1 tablet by mouth daily with breakfast. Cholecalciferol, Vitamin D3, 50 mcg (2,000 unit) cap Take 1 tablet by mouth once daily. Calcium Carb-Cholecalciferol (NUBIA-600 WITH VITAMIN D) 600 (1,500)-200 mg-unit ORAL Tab Take one(1) tablet twice daily. Current Facility-Administered Medications on File Prior to Visit Medication denosumab 60 mg injection (PROLIA) Review of Systems: Constitutional: (+) sleep maintenance insomnia Musculoskeletal: (+) back muscle pain Psychiatric: (+) anxiety Physical Exam: BP 130/64 Pulse 83 Wt 46 kg (101 lb 6.4 oz) SpO2 97% BMI 17.53 kg/m? GENERAL: NAD, alert and oriented, well-groomed, thin. SKIN: Unremarkable, no rash or skin lesions. HEAD: Normocephalic. LUNGS: Clear to auscultation bilaterally, no wheezes/rhonchi/rales. HEART: Regular rate and rhythm, no murmurs. No ectopy. EXTREMITIES: Normal, no deformities, no skin discoloration, no edema. NEURO: Awake, alert and oriented x3, cranial nerves II-XII grossly intact, normal gait, no involuntary motions. PSYCHIATRIC: pleasant, cooperative Assessment/Plan: 1. Chronic insomnia (F51.04) 2. Situational insomnia (F51.09) 3. GONZALO (generalized anxiety disorder) (F41.1) - Chronic insomnia with situational exacerbation due to family stressors. - Currently on trazodone 300 mg nightly and venlafaxine XR 75 mg daily; previously tolerated venlafaxine XR 150 mg daily-increase to this dose today. - Start zolpidem; discussed that it can be taken in addition to trazodone and does not typically cause a hangover effect. - Advised patient to ensure at least 8 hours of sleep opportunity when taking zolpidem. - Patient expressed understanding and willingness to try zolpidem. - Encouraged patient to keep me updated on sleep quality and family situation. 4. Encounter for immunization (Z23) - Administer flu vaccine today. - Administer pneumococcal 20-valent conjugate vaccine today. - Educated patient that vaccines will not interfere with upcoming colonoscopy. The patient indicates understanding of these issues and agrees with the plan. Red flag symptoms reviewed as needed. Follow up: Zain Landin APRN.HL7 INTERFACE DEVELOPER PDMP website checked and validated. All prescriptions have been APPROPRIATELY filled. No suspicious activity was identified. 02/04/2025 by Zain Landin CNP. Allergies As of Date: 02/04/2025 (No Known Allergies) Markie (more content not included)... Normal [facility] Visit Repor ton 12-18-2024 Gastroenterology Visit Report [facility] [address] [place] [address] OFFICE VISIT Date of Service: 12/18/24 MR#: [id number] Acct: [id number] Name: JACQUELINE GASTON Rep #: [id number] : 1955 Provider: Miguelangel Waller DO Age/Sex: 69/F Location: [facility] Status: Signed Intake Vital Signs 07/05/23 09:15 Height 5 ft 4 in Intake Visit Reasons: POS COLOGUARD Allergies No Known Allergies Allergy (Verified 07/05/23 09:08) Medications ???Medication ???Instructions ???Recorded ???Confirmed ???Type calcium 315 mg (as 1 tab PO DAILY 02/22/21 12/18/24 H istory citrate)-vitamin D3 6.25 mcg (250 unit) tablet (Citracal + Vitamin D Maximum) cholecalciferol (vitamin D3) 250 250 mcg PO DAILY 02/22/21 12/18/24 History mcg (10,000 unit) capsule krill oil 500 mg capsule mg PO 02/22/21 12/18/24 History trazodone 300 mg tablet 300 mg PO DAILY 02/22/21 12/18/24 History venlafaxine 75 mg tablet 75 mg PO DAILY 02/22/21 12/18/24 H istory estradiol 0.01% (0.1 mg/gram) See Rx Instructions vaginal 12/18/24 Rx vaginal cream (Estrace) .COMPLEX #42.5 grams Brain Power Boost PO 12/18/24 12/18/24 History acetylcysteine 600 mg capsule (NAC) 600 mg PO QDAY 12/18/24 5 History Have you fallen in the past year?: No Nurse's Note: Pt was scheduled for colonoscopy on 02.05.25 at the end of their appt today. Reviewed prep instructions and which medications to hold prior to procedure with pt in office. A paper copy of miralax prep instructions were given to pt. Pt denies any questions or concerns at this time. PFSH Medical History Vitamin D deficiency Anxiety with depression Surgical History Hx of wisdom tooth extraction Varicose vein of leg History of bladder surgery H/O: hysterectomy Family History Mother Breast cancer Father Heart disease Grandmother Breast cancer CVA (cerebral vascular accident) Grandfather Prostate CA Diabetes Social History Smoking Status: Never smoker alcohol intake: never substance use type: does not use caffeine: Yes what type of physical activity do you participate in: walking seatbelt use: always do you feel safe at home: Yes additional social history: retired- Den HPI HPI Details: JACQUELINE GASTON, is a 69 F who presents to the office today for initial consult. *BGI established 12.18.24 pt reports that she is here to follow up from positive cologuard test that she did a few months ago. Pt reports constipation, but states this has been an ongoing issue. Pt also reports that for the past few years she has had muscle spasms over her diaphragm, reports she has mentioned this to her PCP, they did some testing, but states nothing was ever resolved. The patient, an average-risk individual for colorectal cancer, recently completed a routine Cologuard screening test. She was notified by the lab of a positive result, prompting this visit. She has no new gastrointestinal symptoms, including no abdominal pain, rectal bleeding, or changes in bowel habits. She denies any other new complaints.Past Medical History: Normal screening colonoscopy (10 years ago). Reports no immediate family history of colorectal cancer. ROS Const Constitutional: No fatigue, fever(s) or weight change ENT ENT: No difficulty swallowing Gastro GI: Positive for constipation; No abdominal pain, belching, bloating, change in bowel habits, change in stool character, coffee ground emesis, cramping, diarrhea, heartburn, difficulty swallowing, feeling full early, excessive flatus, incontinent of stools, Vomiting blood/hematemesis, Blood in stool, loose stools, Black,tarry stools, nausea/dyspepsia, pain with swallowing, vomiting or other Musc Musculoskeletal: Positive for muscle cramps; No joint pain Skin Skin: No yellowing of the eye or itchy eyes Psych Psychiatric: Positive for anxiety and No depression Endo Endocrine: No fatigue or weight change Aller/Imm Allergy/Immunologic: No itchy eyes Robson/Lymp Hematologic/Lymphatic: No easy bleeding or easy bruising Exam Const General: cooperative, healthy appearing, comfortable and no acute distress Nutritional Appearance: well nourished Orientation: alert, awake and oriented x3 HENMT Ears: hearing grossly normal bilaterally Face and sinus: normal facial exam Teeth and gingiva: dentition normal Eyes General: appearance normal, both eyes and all related structures Sclera: sclerae normal Neck Neck: normal visual inspection Resp Effort Inspection: normal respiratory effort Auscultation: Bilateral: Clear to Auscultation Cardio Rat (more content not included)... Normal [facility] 11-22-2024 [facility] Telephone (INTMWS) JACQUELINE GASTON ([id number]) 1955 F Date Time Provider Department 11/22/24 JAY MORALES INTMWS During your visit today, we recorded the following information about you: Tracey Castillo LPN 11/22/2024 8:35 AM Signed [facility] 11/05/24 to 11/05/25. To scanned documents Allergies As of Date: 11/22/2024 (No Known Allergies) Date Reviewed: 08/05/2024 Reviewed by: Alyson Pritchett LPN - Fully Assessed Reason for Visit: Insurance Authorization [[id number]] Prescriptions as of 11/22/2024 - traZODone HCl (DESYREL) 300 mg tablet Take 1 tablet by mouth daily at bedtime. - venlafaxine ER (EFFEXOR XR) 75 mg 24 hr capsule Take 1 capsule by mouth once daily. - TURMERIC ORAL Take by mouth. - vitamin b complex capsule Take 1 capsule by mouth once daily. 50 - laqac-by-8-dha-epa-jose miguel spho-ast (KRILL OIL) 1,575-916-08-80 mg cap Take by mouth. - acetylcysteine (NAC ORAL) Take by mouth. - Biotin 10,000 mcg cap Take 1 capsule by mouth once daily. - vit A,C,E-Kwaf-Bfmaga (OCUVITE PRESERVISION) 7,160-113-100 plez-is-gpau tab Take 1 tablet by mouth daily with breakfast. - Cholecalciferol, Vitamin D3, 50 mcg (2,000 unit) cap Take 1 tablet by mouth once daily. - Calcium Carb-Cholecalciferol (NUBIA-600 WITH VITAMIN D) 600 (1,500)-200 mg-unit ORAL Tab Take one(1) tablet twice daily. Facility-Administered Medications as of 11/22/2024 - denosumab 60 mg injection (PROLIA) Problem List As Of Date 11/22/2024 Noted Resolved BREAST DISORDER NOS [N64.9] 03/13/2007 BENIGN NEOPLASM LG BOWEL [D12.6] 11/15/2007 INT HEMORRHOID W/O COMPL [K64.8] 11/15/2007 Vitamin D deficiency [E55.9] 11/12/2010 Pneumonia [J18.9] 08/2010 Osteopenia of multiple sites [M85.89] 05/13/2019 T3 low in serum [R79.89] 05/13/2019 Dyslipidemia [E78.5] 05/13/2019 Bronchitis, mucopurulent recurrent (HCC) [J41.1]05/13/2019 Well adult exam [Z00.00] 05/13/2019 Epicondylitis, lateral, left [M77.12] 06/20/2019 Recurrent UTI (urinary tract infection) [N39.0] 08/05/2024 Fatigue [R53.83] 08/05/2024 Encounter Status:Closed by TRACEY [facility]ILLO [facility] Nurse Visit (FAMPWS) JACQUELINE GASTON ([id number]) 1955 F Date Time Provider Department 11/07/24 8[facility] [facility] your visit today, we recorded the following information about you: BHAVANA GRIMM 11/07/2024 8:13 AM Signed Patient presents for Prolia injection. Denies any problems at this time. Brought own medication. Patient instructed on any SE of medication, verbalized understanding and agreed to proceed with treatment. Tolerated injection well. Bhavana Grimm LPN Referring Provider: ZAIN LANDIN [[id number]] Allergies As of Date: 11/07/2024 (No Known Allergies) Date Reviewed: 08/05/2024 Reviewed by: Alyson Pritchett LPN - Fully Assessed Reason for Visit: Imm/Inj [58] Primary Visit Diagnosis:Osteoporosis without current pathological fracture, unspecified osteoporosis type [M81.0] Prescriptions as of 11/07/2024 - traZODone HCl (DESYREL) 300 mg tablet Take 1 tablet by mouth daily at bedtime. - venlafaxine ER (EFFEXOR XR) 75 mg 24 hr capsule Take 1 capsule by mouth once daily. - TURMERIC ORAL Take by mouth. - vitamin b complex capsule Take 1 capsule by mouth once daily. 50 - eyztu-qc-5-dha-epa-jose miguel spho-ast (KRILL OIL) 1,387-640-15-80 mg cap Take by mouth. - acetylcysteine (NAC ORAL) Take by mouth. - Biotin 10,000 mcg cap Take 1 capsule by mouth once daily. - vit A,C,L-Ezyr-Jmahkd (OCUVITE PRESERVISION) 7,160-113-100 cwwr-el-fmap tab Take 1 tablet by mouth daily with breakfast. - Cholecalciferol, Vitamin D3, 50 mcg (2,000 unit) cap Take 1 tablet by mouth once daily. - Calcium Carb-Cholecalciferol (NUBIA-600 WITH VITAMIN D) 600 (1,500)-200 mg-unit ORAL Tab Take one(1) tablet twice daily. Facility-Administered Medications as of 11/07/2024 - denosumab 60 mg injection (PROLIA) Problem List As Of Date 11/07/2024 Noted Resolved BREAST DISORDER NOS [N64.9] 03/13/2007 BENIGN NEOPLASM LG BOWEL [D12.6] 11/15/2007 INT HEMORRHOID W/O COMPL [K64.8] 11/15/2007 Vitamin D deficiency [E55.9] 11/12/2010 Pneumonia [J18.9] 08/2010 Osteopenia of multiple sites [M85.89] 05/13/2019 T3 low in serum [R79.89] 05/13/2019 Dyslipidemia [E78.5] 05/13/2019 Bronchitis, mucopurulent recurrent (HCC) [J41.1]05/13/2019 Well adult exam [Z00.00] 05/13/2019 Epicondylitis, lateral, left [M77.12] 06/20/2019 Recurrent UTI (urinary tract infection) [N39.0] 08/05/2024 Fatigue [R53.83] 08/05/2024 Encounter Status:Closed by BHAVANA GRIMM on 11/07/24 [facility] 11-04-2024 [facility] Telephone (FAMPWS) JACQUELINE GASTON ([id number]) 1955 F Date Time Provider Department 11/04/24 JAY MORALES During your visit today, we recorded the following information about you: BHAVANA GRIMM 11/04/2024 8:37 AM Signed Patient scheduled for nurse visit 11/06/24 to receive Prolia injection. Please place order at this time. Bhavana Grimm LPN Allergies As of Date: 11/04/2024 (No Known Allergies) Date Reviewed: 08/05/2024 Reviewed by: Alyson Pritchett LPN - Fully Assessed Reason for Visit: Orders [681] Primary Visit Diagnosis:Osteoporosis without current pathological fracture, unspecified osteoporosis type [M81.0] Order(s):[START ON 11/06/2024] denosumab 60 mg injection (PROLIA)Disp: Rfl: Prescriptions as of 11/04/2024 - traZODone HCl (DESYREL) 300 mg tablet Take 1 tablet by mouth daily at bedtime. - venlafaxine ER (EFFEXOR XR) 75 mg 24 hr capsule Take 1 capsule by mouth once daily. - TURMERIC ORAL Take by mouth. - vitamin b complex capsule Take 1 capsule by mouth once daily. 50 - mppmp-dn-2-dha-epa-jose miguel spho-ast (KRILL OIL) 1,301-577-96-80 mg cap Take by mouth. - acetylcysteine (NAC ORAL) Take by mouth. - Biotin 10,000 mcg cap Take 1 capsule by mouth once daily. - vit A,C,N-Cppf-Rxgfyk (OCUVITE PRESERVISION) 7,160-113-100 bqjx-ni-toap tab Take 1 tablet by mouth daily with breakfast. - Cholecalciferol, Vitamin D3, 50 mcg (2,000 unit) cap Take 1 tablet by mouth once daily. - Calcium Carb-Cholecalciferol (NUBIA-600 WITH VITAMIN D) 600 (1,500)-200 mg-unit ORAL Tab Take one(1) tablet twice daily. Facility-Administered Medications as of 11/04/2024 - denosumab 60 mg injection (PROLIA) Problem List As Of Date 11/04/2024 Noted Resolved BREAST DISORDER NOS [N64.9] 03/13/2007 BENIGN NEOPLASM LG BOWEL [D12.6] 11/15/2007 INT HEMORRHOID W/O COMPL [K64.8] 11/15/2007 Vitamin D deficiency [E55.9] 11/12/2010 Pneumonia [J18.9] 08/2010 Osteopenia of multiple sites [M85.89] 05/13/2019 T3 low in serum [R79.89] 05/13/2019 Dyslipidemia [E78.5] 05/13/2019 Bronchitis, mucopurulent recurrent (HCC) [J41.1]05/13/2019 Well adult exam [Z00.00] 05/13/2019 Epicondylitis, lateral, left [M77.12] 06/20/2019 Recurrent UTI (urinary tract infection) [N39.0] 08/05/2024 Fatigue [R53.83] 08/05/2024 Prescriptions ordered this encounter Disp Refills Start End DENOSUMAB 60 MG/ML SUBCUTANEOUS SYRI* 11/06/2024 10/31/2025 Route: SQ Encounter Status:Closed by BHAVANA GRIMM on 11/04/24 [facility] JACQU[facility] GASTON ([id number]) 1955 F Date Time Provider Department 11/04/24 JAY MORALES During your visit today, we recorded the following information about you: Ranulfo Yu, RN 11/04/2024 6:13 PM [phone] calling to confirm delivery of Prolia to PCP's office. Please call to confirm. Jay Morales DO 11/05/2024 7:09 AM Signed Was this delivered? Please verify DO PARAM Jasso HEATHER 11/05/2024 1:22 PM Signed I have not received any medication for this patient in office. DEJA Shi Jordan L, DO 11/05/2024 2:49 PM Signed Please call the number below and clarify rx for Prolia Jay Jha DO PARAM Morales HEATHER 11/05/2024 3:07 PM Signed Spoke with [facility] specialty pharmacy at this time. They confirmed delivery of medication for 11/06/24. Phoned patient to update of delivery and change appt to ensure available for administration. New appt given. Bhavana Grimm LPN Allergies As of Date: 11/04/2024 (No Known Allergies) Date Reviewed: 08/05/2024 Reviewed by: Alyson Pritchett LPN - Fully Assessed Reason for Visit: Medication Update [2591] Prescriptions as of 11/05/2024 - traZODone HCl (DESYREL) 300 mg tablet Take 1 tablet by mouth daily at bedtime. - venlafaxine ER (EFFEXOR XR) 75 mg 24 hr capsule Take 1 capsule by mouth once daily. - TURMERIC ORAL Take by mouth. - vitamin b complex capsule Take 1 capsule by mouth once daily. 50 - rgnae-kl-9-dha-epa-jose miguel spho-ast (KRILL OIL) 1,870-222-57-80 mg cap Take by mouth. - acetylcysteine (NAC ORAL) Take by mouth. - Biotin 10,000 mcg cap Take 1 capsule by mouth once daily. - vit A,C,E-Welr-Jsdeby (OCUVITE PRESERVISION) 7,160-113-100 pdka-on-tswe tab Take 1 tablet by mouth daily with breakfast. - Cholecalciferol, Vitamin D3, 50 mcg (2,000 unit) cap Take 1 tablet by mouth once daily. - Calcium Carb-Cholecalciferol (NUBIA-600 WITH VITAMIN D) 600 (1,500)-200 mg-unit ORAL Tab Take one(1) tablet twice daily. Facility-Administered Medications as of 11/05/2024 - denosumab 60 mg injection (PROLIA) Problem List As Of Date 11/04/2024 Noted Resolved BREAST DISORDER NOS [N64.9] 03/13/2007 BENIGN NEOPLASM LG BOWEL [D12.6] 11/15/2007 INT HEMORRHOID W/O COMPL [K64.8] 11/15/2007 Vitamin D deficiency [E55.9] 11/12/2010 Pneumonia [J18.9] 08/2010 Osteopenia of multiple sites [M85.89] 05/13/2019 T3 low in serum [R79.89] 05/13/2019 Dyslipidemia [E78.5] 05/13/2019 Bronchitis, mucopurulent recurrent (HCC) [J41.1]05/13/2019 Well adult exam [Z00.00] 05/13/2019 Epicondylitis, lateral, left [M77.12] 06/20/2019 Recurrent UTI (urinary tract infection) [N39.0] 08/05/2024 Fatigue [R53.83] 08/05/2024 Encounter Status:Closed by BHAVANA GRIMM on 11/05/24 [facility] 10-29-2024 [facility] JACQUELINE GASTON ([id number]) 1955 F Date Time Provider Department 10/29/24 [facility]ORAL[facility] During your visit today, we recorded the following information about you: Vandana Murcia LPN 10/29/2024 8:32 AM Signed Pt calls for the followin) Requesting order for colonoscopy be re-faxed to Dr. Patel office. [phone]. Faxed as requested. 2) Asking about Prolia injection. This was ordered 08/23/23 after bone density results. Pt was advised to check with insurance to see if they wanted clinic to provide prolia or if pt needed to product picker at the pharmacy. Rx is . Notified pt of this. Pt is going to contact insurance again to see what is needed and will call office back. DEJA Quinn Sherrie, RN 10/30/2024 3:46 PM Signed In reference to #2 below, pt states her insurance covers the Prolia. Asking for provider to send script to [facility] for product picker there. SAVANA Simpson Alyson Taylor, APRN.HL7 INTERFACE DEVELOPER 10/30/2024 7:22 PM Signed The following approved medication requests have been transmitted electronically. Requested Prescriptions Signed Prescriptions Disp Refills denosumab (PROLIA) 60 mg/mL syringe 1 mL 0 Sig: Inject 60 mg subcutaneously one time only for 1 dose. Q 6 months Authorizing Provider: NAILA PEREYRA APRN.HL7 INTERFACE DEVELOPER Allergies As of Date: 10/29/2024 (No Known Allergies) Date Reviewed: 08/05/2024 Reviewed by: Alyson Pritchett LPN - Fully Assessed Reason for Visit: Referral Information [0054] Medication Question [2758] Visit Diagnosis:Osteoporosis without current pathological fracture, unspecified osteoporosis type [M81.0] Order(s):denosumab (PROLIA) 60 mg/mL syringeInject 60 mg subcutaneously one time only for 1 dose. Q 6 monthsDisp: 1 mLRfl: 0 Prescriptions as of 10/30/2024 - traZODone HCl (DESYREL) 300 mg tablet Take 1 tablet by mouth daily at bedtime. - denosumab (PROLIA) 60 mg/mL syringe Inject 60 mg subcutaneously one time only for 1 dose. Q 6 months - venlafaxine ER (EFFEXOR XR) 75 mg 24 hr capsule Take 1 capsule by mouth once daily. - TURMERIC ORAL Take by mouth. - vitamin b complex capsule Take 1 capsule by mouth once daily. 50 - jmghw-uh-0-dha-epa-jose miguel spho-ast (KRILL OIL) 1,239-175-02-80 mg cap Take by mouth. - acetylcysteine (NAC ORAL) Take by mouth. - Biotin 10,000 mcg cap Take 1 capsule by mouth once daily. - vit A,C,C-Mmqy-Xwrvyr (OCUVITE PRESERVISION) 7,160-113-100 usqq-mw-dfro tab Take 1 tablet by mouth daily with breakfast. - Cholecalciferol, Vitamin D3, 50 mcg (2,000 unit) cap Take 1 tablet by mouth once daily. - Calcium Carb-Cholecalciferol (NUBIA-600 WITH VITAMIN D) 600 (1,500)-200 mg-unit ORAL Tab Take one(1) tablet twice daily. Problem List As Of Date 10/29/2024 Noted Resolved BREAST DISORDER NOS [N64.9] 03/13/2007 BENIGN NEOPLASM LG BOWEL [D12.6] 11/15/2007 INT HEMORRHOID W/O COMPL [K64.8] 11/15/2007 Vitamin D deficiency [E55.9] 11/12/2010 Pneumonia [J18.9] 08/2010 Osteopenia of multiple sites [M85.89] 05/13/2019 T3 low in serum [R79.89] 05/13/2019 Dyslipidemia [E78.5] 05/13/2019 Bronchitis, mucopurulent recurrent (HCC) [J41.1]05/13/2019 Well adult exam [Z00.00] 05/13/2019 Epicondylitis, lateral, left [M77.12] 06/20/2019 Recurrent UTI (urinary tract infection) [N39.0] 08/05/2024 Fatigue [R53.83] 08/05/2024 Prescriptions ordered this encounter Disp Refills Start End PROLIA 60 MG/ML SUBCUTANEOUS SYRINGE 1 mL 0 10/30/2024 10/30/2024 Route: SQ Sig: Inject 60 mg subcutaneously one time only for 1 dose. Q 6 months Medications Discontinued During This Encounter Prescriptions - denosumab (PROLIA) 60 mg/mL (Discontinued) Inject 1 mL subcutaneously one time only for 1 dose. Encounter Status:Closed by LEELA ANGUIANO on 10/30/24 [facility] JACQUELINE GASTON ([id number]) 1955 F Date Time Provider Department 10/16/24 [facility] During your visit today, we recorded the following information about you: Yang Bhatt 10/16/2024 9:02 AM Signed Spoke with patient to schedule colonoscopy. She requested Dr. Waller, faxed order and patient information to [facility]. Allergies As of Date: 10/16/2024 (No Known Allergies) Date Reviewed: 08/05/2024 Reviewed by: Alyson Pritchett LPN - Fully Assessed Reason for Visit: Appointment [186] Prescriptions as of 10/16/2024 - venlafaxine ER (EFFEXOR XR) 75 mg 24 hr capsule Take 1 capsule by mouth once daily. - TURMERIC ORAL Take by mouth. - vitamin b complex capsule Take 1 capsule by mouth once daily. 50 - wywch-kd-4-dha-epa-jose miguel spho-ast (KRILL OIL) 1,399-732-81-80 mg cap Take by mouth. - acetylcysteine (NAC ORAL) Take by mouth. - traZODone HCl (DESYREL) 300 mg tablet Take 1 tablet by mouth daily at bedtime. - Biotin 10,000 mcg cap Take 1 capsule by mouth once daily. - vit A,C,C-Xyvp-Jplbdw (OCUVITE PRESERVISION) 7,160-113-100 qpmg-nz-lfax tab Take 1 tablet by mouth daily with breakfast. - Cholecalciferol, Vitamin D3, 50 mcg (2,000 unit) cap Take 1 tablet by mouth once daily. - Calcium Carb-Cholecalciferol (NUBIA-600 WITH VITAMIN D) 600 (1,500)-200 mg-unit ORAL Tab Take one(1) tablet twice daily. Problem List As Of Date 10/16/2024 Noted Resolved BREAST DISORDER NOS [N64.9] 03/13/2007 BENIGN NEOPLASM LG BOWEL [D12.6] 11/15/2007 INT HEMORRHOID W/O COMPL [K64.8] 11/15/2007 Vitamin D deficiency [E55.9] 11/12/2010 Pneumonia [J18.9] 08/2010 Osteopenia of multiple sites [M85.89] 05/13/2019 T3 low in serum [R79.89] 05/13/2019 Dyslipidemia [E78.5] 05/13/2019 Bronchitis, mucopurulent recurrent (HCC) [J41.1]05/13/2019 Well adult exam [Z00.00] 05/13/2019 Epicondylitis, lateral, left [M77.12] 06/20/2019 Recurrent UTI (urinary tract infection) [N39.0] 08/05/2024 Fatigue [R53.83] 08/05/2024 Encounter Status:Closed by YANG BHATT on 10/16/24 [facility] 25(OH)D3 SerPl-mCncon 2024 25-hydroxyvitamin D3 [Mass/Vol] 121.0 ng/mL High 31.0-80.0 [facility] Comment on above: Order Comment: Speci men Type: BLOOD SPECIMENOrdering Facility: [facility] Address: [address] [place] [address] Performed By: #### 6 30-4 #### [facility] CLIA [id number] [address] [place] [address] [place] CBC W Auto Differential pane l (Bld)on 08-21-2024 Basophils (Bld) [#/Vol] 0.03 10*3/uL Normal <0.11 [facility] Comment on above: Order Comment: Speci men Type: BLOOD SPECIMENOrdering Facility: [facility] Address: [address] [place] [address] Performed By: #### 6 30-4 #### [facility] CLIA [id number] [address] [place] [address] [place] Basophils/100 WBC (Bld) 0.6 % Normal [facility] Comment on above: Order Comment: Speci men Type: BLOOD SPECIMENOrdering Facility: [facility] Address: [address] [place] [address] Performed By: #### 6 30-4 #### [facility] CLIA [id number] [address] [place] [address] [place] Differential cell count method Nom (Bld) Auto Normal [facility] Comment on above: Order Comment: Speci men Type: BLOOD SPECIMENOrdering Facility: [facility] Address: [address] [place] [address] Performed By: #### 6 30-4 #### [facility] CLIA [id number] [address] [place] [address] [place] Eosinophils (Bld) [#/Vol] 0.06 10*3/uL Normal <0.46 [facility] Comment on above: Order Comment: Speci men Type: BLOOD SPECIMENOrdering Facility: [facility] Address: [address] [place] [address] Performed By: #### 6 30-4 #### [facility] CLIA [id number] [address] [place] [address] [place] Eosinophils/100 WBC (Bld) 1.2 % Normal [facility] Comment on above: Order Comment: Speci men Type: BLOOD SPECIMENOrdering Facility: [facility] Address: [address] [place] [address] Performed By: #### 6 30-4 #### [facility] CLIA [id number] [address] [place] [address] [place] Erythrocyte distribution width (RBC) [Ratio] 13.0 % Normal 11.5-15.0 [facility] Comment on above: Order Comment: Speci men Type: BLOOD SPECIMENOrdering Facility: [facility] Address: [address] [place] [address] Performed By: #### 6 30-4 #### [facility] CLIA [id number] [address] [place] [address] [place] Hematocrit (Bld) [Volume fraction] 40.4 % Normal 36.0-46.0 [facility] Comment on above: Order Comment: Speci men Type: BLOOD SPECIMENOrdering Facility: [facility] Address: [address] [place] [address] Performed By: #### 6 30-4 #### [facility] CLIA [id number] [address] [place] [address] [place] Hemoglobin (Bld) [Mass/Vol] 13.3 g/dL Normal 11.5-15.5 [facility] Comment on above: Order Comment: Speci men Type: BLOOD SPECIMENOrdering Facility: [facility] Address: [address] [place] [address] Performed By: #### 6 30-4 #### [facility] CLIA [id number] [address] [place] [address] [place] Immature granulocytes (Bld) [#/Vol] 10*3/uL Normal <0.10 [facility] Comment on above: Order Comment: Speci men Type: BLOOD SPECIMENOrdering Facility: [facility] Address: [address] [place] [address] Performed By: #### 6 30-4 #### [facility] CLIA [id number] [address] [place] [address] [place] Immature granulocytes/100 WBC (Bld) 0.2 % Normal [facility] Comment on above: Order Comment: Speci men Type: BLOOD SPECIMENOrdering Facility: [facility] Address: [address] [place] [address] Performed By: #### 6 30-4 #### [facility] CLIA [id number] [address] [place] [address] [place] Lymphocytes (Bld) [#/Vol] 1.21 10*3/uL Normal 1.00-4.00 [facility] Comment on above: Order Comment: Speci men Type: BLOOD SPECIMENOrdering Facility: [facility] Address: [address] [place] [address] Performed By: #### 6 30-4 #### [facility] CLIA [id number] [address] [place] [address] [place] Lymphocytes/100 WBC (Bld) 24.6 % Normal [facility] Comment on above: Order Comment: Speci men Type: BLOOD SPECIMENOrdering Facility: [facility] Address: [address] [place] [address] Performed By: #### 6 30-4 #### [facility] CLIA [id number] [address] [place] [address] [place] MCH (RBC) [Entitic mass] 30.0 pg Normal 26.0-34.0 [facility] Comment on above: Order Comment: Speci men Type: BLOOD SPECIMENOrdering Facility: [facility] Address: [address] [place] [address] Performed By: #### 6 30-4 #### [facility] CLIA [id number] [address] [place] [address] [place] MCHC (RBC) [Mass/Vol] 32.9 g/dL Normal 30.5-36.0 [facility] Comment on above: Order Comment: Speci men Type: BLOOD SPECIMENOrdering Facility: [facility] Address: [address] [place] [address] Performed By: #### 6 30-4 #### [facility] CLIA [id number] [address] [place] [address] [place] MCV (RBC) [Entitic vol] 91.0 fL Normal 80.0-100.0 [facility] Comment on above: Order Comment: Speci men Type: BLOOD SPECIMENOrdering Facility: [facility] Address: [address] [place] [address] Performed By: #### 6 30-4 #### [facility] CLIA [id number] [address] [place] [address] [place] Monocytes (Bld) [#/Vol] 0.45 10*3/uL Normal <0.87 [facility] Comment on above: Order Comment: Speci men Type: BLOOD SPECIMENOrdering Facility: [facility] Address: [address] [place] [address] Performed By: #### 6 30-4 #### [facility] CLIA [id number] [address] [place] [address] [place] Monocytes/100 WBC (Bld) 9.1 % Normal [facility] Comment on above: Order Comment: Speci men Type: BLOOD SPECIMENOrdering Facility: [facility] Address: [address] [place] [address] Performed By: #### 6 30-4 #### [facility] CLIA [id number] [address] [place] [address] [place] Neutrophils (Bld) [#/Vol] 3.16 10*3/uL Normal 1.45-7.50 [facility] Comment on above: Order Comment: Speci men Type: BLOOD SPECIMENOrdering Facility: [facility] Address: [address] [place] [address] Performed By: #### 6 30-4 #### [facility] CLIA [id number] [address] [place] [address] [place] Neutrophils/100 WBC (Bld) 64.3 % Normal [facility] Comment on above: Order Comment: Speci men Type: BLOOD SPECIMENOrdering Facility: [facility] Address: [address] [place] [address] Performed By: #### 6 30-4 #### [facility] CLIA [id number] [address] [place] [address] [place] Nucleated RBC (Bld) [#/Vol] 10*3/uL Normal <0.01 [facility] Comment on above: Order Comment: Speci men Type: BLOOD SPECIMENOrdering Facility: [facility] Address: [address] [place] [address] Performed By: #### 6 30-4 #### [facility] CLIA [id number] [address] [place] [address] [place] Nucleated RBC/100 WBC (Bld) [Ratio] 0.0 /100 WBC Normal [facility] Comment on above: Order Comment: Speci men Type: BLOOD SPECIMENOrdering Facility: [facility] Address: [address] [place] [address] Performed By: #### 6 30-4 #### [facility] CLIA [id number] [address] [place] [address] [place] Platelet mean volume (Bld) [Entitic vol] 10.1 fL Normal 9.0-12.7 [facility] Comment on above: Order Comment: Speci men Type: BLOOD SPECIMENOrdering Facility: [facility] Address: [address] [place] [address] Performed By: #### 6 30-4 #### [facility] CLIA [id number] [address] [place] [address] [place] Platelets (Bld) [#/Vol] 313 10*3/uL Normal 150-400 [facility] Comment on above: Order Comment: Speci men Type: BLOOD SPECIMENOrdering Facility: [facility] Address: [address] [place] [address] Performed By: #### 6 30-4 #### [facility] CLIA [id number] [address] [place] [address] [place] RBC (Bld) [#/Vol] 4.44 10*6/uL Normal 3.90-5.20 [facility] Comment on above: Order Comment: Speci men Type: BLOOD SPECIMENOrdering Facility: [facility] Address: [address] [place] [address] Performed By: #### 6 30-4 #### [facility] CLIA [id number] [address] [place] [address] [place] WBC (Bld) [#/Vol] 4.92 10*3/uL Normal 3.70-11.00 [facility] Comment on above: Order Comment: Speci men Type: BLOOD SPECIMENOrdering Facility: [facility] Address: [address] [place] [address] Performed By: #### 6 30-4 #### [facility] CLIA [id number] [address] [place] [address] [place] Comprehensive metabolic 2000 panelon 08-21-2024 Albumin [Mass/Vol] 4.2 g/dL Normal 3.9-4.[address] [facility] Comment on above: Order Comment: Speci men Type: BLOOD SPECIMENOrdering Facility: [facility] Address: [address] [place] [address] Performed By: #### 6 30-4 #### [facility] CLIA [id number] [address] [place] [address] [place] ALP [Catalytic activity/Vol] 95 U/L Normal 34-123 [facility] Comment on above: Order Comment: Speci men Type: BLOOD SPECIMENOrdering Facility: [facility] Address: [address] [place] [address] Performed By: #### 6 30-4 #### [facility] CLIA [id number] [address] [place] [address] [place] ALT [Catalytic activity/Vol] 22 U/L Normal 7-38 [facility] Comment on above: Order Comment: Speci men Type: BLOOD SPECIMENOrdering Facility: [facility] Address: [address] [place] [address] Performed By: #### 6 30-4 #### [facility] CLIA [id number] [address] [place] [address] [place] Anion gap [Moles/Vol] 17 mmol/L High 8-15 [facility] Comment on above: Order Comment: Speci men Type: BLOOD SPECIMENOrdering Facility: [facility] Address: [address] [place] [address] Performed By: #### 6 30-4 #### [facility] CLIA [id number] [address] [place] [address] [place] AST [Catalytic activity/Vol] 28 U/L Normal 13-35 [facility] Comment on above: Order Comment: Speci men Type: BLOOD SPECIMENOrdering Facility: [facility] Address: [address] [place] [address] Performed By: #### 6 30-4 #### [facility] CLIA [id number] [address] [place] [address] [place] Bilirubin [Mass/Vol] 0.3 mg/dL Normal 0.2-1.[address] [facility] Comment on above: Order Comment: Speci men Type: BLOOD SPECIMENOrdering Facility: [facility] Address: [address] [place] [address] Performed By: #### 6 30-4 #### [facility] CLIA [id number] [address] [place] [address] [place] Calcium [Mass/Vol] 9.1 mg/dL Normal 8.5-10.[address] [facility] Comment on above: Order Comment: Speci men Type: BLOOD SPECIMENOrdering Facility: [facility] Address: [address] [place] [address] Performed By: #### 6 30-4 #### [facility] CLIA [id number] [address] [place] [address] [place] Chloride [Moles/Vol] 99 mmol/L Normal 98-[address] [facility] Comment on above: Order Comment: Speci men Type: BLOOD SPECIMENOrdering Facility: [facility] Address: [address] [place] [address] Performed By: #### 6 30-4 #### [facility] CLIA [id number] [address] [place] [address] [place] CO2 [Moles/Vol] 23 mmol/L Normal 22-30 [facility] Comment on above: Order Comment: Speci men Type: BLOOD SPECIMENOrdering Facility: [facility] Address: [address] [place] [address] Performed By: #### 6 30-4 #### [facility] CLIA [id number] [address] [place], [place] [id number] [place] Creatinine [Mass/Vol] 0.71 mg/dL Normal 0.58-0.96 [facility] Comment on above: Order Comment: Wilton mtz Type: BLOOD SPECIMENOrdering Facility: [facility] Address: [address] [place] [address] Performed By: #### 6 30-4 #### [facility] CLIA [id number] [address] [place] [address] [place] Creatinine and Glomerular filtration rate.predicted panel (S/P/Bld) 94 mL/min/1.73m??? Normal >=60 [facility] Comment on above: Order Comment: Wilton mtz Type: BLOOD SPECIMENOrdering Facility: [facility] Address: [address] [place] [address] Result Comment: Bessie mated Glomerular Filtration Rate (eGFR) is calculated using the 2020 CKD-EPI creatinine equation. This equation utilizes serum creatinine, sex, and age as parameters. The creatinine assay has traceable calibration to isotope dilution-mass spectrometry. Refer to KDIGO guidelines for clinical interpretation. In patients with unstable renal function, e.g. those with acute kidney injury, the eGFR may not accurately reflect actual GFR. Performed By: #### 6 30-4 #### [facility] CLIA [id number] [address] [place] [address] [place] Glucose [Mass/Vol] 99 mg/dL Normal 74-[address] [facility] Comment on above: Order Comment: Wilton mtz Type: BLOOD SPECIMENOrdering Facility: [facility] Address: [address] [place] [address] Result Comment: The [place] Diabetes [employer] (ADA) provides guidance for cutoff values for fasting glucose and random glucose. The ADA defines fasting as no caloric intake for at least 8 hours. Fasting plasma glucose results between 100 to 125 mg/dL indicate increased risk for diabetes (prediabetes). Fasting plasma glucose results greater than or equal to 126 mg/dL meet the criteria for diagnosis of diabetes. In the absence of unequivocal hyperglycemia, results should be confirmed by repeat testing. In a patient with classic symptoms of hyperglycemia or hyperglycemic crisis, random plasma glucose results greater than or equal to 200 mg/dL meet the criteria for diagnosis of diabetes. Reference: Standards of Medical Care in Diabetes 2016, [place] [employer]. Diabetes Care. 2016.39(Suppl 1). Performed By: #### 6 30-4 #### [facility] CLIA [id number] [address] [place] [address] [place] Potassium [Moles/Vol] 4.1 mmol/L Normal 3.7-5.1 [facility] Comment on above: Order Comment: Speci men Type: BLOOD SPECIMENOrdering Facility: [facility] Address: [address] [place] [address] Performed By: #### 6 30-4 #### [facility] CLIA [id number] [address] [place] [address] [place] Protein [Mass/Vol] 7.2 g/dL Normal 6.3-8.[address] [facility] Comment on above: Order Comment: Speci men Type: BLOOD SPECIMENOrdering Facility: [facility] Address: [address] [place] [address] Performed By: #### 6 30-4 #### [facility] CLIA [id number] [address] [place] [address] [place] Sodium [Moles/Vol] 139 mmol/L Normal 136-[address] [facility] Comment on above: Order Comment: Speci men Type: BLOOD SPECIMENOrdering Facility: [facility] Address: [address] [place] [address] Performed By: #### 6 30-4 #### [facility] CLIA [id number] [address] [place] [address] [place] Urea nitrogen [Mass/Vol] 14 mg/dL Normal 7-21 [facility] Comment on above: Order Comment: Speci men Type: BLOOD SPECIMENOrdering Facility: [facility] Address: [address] [place] [address] Performed By: #### 6 30-4 #### [facility] CLIA [id number] [address] [place] [address] OF [facility] HbA1c (Bld)on 08-21-2024 Average glucose Estimated from glycated hemoglobin (Bld) [Mass/Vol] 111 mg/dL Normal [facility] Comment on above: Order Comment: Speci men Type: BLOOD SPECIMENOrdering Facility: [facility] Address: [address] [place] [address] Result Comment: eAG: (Estimated average glucose) is a calculated value from HgbA1c and is food service sales representatives of the average blood glucose level in the last 2-3 month period. Performed By: #### 6 30-4 #### [facility] [place] [id number] [address] [place] [address] STATES OF [facility] HbA1c (Bld) [Mass fraction] 5.5 % Normal 4.3-5.6 [facility] Comment on above: Order Comment: Irmai men Type: BLOOD SPECIMENOrdering Facility: [facility] Address: [address] [place] [address] Result Comment: Amer ican Diabetes Association guidelines indicate that patients with HgbA1c in the range 5.7-6.4% are at increased risk for development of diabetes, and intervention by lifestyle modification may be beneficial. HgbA1c greater or equal to 6.5% is considered diagnostic of diabetes. Performed By: #### 6 30-4 #### [facility] IA [id number] [address] [place] [address] OF [place] Lipid 1996 panelon 5 Cholesterol [Mass/Vol] 159 mg/dL Normal <200 [facility] Comment on above: Order Comment: Irmai men Type: BLOOD SPECIMENOrdering Facility: [facility] Address: [address] [place] [address] Result Comment: <200 mg/dL, Desirable 200-239 mg/dL, Borderline high >239 mg/dL, High Performed By: #### 6 30-4 #### [facility] CLIA [id number] [address] [place] [address] Cholesterol in HDL [Mass/Vol] 63 mg/dL Normal >39 [facility] Comment on above: Order Comment: Irmahumera mtz Type: BLOOD SPECIMENOrdering Facility: [facility] Address: [address] [place] [address] Result Comment: 40-5 9 mg/dL, Acceptable >59 mg/dL, High: Negative risk factor for coronary heart disease <40 mg/dL, Low: Positive risk factor for coronary heart disease Performed By: #### 6 30-4 #### [facility] IA [id number] [address] [place] [address] Cholesterol in LDL [Mass/Vol] 84 mg/dL Normal <100 [facility] Comment on above: Order Comment: Wilton smith Type: BLOOD SPECIMENOrdering Facility: [facility] Address: [address] [place] [address] Result Comment: <100 mg/dL, Optimal 100-129 mg/dL, Near optimal/above optimal 130-159 mg/dL, Borderline high 160-189 mg/dL, High >189 mg/dL, Very high Secondary prevention optimal LDL Cholesterol levels are recommended to be <70 mg/dL LDL cholesterol is calculated using the Mcfarland-NIH equation. Performed By: #### 6 30-4 #### [facility] IA [id number] [address] [place] [address] Cholesterol in LDL/Cholesterol in HDL [Mass ratio] 1.33 {ratio} Normal <2.54 [facility] Comment on above: Order Comment: Wilton mtz Type: BLOOD SPECIMENOrdering Facility: [facility] Address: [address] [place] [address] Result Comment: Merry chacon: 1. National Cholesterol Education Program ATP III Guideline At-A-Glance Quick Desk Reference: National Heart, Lung, and Blood Linch. National Institutes of Health. 2001: NIH Publication No. 01-3305. 2. An International Atherosclerosis Society position paper: global recommendations for the management of dyslipidemia: executive summary, Atherosclerosis. 2014: 232(2):410-413. Performed By: #### 6 30-4 #### [facility] CLIA [id number] [address] [place] [address] [place] Cholesterol in VLDL [Mass/Vol] 9 mg/dL Normal <30 [facility] Comment on above: Order Comment: Speci men Type: BLOOD SPECIMENOrdering Facility: [facility] Address: [address] [place] [address] Performed By: #### 6 30-4 #### [facility] CLIA [id number] [address] [place] [address] [place] Cholesterol non HDL [Mass/Vol] 96 mg/dL Normal <130 [facility] Comment on above: Order Comment: Speci men Type: BLOOD SPECIMENOrdering Facility: [facility] Address: [address] [place] [address] Result Comment: <130 mg/dL, Optimal 130-159 mg/dL, Near optimal/above optimal 160-189 mg/dL, Borderline high 190-219 mg/dL, High >219 mg/dL, Very high Secondary prevention optimal non HDL Cholesterol levels are recommended to be <100 mg/dL Performed By: #### 6 30-4 #### [facility] CLIA [id number] [address] [place] [address] [place] Cholesterol.total/Chol esterol in HDL [Mass ratio] 2.52 {ratio} Normal <5.10 [facility] Comment on above: Order Comment: Speci men Type: BLOOD SPECIMENOrdering Facility: [facility] Address: [address] [place] [address] Performed By: #### 6 30-4 #### [facility] CLIA [id number] [address] [place] [address] [place] FASTING TIME 15 hrs Normal [facility] Comment on above: Order Comment: Speci men Type: BLOOD SPECIMENOrdering Facility: [facility] Address: [address] [place] [address] Performed By: #### 6 30-4 #### [facility] CLIA [id number] [address] [place] [address] [place] Triglyceride [Mass/Vol] 59 mg/dL Normal <150 [facility] Comment on above: Order Comment: Speci men Type: BLOOD SPECIMENOrdering Facility: [facility] Address: [address] [place] [address] Result Comment: <150 mg/dL, Normal 150-199 mg/dL, Borderline high 200-499 mg/dL, High >499 mg/dL, Very high Performed By: #### 6 30-4 #### [facility] CLIA [id number] [address] [place] [address] [place] T4 Free SerPl-mCncon 025 Free T4 [Mass/Vol] 1.3 ng/dL Normal 0.9-1.[address] [facility] Comment on above: Order Comment: Speci men Type: BLOOD SPECIMENOrdering Facility: [facility] Address: [address] [place] [address] Performed By: #### 6 30-4 #### [facility] CLIA [id number] [address] [place] [address] [place] TSH SerPl-aCncon 08-21-2024 TSH Qn 2.170 m[IU]/L Normal 0.270-4.200 [facility] Comment on above: Order Comment: Speci men Type: BLOOD SPECIMENOrdering Facility: [facility] Address: [address] [place] [address] Performed By: #### 6 30-4 #### [facility] IA [id number] [address] [place] [address] [place] Vit B12 SerPl-mCncon 025 Cobalamin (Vitamin B12) [Mass/Vol] 1071 pg/mL Normal 232-1245 [facility] Comment on above: Order Comment: Speci men Type: BLOOD SPECIMENOrdering Facility: [facility] Address: [address] [place] [address] Performed By: #### 6 30-4 #### [facility] CLIA [id number] [address] [place] [address] OF [facility] CNPNahomy 08-20-2024 CNPN Telephone (FAMPWS) JACQUELINE GASTON ([id number]) 1955 F Date Time Provider Department 08/20/24 [facility] During your visit today, we recorded the following information about you: Monique Faria LPN 08/20/2024 9:08 AM Signed Patient calling she said she came in yesterday and did urine in the lab. computer shows urine culture in process, patient aware. Patient said having lower back discomfort, frequency. Patient said this is ongoing for a while now. Patient said she uses [facility]. Please advise Jay Morales DO 08/20/2024 11:27 AM Signed Noted, please let her know to start on rx as below Jay Morales DO The following approved medication requests have been transmitted electronically. Requested Prescriptions Signed Prescriptions Disp Refills cephALEXin (KEFLEX) 500 mg capsule 15 capsule 0 Sig: Take 1 capsule by mouth three times a day for 5 days. Authorizing Provider: JAY MORALES DO KEENER, HEATHER 08/20/2024 11:45 AM Signed Patient notified of results, verbalizes understanding of instructions. Bhavana Grimm LPN Allergies As of Date: 08/20/2024 (No Known Allergies) Date Reviewed: 08/05/2024 Reviewed by: Alyson Pritchett LPN - Fully Assessed Reason for Visit: UTI symptoms still [Other] Order(s):cephALEXin (KEFLEX) 500 mg capsuleTake 1 capsule by mouth three times a day for 5 days.Disp: 15 capsuleRfl: 0 Prescriptions as of 08/20/2024 - cephALEXin (KEFLEX) 500 mg capsule Take 1 capsule by mouth three times a day for 5 days. - benzonatate (TESSALON PERLES) 100 mg capsule Take 1 capsule by mouth three times a day as needed for up to 15 days. - TURMERIC ORAL Take by mouth. - vitamin b complex capsule Take 1 capsule by mouth once daily. 50 - aectd-ay-7-dha-epa-jose miguel spho-ast (KRILL OIL) 1,067-487-75-80 mg cap Take by mouth. - acetylcysteine (NAC ORAL) Take by mouth. - venlafaxine ER (EFFEXOR XR) 75 mg 24 hr capsule Take 1 capsule by mouth once daily. - traZODone HCl (DESYREL) 300 mg tablet Take 1 tablet by mouth daily at bedtime. - Biotin 10,000 mcg cap Take 1 capsule by mouth once daily. - vit A,C,F-Kgmm-Aodffb (OCUVITE PRESERVISION) 7,160-113-100 eoqa-ta-zbwc tab Take 1 tablet by mouth daily with breakfast. - Cholecalciferol, Vitamin D3, 50 mcg (2,000 unit) cap Take 1 tablet by mouth once daily. - Calcium Carb-Cholecalciferol (NUBIA-600 WITH VITAMIN D) 600 (1,500)-200 mg-unit ORAL Tab Take one(1) tablet twice daily. Problem List As Of Date 08/20/2024 Noted Resolved BREAST DISORDER NOS [N64.9] 03/13/2007 BENIGN NEOPLASM LG BOWEL [D12.6] 11/15/2007 INT HEMORRHOID W/O COMPL [K64.8] 11/15/2007 Vitamin D deficiency [E55.9] 11/12/2010 Pneumonia [J18.9] 08/2010 Osteopenia of multiple sites [M85.89] 05/13/2019 T3 low in serum [R79.89] 05/13/2019 Dyslipidemia [E78.5] 05/13/2019 Bronchitis, mucopurulent recurrent (HCC) [J41.1]05/13/2019 Well adult exam [Z00.00] 05/13/2019 Epicondylitis, lateral, left [M77.12] 06/20/2019 Recurrent UTI (urinary tract infection) [N39.0] 08/05/2024 Fatigue [R53.83] 08/05/2024 Prescriptions ordered this encounter Disp Refills Start End CEPHALEXIN 500 MG CAPSULE 15 c* 0 08/20/2024 08/25/2024 Route: ORAL Sig: Take 1 capsule by mouth three times a day for 5 days. Encounter Status:Closed by BHAVANA GRIMM on 08/20/24 Normal [facility] Bacteria Ur Culton 5 Bacteria identified Cx Nom (U) ORGANISM ID: 1 <10,000 CFU/ml Normal urogenital kezia Normal [facility] Comment on above: Performed By: #### 6 30-4 #### [facility] CLIA [id number] [address] [place] [address] [place] Urinalysis complete panel (U )on 08-19-2024 Bacteria LM.HPF (Urine sed) [#/Area] Negative Normal Negative [facility] Comment on above: Order Comment: Speci men Type: URINE SPECIMENOrdering Facility: [facility] Address: [address] [place] [address] Performed By: #### 2 4356-8 ####[facility] [id number] [place] [address] [place] Bilirubin Ql (U) Negative Normal Negative [facility] Comment on above: Order Comment: Speci men Type: URINE SPECIMENOrdering Facility: [facility] Address: [address] [place] [address] Performed By: #### 2 4356-8 ####[facility] [id number] [place] [address] [place] Clarity (Unsp spec) Clear Normal Clear [facility] Comment on above: Order Comment: Speci men Type: URINE SPECIMENOrdering Facility: [facility] Address: [address] [place] [address] Performed By: #### 2 4356-8 ####[facility]CLIA [id number] [place] [address] [place] Color (U) Yellow Normal Yellow [facility] Comment on above: Order Comment: Speci men Type: URINE SPECIMENOrdering Facility: [facility] Address: [address] [place] [address] Performed By: #### 2 4356-8 ####[facility]IA [id number] [address] [place] Epithelial cells LM.HPF (Urine sed) [#/Area] None Seen Normal [facility] Comment on above: Order Comment: Speci men Type: URINE SPECIMENOrdering Facility: [facility] Address: [address] [place] [address] Performed By: #### 2 4356-8 ####[facility]CLIA [id number] [address] [place] Glucose Test strip (U) [Mass/Vol] Negative Normal Negative [facility] Comment on above: Order Comment: Speci men Type: URINE SPECIMENOrdering Facility: [facility] Address: [address] [place] [address] Performed By: #### 2 4356-8 ####[facility]CLIA [id number] [place] [address] [place] Hemoglobin Ql (U) Negative Normal Negative [facility] Comment on above: Order Comment: Speci men Type: URINE SPECIMENOrdering Facility: [facility] Address: [address] [place] [address] Performed By: #### 2 4356-8 ####[facility]CLIA [id number] [place] [address] [place] Hyaline casts (Urine sed) [#/Area] 4-10 /LPF Abnormal 0 /LPF [facility] Comment on above: Order Comment: Speci men Type: URINE SPECIMENOrdering Facility: [facility] Address: [address] [place] [address] Performed By: #### 2 4356-8 ####[facility]CLIA [id number] [address], [facility] [place] Ketones Ql (U) Negative Normal Negative [facility] Comment on above: Order Comment: Speci men Type: URINE SPECIMENOrdering Facility: [facility] Address: [address] [place] [address] Performed By: #### 2 4356-8 ####[facility]CLIA [id number] [place] [address] [place] Leukocyte esterase Test strip Ql (U) Trace Abnormal Negative [facility] Comment on above: Order Comment: Speci men Type: URINE SPECIMENOrdering Facility: [facility] Address: [address] [place] [address] Performed By: #### 2 4356-8 ####[facility]CLIA [id number] [place] [address] [place] Nitrite Ql (U) Negative Normal Negative [facility] Comment on above: Order Comment: Speci men Type: URINE SPECIMENOrdering Facility: [facility] Address: [address] [place] [address] Performed By: #### 2 4356-8 ####[facility]CLIA [id number] [place] [id number] [place] pH (U) 6.0 [pH] Normal <8.5 [facility] Comment on above: Order Comment: Speci men Type: URINE SPECIMENOrdering Facility: [facility] Address: [address] [place] [address] Performed By: #### 2 4356-8 ####[facility]CLIA [id number] [address], [facility] [place] Protein (U) [Mass/Vol] Negative Normal Negative [facility] Comment on above: Order Comment: Speci men Type: URINE SPECIMENOrdering Facility: [facility] Address: [address] [place] [address] Performed By: #### 2 4356-8 ####[facility]IA [id number] [place] [address] [place] RBC LM.HPF (Urine sed) [#/Area] 0-2 /HPF Normal 0-2 /HPF [facility] Comment on above: Order Comment: Speci men Type: URINE SPECIMENOrdering Facility: [facility] Address: [address] [place] [address] Performed By: #### 2 4356-8 ####[facility] [id number] [place] [address] [place] Specific gravity (U) [Rel density] 1.013 Normal 1.005-1.030 [facility] Comment on above: Order Comment: Speci men Type: URINE SPECIMENOrdering Facility: [facility] Address: [address] [place] [address] Performed By: #### 2 4356-8 ####[facility] [id number] [place] [address] [place] Urobilinogen Ql (U) 0.2 EU/dL Normal 0.2-1.0 EU/dL [facility] Comment on above: Order Comment: Speci men Type: URINE SPECIMENOrdering Facility: [facility] Address: [address] [place] [address] Performed By: #### 2 4356-8 ####[facility] [id number] [place] [address] [place] WBC LM.HPF (Urine sed) [#/Area] 0-5 /HPF Normal 0-5 /HPF [facility] Comment on above: Order Comment: Speci men Type: URINE SPECIMENOrdering Facility: [facility] Address: [address] [place], [place] [address] Performed By: #### 2 4356-8 ####[facility] LABSTEPHEN [id number] RAFAEL CLEARY [id number] [place], [place] [address] [place] CNOVon 08-05-2024 CNOV Office Visit (FAMPWS ) EDSONJACQUELINE Fong ([id number]) 1955 F Date Time Provider Department 08/05/24 8:20 AM JAY MORALES FAMPWS During your visit today, we recorded the following information about you: Weight Height 46.3 kg 1.62 m Jay Morales, DO 08/05/2024 9:22 AM Signed Jacquelinesonya Gaston is a 68 year old female here for a Medicare wellness visit. Medicare Health Risk Assessment General Health Very good Exercise: Minutes/Day 30 min Exercise: Days/Week 7 days Alcohol: Daily Use Never Alcohol: Drinks/Day Patient does not drink Alcohol: 6 or more drinks Never Feel off balance Yes Concerns: Teeth/Dentures No Concerns: Sexual function No Troubled by feelings None of the above Frequency: Eating healthy diet Nearly every day ADLs requiring help None of the above Safety precautions in home/vehicle Yes Smoke, vape, chews tobacco No Difficulty hearing No Difficulty seeing No Current Providers Specialists: I have reviewed specialist-related care of the patient in the medical record. Medical/Family history review Reviewed and updated problem list, medical/surgical/famil y/social history, medications, and allergies. Opioid use review Opioid Medications (last 90 days) No data to display Anxiety/Depression screening PHQ-2 Score: 0 (Lower risk for depression) Recommendation: no further intervention at this time Cognitive screening Mini Cog Score: 5 Cognitive screening reviewed and No further action needed (score 3-5). Functional Observation Was the patient's Timed Up AND Go test unsteady or >= 12 seconds? No Advance Care Planning Surrogate decision maker and/or advance care plan documented Measurements Ht 162 cm (5' 3.78) Wt 46.3 kg (102 lb) BMI 17.63 kg/m? Vision Screening: Follows with optometry/ophthalmolog y Assessment/Plan Medicare annual wellness visit, subsequent (Z00.00) - Counseled on healthy diet and regular exercise - Fall avoidance information provided - Personalized prevention plan provided DO Andrew Jasso Jordan L, DO 08/05/2024 9:22 AM Signed CC: Jacqueline Gaston is a 68 year old female who presents to the office for followu p HPI: Recurrent UTI, recently with E coli UTI, hadn't had a UTI for 5+ years. URI symptoms, cough, chest congestion, decreased voice, PND symptoms,. + sick contacts. Has been trying OTC medications without relief. 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 Willing to do Cologuard for colon cancer screening. PAST MEDICAL HISTORY Diagnosis Date Anxiety disorder [...] GM/< 1987 Current Outpatient Medications Medication Sig TURMERIC ORAL Take by mouth. vitamin b complex capsule Take 1 capsule by mouth once daily. 50 fiygo-cx-1-dha-epa-jose miguel spho-ast (KRILL OIL) 1,980-568-23-80 mg cap Take by mouth. acetylcysteine (NAC ORAL) Take by mouth. azithromycin (ZITHROMAX Z-KASIA) 250 mg tablet Take 2 tablets by mouth one time only for 1 dose. THEN 1 TAB DAILY FOR 4 DAYS. venlafaxine ER (EFFEXOR XR) 75 mg 24 hr capsule Take 1 capsule by mouth once daily. traZODone HCl (DESYREL) 300 mg tablet Take 1 tablet by mouth daily at bedtime. Biotin 10,000 mcg cap Take 1 capsule by mouth once daily. vit A,C,S-Juno-Unpnnm (OCUVITE PRESERVISION) 7,160-113-100 hwzu-uf-qpuk tab Take 1 tablet by mouth daily [...] Never Smokeless tobacco: Never Vaping Use Vaping status: Never Used Substance Use Topics Alcohol use: No Drug use: No ROS: See HIP PE: Ht 5' 3.78 (1.62m) Wt 102 lb (46.3kg) BMI 17.63 kg/(m2). Gen: AANDOX3, NAD, non-toxic appearing, pleasant, cooperative, well dressed HEENT: PERRLA, EOMs inta (more content not included)... Normal [facility] Bacteria Ur Culton 5 Bacteria identified Cx Nom (U) CULTURE, URINE: Mixed microbiota, including predominantly: ORGANISM ID: 1 50,000-<100,000 CFU/ml Escherichia coli ORGANISM ID: 1 (ESCHERICHIA COLI) -- ANTIBIOTIC INTERPRETATION EDMUNDO STATUS REFERENCE RANGE -- Ampicillin S 4 F Susceptible <=8 , Intermediate >8 , Resistant >16 Cefazolin S <=4 F Susceptible 0-16 , Intermediate <0 or >16 , Resistant >16 For uncomplicated urinary tract infections, cefazolin results can be used to predict susceptibility or resistance to cephalexin. Ceftriaxone S <=1 F Susceptible <=1 , Intermediate >1 , Resistant >=4 Cefepime S <=1 F Susceptible <=2 , Susceptible-Dose Dependent >2 , Resistant >=16 Ertapenem S <=0.5 F Susceptible <=0.5 , Intermediate >.5 , Resistant >1 Meropenem S <=0.25 F Susceptible <=1 , Intermediate >1 , Resistant >2 Ampicillin/Sulbact S <=2 F Susceptible <=8 , Intermediate >8 , Resistant >16 Piperacillin/Tazobac S <=4 F Susceptible <16 , Susceptible-Dose Dependent >=16 , Resistant >=32 Gentamicin S <=1 F Susceptible <=2 , Intermediate >2 , Resistant >=8 Tobramycin S <=1 F Susceptible <4 , Intermediate >=4 , Resistant >=8 Trimeth sulfameth S <=20 F Susceptible <=40 , Resistant >40 Ciprofloxacin S <=0.25 F Susceptible <0.5 , Intermediate >=.5 , Resistant >=1 Nitrofurantoin S <=16 F Susceptible <=32 , Intermediate >32 , Resistant >64 Abnormal [facility] Comment on above: Performed By: #### 6 30-4 #### [facility] CLIA [id number] [address] [place] [address] [place] CNOVon 07-25-2024 CNOV Office Visit (INTMWS ) JACQUELINE GASTON ([id number]) 1955 F Date Time Provider Department 07/25/24 2:20 PM CALDWELLKORINA Flores JUNIOR During your visit today, we recorded the following information about you: Pulse Respiration Blood pressure Weight 73/minute 16/minute 138/82 47 kg Gato CaldwellAPRN. [facility] 07/25/2024 3:31 PM Signed Subjective Patient ID: Jacqueline is a 68 year old female who presents for uti symptom. HPI Urinary Tract Symptoms: - History of recurrent UTIs, but has not had one in a long time. - Symptoms began several days ago, including: - Urgency and frequency, with difficulty reaching the bathroom by the end of the day. - Mild dysuria. - Occasional clamminess; denies taking temperature. - No abdominal pain. Some lower back pain. - Took ygjy-wfo-henpgif Azo for symptom relief. - Denies allergies to antibiotics. Notes has not received Prolia injection 2023 due to family obligations and insurance concerns. ROS Gastrointestinal: (+) lower abdominal pain Genitourinary: (+) urinary frequency, (+) urinary urgency, (+) dysuria Objective BP 138/82 Pulse 73 Resp 16 Wt 47 kg (103 lb 9.9 oz) BMI 18.02 kg/m? Physical Exam Vitals and nursing note reviewed. Constitutional: Appearance: Normal appearance. HENT: Head: Normocephalic and atraumatic. Eyes: Conjunctiva/sclera: Conjunctivae normal. Cardiovascular: Rate and Rhythm: Normal rate. Pulmonary: Effort: Pulmonary effort is normal. Skin: General: Skin is warm and dry. Neurological: General: No focal deficit present. Mental Status: She is alert and oriented to person, place, and time. 1. UTI symptoms (R39.9) - Symptoms include urinary frequency, urgency, dysuria, and lower abdominal pain. No reported fever. - Urinalysis performed; results may be affected by recent Azo intake. - Urine culture ordered. - Initiated antibiotic therapy. - Prescription sent to [facility]. 2. Osteoporosis without current pathological fracture, unspecified osteoporosis type (M81.0) - Discussed Prolia injection; previous prescription not filled due to insurance and family demands. Will discuss in more detail at upcoming visit with Jay Morales DO. Medical Decision Making: Problems: Low: Acute, uncomplicated illness or injury Data: Unique test(s) ordered: 2 Risk: Moderate: Drug management Medical Decision Making Level: 3 - Low Allergies As of Date: 07/25/2024 (No Known Allergies) Date Reviewed: 07/25/2024 Reviewed by: Kelley Pardo LPN - Fully Assessed Reason for Visit: uti symptom [Other] Primary Visit Diagnosis:UTI symptoms [R39.9] Other Visit Diagnosis:Osteoporosis without current pathological fracture, unspecified osteoporosis type [M81.0] Order(s):UA DIP, URINE (POC) [9504305] Order #: [id number] BACTERIAL CULTURE, URINE [SQURCUL] Order #: [id number]. #:[id number] nitrofurantoin monohydrate and macrocrystal (MACROBID) 100 mg capsuleTake 1 capsule by mouth two times a day with meals for 7 days.Disp: 14 capsuleRfl: 0 Prescriptions as of 07/25/2024 - nitrofurantoin monohydrate and macrocrystal (MACROBID) 100 mg capsule Take 1 capsule by mouth two times a day with meals for 7 days. - venlafaxine ER (EFFEXOR XR) 75 mg 24 hr capsule Take 1 capsule by mouth once daily. - traZODone HCl (DESYREL) 300 mg tablet Take 1 tablet by mouth daily at bedtime. - Biotin 10,000 mcg cap Take 1 capsule by mouth once daily. - vit A,C,C-Mkqh-Vrsbvl (OCUVITE PRESERVISION) 7,160-113-100 ohfe-pa-znsj tab Take 1 tablet by mouth daily with breakfast. - Cholecalciferol, Vitamin D3, 50 mcg (2,000 unit) cap Take 1 tablet by mouth once daily. - Calcium Carb-Cholecalciferol (NUBIA-600 WITH VITAMIN D) 600 (1,500)-200 mg-unit ORAL Tab Take one(1) tablet twice daily. Problem List As Of Date 07/25/2024 Noted Resolved BREAST DISORDER NOS [N64.9] 03/13/2007 BENIGN NEOPLASM LG BOWEL [D12.6] 11/15/2007 INT HEMORRHOID W/O COMPL [K64.8] 11/15/2007 Vitamin D deficiency [E55.9] 11/12/2010 Pneumonia [J18.9] 08/2010 Osteopenia of multiple sites [M85.89] 05/13/2019 T3 low in serum [R79.89] 05/13/2019 Dyslipidemia [E78.5] 05/13/2019 Bronchitis, mucopurulent recurrent (HCC) [J41.1]05/13/2019 Well adult exam [Z00.00] 05/13/2019 Epicondylitis, lateral, left [M77.12] 06/20/2019 Prescriptions ordered this encounter Disp Refills Start End NITROFURANTOIN MONOHYDRATE AND MACROCR* 14 c* 0 07/25/2024 08/01/2024 Route: ORAL Sig: Take 1 capsule by mouth two times a day with meals for 7 days. Level of Service: OFFICE/OUTPATIENT ESTABLISHED LOW MDM 20 MIN [12727] Additional E/M codes: VISIT CPLX INHERENT EANDM ASSOC WITH MED * Encounter Status:Closed by KORINA CALDWELL on 07/25/24 [facility] 07-25-2024 CNPN Telephone (FAMPWS) JACQUELINE GASTON ([id number]) 1955 F Date Time Provider Department 07/25/24 [facility] During your visit today, we recorded the following information about you: Sara Tarango RN 07/25/2024 8:17 AM Signed Patient calling to request same day appt for evaluation of urinary symptoms, which began approximately 2-3 days ago. Symptoms include urinary frequency, occasional burning and mild back discomfort. Denies any other symptoms and no severe symptoms mentioned. No appts available with pt's PCP dyad today. Appt made with Korina NJ for 2:20 pm today. Sara Tarango RN Allergies As of Date: 07/25/2024 (No Known Allergies) Date Reviewed: 02/12/2024 Reviewed by: Martine Almonte APRN.[facility] - Fully Assessed Reason for Visit: Patient Request [[id number]] Prescriptions as of 07/25/2024 - venlafaxine ER (EFFEXOR XR) 75 mg 24 hr capsule Take 1 capsule by mouth once daily. - traZODone HCl (DESYREL) 300 mg tablet Take 1 tablet by mouth daily at bedtime. - Biotin 10,000 mcg cap Take 1 capsule by mouth once daily. - vit A,C,N-Jzex-Gfslgw (OCUVITE PRESERVISION) 7,160-113-100 vmdq-kq-asco tab Take 1 tablet by mouth daily with breakfast. - Cholecalciferol, Vitamin D3, 50 mcg (2,000 unit) cap Take 1 tablet by mouth once daily. - Calcium Carb-Cholecalciferol (NUBIA-600 WITH VITAMIN D) 600 (1,500)-200 mg-unit ORAL Tab Take one(1) tablet twice daily. Problem List As Of Date 07/25/2024 Noted Resolved BREAST DISORDER NOS [N64.9] 03/13/2007 BENIGN NEOPLASM LG BOWEL [D12.6] 11/15/2007 INT HEMORRHOID W/O COMPL [K64.8] 11/15/2007 Vitamin D deficiency [E55.9] 11/12/2010 Pneumonia [J18.9] 08/2010 Osteopenia of multiple sites [M85.89] 05/13/2019 T3 low in serum [R79.89] 05/13/2019 Dyslipidemia [E78.5] 05/13/2019 Bronchitis, mucopurulent recurrent (HCC) [J41.1]05/13/2019 Well adult exam [Z00.00] 05/13/2019 Epicondylitis, lateral, left [M77.12] 06/20/2019 Encounter Status:Closed by SARA TARANGO on 07/25/24 [facility] UA DIP, URINE (POC)on 2024 BILIRUBIN UA (POCT) Negative Negative [facility] CLARITY UA (POCT) Clear [facility] COLOR UA (POCT) Yellow [facility] GLUCOSE UA (POCT) 100 mg/dL Abnormal Negative [facility] Hemoglobin Ql (U) Trace-intact Abnormal Negative [facility] Interpretation and review of laboratory results Abnormal [facility] KETONE UA (POCT) Trace Negative mg/dL [facility] LEUKOCYTES UA (POCT) Small Abnormal Negative [facility] NITRITE UA (POCT) Positive Abnormal Negative [facility] PH UA (POCT) 6.5 4.5 - 8.0 [facility] Protein Ql (U) 30 mg/dL Abnormal Negative [facility] SPECIFIC GRAVITY UA (POCT) 1.015 1.005 - 1.030 [facility] UROBILINOGEN UA (POCT) 1 Xiomara l E.U./dL [facility] Location:[facility], [address] [place] [address], [place], [place], [id number] [place] [address] POINT OF CARE [facility] Breast imaging reportOrdered By: Brittany Denton on 06-21-2024 Study report [facility] Imaging Services [address] [place] [address] SCRN MAMM (CAD)W/ASIF BILAT MR#: [id number] Acct: [id number] Name: JACQUELINE GASTON Rep #: [id number] : 1955 F 68 From: Erica Denton MD PCP: Dr. Jay Morales, DO Status: RE G CLI Study:SCRN MAMM (CAD)W/ASIF BILAT Date of Exa m: 06/21/24 Exam# [id number] Ordering Dr: Tanvi Ibarra SPEECH CORRECTION ASSISTANT SPEECH CORRECTION ASSISTANT-C PROCEDURE: SCRN MAMM (CAD)W/ASIF BILAT REASON FOR EXAM: F, Age 68 y/o, presents for annual screening mammogram. Family history of breast cancer in her mother at age 65 and maternal grandmother. TECHNIQUE: Bilateral screening digital breast tomosynthesis with 2D and 3D images. Computeraided detection. COMPARISON: 06/20/2023, 03/04/2022 FINDINGS: The breasts are heterogeneously dense which may obscure small masses. The mammogram demonstrates that the patient has dense breasts. Supplemental screening with whole breast ultrasound or MRI may be considered for further evaluation. No suspicious masses, areas of developing architectural distortion, or suspicious calcifications. BI/SCRN MAMM (CAD)W/ASIF BILAT IMPRESSION: There is no mammographic evidence of malignancy. BI-RADS 1: NEGATIVE. RECOMMEND ANNUAL MAMMOGRAPHIC SCREENING. Follow-up code: Routine Follow-up The patient will be notified of the results by letter. Reading Location: [id number] CC: SPEECH CORRECTION ASSISTANT-Trevon Ibarra; Dr. Jay Morales DO ~ After School Teacher: Signed [facility] SCRN MAMM (CAD)W/ASIF BILATo n 06-21-2024 SCRN MAMM (CAD)W/ASIF BILAT [facility] Imaging Services [address] [place] [address] SCRN MAMM (CAD)W/ASIF BILAT MR#: [id number] Acct: [id number] Name: JACQUELINE GASTON Rep #: [id number] : 1955 F 68 From: Brittany Denton MD PCP: Dr. Jay Morales DO Status: REG CLI Study: SCRN MAMM (CAD)W/ASIF BILAT Date of Exam: 05/26 12/16 Exam# [id number] Ordering Dr: Tanvi Ibarra NP SPEECH CORRECTION ASSISTANT -C PROCEDURE: SCRN MAMM (CAD)W/ASIF BILAT REASON FOR EXAM: F, Age 68 y/o, presents for annual screening mammogram. Family history of breast cancer in her mother at age 65 and maternal grandmother. TECHNIQUE: Bilateral screening digital breast tomosynthesis with 2D and 3D images. Computer aided detection. COMPARISON: 06/20/2023, 03/04/2022 FINDINGS: The breasts are heterogeneously dense which may obscure small masses. The mammogram demonstrates that the patient has dense breasts. Supplemental screening with whole breast ultrasound or MRI may be considered for further evaluation. No suspicious masses, areas of developing architectural distortion, or suspicious calcifications. BI/SCRN MAMM (CAD)W/ASIF BILAT IMPRESSION: There is no mammographic evidence of malignancy. BI-RADS 1: NEGATIVE. RECOMMEND ANNUAL MAMMOGRAPHIC SCREENING. Follow-up code: Routine Follow-up The patient will be notified of the results by letter. Reading Location: [id number] CC: SIN Ibarra; Dr. Jay Morales DO After School Teacher: [facility] Office Visit (FAMPWS ) JACQUELINE GASTON ([id number]) 1955 F Date Time Provider Department 02/12/24 9:40 AM MARTINE ALMONTE [facility] During your visit today, we recorded the following information about you: Temperature Pulse Blood pressure Weight 98.3 degrees 82/minute 130/82 46.7 kg Martine Almonte APRN.CNP 02/12/2024 9:43 AM Signed This is a 68 year old female who presents today with: Patient presents with: Acute Visit: Cough, horse voice, chills HISTORY OF PRESENT ILLNESS: Jacqueline Gaston is a 68 year old female. Patient presents with: Acute Visit: Cough, horse voice, chills Went to [place] to visit grandchildren. Started with sore throat. Runny nose. Cough that is keeping her awake at night. Non-productive. Started about a week ago. Started on herbal remedies. Low grade temp and night sweats. Exhausted. No N/V. No diarrhea. PAST MEDICAL HISTORY: PAST MEDICAL HISTORY Diagnosis Date Anxiety disorder [...] LEFT VAGINAL HYSTERECTOMY UTERUS 250 GM/< 1987 ALLERGIES Patient has no known allergies. MEDICATIONS Current Outpatient Medications Medication Sig traZODone HCl (DESYREL) 300 mg tablet Take 1 tablet by mouth daily at bedtime. venlafaxine ER (EFFEXOR XR) 75 mg 24 hr capsule Take 1 capsule by mouth once daily. Biotin 10,000 mcg cap Take 1 capsule by mouth once daily. vit A,C,O-Dvxe-Goburf (OCUVITE PRESERVISION) 7,160-113-100 rqbb-bw-ykff tab Take 1 tablet by mouth daily with breakfast. Cholecalciferol, Vitamin D3, 50 mcg (2,000 unit) cap Take 1 tablet by mouth once daily. Calcium Carb-Cholecalciferol (NUBIA-600 WITH VITAMIN D) 600 (1,500)-200 mg-unit ORAL Tab Take one(1) tablet twice daily. No current facility-administered medications for this visit. FAMILY HISTORY Problem Relation Age of Onset Breast Cancer Mother Cancer Mother Cancer Maternal Grandmother Stroke Maternal Grandmother Cancer Maternal Grandfather Diabetes Maternal Grandfather Prostate Cancer Maternal Grandfather Coronary Artery Disease Father CABG Ischemic Heart Disease Paternal Grandmother CT at 50 Social History Tobacco Use Smoking status: Never Smokeless tobacco: Never Vaping Use Vaping status: Never Used Substance Use Topics Alcohol use: No Drug use: No EXAM: BP 130/82 Pulse 82 Temp 36.8 ?C (98.3 ?F) Wt 46.7 kg (102 lb 15.3 oz) SpO2 97% BMI 17.90 kg/m? PHYSICAL EXAM: Physical Exam Vitals reviewed. Constitutional: Appearance: Normal appearance. HENT: Head: Normocephalic. Right Ear: Tympanic membrane and ear canal normal. There is no impacted cerumen. Left Ear: Tympanic membrane and ear canal normal. There is no impacted cerumen. Nose: Congestion and rhinorrhea present. Mouth/Throat: Mouth: Mucous membranes are moist. Pharynx: Oropharynx is clear. Posterior oropharyngeal erythema present. No oropharyngeal exudate. Comments: Throat is slightly red. Neck: Vascular: No carotid bruit. Cardiovascular: Rate and Rhythm: Normal rate and regular rhythm. Pulses: Normal pulses. Heart sounds: Normal heart sounds. Pulmonary: Effort: Pulmonary effort is normal. No respiratory distress. Breath sounds: Normal breath sounds. No stridor. No wheezing, rhonchi or rales. Musculoskeletal: General: Normal range of motion. Cervical back: Normal range of motion. Lymphadenopathy: Cervical: No cervical adenopathy. Skin: General: Skin is warm and dry. Neurological: Mental Status: She is alert. LABS: ASSESSMENT/PLAN: 1. Seasonal allergic rhinitis, unspecified trigger - ICD9: 477.9, ICD10: J30.2 Ongoing - METHYLPREDNISOLONE 4 MG TABLETS IN A DOSE PACK - BENZONATATE 100 MG CAPSULE - if symptoms worsen, will call Discussed treatment plan and patient voices understanding. Patient's questions answered appropriately. Medications and potential side effects were discussed and patient voices understanding. Return to the office as scheduled or as needed for worsening/no improvement. JULISSA Mora Jacqueline A, APRN.CNP 02/12/2024 9:43 AM Signed 1) Medrol taper- as discussed 2) Benzonatate 100 mg 3 x day (more content not included)... Normal [facility] CT Head WO contraston 2023 [facility] VITAMIN D 25 HYDROXYon 07-19 25-hydroxyvitamin D3 [Mass/Vol] 51.8 ng/mL 31.0 - 80.0 ng/mL [facility] CBC W Auto Differential pane l (Bld)on 07-18-2022 Basophils (Bld) [#/Vol] 0.05 10*3/uL <0.11 k/uL [facility] Basophils/100 WBC (Bld) 0.8 % [facility] Differential cell count method Nom (Bld) Auto [facility] Eosinophils (Bld) [#/Vol] 0.10 10*3/uL <0.46 k/uL [facility] Eosinophils/100 WBC (Bld) 1.6 % [facility] Erythrocyte distribution width (RBC) [Ratio] 13.3 % 11.5 - 15.0 % [facility] Hematocrit (Bld) [Volume fraction] 45.3 % 36.0 - 46.0 % [facility] Hemoglobin (Bld) [Mass/Vol] 14.8 g/dL 11.5 - 15.5 g/dL [facility] Immature granulocytes (Bld) [#/Vol] <0.10 k/uL [facility] Immature granulocytes/100 WBC (Bld) 0.0 % [facility] Lymphocytes (Bld) [#/Vol] 2.36 10*3/uL 1.00 - 4.00 k/uL [facility] Lymphocytes/100 WBC (Bld) 37.2 % [facility] MCH (RBC) [Entitic mass] 30.1 pg 26.0 - 34.0 pg [facility] MCHC (RBC) [Mass/Vol] 32.7 g/dL 30.5 - 36.0 g/dL [facility] MCV (RBC) [Entitic vol] 92.1 fL 80.0 - 100.0 fL [facility] Monocytes (Bld) [#/Vol] 0.59 10*3/uL <0.87 k/uL [facility] Monocytes/100 WBC (Bld) 9.3 % [facility] Neutrophils (Bld) [#/Vol] 3.24 10*3/uL 1.45 - 7.50 k/uL [facility] Neutrophils/100 WBC (Bld) 51.1 % [facility] Nucleated RBC (Bld) [#/Vol] <0.01 k/uL [facility] Nucleated RBC/100 WBC (Bld) [Ratio] 0.0 /100 WBC [facility] Platelet mean volume (Bld) [Entitic vol] 10.3 fL 9.0 - 12.7 fL [facility] Platelets (Bld) [#/Vol] 244 10*3/uL 150 - 400 k/uL [facility] RBC (Bld) [#/Vol] 4.92 10*6/uL 3.90 - 5.2 0 m/uL [facility] WBC (Bld) [#/Vol] 6.34 10*3/uL 3.70 - 11. 00 k/uL [facility] Comprehensive metabolic 2000 panelon 07-18-2022 Albumin [Mass/Vol] 4.7 g/dL 3.9 - 4.9 g/dL [facility] ALP [Catalytic activity/Vol] 105 U/L 34 - 123 U/L [facility] ALT [Catalytic activity/Vol] 20 U/L 7 - 38 U/L [facility] Anion gap [Moles/Vol] 9 mmol/L 9 - 18 mmol/L [facility] AST [Catalytic activity/Vol] 24 U/L 13 - 35 U/L [facility] Bilirubin [Mass/Vol] 0.2 mg/dL 0.2 - 1 .3 mg/dL [facility] Calcium [Mass/Vol] 9.9 mg/dL 8.5 - 10. 2 mg/dL [facility] Chloride [Moles/Vol] 99 mmol/L 97 - 10 5 mmol/L [facility] CO2 [Moles/Vol] 28 mmol/L 22 - 30 mmol/L [facility] Creatinine [Mass/Vol] 0.75 mg/dL 0.58 - 0.96 mg/dL [facility] Estimated Glomerular Filtration Rate 89 mL/min/1.73m >=60 mL/min/1.73m [facility] Glucose [Mass/Vol] 94 mg/dL 74 - 99 mg/dL [facility] Potassium [Moles/Vol] 4.5 mmol/L 3.7 - 5.1 mmol/L [facility] Protein [Mass/Vol] 7.6 g/dL 6.3 - 8.0 g/dL [facility] Sodium [Moles/Vol] 136 mmol/L 136 - 144 mmol/L [facility] Urea nitrogen [Mass/Vol] 17 mg/dL 7 - 21 mg/dL [facility] FOLATE SERUMon 07-18-2022 Folate [Mass/Vol] >4.7 ng/mL [facility] T3 FREE [facility] 07-18-2022 Free T3 [Mass/Vol] 2.2 pg/mL Low 2.3 - 4.1 pg/mL [facility] T4 FREE/FREE THYROXon 2022 Free T4 [Mass/Vol] 1.2 ng/dL 0.9 - 1.7 ng/dL [facility] TSH Don 07-18-2022 TSH Qn 1.490 m[IU]/L 0.270 - 4.200 mIU/L [facility] VITAMIN B12 BLOODon 07-19-19 Cobalamin (Vitamin B12) [Mass/Vol] 740 pg/mL 232 - 1,245 pg/mL [facility] No Panel InformationOrdered By: Tanvi Ibarra on 05-30-2022 Miscellaneous Test Comment MAILED SPECIMEN [facility] CT ABDOMEN W IVCONon 023 [facility] CBC panel Auto (Bld)on 04-14 Erythrocyte distribution width (RBC) [Ratio] 12.6 % 11.5 - 15.0 % [facility] Hematocrit (Bld) [Volume fraction] 38.6 % 36.0 - 46.0 % [facility] Hemoglobin (Bld) [Mass/Vol] 12.8 g/dL 11.5 - 15.5 g/dL [facility] MCH (RBC) [Entitic mass] 30.8 pg 26.0 - 34.0 pg [facility] MCHC (RBC) [Mass/Vol] 33.2 g/dL 30.5 - 36.0 g/dL [facility] MCV (RBC) [Entitic vol] 92.8 fL 80.0 - 100.0 fL [facility] Nucleated RBC (Bld) [#/Vol] <0.01 k/uL [facility] Platelet mean volume (Bld) [Entitic vol] 10.6 fL 9.0 - 12.7 fL [facility] Platelets (Bld) [#/Vol] 305 10*3/uL 150 - 400 k/uL [facility] RBC (Bld) [#/Vol] 4.16 10*6/uL 3.90 - 5.2 0 m/uL [facility] WBC (Bld) [#/Vol] 9.09 10*3/uL 3.70 - 11. 00 k/uL [facility] Comprehensive metabolic 2000 panelon 04-14-2022 Albumin [Mass/Vol] 4.1 g/dL 3.9 - 4.9 g/dL [facility] ALP [Catalytic activity/Vol] 99 U/L 34 - 123 U/L [facility] ALT [Catalytic activity/Vol] 18 U/L 7 - 38 U/L [facility] Anion gap [Moles/Vol] 11 mmol/L 9 - 18 mmol/L [facility] AST [Catalytic activity/Vol] 19 U/L 13 - 35 U/L [facility] Bilirubin [Mass/Vol] Low 0.2 - 1 .3 mg/dL [facility] Calcium [Mass/Vol] 9.4 mg/dL 8.5 - 10. 2 mg/dL [facility] Chloride [Moles/Vol] 102 mmol/L 97 - 10 5 mmol/L [facility] CO2 [Moles/Vol] 26 mmol/L 22 - 30 mmol/L [facility] Creatinine [Mass/Vol] 0.70 mg/dL 0.58 - 0.96 mg/dL [facility] Estimated Glomerular Filtration Rate 97 mL/min/1.73m >=60 mL/min/1.73m [facility] Glucose [Mass/Vol] 104 mg/dL High 74 - 99 mg/dL [facility] Potassium [Moles/Vol] 4.5 mmol/L 3.7 - 5.1 mmol/L [facility] Protein [Mass/Vol] 6.6 g/dL 6.3 - 8.0 g/dL [facility] Sodium [Moles/Vol] 139 mmol/L 136 - 144 mmol/L [facility] Urea nitrogen [Mass/Vol] 20 mg/dL 7 - 21 mg/dL [facility] XR FOOT GENERAL 3V AP/LAT/OB L RIGHTon 11-22-2021 [facility] XR Foot - right AP and Later al and obliqueon 11-22-2021 IMPRESSION: No acute fracture or dislocation of the right foot After School Teacher: ROWAN Transcribe Date/Time: Nov 22 2021 4:35P Dictated by : BHAVANA BRENNAN MD This examination was interpreted and the report reviewed and electronically signed by: BHAVANA BRENNAN MD on Nov 22 2021 4:37PM EST [email or web address] E_DIVISION OF RADIOLOGY * * *Final Report* * * DATE OF EXAM: Nov 22 2021 4:27PM [id number] - XR FOOT 3V AP/LAT/OBL RT / PROCEDURE REASON: multiple diagnoses * * * * Physician Interpretation * * * * EXAMINATION: XR FOOT 3V AP/LAT/OBL RT CLINICAL HISTORY: Right foot pain Technique: XR FOOT 3V AP/LAT/OBL RT -- RIGHT with 3 views on 3 images Comparison: None RESULT: No acute fracture or dislocation. Joint spaces are maintained. Deformity of the right and left fifth metatarsal heads, possibly due to prior surgery. [email or web address] E_DIVISION OF RADIOLOGY Provider, Sina Zayas - 11/22/2021 * * *Final Report* * * DATE OF EXAM: Nov 22 2021 4:27PM WOX [id number] - XR FOOT 3V AP/LAT/OBL RT / PROCEDURE REASON: multiple diagnoses * * * * Physician Interpretation * * * * EXAMINATION: XR FOOT 3V AP/LAT/OBL RT CLINICAL HISTORY: Right foot pain Technique: XR FOOT 3V AP/LAT/OBL RT -- RIGHT with 3 views on 3 images Comparison: None RESULT: No acute fracture or dislocation. Joint spaces are maintained. Deformity of the right and left fifth metatarsal heads, possibly due to prior surgery. IMPRESSION IMPRESSION: No acute fracture or dislocation of the right foot After School Teacher: ROWAN Transcribe Date/Time: Nov 22 2021 4:35P Dictated by : BHAVANA BRENNAN MD This examination was interpreted and the report reviewed and electronically signed by: BHAVANA BRENNAN MD on Nov 22 2021 4:37PM EST [facility] Radiology Study observation (narrative) [facility] XR Foot - right AP and Later al and obliqueOrdered By: [facility] Provider on 11-22-2021 [facility] Vital Signs Date Time Vital Sign Value Performing Clinician Facility 02-05-2025 12:21-0400 Body temperature 97.3 [degF] Dr. Jay Morales DO Work Phone: [phone])[phone] [place] [address] 02-05-2025 12:21-0400 Diastolic blood pressure 70 mm[Hg] Dr. Jay Morales DO Work Phone: [phone] [place] [address] 02-05-2025 12:21-0400 Heart rate 64 /min Dr. Jay Morales DO Work Phone: 1(408)[phone] [place] [address] 02-05-2025 12:21-0400 Respiratory rate 16 /min Dr. Jay Morales DO Work Phone: [phone] [place] [address] 02-05-2025 12:21-0400 SaO2% (BldA) [Mass fraction] 100 % Dr. Jay Morales DO Work Phone: [phone] [place] [address] 02-05-2025 12:21-0400 Systolic blood pressure 109 mm[Hg] Dr. Jay Morales DO Work Phone: 0(154)[phone] [place] [address] 02-05-2025 10:18-0400 Body height 162.[address] Jay Morales DO Work Phone: [phone])[phone] [place] [address] 02-05-2025 10:18-0400 Body mass index (BMI) [Ratio] 17.7 kg/m2 Dr. Jay Morales DO Work Phone: [facility] 02-05-2025 10:18-0400 Body weight [address] Jay Morales DO Work Phone: [facility] 08-05-2024 08:26-0400 Body height 162 cm Jay Morales DO Work Phone: [facility] 08-05-2024 08:26-0400 Body mass index (BMI) [Ratio] 17.63 kg/m2 Jay Morales DO Work Phone: [facility] 08-05-2024 [id number] Body weight 46.27 kg Jay Morales DO Work Phone: [facility] 07-25-2024 14:32-0400 Diastolic blood pressure 82 mm[Hg] Korina Caldwell NEWS VIDEO EDITOR.CRYPTOGRAPHIC TECHNICIAN Work Phone: [facility] 07-25-2024 14:32-0400 Heart rate 73 /min Korinahumera Washingtons NEWS VIDEO EDITOR.CRYPTOGRAPHIC TECHNICIAN Work Phone: [facility] 07-25-2024 14:32-0400 Systolic blood pressure 138 mm[Hg] Korina Caldwell NEWS VIDEO EDITOR.CRYPTOGRAPHIC TECHNICIAN Work Phone: [facility] 07-25-2024 14:31-0400 Body mass index (BMI) [Ratio] 18.02 kg/m2 Korina Caldwell NEWS VIDEO EDITOR.CRYPTOGRAPHIC TECHNICIAN Work Phone: [facility] 07-25-2024 14:31-0400 Body weight 47 kg Korina Caldwell NEWS VIDEO EDITOR.CRYPTOGRAPHIC TECHNICIAN Work Phone: [facility] 07-25-2024 14:31-0400 Respiratory rate 16 /min Korina Caldwell NEWS VIDEO EDITOR.CRYPTOGRAPHIC TECHNICIAN Work Phone: [facility] 02-12-2024 09:26-0400 Body mass index (BMI) [Ratio] 17.9 kg/m2 Martine Almonte NEWS VIDEO EDITOR.HL7 INTERFACE DEVELOPER Work Phone: [facility] 02-12-2024 09:26-0400 Body temperature 98.29 [degF] Martine Suppan NEWS VIDEO EDITOR.HL7 INTERFACE DEVELOPER Work Phone: [facility] 02-12-2024 09:26-0400 Body weight 46.7 kg Martine Suppan NEWS VIDEO EDITOR.HL7 INTERFACE DEVELOPER Work Phone: [facility] 02-12-2024 09:26-0400 Diastolic blood pressure 82 mm[Hg] Martine Suppan NEWS VIDEO EDITOR.HL7 INTERFACE DEVELOPER Work Phone: [facility] 02-12-2024 09:26-0400 Heart rate 82 /min Martine Suppan NEWS VIDEO EDITOR.HL7 INTERFACE DEVELOPER Work Phone: [facility] 02-12-2024 09:26-0400 SaO2% (BldA) [Mass fraction] 97 % Martine Suppan NEWS VIDEO EDITOR.HL7 INTERFACE DEVELOPER Work Phone: [facility] 02-12-2024 09:26-0400 Systolic blood pressure 130 mm[Hg] Martine Suppan NEWS VIDEO EDITOR.HL7 INTERFACE DEVELOPER Work Phone: [facility] 07-05-2023 09:15-0400 Body height 162.[address] Jay Morales Work Phone: [facility] 07-05-2023 09:09-0400 Body mass index (BMI) [Ratio] 18.4 kg/m2 Dr. Jay Morales Work Phone: [facility] 07-05-2023 09:09-0400 Body weight 48.[address] Jay Morales Work Phone: 0(252)574-932079 [place] [address] 07-05-2023 09:09-0400 Diastolic blood pressure 82 mm[Hg] Dr. Jay Morales Work Phone: [facility] 07-05-2023 09:09-0400 Systolic blood pressure 128 mm[Hg] Dr. Jay Morales Work Phone: [facility] 07-18-2022 14:06-0400 Body temperature 98.29 [degF] Jay Morales DO Work Phone: [facility] 07-18-2022 14:06-0400 Body weight 48.53 kg Jay Morales DO Work Phone: [facility] 07-18-2022 14:06-0400 Diastolic blood pressure 96 mm[Hg] Jay Holmanon DO Work Phone: [facility] 07-18-2022 14:06-0400 Heart rate 64 /min Jay Morales DO Work Phone: [facility] 07-18-2022 14:06-0400 Respiratory rate 16 /min Jay Morales DO Work Phone: [facility] 07-18-2022 14:06-0400 Systolic blood pressure 146 mm[Hg] Jay Holmanon DO Work Phone: [facility] 05-30-2022 13:08-0500 Body height 162.[address] Jay Morales Work Phone: 3(789)201-969079 [place] [address] 05-30-2022 13:01-0500 Body mass index (BMI) [Ratio] 23.3 kg/m2 Dr. Jay Morales Work Phone: 1(821)[phone] [place] [address] 05-30-2022 13:01-0500 Body weight 61.[address] Jay Morales Work Phone: 1(831)183-612454 [place] [address] 05-30-2022 13:01-0500 Diastolic blood pressure 64 mm[Hg] Dr. Jay Morales Work Phone: 0(553)252-584479 [place] [address] 05-30-2022 13:01-0500 Systolic blood pressure 102 mm[Hg] Dr. Jay Morales Work Phone: 9(200)791-756679 [place] [address] 04-13-2022 15:19-0500 Body weight 48.44 kg Zain Urvashi NEWS VIDEO EDITOR.HL7 INTERFACE DEVELOPER Work Phone: [facility] 04-13-2022 15:19-0500 Diastolic blood pressure 80 mm[Hg] Zain Urvashi NEWS VIDEO EDITOR.HL7 INTERFACE DEVELOPER Work Phone: [facility] 04-13-2022 15:19-0500 Heart rate 72 /min Zain Roblesman NEWS VIDEO EDITOR.HL7 INTERFACE DEVELOPER Work Phone: [facility] 04-13-2022 15:19-0500 Respiratory rate 16 /min Zain Roblesman NEWS VIDEO EDITOR.HL7 INTERFACE DEVELOPER Work Phone: [facility] 04-13-2022 15:19-0500 SaO2% (BldA) [Mass fraction] 98 % Zain Roblesman NEWS VIDEO EDITOR.HL7 INTERFACE DEVELOPER Work Phone: [facility] 04-13-2022 15:19-0500 Systolic blood pressure 118 mm[Hg] Zain Landin NEWS VIDEO EDITOR.HL7 INTERFACE DEVELOPER Work Phone: [facility] 12-03-2021 12:55-0400 Body height 162.56 cm [facility] Work Phone: 12-03-2021 12:55-0400 Body mass index (BMI) [Ratio] 17.6 kg/m2 [facility] Work Phone: 12-03-2021 12:55-0400 Body temperature 98.5 [degF] [facility] Work Phone: 12-03-2021 12:55-0400 Body weight 46.72 kg [facility] Work Phone: 12-03-2021 12:55-0400 Diastolic blood pressure 90 mm[Hg] [facility] Work Phone: 12-03-2021 12:55-0400 Heart rate 83 /min [facility] Work Phone: 12-03-2021 12:55-0400 Respiratory rate 18 /min [facility] Work Phone: 12-03-2021 12:55-0400 SaO2% (BldA) [Mass fraction] 99 % [facility] Work Phone: 12-03-2021 12:55-0400 Systolic blood pressure 144 mm[Hg] [facility] Work Phone: 11-22-2021 15:31-0400 Body weight 47.9 kg Zainmichael Landin NEWS VIDEO EDITOR.HL7 INTERFACE DEVELOPER Work Phone: [facility] 11-22-2021 15:31-0400 Diastolic blood pressure 86 mm[Hg] Zain Roblesman NEWS VIDEO EDITOR.HL7 INTERFACE DEVELOPER Work Phone: [facility] 11-22-2021 15:31-0400 Heart rate 64 /min Zain Landin NEWS VIDEO EDITOR.HL7 INTERFACE DEVELOPER Work Phone: [facility] 11-22-2021 15:31-0400 Respiratory rate 16 /min Zain Roblesman NEWS VIDEO EDITOR.HL7 INTERFACE DEVELOPER Work Phone: [facility] 11-22-2021 15:31-0400 SaO2% (BldA) [Mass fraction] 99 % Zain Landin NEWS VIDEO EDITOR.HL7 INTERFACE DEVELOPER Work Phone: [facility] 11-22-2021 15:31-0400 Systolic blood pressure 142 mm[Hg] Zain Landin NEWS VIDEO EDITOR.HL7 INTERFACE DEVELOPER Work Phone: [facility] Encounters Encounter Date Encounter Type Care Provider Facility Start: 02-05-2025 Non-patient / Non-visit Miguelangel Connor nd, DO -[facility] Start: 02-05-2025 End: 02-05-2025 Admission to same day surgery center Miguelangel Waller DO -Endoscopy Work Phone: Start: 02-05-2025 End: 02-05-[address] Jay Morales DO Work Phone: -Endoscopy Start: 02-04-2025 End: 02-04-2025 ambulatory ZAINJB LANDIN Facility:[facility] Start: 01-03-2025 End: 01-03-2025 ambulatory Jay Morales DO Work Phone: [facility] [place] Start: 01-03-2025 End: 01-03-2025 Patient encounter procedure Jay Morales DO Work Phone: [facility] [place] Comment on above: Population Health Na vigation Outreach ([employer] [facility]/) Start: 12-18-2024 End: 12-18-2024 Patient encounter procedure Miguelangel Waller DO -[facility] Work Phone: Start: 12-18-2024 End: 12-18-[address] Jay Morales DO Work Phone: -[facility] Start: 12-04-2024 End: 12-04-2024 ambulatory Jay Morales DO Work Phone: [facility] Start: 12-04-2024 End: 12-04-2024 Patient encounter procedure Jay Morales DO Work Phone: [facility] [place] Comment on above: Population Health Na vigation Outreach ([employer] [facility]/) Start: 11-22-2024 End: 11-22-2024 Telephone encounter Jay Morales DO Work Phone: [facility] [place] Comment on above: Insurance Authorizat ion Start: 11-07-2024 End: 11-07-2024 Nursing evaluation of patient and report Mi Nurse Work Phone: [facility] [place] Comment on above: Osteoporosis without current pathological fracture, unspecified osteoporosis type (Primary Dx) Start: 11-07-2024 End: 11-07-2024 ambulatory [facility] Facility:[facility] Start: 11-04-2024 End: 11-05-2024 Telephone encounter Jay Morales DO Work Phone: [facility] [place] Comment on above: Orders Medication Update Start: 10-30-2024 End: 10-30-2024 Refill Jay Morales DO Work Phone: [facility] [place] Comment on above: Refill Request Start: 10-29-2024 End: 10-30-2024 Telephone encounter Jay Morales DO Work Phone: [facility] [place] Comment on above: Referral Information ; Medication Question Start: 10-16-2024 End: 10-16-2024 Telephone encounter Jay Morales DO Work Phone: Ambulatory Surgery Comment on above: Appointment Start: 10-14-2024 End: 10-15-2024 Refill Jay L Morales DO Work Phone: [facility] [place] Start: 09-23-2024 End: 09-23-2024 ambulatory Leola Sonya Martinez MA [facility] [place] [facility] Start: 09-23-2024 End: 09-23-2024 Patient encounter procedure Leola Sonya Martinez MA [facility] Comment on above: Population Health Na vigation Outreach ([facility]) Start: 09-17-2024 End: 09-17-2024 Refill Jay Abhijeet RichMorales DO Work Phone: [facility] [place] Comment on above: Refill Request Start: 08-23-2024 End: 08-26-2024 Follow-up encounter Jay Richrison DO Work Phone: [facility] [place] Start: 08-21-2024 End: 08-21-2024 ambulatory JAY L MORALES Facility:[facility] Start: 08-20-2024 End: 08-20-2024 Telephone encounter Jay Richrison DO Work Phone: [facility] [place] Comment on above: UTI symptoms still Start: 08-19-2024 End: 08-19-2024 ambulatory JAY L MORALES Facility:[facility] Start: 08-09-2024 End: 08-09-2024 Refill Jay Abhijeet RichMorales DO Work Phone: [facility] [place] Comment on above: Refill Request Start: 08-06-2024 ambulatory Jay Morales Facilit y:[facility] Start: 08-05-2024 End: 08-05-2024 ambulatory JAY L MORALES Facility:[facility] Start: 08-05-2024 End: 08-05-2024 Patient encounter procedure Jay Abhijeet Morales DO Work Phone: [facility] [place] Comment on above: Medicare annual well ness visit, subsequent (Primary Dx); Acute bronchitis, unspecified organism; Screening for colon cancer; Recurrent UTI (urinary tract infection); Dyslipidemia; T3 low in serum; Vitamin D deficiency; Fatigue, unspecified type; Hyperglycemia Start: 07-26-2024 End: 09-25-2024 Follow-up encounter Korina Caldwell APRN.CRYPTOGRAPHIC TECHNICIAN Work Phone: [facility] [place] Start: 07-25-2024 End: 07-25-2024 ambulatory KORINAHumera CALDWELL Facility:[facility] Start: 07-25-2024 End: 07-25-2024 Office outpatient visit 15 minutes Korina Caldwell NEWS VIDEO EDITOR.CRYPTOGRAPHIC TECHNICIAN Work Phone: [facility] [place] Comment on above: UTI symptoms (Primar y Dx); Osteoporosis without current pathological fracture, unspecified osteoporosis type Start: 07-25-2024 End: 07-25-2024 Telephone encounter Jay Morales DO Work Phone: [facility] [place] Comment on above: Patient Request Start: 06-21-2024 End: 06-21-[address] Jay Morales DO Work Phone: [facility] Work Phone: Start: 06-21-2024 End: 06-21-2024 Patient encounter procedure Tanvi VOGT -Outpatient Breast Imaging Work Phone: Start: 06-21-2024 End: 06-21-2024 ambulatory Jay Morales Facility:[facility] Start: 05-20-2024 End: 06-20-2024 Admission to same day surgery center Jay Morales DO Work Phone: Ambulatory Surgery Comment on above: Outpatient Colonosco py (Patient overdue for colorectal cancer screening. (since 2018). Please schedule open access colonoscopy) Start: 05-20-2024 End: 06-20-2024 ambulatory Jay Morales DO Work Phone: Ambulatory Surgery Start: 03-05-2024 End: 03-05-2024 Refill Jay Morales DO Work Phone: [facility] Comment on above: Refill Request Start: 02-12-2024 End: 02-12-2024 ambulatory MARTINE A SUPPAN Facility:[facility] Start: 02-12-2024 End: 02-12-2024 Office outpatient visit 15 minutes Martine A Suppan NEWS VIDEO EDITOR.HL7 INTERFACE DEVELOPER Work Phone: [facility] [place] Comment on above: Seasonal allergic rh initis, unspecified trigger (Primary Dx) Start: 01-24-2024 End: 01-24-2024 Refill Jay Morales DO Work Phone: [facility] [place] Comment on above: Refill Request Start: 01-02-2024 End: 01-02-2024 ambulatory Tori Gaitan MA [facility] [place] Start: 01-02-2024 End: 01-02-2024 Patient encounter procedure Tori Gaitan MA [facility] Comment on above: Population Health Na vigation Outreach ([place]/ /) Start: 11-14-2023 Telephone encounter Jay sheets DO Work Phone: [facility] [place] Comment on above: Patient Request Start: 11-08-2023 Refill Jay santos DO Work Phone: [facility] [place] Comment on above: Refill Request Start: 08-23-2023 Telephone encounter Jay sheets DO Work Phone: [facility] [place] Comment on above: Medication Problem ( patient is having problems with insurance covering prolia injection) Start: 08-11-2023 Telephone encounter Zain Enriquez APRN.CNP Work Phone: [facility] [place] Comment on above: Patient Update Start: 08-10-2023 End: 08-10-2023 Subsequent hospital visit by physician Lexa [facility] [place] Work Phone: Radiology Comment on above: Hammertoe of right f oot [M20.41] Start: 08-10-2023 End: 08-10-2023 Patient encounter procedure Jonh Garcia Work Phone: Podiatry Comment on above: Hammertoe of right f oot (Primary Dx); Callus between toes; Porokeratosis Start: 08-07-2023 Telephone encounter Zain Enriquez APRN.CNP Work Phone: [facility] [place] Comment on above: Results Start: 08-03-2023 End: 08-03-2023 Subsequent hospital visit by physician Bone Density [facility] Work Phone: Radiology Comment on above: Screening for osteop orosis [Z13.820] Start: 08-01-2023 End: 08-01-2023 Subsequent hospital visit by physician [facility] (I-Stat) Work Phone: Cat Scan Comment on above: Screening for osteop orosis [Z13.820] Start: 07-17-2023 End: 07-17-[address] aJy Morales Work Phone: [facility] Work Phone: Start: 07-17-2023 End: 07-17-[address] Jay Morales Work Phone: [facility]-Ultrasound, [facility] Work Phone: Start: 07-05-2023 End: 07-05-[address] Jay Morales Work Phone: [facility] Work Phone: Start: 06-20-2023 End: 06-20-2023 ambulatory [facility] Work Phone: Start: 06-20-2023 End: 06-20-2023 Patient encounter procedure [facility]-Outpatient Breast Imaging Work Phone: Start: 10-31-2022 Refill Jay Caldwell son DO Work Phone: [facility] Comment on above: Refill Request Start: 09-01-2022 Refill Jay Caldwell son DO Work Phone: [facility] Comment on above: Refill Request Start: 08-28-2022 Refill Zain rosa APRN.CNP Work Phone: [facility] Comment on above: Refill Request Start: 08-10-2022 ambulatory Jay santos DO Work Phone: [facility] [place] Start: 07-20-2022 Telephone encounter Jay sheets DO Work Phone: [facility] Comment on above: Results (Lab) Start: 07-18-2022 End: 07-18-2022 Patient encounter procedure Jay Morales DO Work Phone: [facility] Comment on above: Poor short term shantanu ry (Primary Dx) Start: 05-30-2022 End: 05-30-[address] Jay Morales Work Phone: [facility] Work Phone: Start: 05-30-2022 End: 05-30-[address] Jay Morales Work Phone: [facility]-Laboratory, [facility] Start: 05-30-2022 End: 05-30-[address] Jay Morales Work Phone: [facility] Start: 05-03-2022 Telephone encounter Jay sheets DO Work Phone: [facility] Comment on above: Results Start: 04-26-2022 End: 04-26-2022 Subsequent hospital visit by physician [facility] Cat Scan Comment on above: RUQ pain [R10.11] Start: 04-13-2022 End: 04-13-2022 Patient encounter procedure Zain Landin APRN.HL7 INTERFACE DEVELOPER Work Phone: [facility] Comment on above: RUQ pain (Primary Dx ); Right upper quadrant abdominal mass; Preprocedural examination; Poor short term memory; Family history of dementia Start: 04-13-2022 End: 04-13-2022 Preprocedural examination done Zain Landin APRN.HL7 INTERFACE DEVELOPER Work Phone: [facility] Start: 03-24-2022 Refill Jay santos DO Work Phone: [facility] Comment on above: Refill Request Start: 03-04-2022 End: 03-04-2022 ambulatory [facility] Work Phone: Start: 03-04-2022 End: 03-04-2022 Patient encounter procedure [facility]-Outpatient Breast Imaging Start: 02-11-2022 Telephone encounter Jay sheets DO Work Phone: [facility] Comment on above: Orders Start: 12-03-2021 End: 12-03-2021 Emergency department patient visit [facility]Emergency Department Start: 11-22-2021 End: 11-22-2021 Subsequent hospital visit by physician Xr [facility] Work Phone: Radiology Comment on above: Foot pain, right [M7 9.671] Start: 11-22-2021 End: 11-22-2021 Office outpatient visit 15 minutes Zain Landin APRN.HL7 INTERFACE DEVELOPER Work Phone: [facility] Comment on above: Foot pain, right (Pr imary Dx); Localized swelling of right foot; Chronic insomnia Start: 11-22-2021 Telephone encounter Zain Enriquez APRN.HL7 INTERFACE DEVELOPER Work Phone: [facility] [place] Comment on above: Results Start: 09-01-2021 ambulatory Jay santos DO Work Phone: [facility] [place] Start: 08-25-2021 Refill Jay santos DO Work Phone: [facility] Comment on above: Refill Request Start: 06-01-2021 Telephone encounter Jay Abhijeet Sood kortney DO Work Phone: [facility] [place] Comment on above: Refill Request Start: 05-13-2019 Patient encounter status Jay Morales DO Work Phone: [facility] Work Phone: Procedures Date Procedure Procedure Detail Performing Clinician Start: 08-21-2024 Lipid 1996 panel - S pito or Plasma Jay Morales DO Work Phone: Start: 07-25-2024 Urnls dip stick/tabl et rgnt auto w/o microscopy Korina Caldwell NEWS VIDEO EDITOR.CRYPTOGRAPHIC TECHNICIAN Work Phone: Start: 06-21-2024 Screening mammography D r. Jay Morales DO Work Phone: Start: 08-01-2023 Ct head/brain w/o co ntrast material Zain Landin NEWS VIDEO EDITOR.HL7 INTERFACE DEVELOPER Work Phone: Start: 07-17-[address] Keshav Morales Work Phone: Start: 06-20-2023 Screening mammography Start: 04-26-2022 Ct abdomen w/contras t material Zain Landin NEWS VIDEO EDITOR.HL7 INTERFACE DEVELOPER Work Phone: Start: 03-04-2022 Screening mammography Start: 12-03-2021 X-ray of chest posteroanterior view Start: 11-22-2021 Radex foot complete minimum 3 views Zain Landin NEWS VIDEO EDITOR.HL7 INTERFACE DEVELOPER Work Phone: Start: 08-24-2020 Adult depression scr eening assessment Jay Morales DO Work Phone: Start: 07-23-2020 Mammography Jay pate DO Work Phone: Start: 06-19-2019 Lipid 1996 panel - S pito or Plasma Ct [facility] Start: 03-11-2019 Colonoscopy Jay Hilario pate DO Work Phone: Plan of Treatment Date Care Activity Detail Author Start: 08-21-2029 Lipid panel Lipid Screening [facility] Start: 10-10-2027 Screening for malignant neoplasm of colon Cologuard (FIT-DNA) [facility] Start: 08-22-2027 Diabetes Screening Diabetes Screening [facility] Start: 05-10-2027 Urine microalbumin profile [facility] Start: 08-05-2025 Covid-19 Vaccine ( season) Covid-19 Vaccine () [facility] Comment on above: Postponed from 12/24/2023 (Declined at t his time) Start: 08-02-2025 Screening for osteoporosis Bone Density Screening [facility] Start: 07-18-2025 DIABETES SCREEN DIABETES SCREEN [facility] Start: 07-18-2025 Diabetes Screening Diabetes Screening [facility] Start: 06-23-2025 End: 06-23-2025 Patient encounter procedure 06/23/2025 8:30 AM EST Appointment Mammogram [address] [place] [address] encounter for screening mammogram for malignant neoplasm of breast Mammogram Comment on above: encounter for screening mammogram for ma lignant neoplasm of breast Start: 06-21-2025 End: 02-02-2026 DBT Breast - bilateral screening CHRISTIAN SCREENING W ASIF Radiology Routine Encounter for screening mammogram for malignant neoplasm of breast Expected: 06/21/2025, Expires: 02/02/2026 [facility] Work Phone: Comment on above: Expected: 06/21/2025, Expires: Start: 06-21-2025 Screening for malignant neoplasm of breast Mammogram Screening [facility] Start: 05-12-2025 End: 05-12-2025 Nursing evaluation of patient and report 05/12/2025 8:00 AM EST Nurse Visit [facility] [place] [address] [place] [address] Nurse, [facility] [place] [address] Prolia [facility] [place] Comment on above: Prolia Start: 04-13-2025 DIABETES SCREEN DIABETES SCREEN [facility] Start: 02-05-2025 Colonoscopy w/biopsy single/multiple COLONOSCOPY AND BIOPSY [facility] Start: 02-05-2025 Patient discharge [facility] Start: 02-04-2025 End: 02-04-2025 Patient encounter procedure [facility] Comment on above: 6 mo follow up Start: 12-23-2024 Influenza vaccination [facility] Start: 11-07-2024 End: 11-07-2024 Nursing evaluation of patient and report 11/07/2024 8:00 AM EDT Nurse Visit [facility] [place] [address] [place] [address] NurseLamar [address] [facility] [place] [address] Prolia Injection [facility] [place] Comment on above: Prolia Injection Start: 11-06-2024 End: 11-06-2024 Nursing evaluation of patient and report 11/06/2024 8:00 AM EDT Nurse Visit [facility] [place] [address] [facility] [place] [id number] Nurse, [place] [address] [facility] [place] [address] Prolia Injection [facility] [place] Comment on above: Prolia Injection Start: 10-21-2024 Influenza vaccination Influenza Vaccine (#1) [facility]elson Comment on above: Postponed from 12/24/2023 (Declined at t his time) Start: 10-10-2024 Screening for malignant neoplasm of colon Colorectal Cancer Screening [facility] Start: 08-05-2024 End: 11-04-2024 25-hydroxyvitamin D3 [Mass/volume] in Serum or Plasma VITAMIN D 25 HYDROXY Lab Routine Vitamin D deficiency Fatigue, unspecified type Expected: 08/05/2024, Expires: 11/04/2024 [facility] Comment on above: Expected: 08/05/2024, Expires: Start: 08-05-2024 End: 11-04-2024 CBC W Auto Differential panel - Blood COMPLETE BLOOD COUNT AND DIFFERENTIAL Lab Routine Dyslipidemia Expected: 08/05/2024, Expires: 11/04/2024 [facility] Comment on above: Expected: 08/05/2024, Expires: Start: 08-05-2024 End: 11-04-2024 Cobalamin (Vitamin B12) [Mass/volume] in Serum or Plasma VITAMIN B12 Lab Routine Fatigue, unspecified type Expected: 08/05/2024, Expires: 11/04/2024 [facility] Comment on above: Expected: 08/05/2024, Expires: Start: 08-05-2024 End: 11-04-2024 Comprehensive metabolic 2000 panel - Serum or Plasma COMPREHENSIVE METABOLIC PANEL Lab Routine Dyslipidemia Expected: 08/05/2024, Expires: 11/04/2024 [facility] Work Phone: Comment on above: Expected: 08/05/2024, Expires: Start: 08-05-2024 End: 11-04-2024 Hemoglobin A1c in Blood HEMOGLOBIN A1C Lab Routine Hyperglycemia Expected: 08/05/2024, Expires: 11/04/2024 [facility] Comment on above: Expected: 08/05/2024, Expires: Start: 08-05-2024 End: 11-04-2024 Lipid 1996 panel - Serum or Plasma LIPID PANEL, FASTING Lab Routine Dyslipidemia Expected: 08/05/2024, Expires: 11/04/2024 [facility] Comment on above: Expected: 08/05/2024, Expires: Start: 08-05-2024 End: 11-04-2024 Thyrotropin [Units/volume] in Serum or Plasma THYROID STIMULATING HORMONE Lab Routine T3 low in serum Expected: 08/05/2024, Expires: 11/04/2024 [facility] Comment on above: Expected: 08/05/2024, Expires: Start: 08-05-2024 End: 11-04-2024 Thyroxine (T4) free [Mass/volume] in Serum or Plasma T4 FREE/FREE THYROXINE Lab Routine T3 low in serum Expected: 08/05/2024, Expires: 11/04/2024 [facility] Comment on above: Expected: 08/05/2024, Expires: Start: 08-05-2024 End: 08-05-2024 Patient encounter procedure 08/05/2024 8:20 AM EDT Office Visit [facility] [place] [address] [place] [address] Jay Morales DO [address] [place] [address] MEDICARE WELLNESS Z00.00 [facility] [place] Comment on above: MEDICARE WELLNESS Z00.00 Start: 07-25-2024 End: 07-25-2024 Patient encounter procedure 07/25/2024 2:20 PM EDT Office [facility] [place] [address] [place] [address] Korina Caldwell APRN.CNS [address] [place] [address] urinary sx's x 2-3 days, see 07/25/24 telephone note for more details [facility] Comment on above: urinary sx's x 2-3 days, see 07/25/24 tele phone note for more details Start: 07-19-2024 Covid-19 Vaccine ( season) Covid-19 Vaccine ( season) [facility] Comment on above: Postponed from 12/23/2022 (Declined at t his time) Start: 07-19-2024 Pneumococcal Vaccine: 50+ (2 of 2 - PCV) Pneumococcal Vaccine: 50+ (2 of 2 - PCV) [facility] Comment on above: Postponed from 05/13/2020 (Declined at t his time) Start: 07-19-2024 Pneumococcal Vaccine: 65+ (2 of 2 - PCV) Pneumococcal Vaccine: 65+ (2 of 2 - PCV) [facility] Comment on above: Postponed from 2022 (Declined at t his time) Start: 07-19-2024 RSV Vaccine (1 - 1-dose 60+ series) RSV Vaccine (1 - 1-dose 60+ series) [facility] Comment on above: Postponed from 2017 (Declined at t his time) Start: 07-19-2024 RSV Vaccine (1 - Risk 60-74 years 1-dose series) RSV Vaccine (1 - Risk 60-74 years 1-dose series) [facility] Comment on above: Postponed from 2017 (Declined at t his time) Start: 06-20-2024 Screening for malignant neoplasm of breast Mammogram Screening [facility] Start: 06-19-2024 Lipid 1996 panel - Serum or Plasma Lipid Screening [facility] Start: 06-19-2024 Lipid panel Lipid Screening [facility] Start: 06-19-2024 LIPID SCREEN LIPID SCREEN [facility] Start: 04-24-2024 Advance Directive Discussion Advance Directive Discussion [facility] Start: 01-31-2024 End: 01-31-2024 Patient encounter procedure 01/31/2024 8:00 AM EDT Office [facility] [address] [place], [place] [id number] Zain Landin APRN.HL7 INTERFACE DEVELOPER [address] [place] [address] CAREGIVER FATIGUE/ANXIETY [facility] Comment on above: CAREGIVER FATIGUE/ANXIETY Start: 01-05-2024 End: 01-05-2024 Patient encounter procedure 01/05/2024 11:20 AM EDT Office [facility] [place] [address] [place] [address] Zain Landin APRN.HL7 INTERFACE DEVELOPER [address] [place] [address] CAREGIVER FATIGUE/ANXIETY [facility] Comment on above: CAREGIVER FATIGUE/ANXIETY Start: 12-24-2023 Covid-19 Vaccine ( season) Covid-19 Vaccine () [facility] Start: 12-24-2023 Covid-19 Vaccine () Covid-19 Vaccine () [facility] Start: 12-24-2023 Influenza vaccination [facility] Start: 04-24-2023 Advance Directive Discussion Advance Directive Discussion [facility] Start: 04-24-2023 Behavioral Health Screening Behavioral Health Screening [facility] Start: 12-23-2022 Influenza vaccination [facility] Start: 2022 Advance Directive Discussion Advance Directive Discussion [facility] Start: 2022 Bone Density Screening Bone Density Screening [facility] Start: 2022 Pneumococcal Vaccine: 65+ (2 - PCV) Pneumococcal Vaccine: 65+ (2 - PCV) [facility] Start: 2022 Screening for osteoporosis Bone Density Screening [facility] Start: 07-20-2022 End: 09-19-2022 Thyrotropin [Units/volume] in Serum or Plasma TSH BLD Lab Routine Low serum triiodothyronine (T3) Expected: 07/20/2022, Expires: 09/19/2022 [facility] Work Phone: Comment on above: Expected: 07/20/2022, Expires: Start: 07-20-2022 End: 09-19-2022 Thyroxine (T4) free [Mass/volume] in Serum or Plasma T4 FREE/FREE THYROX Lab Routine Low serum triiodothyronine (T3) Expected: 07/20/2022, Expires: 09/19/2022 [facility] Work Phone: Comment on above: Expected: 07/20/2022, Expires: 3 Start: 07-20-2022 End: 09-19-2022 Triiodothyronine (T3) Free [Mass/volume] in Serum or Plasma T3 FREE BLD Lab Routine Low serum triiodothyronine (T3) Expected: 07/20/2022, Expires: 09/19/2022 [facility] Work Phone: Comment on above: Expected: 07/20/2022, Expires: 3 Start: 07-18-2022 End: 09-17-2022 Magnesium [Mass/volume] in Serum or Plasma MAGNESIUM BLD Lab Routine Poor short term memory Expected: 07/18/2022, Expires: 09/17/2022 [facility] Work Phone: Comment on above: Expected: 07/18/2022, Expires: 3 Start: 04-24-2022 DEPRESSION ASSESSMENT DEPRESSION ASSESSMENT [facility] Start: 01-08-2022 DIABETES SCREEN DIABETES SCREEN [facility] Start: 12-23-2021 Influenza vaccination INFLUENZA (#1) [facility] Start: 08-25-2021 End: 10-25-2021 CBC panel - Blood by Automated count CBC Lab Routine Chronic insomnia Expected: 08/25/2021, Expires: 10/25/2021 [facility] Work Phone: Comment on above: Expected: 08/25/2021, Expires: 2 Start: 08-25-2021 End: 10-25-2021 Comprehensive metabolic 2000 panel - Serum or Plasma COMP METABOLIC PANEL Lab Routine Chronic insomnia Expected: 08/25/2021, Expires: 10/25/2021 [facility] Work Phone: Comment on above: Expected: 08/25/2021, Expires: 2 Start: 08-25-2021 End: 10-25-2021 Hemoglobin A1c/Hemoglobin.total in Blood HGB A1C Lab Routine Screening for diabetes mellitus Expected: 08/25/2021, Expires: 10/25/2021 [facility] Work Phone: Comment on above: Expected: 08/25/2021, Expires: 2 Start: 08-25-2021 End: 10-25-2021 LIPID PANEL BASIC LIPID PANEL BASIC Lab Routine Dyslipidemia Expected: 08/25/2021, Expires: 10/25/2021 [facility] Work Phone: Comment on above: Expected: 08/25/2021, Expires: 2 Start: 08-25-2021 End: 10-25-2021 Thyrotropin [Units/volume] in Serum or Plasma TSH BLD Lab Routine Screening for thyroid disorder Expected: 08/25/2021, Expires: 10/25/2021 [facility] Work Phone: Comment on above: Expected: 08/25/2021, Expires: 2 Start: 08-24-2021 Adult depression screening assessment DEPRESSION SCREENING [facility] Start: 07-23-2021 Mammography [facility] Start: 04-24-2021 DEPRESSION ASSESSMENT DEPRESSION ASSESSMENT [facility] Start: 03-11-2021 Colonoscopy COLONOSCOPY [facility] Start: 03-11-2021 COLORECTAL CANCER SCREENING COLORECTAL CANCER SCREENING [facility] Start: 03-11-2021 Screening for malignant neoplasm of colon [facility] Start: 05-13-2020 Pneumococcal Vaccine: 50+ (2 of 2 - PCV) Pneumococcal Vaccine: 50+ (2 of 2 - PCV) [facility] Start: 01-11-2020 FECAL OCCULT BLOOD FECAL OCCULT BLOOD [facility] Start: 01-11-2020 Screening for malignant neoplasm of colon Fecal Occult Blood [facility] Start: 2017 RSV Vaccine (1 - 1-dose 60+ series) RSV Vaccine (1 - 1-dose 60+ series) [facility] Start: 2017 RSV Vaccine (1 - Risk 60-74 years 1-dose series) RSV Vaccine (1 - Risk 60-74 years 1-dose series) [facility] Start: 2002 COLOGUARD (FIT-DNA) COLOGUARD (FIT-DNA) [facility] Start: [address] COLONOGRAPHY [facility] Start: 2002 Screening for malignant neoplasm of colon [facility] Start: 2002 SIGMOIDOSCOPY SIGMOIDOSCOPY [facility] Start: 11-30-1987 HPV TESTING HPV TESTING [facility] Start: 11-30-1975 Anxiety Screening Anxiety Screening [facility] Start: 11-30-1975 Depression Screening Depression Screening [facility] Start: 11-30-1975 HEPATITIS C SCREENING HEPATITIS C SCREENING [facility] Start: 11-30-1975 Hepatitis C screening Hepatitis C Screening [facility] Start: 11-30-1975 HIV SCREENING HIV SCREENING [facility] Start: 11-30-1975 HIV screening HIV Screening [facility] Start: 1962 COVID-19 VACCINE (#1) COVID-19 VACCINE (#1) [facility] Start: 1962 COVID-19 VACCINE (1) COVID-19 VACCINE (1) [facility] Start: 06-01-1958 COVID-19 VACCINE (#1) COVID-19 VACCINE (#1) [facility] Bacteria identified in Urine by Culture BACTERIAL CULTURE, URINE Microbiology Routine UTI symptoms 07/25/2024 2:40 PM EDT [facility] Work Phone: End: 08-05-2025 Bacteria identified in Urine by Culture BACTERIAL CULTURE, URINE Microbiology Routine Recurrent UTI (urinary tract infection) Once per month for 12 Occurrences starting 08/05/2024 until 08/05/2025 [facility] Comment on above: Once per month for 12 Occurrences starti ng 08/05/2024 until 08/05/2025 BD DXA TRABECULAR CHAD NE SCORE (TBS) BD DXA TRABECULAR BONE SCORE (TBS) Radiology Routine Screening for osteoporosis Asymptomatic menopause 08/03/2023 11:26 AM EDT [facility] Work Phone: COLOGUARD COLOGUARD Lab Ro utine Screening for colon cancer Ordered: 08/05/2024 [facility] Comment on above: Ordered: 08/05/2024 End: 05-13-2023 Ct abdomen w/contrast material CT ABDOMEN W IVCON Radiology Routine RUQ pain Right upper quadrant abdominal mass 1 Occurrences starting 04/13/2022 until 05/13/2023 [facility] Work Phone: Comment on above: 1 Occurrences starting 04/13/2022 until 05/13/2023 DXA Skeletal system. axial Views for bone density DXA-AXIAL SKELETON Radiology Routine Screening for osteoporosis Asymptomatic menopause 08/03/2023 11:26 AM EDT [facility] Work Phone: End: 10-15-2025 Flexible sigmoidoscopy study COLONOSCOPY DIAGNOSTIC Endoscopy Routine Positive colorectal cancer screening using Cologuard test Screening for colon cancer 1 Occurrences starting 10/15/2024 until 10/15/2025 [facility] Work Phone: Comment on above: 1 Occurrences starting 10/15/2024 until 10/15/2025 End: 10-01-2022 CHRISTIAN SCREENING W ASIF CHRISTIAN SCREENING W ASIF Radiology Routine Encounter for screening mammogram for breast cancer 1 Occurrences starting 09/01/2021 until 10/01/2022 [facility] Work Phone: Comment on above: 1 Occurrences starting 09/01/2021 until 10/01/2022 End: 09-09-2023 CHRISTIAN SCREENING W ASIF CHRISTIAN SCREENING W ASIF Radiology Routine Encounter for screening mammogram for breast cancer 1 Occurrences starting 08/10/2022 until 09/09/2023 [facility] Work Phone: Comment on above: 1 Occurrences starting 08/10/2022 until 09/09/2023 Patient Education ED Chest Pain, Uncertain Cause [facility] Work Phone: Patient referral [facility] Work Phone: End: 08-05-2025 Urinalysis complete panel - Urine URINALYSIS, WITH MICROSCOPIC Lab Routine Recurrent UTI (urinary tract infection) Once per month for 12 Occurrences starting 08/05/2024 until 08/05/2025 [facility] Comment on above: Once per month for 12 Occurrences starti ng 08/05/2024 until 08/05/2025 End: 09-08-2024 XR Foot - bilateral AP and Lateral and oblique XR FOOT GENERAL 3V AP/LAT/OBL BILATERAL Radiology Routine Hammertoe of right foot 1 Occurrences starting 08/10/2023 until 09/08/2024 [facility] Work Phone: Comment on above: 1 Occurrences starting 08/10/2023 until 09/08/2024 XR Foot - bilateral AP and Lateral and oblique XR FOOT GENERAL 3V AP/LAT/OBL BILATERAL Radiology Routine Hammertoe of right foot 08/10/2023 9:33 AM EDT [facility] Work Phone: [facility] Immunizations Immunization Date Immunization Notes Care Provider Jeanne long 02-02-2022 influenza, seasonal, injectable Jay Morales DO Work Phone: [facility] Work Phone: 02-02-2022 influenza virus vacc ine, unspecified formulation Ct Wstr [facility] 01-19-2021 influenza, injectabl e, quadrivalent, contains preservative Jay Morales DO Work Phone: [facility] Work Phone: 10-21-2019 zoster vaccine recombinant Jay Morales DO Work Phone: [facility] Work Phone: 05-13-2019 pneumococcal polysaccharide vaccine, 23 valent Jay Morales DO Work Phone: [facility] Work Phone: 05-13-2019 zoster vaccine recombinant Jay Morales DO Work Phone: [facility] Work Phone: 01-08-2019 influenza, injectabl e, quadrivalent, contains preservative Jay Morales DO Work Phone: [facility] 05-10-2017 tetanus toxoid, redu jesse diphtheria toxoid, and acellular pertussis vaccine, adsorbed Jay Morales DO Work Phone: [facility] 08-13-2014 zoster vaccine, live Jay Morales DO Work Phone: [facility] 07-11-2011 tetanus and diphther ia toxoids, adsorbed, preservative free, for adult use (2 Lf of tetanus toxoid and 2 Lf of diphtheria toxoid) Jay Morales DO Work Phone: [facility] 02-22-2007 influenza virus vacc ine, unspecified formulation Jay Morales DO Work Phone: [facility] Payers Date Payer Category Payer Self-pay [id number] 2023 Medicare [employer]ET[employer] MEDICARE A ETNA MEDICARE PPO [id number] 2023-Present [phone] [address] [place] [address] PPO [id number] 2023 Medicare (Managed Care) [employer] [place] DICARE [id number] 2023 Private Health Insurance [id number] 2022 Private Health Insurance [id number] 2022 Medicare [id number] 2019 Unknown MMO MMO [employer] [id number] 2019-Present [phone] [address] [place] [address] PPO [id number] 2019 Unknown [id number] Medicare [id number] Unknown [id number] Unknown [id number] Unknown [id number] Unknown [id number] Unknown [id number] Unknown [id number] Social History Date Type Detail Facility Start: 12-03-2021 End: 02-03-2025 Tobacco smoking status NHIS Never smoked tobacco [facility] Work Phone: Start: 01-19-2021 End: 08-05-2024 Alcohol intake Current non-drinker of alcohol (finding) [facility] Start: 08-24-2020 History SDOH Alcohol Frequency 1 [facility] Start: 08-24-2020 History SDOH Social Connections Phone 5 [facility] Start: 08-24-2020 History SDOH Social Connections [employer] [facility] Start: 08-24-2020 History SDOH Physica l Activity MPS 4 [facility] Start: 08-24-2020 History SDOH Transpo rt Med 2 [facility] Start: 08-24-2020 Education 18 [facility] Start: 1955 Sex Assigned At Female C [facility] Start: 11-12-2021 End: 11-22-2021 Exposure to SARS-CoV-2 (event) Not sure [facility] Start: 12-03-2021 End: 07-05-2023 Tobacco smoking status NHIS Unknown if ever smoked [facility] Start: 01-19-2021 None [facility] Start: 01-19-2021 Homeless [facility] Start: 01-19-2021 Non-smoker [facility] Start: 01-08-2019 End: 12-03-2021 Tobacco use and exposure Smokeless tobacco non-user [facility] Start: 07-18-2022 End: 07-20-2023 History of Social function [facility] Work Phone: Start: 07-18-2022 End: 07-20-2023 Tobacco use panel [facility] Work Phone: Start: 03-25-2012 Adult Depression Screening Assessment 2 [facility] Work Phone: Start: 02-18-2019 Gender identity Identifies as female gender (finding) [facility] Start: 02-18-2019 Sexual orientation Heterosexual (fin marisela) [facility] Are you now , , , , never or living with a partner? [facility] How often to you hav e a drink containing alcohol? Never [facility] Do you feel stress - tense, restless, nervous, or anxious, or unable to sleep at night because your mind is troubled all the time - these days [OSQ] Not at all [facility] (I/We) worried whedesiree er (my/our) food would run out before (I/we) got money to buy more. Never true [facility] In the past 12 month s, was there a time when you were not able to pay the mortgage or rent on time? No [facility] Start: 07-03-2024 Sex Female (finding) [facility] Goals Date Patient Goal Desired Activity /State Functional Status Date Assessment Result Facility 08-05-2024 Total score [AUDIT-C] 0 08/06/19 25 8:32 AM Alyson Dickson LPN [facility] 06-02-2014 Are you deaf, or do you have serious difficulty hearing No 06/02/2014 11:49 AM Rosalind Alcocer MA No [facility] 06-02-2014 Are you blind, or do you have serious difficulty seeing, even when wearing glasses No 06/02/2014 11:49 AM Rosalind Alcocer MA No [facility] 06-02-2014 Do you have serious difficulty walking or climbing stairs No 06/02/2014 11:49 AM Rosalind Alcocer MA No [facility] 06-02-2014 Do you have difficul ty dressing or bathing No 06/02/2014 11:49 AM Rosalind Alcocer MA No [facility] 06-02-2014 Because of a physica l, mental, or emotional condition, do you have difficulty doing errands alone such as visiting a physician's office or shopping No 06/02/2014 11:49 AM Rosalind Alcocer MA No [facility] Mental Status Date Assessment Result Facility 02-05-2025 Cognitive function Voice/Name [facility] Work Phone: 12-03-2021 Cognitive function Voice/Name [facility] Work Phone: 06-02-2014 Because of a physica l, mental, or emotional condition, do you have serious difficulty concentrating, remembering, or making decisions No 06/02/2014 11:49 AM Rosalind Alcocer MA No [facility] Clinical Notes 06-01-2021 to 02-05-2025 Note Date & Type Note Facility 02-05-2025 Procedure note [facility] 02-05-2025 Procedure note [facility] 02-05-2025 Consult note Note Date/Time February 05, 2025 10:40am [facility] Medical Records Department [address] [place] [address] Pre-Anesthesia Evaluation 02/05/25 1036 MR#: [id number] Acct: [id number] Name: JACQUELINE GASTON Rep #:[id number] 3 : 1955 69 From: Trace Naranjo PCP: Dr. Jay Morales, DO Status:RE G SDC Y Race: C Location: [place] [address] ASA Classification* ASA Classification ASA Classification: 2 Assessment & Plan Anesthesia* Anesthesia Assessment Anesthesia Assessment: Discussed sedation and/or anesthesia options, risks, benefits, and alternatives with patient/parents/legal guardian/POA. Questions invited. The patient/parents/legal guardian/POA seems to understand and agrees to proceedwith anesthesia plan. Reviewed the physical assessment, medical history, allergy history and patient home medications list prior to surgery/procedure/anesthetic and documented any changes. Performed airway and anesthesia risk assessments. Anesthesia Type Anesthesia Type: MAC History Source History Obtained from:: Patient and Chart Anesthesia Focused Assessment* Temperature: 97.8 F Pulse Rate: 68 Blood Pressure: 123/84 Respiratory Rate: 18 Pulse Ox: 100 Oxygen Delivery Method: Room Air Airway Assessment Mouth opens: >3 cm Mallampati Score: I Teeth Condition: Intact Neck Range of motion (ROM): Full ROM Labs Anesthesia Preop lab: CBC WBC, (4.4-11.0) 10.2 K/mm3 01/24/17, : RBC, (4.2-5.4) 4.05 M/mm3 L 01/24/17, Hgb, (12.0-15.0) 12.5 g/dl 01/24/17, : Hct, (37-47) 38.5 % 01/24/17, : Plt Count, (150-450) 400 K/mm3 01/24/17, : CHEMISTRY Potassium, (3.5-5.1) 3.8 mmol/L 01/24/17, : Sodium, (136-145) 138 mmol/L 01/24/17, BUN, (7-18) 14 mg/dL 01/24/17, : Creatinine, (0.55-1.02) 0.74 mg/dL 01/24/17, : Glucose, (70-110) 82 mg/dL 01/24/17, : TSH, (0.358-3.74) 1.29 uIU/mL 05/28/15, 14:21 COAG Pre-Assessment Diagnosis/Proposed Procedure Planned Operative Procedure(s): COLONOSCOPY Anesthesia History Anesthesia History - health service worker: Anesthesia History - health service worker Hx Hospitalization No 02/03/25 10:06 Any Problems With Anesthesia No 02/03/25 10:06 Cholinesterase deficiency No 02/03/25 10:06 You/Your Family Experience No 02/03/25 10:06 fever (hyperthermia) with Relationship Recent Exposure to Contagious No 02/05/25 10:18 Disease Does patient have nerve No 02/03/25 10:06 stimulator Patient instructed to have device shut off --Does patient have Pacemaker No 02/05/25 10:18 or ICD? When Was Last Pacemaker Check QUESTION #4 FULL TEXT: You/Your Family Experience fever (hyperthermia) with Anesthesia Last Oral Intake Last Oral intake: Last Oral Intake NPO since 07:00 02/05/25 10:18 Meds taken in AM with sips of No 02/05/25 10:18 water? Meds patient instructed to take am of surgery PONV PONV - health service worker: PONV - health service worker Female Yes 02/03/25 10:06 HX of Motion Sickness No 02/03/25 10:06 HX of N/V After Surgery No 02/03/25 10:06 Non-Smoker Yes 02/03/25 10:06 Duration of Surgery greater No 02/03/25 10:06 than 60 minutes Number of Risk Factors 2 02/03/25 10:06 PONV Score Moderate Risk 02/03/25 10:06 Height & Weight Height & Weight: Anesthesia: Height & Weight Height 5 ft 4 in 02/05/25 10:18 Weight: 47 kg 02/05/25 10:18 Body Mass Index (BMI) 17.7 02/05/25 10:18 Respiratory Assessment Respiratory Assessment - health service worker: Respiratory Tract Infection Hx - health service worker Hx Respiratory Tract Infection No 02/03/25 10:06 STOP Sleep Apnea STOP Sleep Apnea - health service worker: STOP Sleep Apnea - health service worker Hx Hypertension No 02/03/25 10:06 Hx Sleep Apnea Yes 02/03/25 10:06 CPAP Yes 02/03/25 10:06 BIPAP No 02/03/25 10:06 Do you snore loudly (louder than talking or can be heard Do you often feel tired/ fatigued/ sleepy during daytime? Has anyone observed you stop breathing during sleep? STOP Results Positive 02/03/25 10:06 QUESTION #5 FULL TEXT : Do you snore loudly (louder than talking or can be heard through closed doors)? 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 Specify any problems Hx of Preganancy in last 3 N/A 02/03/25 10:06 Months Nurse Filling Out Transfusion VCHRISTIN 02/03/25 10:06 & Questions: Date: 02/03/25 02/03/25 10:06 Time: 10:07 02/03/25 10:06 Patient unable to answer at this time (ie. confused, unrespo /Reproduction History /Reproductive History - health service worker: /Reproductive Hx- health service worker Hx Now No 02/03/25 10:06 Gestational Age (in weeks): EDC: Hx Hx Para Hx Section SAB No 02/03/25 10:06 Active Medications Active Medications: Current Medications Generic Name Dose Route Start Last Admin Trade Name Freq PRN Reason Stop Dose Admin Lactated Ringer's 1,000 mls @ 15 mls/hr 02/05/25 10:15 02/05/25 10:30 IV 15 mls/hr .Q48H DEXTER Administration PFSH Medical History Wears glasses Wears contact lenses Anxiety Arthritis Kidney stones Non-smoker CPAP (continuous positive airway pressure) dependence Sleep apnea History of stress test Vitamin D deficiency Anxiety with depression Home Medications ?Medication ?Instructions ?Recorded ?Last Taken ?Type calcium 315 mg (as 1 tab PO DAILY 02/22/2101/22 History citrate)-vitamin D3 6.25 mcg (250 unit) tablet (Citracal + Vitamin D Maximum) cholecalciferol (vitamin D3) 250 250 mcg PO DAILY 05/1402/04/25 History mcg (10,000 unit) capsule krill oil 500 mg capsule 500 mg PO DAILY 02/22/2103/18 History trazodone 300 mg tablet 300 mg PO DAILY 02/22/21 History venlafaxine 75 mg tablet 75 mg PO DAILY 02/22/2101/22 History Brain & Power Boost 4 tab PO DAILY 12/18/2401/22 History acetylcysteine 600 mg capsule (NAC) 600 mg PO QDAY 02/04/25 History Allergy/AdvReac Type Severity Reaction Status Date / Time No Known Allergies Allergy Verified 02/05/25 10:17 Family History Mother Breast cancer Father Heart disease Grandmother Breast cancer CVA (cerebral vascular accident) Grandfather Prostate CA Diabetes Surgical History Hx of wisdom tooth extraction Varicose vein of leg History of bladder surgery H/O: hysterectomy Social History Smoking Status: Never smoker alcohol intake: never substance use type: does not use caffeine: Yes what type of physical activity do you participate in: walking seatbelt use: always do you feel safe at home: Yes additional social history: retired- Den Review of Systems (Anesthesia) ROS Narrative System reviewed and no additional complaints, except as documented. 02/05/25 1040 <Electronically signed by Trace Harris MD> Date _ Trace Harris MD Cosigner Signature: Date CC: ~ Signed [facility] Work Phone: 1(503) 750-839310-15-2025 Consult note [facility] Medical Records Department [address] [place] [id number] Anesthesia Postop Eval I 02/05/25 1219 MR#: [id number] Acct: [id number] Name: JACQUELINE GASTON Rep #:[id number] : 1955 69 From: Jose Inman PCP: Dr. Jay Morales, DO Status:RE G SDC Y Race: C Location: [place] [address] Anesthesia: Postop Eval I Current Vital Signs Temperature: 97.3 F Pulse Rate: 64 Blood Pressure: 109/70 Respiratory Rate: 16 Pulse Ox: 100 Oxygen Delivery Method: Room Air Assessment Airway patent: Yes Spontaneous unlabored respirations: Yes Mental status: Awake and Calm nausea: No Vomiting: No Anesthesia Complication: No Fluid Hydration Crystalloid volume administer (ml): 800 Total IV fluid infused: 800 Progress Note Anesthesia document: Postop Eval 1 completed: Yes 02/05/25 1223 > Date _ Jose Kimamaurychika Signature: Date CC: ~ Signed [facility]10-15-2025 History and physical note Author Miguelangel Friend [facility] Note Date/Time February 05, 2025 1 0:11am [facility] Medical Records Department [address] [place] [address] History & Physical Exam 02/05/25 1010 MR#: [id number] Acct: [id number] Name: JACQUELINE GASTON Rep #:[id number] : 1955 69 From: Miguelangel Waller DO PCP: Dr. Jay Morales, DO Status:[facility] Location: [place] [address] HPI - General General Date of Admission: 02/05/25 Date of Service: 02/05/25 Chief Complaint: Screening colonoscopy HPI Narrative JACQUELINE GASTON, is a 69 F who presents for screening colonoscopy. *[facility] established 8.27.25 pt reports that she is here to follow up from positive cologuard test that she did a few months ago. Pt reports constipation, but states this has been an ongoing issue. Pt also reports that for the past few years she has had muscle spasms over her diaphragm, reports she has mentioned this to her PCP, they did some testing, but states nothing was ever resolved. The patient, an average-risk individual for colorectal cancer, recently completed a routine Cologuard screening test. She was notified by the lab of a positive result, prompting this visit. She has no new gastrointestinal symptoms,including no abdominal pain, rectal bleeding, or changes in bowel habits. She denies any other new complaints.Past Medical History: Normal screening colonoscopy (10 years ago). Reports no immediate family history of colorectal cancer. [facility] Medical History Wears glasses Wears contact lenses Anxiety Arthritis Kidney stones Non-smoker CPAP (continuous positive airway pressure) dependence Sleep apnea History of stress test Vitamin D deficiency Anxiety with depression Home Medications ?Medication ?Instructions ?Recorded ?Last Taken ?Type calcium 315 mg (as 1 tab PO DAILY 02/22/21 Unkn own History citrate)-vitamin D3 6.25 mcg (250 unit) tablet (Citracal + Vitamin D Maximum) cholecalciferol (vitamin D3) 250 250 mcg PO DAILY 05/14 Unknown History mcg (10,000 unit) capsule krill oil 500 mg capsule 500 mg PO DAILY 02/22/2103/18 History trazodone 300 mg tablet 300 mg PO DAILY 02/22/21 Unk nown History venlafaxine 75 mg tablet 75 mg PO DAILY 02/22/21 Unkn own History Brain & Power Boost 4 tab PO DAILY 12/18/24 Unkn own History acetylcysteine 600 mg capsule (NAC) 600 mg PO QDAY Unknown History Allergy/AdvReac Type Severity Reaction Status Date / Time No Known Allergies Allergy Verified 02/03/25 09:59 Family History Mother Breast cancer Father Heart disease Grandmother Breast cancer CVA (cerebral vascular accident) Grandfather Prostate CA Diabetes Surgical History Hx of wisdom tooth extraction Varicose vein of leg History of bladder surgery H/O: hysterectomy Social History Smoking Status: Never smoker alcohol intake: never substance use type: does not use caffeine: Yes what type of physical activity do you participate in: walking seatbelt use: always do you feel safe at home: Yes additional social history: retired- Den ROS Constitutional Constitutional: Denies fatigue, fever(s), poor appetite, weight gain or weight loss Gastrointestinal Gastrointestinal: Denies belching, bloating, change in bowel habits, change in stool character, chewing difficulty, coffee ground emesis, constipation, cramping, diarrhea, dyspepsia, dysphagia, early satiety, excessive flatus, fecalincontinence, heartburn, hematemesis, hematochezia, hemorrhoids, loose stools, melena, nausea, odynophagia, rectal bleeding, tenesmus, vomiting or weight changes Physical Exam Const alert, oriented x3, no apparent distress and healthy appearing General Appearance: cooperative GI normal to inspection, nondistended, normoactive bowel sounds, soft to palpation,non-tender and non-distended Percussion: normal to percussion Rectal Exam: deferred Assessment & Plan Assessment/Plan (1) Positive colorectal cancer screening using Cologuard test: PLAN: Assessment and Plan Assessment and Plan (1) Positive colorectal cancer screening using Cologuard test: Status: Acute Plan: 69-year-old woman with a positive Cologuard test and a history of previous normal screening colonoscopy.? * A positive Cologuard result in a patient with a prior normal colonoscopy is most likely a false positive. Cologuard has a documented false-positive rate, especially in older patients. * Cologuard is a screening tool, not a diagnostic one. A positive result warrants a follow-up diagnostic colonoscopy to definitively evaluate the cause. * Current guidelines indicate that if the follow-up colonoscopy is negative, no further workup for non-colonic cancers is typically warranted. * The patient has no other gastrointestinal symptoms or risk factors that suggest a high likelihood of interval cancer.? * She will undergo colonoscopy. She is explained all therapy, risk and benefits of more than bleeding infection, without known perforation, weakness or to . She will have an ASA 3. ] 02/05/25 1011 <Electronically signed by Miguelangel Waller DO> Cosigner Signature (if applicable): CC: Dr. Jay Morales DO; Miguelangel Waller DO~ Signed [facility] Work Phone: 1(106) 897-417410-15-2025 Consult note [facility] Medical Records Department [address] [place] [address] Pre-Anesthesia Evaluation 02/05/25 1036 MR#: [id number] Acct: [id number] Name: JACQUELINE GASTON Rep #:[id number] : 1955 69 From: Trace Naranjo PCP: Dr. Jay Morales, DO Status: G [facility] Y Race: C Location: [place] [address]- ASA Classification* ASA Classification ASA Classification: 2 Assessment & Plan Anesthesia* Anesthesia Assessment Anesthesia Assessment: Discussed sedation and/or anesthesia options, risks, benefits, and alternatives with patient/parents/legal guardian/POA. Questions invited. The patient/parents/legal guardian/POA seems to understand and agrees to proceedwith anesthesia plan. Reviewed the physical assessment, medical history, allergy history and patient home medications list prior to surgery/procedure/anesthetic and documented any changes. Performed airway and anesthesia risk assessments. Anesthesia Type Anesthesia Type: MAC History Source History Obtained from:: Patient and Chart Anesthesia Focused Assessment* Temperature: 97.8 F Pulse Rate: 68 Blood Pressure: 123/84 Respiratory Rate: 18 Pulse Ox: 100 Oxygen Delivery Method: Room Air Airway Assessment Mouth opens: >3 cm Mallampati Score: I Teeth Condition: Intact Neck Range of motion (ROM): Full ROM Labs Anesthesia Preop lab: CBC WBC, (4.4-11.0) 10.2 K/mm3 01/24/17, 11: RBC, (4.2-5.4) 4.05 M/mm3 L 01/24/17, 11: Hgb, (12.0-15.0) 12.5 g/dl 01/24/17, : Hct, (37-47) 38.5 % 01/24/17, 11: Plt Count, (150-450) 400 K/mm3 01/24/17, 11:19 CHEMISTRY Potassium, (3.5-5.1) 3.8 mmol/L 01/24/17, 11: Sodium, (136-145) 138 mmol/L 01/24/17, 11: BUN, (7-18) 14 mg/dL 01/24/17, 11: Creatinine, (0.55-1.02) 0.74 mg/dL 01/24/17, 11: Glucose, (70-110) 82 mg/dL 01/24/17, 11: TSH, (0.358-3.74) 1.29 uIU/mL 05/28/15, 14:21 COAG Pre-Assessment Diagnosis/Proposed Procedure Planned Operative Procedure(s): COLONOSCOPY Anesthesia History Anesthesia History - health service worker: Anesthesia History - health service worker Hx Hospitalization No 02/03/25 10:06 Any Problems With Anesthesia No 02/03/25 10:06 Cholinesterase deficiency No 02/03/25 10:06 You/Your Family Experience No 02/03/25 10:06 fever (hyperthermia) with Relationship Recent Exposure to Contagious No 02/05/25 10:18 Disease Does patient have nerve No 02/03/25 10:06 stimulator Patient instructed to have device shut off --Does patient have Pacemaker No 02/05/25 10:18 or ICD? When Was Last Pacemaker Check QUESTION #4 FULL TEXT: You/Your Family Experience fever (hyperthermia) with Anesthesia Last Oral Intake Last Oral intake: Last Oral Intake NPO since 07:00 02/05/25 10:18 Meds taken in AM with sips of No 02/05/25 10:18 water? Meds patient instructed to take am of surgery PONV PONV - health service worker: PONV - health service worker Female Yes 02/03/25 10:06 HX of Motion Sickness No 02/03/25 10:06 HX of N/V After Surgery No 02/03/25 10:06 Non-Smoker Yes 02/03/25 10:06 Duration of Surgery greater No 02/03/25 10:06 than 60 minutes Number of Risk Factors 2 02/03/25 10:06 PONV Score Moderate Risk 02/03/25 10:06 Height & Weight Height & Weight: Anesthesia: Height & Weight Height 5 ft 4 in 02/05/25 10:18 Weight: 47 kg 02/05/25 10:18 Body Mass Index (BMI) 17.7 02/05/25 10:18 Respiratory Assessment Respiratory Assessment - health service worker: Respiratory Tract Infection Hx - health service worker Hx Respiratory Tract Infection No 02/03/25 10:06 STOP Sleep Apnea STOP Sleep Apnea - health service worker: STOP Sleep Apnea - health service worker Hx Hypertension No 02/03/25 10:06 Hx Sleep Apnea Yes 02/03/25 10:06 CPAP Yes 02/03/25 10:06 BIPAP No 02/03/25 10:06 Do you snore loudly (louder than talking or can be heard Do you often feel tired/ fatigued/ sleepy during daytime? Has anyone observed you stop breathing during sleep? STOP Results Positive 02/03/25 10:06 QUESTION #5 FULL TEXT : Do you snore loudly (louder than talking or can be heard through closeddoors)? 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 Specify any problems Hx of Preganancy in last 3 N/A 02/03/25 10:06 Months Nurse Filling Out Transfusion VCHRISTIN 02/03/25 10:06 & Questions: Date: 02/03/25 02/03/25 10:06 Time: 10:07 02/03/25 10:06 Patient unable to answer at this time (ie. confused, unrespo /Reproduction History /Reproductive History - health service worker: /Reproductive Hx- health service worker Hx Now No 02/03/25 10:06 Gestational Age (in weeks): EDC: Hx Hx Para Hx Section SAB No 02/03/25 10:06 Active Medications Active Medications: Current Medications Generic Name Dose Route Start Last Admin Trade Name Freq PRN Reason Stop Dose Admin Lactated Ringer's 1,000 mls @ 15 mls/hr 02/05/25 10:15 02/05/25 10:30 IV 15 mls/hr .Q48H DEXTER Administration PFSH Medical History Wears glasses Wears contact lenses Anxiety Arthritis Kidney stones Non-smoker CPAP (continuous positive airway pressure) dependence Sleep apnea History of stress test Vitamin D deficiency Anxiety with depression Home Medications ?Medication ?Instructions ?Recorded ?Last Taken ?Type calcium 315 mg (as 1 tab PO DAILY 02/22/2101/22 History citrate)-vitamin D3 6.25 mcg (250 unit) tablet (Citracal + Vitamin D Maximum) cholecalciferol (vitamin D3) 250 250 mcg PO DAILY 05/1402/04/25 History mcg (10,000 unit) capsule krill oil 500 mg capsule 500 mg PO DAILY 02/22/2103/18 History trazodone 300 mg tablet 300 mg PO DAILY 02/22/21 History venlafaxine 75 mg tablet 75 mg PO DAILY 02/22/2101/22 History Brain & Power Boost 4 tab PO DAILY 12/18/2401/22 History acetylcysteine 600 mg capsule (NAC) 600 mg PO QDAY 02/04/25 History Allergy/AdvReac Type Severity Reaction Status Date / Time No Known Allergies Allergy Verified 02/05/25 10:17 Family History Mother Breast cancer Father Heart disease Grandmother Breast cancer CVA (cerebral vascular accident) Grandfather Prostate CA Diabetes Surgical History Hx of wisdom tooth extraction Varicose vein of leg History of bladder surgery H/O: hysterectomy Social History Smoking Status: Never smoker alcohol intake: never substance use type: does not use caffeine: Yes what type of physical activity do you participate in: walking seatbelt use: always do you feel safe at home: Yes additional social history: retired- Den Review of Systems (Anesthesia) ROS Narrative System reviewed and no additional complaints, except as documented. 02/05/25 1040 MD> Date _ Trace Harris MD Cosigner Signature: Date CC: ~ Signed [facility]10-15-2025 History and physical note [facility] Medical Records Department [address] [place] [address] History & Physical Exam 02/05/25 1010 MR#: [id number] Acct: [id number] Name: JACQUELINE GASTON Rep #:[id number] : 1955 69 From: Miguelangel Friend PCP: Dr. Jay Morales, DO Status:[facility] Location: [place] [address] HPI - General General Date of Admission: 02/05/25 Date of Service: 02/05/25 Chief Complaint: Screening colonoscopy HPI Narrative JACQUELINE GASTON, is a 69 F who presents for screening colonoscopy. *[facility] established 8.27.25 pt reports that she is here to follow up from positive cologuard test thatshe did a few months ago. Pt reports constipation, but states this has been an ongoing issue. Pt also reports that for the past few years she has had muscle spasms over her diaphragm, reports she hasmentioned this to her PCP, they did some testing, but states nothing was ever resolved. The patient, an average-risk individual for colorectal cancer, recently completed a routine Cologuard screening test. She was notified by the lab of a positive result, prompting this visit. She has no new gastrointestinal symptoms,including no abdominal pain, rectal bleeding, or changes in bowel hab its. She denies any other new complaints.Past Medical History: Normal screening colonoscopy (10 years ago). Reports no immediate family history of colorectal cancer. [facility] Medical History Wears glasses Wears contact lenses Anxiety Arthritis Kidney stones Non-smoker CPAP (continuous positive airway pressure) dependence Sleep apnea History of stress test Vitamin D deficiency Anxiety with depression Home Medications ?Medication ?Instructions ?Recorded ?Last Taken ?Type calcium 315 mg (as 1 tab PO DAILY 02/22/21 Unkn own History citrate)-vitamin D3 6.25 mcg (250 unit) tablet (Citracal + Vitamin D Maximum) cholecalciferol (vitamin D3) 250 250 mcg PO DAILY 05/14 Unknown History mcg (10,000 unit) capsule krill oil 500 mg capsule 500 mg PO DAILY 02/22/2103/18 History trazodone 300 mg tablet 300 mg PO DAILY 02/22/21 Unk nown History venlafaxine 75 mg tablet 75 mg PO DAILY 02/22/21 Unkn own History Brain & Power Boost 4 tab PO DAILY 12/18/24 Unkn own History acetylcysteine 600 mg capsule (NAC) 600 mg PO QDAY Unknown History Allergy/AdvReac Type Severity Reaction Status Date / Time No Known Allergies Allergy Verified 02/03/25 09:59 Family History Mother Breast cancer Father Heart disease Grandmother Breast cancer CVA (cerebral vascular accident) Grandfather Prostate CA Diabetes Surgical History Hx of wisdom tooth extraction Varicose vein of leg History of bladder surgery H/O: hysterectomy Social History Smoking Status: Never smoker alcohol intake: never substance use type: does not use caffeine: Yes what type of physical activity do you participate in: walking seatbelt use: always do you feel safe at home: Yes additional social history: retired- Den ROS Constitutional Constitutional: Denies fatigue, fever(s), poor appetite, weight gain or weight loss Gastrointestinal Gastrointestinal: Denies belching, bloating, change in bowel habits, change in stool character, chewing difficulty, coffee ground emesis, constipation, cramping, diarrhea, dyspepsia, dysphagia, earlysatiety, excessive flatus, fecalincontinence, heartburn, hematemesis, hematochezia, hemorrhoids, loose stools, melena, nausea, odynophagia, rectal bleeding, tenesmus, vomiting or weight changes Physical Exam Const alert, oriented x3, no apparent distress and healthy appearing General Appearance: cooperative GI normal to inspection, nondistended, normoactive bowel sounds, soft to palpation,non-tender and non-distended Percussion: normal to percussion Rectal Exam: deferred Assessment & Plan Assessment/Plan (1) Positive colorectal cancer screening using Cologuard test: PLAN: Assessment and Plan Assessment and Plan (1) Positive colorectal cancer screening using Cologuard test: Status: Acute Plan: 69-year-old woman with a positive Cologuard test and a history of previous normal screening colonoscopy.? * A positive Cologuard result in a patient with a prior normal colonoscopy is most likely a false positive. Cologuard has a documented false-positive rate, especially in older patients. * Cologuard is a screening tool, not a diagnostic one. A positive result warrants a follow-up diagnostic colonoscopy to definitively evaluate the cause. * Current guidelines indicate that if the follow-up colonoscopy is negative, no further workup for non-colonic cancers is typically warranted. * The patient has no other gastrointestinal symptoms or risk factors that suggest a high likelihoodof interval cancer.? * She will undergo colonoscopy. She is explained all therapy, risk and benefits of more than bleeding infection, without known perforation, weakness or to . She will have an ASA 3. ] 02/05/25 1011 Cosigner Signature (if applicable): CC: Dr. Jay Morales DO; Miguelangel Waller DO~ Signed [facility]10-15-2025 [facility] Medical Records Department [address] [place] [address] History Physical Exam 02/05/25 1010 MR#: [id number] Acct: [id number] Name: JACQUELINE GASTON Rep #: [id number] : 1955 69 From: Miguelangel Waller DO PCP: Dr. Jay Morales DO Status:[facility] Location: [place] [address] HPI - General General Date of Admission: 02/05/25 Date of Service: 02/05/25 Chief Complaint: Screening colonoscopy HPI Narrative JACQUELINE GASTON, is a 69 F who presents for screening colonoscopy. *[facility] established 12.18.24 pt reports that she is here to follow up from positive cologuard test that she did a few months ago. Pt reports constipation, but states this has been an ongoing issue. Pt also reports that for the past few years she has had muscle spasms over her diaphragm, reports she has mentioned this to her PCP, they did some testing, but states nothing was ever resolved. The patient, an average-risk individual for colorectal cancer, recently completed a routine Cologuard screening test. She was notified by the lab of a positive result, prompting this visit. She has no new gastrointestinal symptoms, including no abdominal pain, rectal bleeding, or changes in bowel habits. She denies any other new complaints.Past Medical History: Normal screening colonoscopy (10 years ago). Reports no immediate family history of colorectal cancer. [facility] Medical History Wears glasses Wears contact lenses Anxiety Arthritis Kidney stones Non-smoker CPAP (continuous positive airway pressure) dependence Sleep apnea History of stress test Vitamin D deficiency Anxiety with depression Home Medications ???Medication ???Instructions ???Recorded ???Last Taken ???Type calcium 315 mg (as 1 tab PO DAILY 02/22/21 Unknown Hi story citrate)-vitamin D3 6.25 mcg (250 unit) tablet (Citracal + Vitamin D Maximum) cholecalciferol (vitamin D3) 250 250 mcg PO DAILY 02/22/21 Unknown History mcg (10,000 unit) capsule krill oil 500 mg capsule 500 mg PO DAILY 02/22/21 02/01/25 History trazodone 300 mg tablet 300 mg PO DAILY 02/22/21 Unknown H istory venlafaxine 75 mg tablet 75 mg PO DAILY 02/22/21 Unknown Hi story Brain Power Boost 4 tab PO DAILY 12/18/24 Unknown Hi story acetylcysteine 600 mg capsule (NAC) 600 mg PO QDAY 12/18/24 Unknown History Allergy/AdvReac Type Severity Reaction Status Date / Time No Known Allergies Allergy Verified 02/03/25 09:59 Family History Mother Breast cancer Father Heart disease Grandmother Breast cancer CVA (cerebral vascular accident) Grandfather Prostate CA Diabetes Surgical History Hx of wisdom tooth extraction Varicose vein of leg History of bladder surgery H/O: hysterectomy Social History Smoking Status: Never smoker alcohol intake: never substance use type: does not use caffeine: Yes what type of physical activity do you participate in: walking seatbelt use: always do you feel safe at home: Yes additional social history: retired- Den ROS Constitutional Constitutional: Denies fatigue, fever(s), poor appetite, weight gain or weight loss Gastrointestinal Gastrointestinal: Denies belching, bloating, change in bowel habits, change in stool character, chewing difficulty, coffee ground emesis, constipation, cramping, diarrhea, dyspepsia, dysphagia, early satiety, excessive flatus, fecal incontinence, heartburn, hematemesis, hematochezia, hemorrhoids, loose stools, melena, nausea, odynophagia, rectal bleeding, tenesmus, vomiting or weight changes Physical Exam Const alert, oriented x3, no apparent distress and healthy appearing General Appearance: cooperative GI normal to inspection, nondistended, normoactive bowel sounds, soft to palpation, non-tender and non- distended Percussion: normal to percussion Rectal Exam: deferred Assessment Plan Assessment/Plan (1) Positive colorectal cancer screening using Cologuard test: PLAN: Assessment and Plan Assessment and Plan (1) Positive colorectal cancer screening using Cologuard test: Status: Acute Plan: 69-year-old woman with a positive Cologuard test and a history of previous normal screening colonoscopy.??? * A positive Cologuard result in a patient with a prior normal colonoscopy is most likely a false positive. Cologuard has a documented false-positive rate, especially in older patients. * Cologuard is a screening tool, not a diagnostic one. A positive result warrants a follow-up diagnostic colonoscopy to definitively evaluate the cause. * Current guidelines indicate that if the follow-up colonoscopy is negative, no furt (more content not included)...[facility]10-14-2025 NoteHNO ID: [id number] Author: ZAIN LANDIN [email or web address].[email or web address] INTERFACE DEVELOPER Service: ? Author Type: Nurse Practitioner Type: Progress Notes Filed: 02/04/2025 07:46 Note Text: 02/04/2025 Recording using ambient Rainbow software for draft documentation of the visit was discussed with the patient/authorized food service sales representatives; all questions welcomed and answered. Patient/authorized food service sales representatives agreed to proceed HPI: The patient is a 69-year-old female with insomnia, presenting for evaluation of difficulty maintaining sleep and medication management. Jacqueline is a 69-year-old female with a history of insomnia, presenting for a follow-up visit. Insomnia: - Difficulty staying asleep; wakes up at 0330 and unable to return to sleep. - Currently taking Trazodone 300 mg. - Previously on Effexor XR 150 mg, now taking 75 mg. - Has not tried Ambien. Colonoscopy: - Scheduled for a colonoscopy with Dr. Waller. - Expresses desire to get it over with. Family Concerns: - Mother is currently in [facility], receiving rehab following a hip fracture, experiencing increased confusion and pain. - Mother is receiving PT; pain managed with intermittent Oxycodone. - Jacqueline is concerned about her father's desire to bring her mother home before she is ready. - Jacqueline and her sister, Caroline, are providing support and care, leading to stress and disrupted sleep. PAST MEDICAL HISTORY Diagnosis Date Anxiety disorder in conditions classified elsewhere Benign neoplasm of colon Diffuse cystic mastopathy 02/13/07 Family history of abdominal aortic aneurysm Female bladder prolapse Insomnia, unspecified Internal hemorrhoids without mention of complication Pneumonia 08/2010 Sleep apnea [address] Anthony Snoring Varicose vein of leg Current Outpatient Medications on File Prior to Visit Medication Sig traZODone HCl (DESYREL) 300 mg tablet Take 1 tablet by mouth daily at bedtime. TURMERIC ORAL Take by mouth. vitamin b complex capsule Take 1 capsule by mouth once daily. 50 mtdhe-tu-0-yak-efg-ljdhpeb-ast (KRILL OIL) 1,240-267-27-80 mg cap Take by mouth. acetylcysteine (NAC ORAL) Take by mouth. Biotin 10,000 mcg cap Take 1 capsule by mouth once daily. vit A,C,A-Gfke-Qilqpl (OCUVITE PRESERVISION) 7,160-113-100 hjwb-ic-jffc tab Take 1 tablet by mouth daily with breakfast. Cholecalciferol, Vitamin D3, 50 mcg (2,000 unit) cap Take 1 tablet by mouth once daily. Calcium Carb-Cholecalciferol (NUBIA-600 WITH VITAMIN D) 600 (1,500)-200 mg-unit ORAL Tab Take one(1) tablet twice daily. Current Facility-Administered Medications on File Prior to Visit Medication denosumab 60 mg injection (PROLIA) Review of Systems: Constitutional: (+) sleep maintenance insomnia Musculoskeletal: (+) back muscle pain Psychiatric: (+) anxiety Physical Exam: BP 130/64 Pulse 83 Wt 46 kg (101 lb 6.4 oz) SpO2 97% BMI 17.53 kg/m? GENERAL: NAD, alert and oriented, well-groomed, thin. SKIN: Unremarkable, no rash or skin lesions. HEAD: Normocephalic. LUNGS: Clear to auscultation bilaterally, no wheezes/rhonchi/rales. HEART: Regular rate and rhythm, no murmurs. No ectopy. EXTREMITIES: Normal, no deformities, no skin discoloration, no edema. NEURO: Awake, alert and oriented x3, cranial nerves II-XII grossly intact, normal gait, no involuntary motions. PSYCHIATRIC: pleasant, cooperative Assessment/Plan: 1. Chronic insomnia (F51.04) 2. Situational insomnia (F51.09) 3. GONZALO (generalized anxiety disorder) (F41.1) - Chronic insomnia with situational exacerbation due to family stressors. - Currently on trazodone 300 mg nightly and venlafaxine XR 75 mg daily; previously tolerated venlafaxine XR 150 mg daily-increase to this dose today. - Start zolpidem; discussed that it can be taken in addition to trazodone and does not typically cause a hangover effect. - Advised patient to ensure at least 8 hours of sleep opportunity when taking zolpidem. - Patient expressed understanding and willingness to try zolpidem. - Encouraged patient to keep me updated on sleep quality and family situation. 4. Encounter for immunization (Z23) - Administer flu vaccine today. - Administer pneumococcal 20-valent conjugate vaccine today. - Educated patient that vaccines will not interfere with upcoming colonoscopy. The patient indicates understanding of these issues and agrees with the plan. Red flag symptoms reviewed as needed. Follow up: Zain Landin APRN.[place] PDMP website checked and validated. All prescriptions have been APPROPRIATELY filled. No suspicious activity was identified. 02/04/2025 by Zain Landin CNP.[facility]09-12-2025 NoteHNO ID: [id number] Author: ?, ?, ? Service: ? Author Type: ? Type: Progress Notes Filed: 01/03/2025 09:34 Note Text: POPULATION HEALTH NAVIGATION OUTREACH Action/ - HCC Colon: Overdue since 10/10/2024 - called for update on outside [facility] consult, 12/04/24 encounter Flu: Due for dose 1 since 12/23/2024 Christian: Due soon on 06/21/2025 Called patient: Colon: January outside [facility] - advised to send notes to PCP Flu: Not interested Christian: Scheduled for 06/23/25 - No Estimate - 2 Insurances Reason for Outreach Care Gap/HCC or Scheduling Wellness Visits Care Gaps due: Breast Cancer Screening Colorectal Cancer Screening Flu Vaccine Patient Contacted: Spoke to patient/parent/or legal guardian Patient identified by name and : Yes Care Gap/HCC/Scheduling Wellness actions taken: Patient scheduled/pended orders: 02/04/2025 in [facility] with ZAIN LANDIN - 6 mo follow up, Please address due care gaps and HCC gaps closure 05/12/2025 in [facility] with CT NURSE - Prolia 06/23/2025 in [facility] with SCREEN [facility] - encounter for screening mammogram for malignant neoplasm of breast Patient declined: Doesn't feel it's necessary - Flu vaccine Navigation Signature: David Sanz January 03, 2025 9:19 [facility]09-12-2025 History of Present illness Narrative* David Sanz - 01/03/2025 9:18 AM EDT POPULATION HEALTH NAVIGATION OUTREACH Action/ - HCC Colon: Overdue since 10/10/2024 - called for update on outside [facility] consult, 12/04/24 encounter Flu: Due for dose 1 since 12/23/2024 Christian: Due soon on 06/21/2025 Called patient: Colon: January outside [facility] - advised to send notes to PCP Flu: Not interested Christian: Scheduled for 06/23/25 - No Estimate - 2 Insurances Reason for Outreach Care Gap/HCC or Scheduling Wellness Visits Care Gaps due: Breast Cancer Screening Colorectal Cancer Screening Flu Vaccine Patient Contacted: Spoke to patient/parent/or legal guardian Patient identified by name and : Yes Care Gap/HCC/Scheduling Wellness actions taken: Patient scheduled/pended orders: 02/04/2025 in [facility] with ZAIN LANDIN - 6 mo follow up, Please address due care gapsand HCC gaps closure 05/12/2025 in [facility] with CT NURSE - Prolia 06/23/2025 in [facility] with SCREEN [facility] - encounter for screening mammogram formalignant neoplasm of breast Patient declined: Doesn't feel it's necessary - Flu vaccine Navigation Signature: David Sanz January 03, 2025 9:19 AM documented in [facility] NotePatient Outreach (NETNAV) JACQUELINE GASTON ([id number]) 1955 F Date Time Provider Department 01/03/25 JAY MORALES During your visit today, we recorded the following information about you: David Sanz 01/03/2025 9:34 AM Signed POPULATION HEALTH NAVIGATION OUTREACH Action/ - HCC Colon: Overdue since 10/10/2024 - called for update on outside [facility] consult, 12/04/24 encounter Flu: Due for dose 1 since 12/23/2024 Christian: Due soon on 06/21/2025 Called patient: Colon: January outside [facility] - advised to send notes to PCP Flu: Not interested Christian: Scheduled for 06/23/25 - No Estimate - 2 Insurances Reason for Outreach Care Gap/HCC or Scheduling Wellness Visits Care Gaps due: Breast Cancer Screening Colorectal Cancer Screening Flu Vaccine Patient Contacted: Spoke to patient/parent/or legal guardian Patient identified by name and : Yes Care Gap/HCC/Scheduling Wellness actions taken: Patient scheduled/pended orders: 02/04/2025 in [facility] with ZAIN LANDIN - 6 mo follow up, Please address due care gaps and HCC gaps closure 05/12/2025 in [facility] with CT NURSE - Prolia 06/23/2025 in [facility] with SCREEN [facility]MO [facility] - encounter for screening mammogram for malignant neoplasm of breast Patient declined: Doesn't feel it's necessary - Flu vaccine Navigation Signature: David Sanz January 03, 2025 9:19 AM Allergies As of Date: 01/03/2025 (No Known Allergies) Date Reviewed: 08/05/2024 Reviewed by: Alyson Pritchett LPN - Fully Assessed Reason for Visit: Population Health Navigation Outreach [3910] Cmt: Lan Neal Primary Visit Diagnosis:Encounter for screening mammogram for malignant neoplasm of breast [Z12.31] Order(s):[facility] SCREENING W ASIF [[id number]] Order #: [id number] FUTURE Prescriptions as of 01/03/2025 - traZODone HCl (DESYREL) 300 mg tablet Take 1 tablet by mouth daily at bedtime. - venlafaxine ER (EFFEXOR XR) 75 mg 24 hr capsule Take 1 capsule by mouth once daily. - TURMERIC ORAL Take by mouth. - vitamin b complex capsule Take 1 capsule by mouth once daily. 50 - juoue-rn-3-air-flg-uqffmht-ast (KRILL OIL) 1,716-523-90-80 mg cap Take by mouth. - acetylcysteine (NAC ORAL) Take by mouth. - Biotin 10,000 mcg cap Take 1 capsule by mouth once daily. - vit A,C,G-Ewzl-Dunjso (OCUVITE PRESERVISION) 7,160-113-100 eypw-hb-ppjn tab Take 1 tablet by mouth daily with breakfast. - Cholecalciferol, Vitamin D3, 50 mcg (2,000 unit) cap Take 1 tablet by mouth once daily. - Calcium Carb-Cholecalciferol (NUBIA-600 WITH VITAMIN D) 600 (1,500)-200 mg-unit ORAL Tab Take one(1) tablet twice daily. Facility-Administered Medications as of 01/03/2025 - denosumab 60 mg injection (PROLIA) Problem List As Of Date 01/03/2025 Noted Resolved BREAST DISORDER NOS [N64.9] 03/13/2007 BENIGN NEOPLASM LG BOWEL [D12.6] 11/15/2007 INT HEMORRHOID W/O COMPL [K64.8] 11/15/2007 Vitamin D deficiency [E55.9] 11/12/2010 Pneumonia [J18.9] 08/2010 Osteopenia of multiple sites [M85.89] 05/13/2019 T3 low in serum [R79.89] 05/13/2019 Dyslipidemia [E78.5] 05/13/2019 Bronchitis, mucopurulent recurrent (HCC) [J41.1]05/13/2019 Well adult exam [Z00.00] 05/13/2019 Epicondylitis, lateral, left [M77.12] 06/20/2019 Recurrent UTI (urinary tract infection) [N39.0] 08/05/2024 Fatigue [R53.83] 08/05/2024 Encounter Status:Closed by DAVID SANZ on 01/03/25[facility] 12-18-2024 Evaluation note* Diagnosis Onset Date Resolution Status Admit Date Positive colorectal cancer screening using Cologuard test acute A ugust 2024 7:26am Positive colorectal cancer screening using Cologuard test acute O ctober 2024 9:43am [facility] Work Phone: 1(858) 128-470908-13-2025 NoteHNO ID: [id number] Author: ?, ?, ? Service: ? Author Type: ? Type: Progress Notes Filed: 12/04/2024 13:23 Note Text: POPULATION HEALTH NAVIGATION OUTREACH Action/FYI Patient is seeing someone outside of [facility] to have an appointment for a consult. Patient informed to provide PCP office or call caregiver back to update chart with appt notes. Reason for Outreach Returned Call/MyChart Patient Contacted: Spoke to patient/parent/or legal guardian Patient identified by name and date of : Yes Returned call/MyChart actions taken: Outside PCP : patient is seeing someone outside of [facility] to have an appointment for a consult. Patient informed to provide PCP office or call caregiver back to update chart with appt notes. Navigation Signature: David Sanz December 04, 2024 1:21 [facility]08-13-2025 History of Present illness Narrative* David Sanz - 12/04/2024 1:21 PM EDT POPULATION HEALTH NAVIGATION OUTREACH Action/ Patient is seeing someone outside of [facility] to have an appointment for a consult. Patient informed to provide PCP office or call caregiver back to update chart with appt notes. Reason for Outreach Returned Call/MyChart Patient Contacted: Spoke to patient/parent/or legal guardian Patient identified by name and date of : Yes Returned call/MyChart actions taken: Outside PCP : patient is seeing someone outside of [facility] to have an appointment for a consult. Patient informed to provide PCP office or call caregiver back to update chart with appt notes. Navigation Signature: David Sanz December 04, 2024 1:21 PM * David Sanz - 12/04/2024 12:11 PM EDT POPULATION HEALTH NAVIGATION OUTREACH Action/ - 1 HCC Colon: Overdue since 10/10/2024 Called patient: Left Voicemail & Sent Mychart Reason for Outreach Care Gap/HCC or Scheduling Wellness Visits Care Gaps due: Colorectal Cancer Screening Patient Contacted: Unable or unnecessary to reach patient: Left message MyChart message sent HCC related Navigation Signature: David Sanz December 04, 2024 12:12 PM documented in this encounterM[facility]field Hospital08-13-2025 NoteHNO ID: [id number] Author: ?, ?, ? Service: ? Author Type: ? Type: Progress Notes Filed: 12/04/2024 12:22 Note Text: POPULATION HEALTH NAVIGATION OUTREACH Action/ - HCC Colon: Overdue since 10/10/2024 Called patient: Left Voicemail AND Sent Mychart Reason for Outreach Care Gap/HCC or Scheduling Wellness Visits Care Gaps due: Colorectal Cancer Screening Patient Contacted: Unable or unnecessary to reach patient: Left message MyChart message sent HCC related Navigation Signature: David Sanz December 04, 2024 12:12 [facility]08-13-2025 NotePatient Outreach (NETNAV) JACQUELINE GASTON ([id number]) 1955 F Date Time Provider Department 12/04/24 JAY MORALES NETNAV During your visit today, we recorded the following information about you: David Sanz 12/04/2024 12:22 PM Signed POPULATION HEALTH NAVIGATION OUTREACH Action/ HCC Colon: Overdue since 10/10/2024 Called patient: Left Voicemail AND Sent Mychart Reason for Outreach Care Gap/HCC or Scheduling Wellness Visits Care Gaps due: Colorectal Cancer Screening Patient Contacted: Unable or unnecessary to reach patient: Left message MyChart message sent HCC related Navigation Signature: David Sanz December 04, 2024 12:12 PM David Sanz 12/04/2024 1:23 PM Signed POPULATION HEALTH NAVIGATION OUTREACH Action/ Patient is seeing someone outside of [facility] to have an appointment for a consult. Patient informed to provide PCP office or call caregiver back to update chart with appt notes. Reason for Outreach Returned Call/MyChart Patient Contacted: Spoke to patient/parent/or legal guardian Patient identified by name and date of : Yes Returned call/MyChart actions taken: Outside PCP : patient is seeing someone outside of [facility] to have an appointment for a consult. Patient informed to provide PCP office or call caregiver back to update chart with appt notes. Navigation Signature: David Sanz December 04, 2024 1:21 PM Allergies As of Date: 12/04/2024 (No Known Allergies) Date Reviewed: 08/05/2024 Reviewed by: Alyson Pritchett LPN - Fully Assessed Reason for Visit: Population Health Navigation Outreach [3910] Cmt: Lan Neal Prescriptions as of 12/04/2024 - traZODone HCl (DESYREL) 300 mg tablet Take 1 tablet by mouth daily at bedtime. - venlafaxine ER (EFFEXOR XR) 75 mg 24 hr capsule Take 1 capsule by mouth once daily. - TURMERIC ORAL Take by mouth. - vitamin b complex capsule Take 1 capsule by mouth once daily. 50 - tzqzs-ww-5-uhp-bio-dweozfq-ast (KRILL OIL) 1,156-501-10-80 mg cap Take by mouth. - acetylcysteine (NAC ORAL) Take by mouth. - Biotin 10,000 mcg cap Take 1 capsule by mouth once daily. - vit A,C,A-Slru-Ydqktt (OCUVITE PRESERVISION) 7,160-113-100 utwc-xz-ento tab Take 1 tablet by mouth daily with breakfast. - Cholecalciferol, Vitamin D3, 50 mcg (2,000 unit) cap Take 1 tablet by mouth once daily. - Calcium Carb-Cholecalciferol (NUBIA-600 WITH VITAMIN D) 600 (1,500)-200 mg-unit ORAL Tab Take one(1) tablet twice daily. Facility-Administered Medications as of 12/04/2024 - denosumab 60 mg injection (PROLIA) Problem List As Of Date 12/04/2024 Noted Resolved BREAST DISORDER NOS [N64.9] 03/13/2007 BENIGN NEOPLASM LG BOWEL [D12.6] 11/15/2007 INT HEMORRHOID W/O COMPL [K64.8] 11/15/2007 Vitamin D deficiency [E55.9] 11/12/2010 Pneumonia [J18.9] 08/2010 Osteopenia of multiple sites [M85.89] 05/13/2019 T3 low in serum [R79.89] 05/13/2019 Dyslipidemia [E78.5] 05/13/2019 Bronchitis, mucopurulent recurrent (HCC) [J41.1]05/13/2019 Well adult exam [Z00.00] 05/13/2019 Epicondylitis, lateral, left [M77.12] 06/20/2019 Recurrent UTI (urinary tract infection) [N39.0] 08/05/2024 Fatigue [R53.83] 08/05/2024 Encounter Status:Closed by DAVID SANZ on 12/04/24[facility] 11-22-2024 Telephone encounter Note* Telephone Encounter - Tracey Castillo LPN - 11/22/2024 8:34 AM EDT Mail rec'd from [employer] an approval for prolia 60mg 11/05/24 to 11/05/25. To scanned documents [facility]08-01-2025 Miscellaneous Notes* Telephone Encounter - Tracey Castillo LPN - 11/22/2024 8:34 AM EDT Mail rec'd from [employer] an approval for prolia 60mg 11/05/24 to 11/05/25. To scanned documents documented in this encounterMansfield Hospital07-17-2025 History of Present illness Narrative* BHAVANA GRIMM - 11/07/2024 7:59 AM EDT Patient presents for Prolia injection. Denies any problems at this time. Brought own medication. Patient instructed on any SE of medication, verbalized understanding and agreed to proceed with treatment. Tolerated injection well. Bhavana Grimm LPN documented in this encounterMansfield Hospital07-17-2025 NoteHNO ID: [id number] Author: ?, ?, ? Service: ? Author Type: LICENSED NURSE Type: Progress Notes Filed: 11/07/2024 08:13 Note Text: Patient presents for Prolia injection. Denies any problems at this time. Brought own medication. Patient instructed on any SE of medication, verbalized understanding and agreed to proceed with treatment. Tolerated injection well. [facility] Telephone encounter Note * Telephone Encounter - BHAVANA GRIMM - 11/05/2024 3:05 PM EDT Spoke with [facility] specialty pharmacy at this time. They confirmed delivery of medication for 11/06/24. Phoned patient to update of delivery and change appt to ensure available for administration. New appt given. Bhavana Grimm LPN [facility]07-15-2025 Miscellaneous Notes* Telephone Encounter - BHAVANA GRIMM - 11/05/2024 3:05 PM EDT Spoke with [facility] specialty pharmacy at this time. They confirmed delivery of medication for 11/06/24. Phoned patient to update of delivery and change appt to ensure available for administration. New appt given. Bhavana Grimm LPN * Telephone Encounter - Jay Morales DO - 11/05/2024 2:49 PM EDT Please call the number below and clarify rx for Mary Morales DO * Telephone Encounter - BHAVANA GRIMM - 11/05/2024 1:21 PM EDT I have not received any medication for this patient in office. Bhavana Grimm LPN * Telephone Encounter - Jay Morales DO - 11/05/2024 7:08 AM EDT Was this delivered? Please verify Jay Morales DO * Telephone Encounter - Ranulfo Yu, SAVANA - 11/04/2024 6:12 PM EDT [facility] pharmacy [phone] calling to confirm delivery of Prolia to PCP's office. Please call to confirm. documented in this encounterMansfield Hospital07-15-2025 Telephone encounter Note * Telephone Encounter - Jay Morales DO - 11/05/2024 2:49 PM EDT Please call the number below and clarify rx for Prolia Jay Morales DO [facility]07-15-2025 Telephone encounter Note* Telephone Encounter - BHAVANA GRIMM - 11/05/2024 1:21 PM EDT I have not received any medication for this patient in office. Bhavana Grimm LPN [facility]07-15-2025 Telephone encounter Note* Telephone Encounter - Jay Morales DO - 11/05/2024 7:08 AM EDT Was this delivered? Please verify Jay Morales DO [facility]07-14-2025 Telephone encounter Note* Telephone Encounter - Ranulfo Yu, SAVANA - 11/04/2024 6:12 PM EDT [facility] pharmacy [phone] calling to confirm delivery of Prolia to PCP's office. Please call to confirm. [facility]07-14-2025 Telephone encounter Note* Telephone Encounter - BHAVANA GRIMM - 11/04/2024 8:36 AM EDT Patient scheduled for nurse visit 11/06/24 to receive Prolia injection. Please place order at this time. Bhavana Grimm LPN [facility]07-14-2025 Miscellaneous Notes* Telephone Encounter - BHAVANA GRIMM - 11/04/2024 8:36 AM EDT Patient scheduled for nurse visit 11/06/24 to receive Prolia injection. Please place order at this time. Bhavana Grimm LPN documented in this encounterMansfield Hospital07-09-2025 Telephone encounter Note * Telephone Encounter - Naila Pereyra APRN.CNP - 10/30/2024 7:22 PM EDT The following approved medication requests have been transmitted electronically. Requested Prescriptions Signed Prescriptions Disp Refills denosumab (PROLIA) 60 mg/mL syringe 1 mL 0 Sig: Inject 60 mg subcutaneously one time only for 1 dose. Q 6 months Authorizing Provider: NAILA PEREYRA APRN.HL7 INTERFACE DEVELOPER [facility]07-09-2025 Miscellaneous Notes* Telephone Encounter - Naila Pereyra APRN.CNP - 10/30/2024 7:22 PM EDT The following approved medication requests have been transmitted electronically. Requested Prescriptions Signed Prescriptions Disp Refills denosumab (PROLIA) 60 mg/mL syringe 1 mL 0 Sig: Inject 60 mg subcutaneously one time only for 1 dose. Q 6 months Authorizing Provider: NAILA PEREYRA APRN.CNP * Telephone Encounter - Sara Tarango RN - 10/30/2024 3:43 PM EDT In reference to #2 below, pt states her insurance covers the Prolia. Asking for provider to send script to [facility] for product picker there. Sara Tarango RN * Telephone Encounter - Vandana Murcia LPN - 10/29/2024 8:29 AM EDT Pt calls for the followin) Requesting order for colonoscopy be re-faxed to Dr. Patel office. [phone]. Faxed as requested. 2) Asking about Prolia injection. This was ordered 08/23/23 after bone density results. Pt was advised to check with insurance to see if they wanted clinic to provide prolia or if pt needed to product picker at the pharmacy. Rx is . Notified pt of this. Pt is going to contact insurance again to see what is needed and will call office back. Vandana Murcia LPN documented in this encounterMansfield Hospital07-09-2025 Telephone encounter Note * Telephone Encounter - Sara Tarango RN - 10/30/2024 3:47 PM EDT The patient has been identified by name and date of : Yes Caregiver verified no other encounters exist for this prescription request: Yes Caregiver confirmed with patient/requestor that no other refills are due, in the near future, with this provider at this time: Yes The last office visit in the department: 08/05/2024 Does the patient have a future office visit with this provider/department: Yes 02/04/2025 Requested Prescriptions Pending Prescriptions Disp Refills traZODone HCl (DESYREL) 300 mg tablet 90 tablet 2 Sig: Take 1 tablet by mouth daily at bedtime. Sara Tarango RN [facility]07-09-2025 Miscellaneous Notes* Telephone Encounter - Sara Tarango RN - 10/30/2024 3:47 PM EDT The patient has been identified by name and date of : Yes Caregiver verified no other encounters exist for this prescription request: Yes Caregiver confirmed with patient/requestor that no other refills are due, in the near future, with this provider at this time: Yes The last office visit in the department: 08/05/2024 Does the patient have a future office visit with this provider/department: Yes 02/04/2025 Requested Prescriptions Pending Prescriptions Disp Refills traZODone HCl (DESYREL) 300 mg tablet 90 tablet 2 Sig: Take 1 tablet by mouth daily at bedtime. Sara Tarango RN documented in this encounterMansfield Hospital07-09-2025 Telephone encounter Note * Telephone Encounter - Sara Tarango RN - 10/30/2024 3:43 PM EDT In reference to #2 below, pt states her insurance covers the Prolia. Asking for provider to send script to [facility] for product picker there. Sara Tarango RN [facility]07-08-2025 Telephone encounter Note* Telephone Encounter - Vandana Murcia LPN - 10/29/2024 8:29 AM EDT Pt calls for the followin) Requesting order for colonoscopy be re-faxed to Dr. Patel office. [phone]. Faxed as requested. 2) Asking about Prolia injection. This was ordered 08/23/23 after bone density results. Pt was advised to check with insurance to see if they wanted clinic to provide prolia or if pt needed to product picker at the pharmacy. Rx is . Notified pt of this. Pt is going to contact insurance again to see what is needed and will call office back. Vandana Murcia LPN [facility]06-25-2025 Telephone encounter Note* Telephone Encounter - Yang Bhatt - 10/16/2024 9:01 AM EDT Spoke with patient to schedule colonoscopy. She requested Dr. Waller, faxed order and patient information to [facility]. [facility]06-25-[facility] Miscellaneous Notes* Telephone Encounter - Yang Bhatt - 10/16/2024 9:01 AM EDT Spoke with patient to schedule colonoscopy. She requested Dr. Waller, faxed order and patient information to [facility]. [facility] Instructions* Patient Instructions* Alyson Pritchett LPN - 10/15/2024 11:04 AM EDT COLONOSCOPY BOWEL PREPARATION INSTRUCTIONS GOLYTELY/NULYTELY/TRILYTE/COLYTE Your doctor has scheduled you for a colonoscopy. To have a successful colonoscopy, you must have a clean colon, that is empty. A clean colon allows your doctor to see the entire colon & diagnose issues like polyps or cancer. For doctors, a clean colon is like driving on a chavo day; a dirty colon like driving in a storm. It is very important that you follow these instructions exactly, or your colonoscopy might not be as effective, could be canceled, and you may need to do the bowel prep and the colonoscopy again. TRANSPORTATION REQUIREMENTS You are receiving IV sedation. For your safety, a responsible adult escort must accompany you to and from your procedure: Your adult escort MUST be present with you at check-in for your colonoscopy. Your adult escort MUST remain in the endoscopy area until you are discharged. Your adult escort MUST transport you home once you are discharged. You are NOT allowed to operate any form of transportation (i.e. drive a car, bicycle, etc.) or leave the Endoscopy Center ALONE. It is not safe to do so. If you cannot meet these requirements, your procedure will be canceled. MEDICATION REQUIREMENTS For your safety, certain medications will need to be stopped or adjusted before you can have your procedure: BLOOD THINNERS: If you take blood thinners, such as Coumadin (warfarin), Plavix (clopidogrel), Ticlid (ticlopidine hydrochloride), Agrylin (anagrelide), Xarelto (Rivaroxaban), Pradaxa (Dabigatran), Eliquis (Apixaban), or Effient (Prasugrel), contact the physician who is prescribing these medications at least 2 weeks prior to your procedure to discuss any necessary adjustments. DIABETES: If you take medications for diabetes, your dosage may need to be adjusted. If you are being treated for diabetes with insulin, diabetic pills, or other injectable medicationsdo not take your REGULAR dose after midnight on the day of your procedure. If you are taking any other types of insulin such as Lantus, Humalog, NPH (long- acting insulin), or70/30 insulin, take half your normal dose the day before your procedure. DIABETES/WEIGHT MANAGEMENT: If you take medications for weight-loss, your dosage may need to be adjusted Contact the doctor who prescribes this medication for further instructions. If you take medications for weight-loss like semaglutide (Ozempic, Wegovy, Rybelsus), dulaglutide (Trulicity), liraglutide (Victoza, Saxenda), exenatide (Byetta, Bydureon), or lixisenatide (Adylyxin), stop your medication 1 week prior to your procedure. If you take medications like canagliflozin (Invokana), dapagliflozin (Farxiga, Forxiga), empagliflozin (Jardiance), stop your medication 3 days prior to your procedure. If you take ertugliflozin (Steglatro) stop your medication 4 days prior to your procedure. IRON: If you take iron pills, STOP them 1 week BEFORE your procedure, may resume after. OTHER MEDS: May take all other medications (including aspirin, antibiotics, water pills / diureticslike Lasix or Metolozone, blood pressure meds, etc.) at their usual scheduled time with a sip of water. DIET REQUIREMENTS The day before your colonoscopy, you may have a clear liquid diet (see below). The day of your colonoscopy, you may continue a clear liquid diet until 3 hours before your colonoscopy. Within 3 hours of your colonoscopy, take only any medications (as above) with a sip of water. Clear Liquid Diet Broth (chicken, beef or vegetable broth or bullion. Just the broth, no solids). Water Coffee or Tea (NO milk or creamer), but sugar and sugar substitutes are allowed. Clear liquids including clear, yellow, green, blue (NO red, NO orange, NO purple) Sodas / soft drinks Gatorade or other sports drinks Rajiv-Aid or flavored drinks Plain Jell-O or other gelatins Fruit juice (strained; no-pulp) Popsicles or hard candy BOWEL PREPARATION (GOLYTELY/NULYTELY/TRILYTE/COLYTE) Split Dosing Bowel Prep: This means drinking your bowel prep in two doses. Split dosing helps cleanyour colon better and makes it less likely that your procedure will be canceled. Fill your prescription for Golytely/Nulytely/Trilyte/Colyte: The afternoon before your colonoscopy, mix the solution and refrigerate. You may add the flavor pack (if present) that came with the bowel preparation. Do not add ice, sugar, or other flavorings to the solution. You will drink your prep in two doses, by several hours. On the evening before your colonoscopy: 1. 6 PM drink the first half of the bowel preparation solution. Drink one 8-ounce glass every 15 minutes. 2. Six hours before your colonoscopy, drink the second half of the solution. Drink one 8-ounce glass every 15 minutes. 3. You may continue a clear liquid diet until 3 hours before your colonoscopy. Bowel prep can work differently from person to person. Some people's bowels move slowly and they may need different instructions. Please see your doctor in office or virtually for personalized bowel prep instructions if you have: Medical condition that needs special accommodations Had a poor bowel prep results or failed bowel prep attempts in the past. Had difficulty with anesthesia during the procedure. FREQUENTLY ASKED QUESTIONS Q: What if I suffer from constipation? A: Recommend taking extra laxatives to resolve your constipation days prior to entering the bowel prep day. Q: What if have had prior poor preps results in past? A: Contact your physician as you will likely need additional bowel prep instructions. Q: What if I have motility issues like Parkinson's, MS (multiple sclerosis), wheelchair dependent, etc.? or on medications that slow bowel emptying (narcotics, gabapentin, anticholinergic medicationsetc.) A: Contact your physician as you will likely need extra time and additional laxatives to complete your bowel prep. Q: What if I cannot drink large volume of liquid? A: Start your prep 2-3 hours earlier to allow yourself more time to complete the entire prep. Q: What if I can't finish my bowel prep? A: If you cannot finish your entire bowel prep, it is likely that your colonoscopy will need to be rescheduled due to poor prep quality. Q: What if I had bariatric surgery? Do I still have to complete the entire prep? A: Yes, gastric bypass surgery involves the stomach & small bowel. You may need to drink smaller amounts, slower (may need more time to complete your bowel prep). Gastric bypass does not alter the length of your colon so you will need to complete the entire bowel prep, it may just take longer time to complete it. Q: What if I am on dialysis? A: Please consult your inseam leveler prior to scheduling to get instructions pertinent to you. In general, dialysis patients take the Taecanetytely bowel prep and have the procedure same day of their dialysis (colonoscopy in AM, dialysis in PM). Q: How do I know if something is considered as clear liquid diet? A: If you can pour it in a glass and you can see through it, it is considered clear liquid Q: Can I eat nuts, seeds, beans, popcorn, dried fruits, vegetables & fruits that have skin peel? A: No, you will need to not eat these items starting 3 days prior to procedure. Q: Can I take Uber/Lyft/taxi/bus home? A: An adult MUST be present with you at check-in for your colonoscopy and remain in the endoscopy area until you are discharged. You can take Uber home only if this adult escort is with you at check in, remain in the endoscopy area until you are discharged, and takes the Uber with you to home. Q: Can I sleep it off here and drive myself home? A: No, you must have an adult with you at time of procedure check in, remain in the endoscopy center during your procedure, and drive you home. You cannot drive a vehicle after your procedure the rest of the day. documented in this encounterM[facility]06-[facility]25 Telephone encounter Note * Telephone Encounter - Alyson Pritchett LPN - 10/15/2024 11:03 AM EDT Pt. informed. Okay for [facility]oscopy [facility] Miscellaneous Notes* Telephone Encounter - Alyson Smith LPN - 10/15/2024 11:03 AM EDT Pt. informed. Okay for Colonoscopy * Telephone Encounter - Jay Morales DO - 10/14/2024 5:42 PM EDT Please let her know that her cologuard is positive. She needs to do further testing with a colonoscopy as next steps for further evaluation Jay Morales DO documented in [facility]06-[facility]25 Telephone encounter Note * Telephone Encounter - Jay Morales DO - 10/14/2024 5:42 PM EDT Please let her know that her cologuard is positive. She needs to do further testing with a colonoscopy as next steps for further evaluation Jay Morales DO [facility] NoteHNO ID: [id number] Author: LEOLA MARTINEZ MA Service: ? Author Type: Supervisor Cell Room Type: Progress Notes Filed: 09/23/2024 10:38 Note Text: POPULATION HEALTH NAVIGATION OUTREACH Action/FYI Patient is on [employer] Work[employer] list for below and needs appointment to address: Depression Screening Anxiety Screening Hepatitis C Screening RSV Vaccine(1 - Risk 60-74 years 1-dose series) Pneumococcal Vaccine: 50+(2 of 2 - PCV) Colorectal Cancer Screening Hemoglobin A1C (%) Date Value 08/21/2024 5.5 Patient due for: Follow up - AWV 08-05-24 Colorectal Cancer Screening - cologuard was ordered 07/2024 MyChart Active: Yes Spoke to patient. Scheduled with PCP team. Noted upcoming appointment to address due care gaps and HCC gap closure. Patient confirmed that she received cologuard and will be completed and sent back. HCC: Yes Reason for Outreach Care Gap/HCC or Scheduling Wellness Visits Care Gaps due: Follow-up Appointment Colorectal Cancer Screening Patient Contacted: Spoke to patient/parent/or legal guardian Patient identified by name and : Yes Care Gap/HCC/Scheduling Wellness actions taken: Patient scheduled/pended orders: Medicare Annual Wellness Visit 02/04/2025 in [facility] with ZAIN LANDIN - 6 mo follow up, Please address due care gaps and HCC gaps closure HCC related Navigation Signature: Leola Martinez MA September 23, 2024 7:24 [facility]06-02-2025 History of Present illness Narrative* Leola Martinez MA - 09/23/2024 7:24 AM EDT POPULATION HEALTH NAVIGATION OUTREACH Action/FYI Patient is on [employer] Work[employer] list for below and needs appointment to address: Depression Screening Anxiety Screening Hepatitis C Screening RSV Vaccine(1 - Risk 60-74 years 1-dose series) Pneumococcal Vaccine: 50+(2 of 2 - PCV) Colorectal Cancer Screening Hemoglobin A1C (%) Date Value 08/21/2024 5.5 Patient due for: Follow up - AWV 08-05-24 Colorectal Cancer Screening - cologuard was ordered 07/2024 MyChart Active: Yes Spoke to patient. Scheduled with PCP team. Noted upcoming appointment to address due care gaps and HCC gap closure. Patient confirmed that she received cologuard and will be completed and sent back. HCC: Yes Reason for Outreach Care Gap/HCC or Scheduling Wellness Visits Care Gaps due: Follow-up Appointment Colorectal Cancer Screening Patient Contacted: Spoke to patient/parent/or legal guardian Patient identified by name and : Yes Care Gap/HCC/Scheduling Wellness actions taken: Patient scheduled/pended orders: Medicare Annual Wellness Visit 02/04/2025 in [facility] with ZAIN LANDIN - 6 mo follow up, Please address due care gapsand HCC gaps closure HCC related Navigation Signature: Leola Martinez MA September 23, 2024 7:24 AM documented in this encounterM[facility]06-02-[facility]25 NotePatient Outreach (NETNAV) JACQUELINE GASTON ([id number]) 1955 F Date Time Provider Department 09/23/24 LEOLA MARTINEZ NETNAV During your visit today, we recorded the following information about you: Leola Martinez MA 09/23/2024 10:38 AM Signed POPULATION HEALTH NAVIGATION OUTREACH Action/FY Patient is on [employer] Work[employer] list for below and needs appointment to address: Depression Screening Anxiety Screening Hepatitis C Screening RSV Vaccine(1 - Risk 60-74 years 1-dose series) Pneumococcal Vaccine: 50+(2 of 2 - PCV) Colorectal Cancer Screening Hemoglobin A1C (%) Date Value 08/21/2024 5.5 Patient due for: Follow up - AWV 08-05-24 Colorectal Cancer Screening - cologuard was ordered 07/2024 Tahira Active: Yes Spoke to patient. Scheduled with PCP team. Noted upcoming appointment to address due care gaps and HCC gap closure. Patient confirmed that she received cologuard and will be completed and sent back. HCC: Yes Reason for Outreach Care Gap/HCC or Scheduling Wellness Visits Care Gaps due: Follow-up Appointment Colorectal Cancer Screening Patient Contacted: Spoke to patient/parent/or legal guardian Patient identified by name and : Yes Care Gap/HCC/Scheduling Wellness actions taken: Patient scheduled/pended orders: Medicare Annual Wellness Visit 02/04/2025 in [facility] with ZAIN LANDIN - 6 mo follow up, Please address due care gaps and HCC gaps closure HCC related Navigation Signature: Leola Martinez MA September 23, 2024 7:24 AM Allergies As of Date: 09/23/2024 (No Known Allergies) Date Reviewed: 08/05/2024 Reviewed by: Alyson Pritchett LPN - Fully Assessed Reason for Visit: Population Health Navigation Outreach [3910] Cmt: Lan Neal PCSA Prescriptions as of 09/23/2024 - venlafaxine ER (EFFEXOR XR) 75 mg 24 hr capsule Take 1 capsule by mouth once daily. - TURMERIC ORAL Take by mouth. - vitamin b complex capsule Take 1 capsule by mouth once daily. 50 - bomzu-zx-3-rqs-uyl-fthcxue-ast (KRILL OIL) 1,115-686-93-80 mg cap Take by mouth. - acetylcysteine (NAC ORAL) Take by mouth. - traZODone HCl (DESYREL) 300 mg tablet Take 1 tablet by mouth daily at bedtime. - Biotin 10,000 mcg cap Take 1 capsule by mouth once daily. - vit A,C,N-Mjok-Hgguba (OCUVITE PRESERVISION) 7,160-113-100 vdxc-lv-ssgq tab Take 1 tablet by mouth daily with breakfast. - Cholecalciferol, Vitamin D3, 50 mcg (2,000 unit) cap Take 1 tablet by mouth once daily. - Calcium Carb-Cholecalciferol (NUBIA-600 WITH VITAMIN D) 600 (1,500)-200 mg-unit ORAL Tab Take one(1) tablet twice daily. Problem List As Of Date 09/23/2024 Noted Resolved BREAST DISORDER NOS [N64.9] 03/13/2007 BENIGN NEOPLASM LG BOWEL [D12.6] 11/15/2007 INT HEMORRHOID W/O COMPL [K64.8] 11/15/2007 Vitamin D deficiency [E55.9] 11/12/2010 Pneumonia [J18.9] 08/2010 Osteopenia of multiple sites [M85.89] 05/13/2019 T3 low in serum [R79.89] 05/13/2019 Dyslipidemia [E78.5] 05/13/2019 Bronchitis, mucopurulent recurrent (HCC) [J41.1]05/13/2019 Well adult exam [Z00.00] 05/13/2019 Epicondylitis, lateral, left [M77.12] 06/20/2019 Recurrent UTI (urinary tract infection) [N39.0] 08/05/2024 Fatigue [R53.83] 08/05/2024 Encounter Status:Closed by LEOLA MARTINEZ on 09/23/24[facility] Tele[facility] encounter Note* Telephone Encounter - Lluvia Bagley RN - 09/17/2024 9:19 AM EDT The patient has been identified by name and date of : Yes Caregiver verified no other encounters exist for this prescription request: Yes Caregiver confirmed with patient/requestor that no other refills are due, in the near future, with this provider at this time: Yes The last office visit in the department: 08/05/2024 Does the patient have a future office visit with this provider/department: No Requested Prescriptions Pending Prescriptions Disp Refills venlafaxine ER (EFFEXOR XR) 75 mg 24 hr capsule 90 capsule 1 Sig: Take 1 capsule by mouth once daily. Lluvia Bagley RN September 17, 2024 9:19 AM [facility] Miscellaneous Notes* Telephone Encounter - Lluvia Bagley RN - 09/17/2024 9:19 AM EDT The patient has been identified by name and date of : Yes Caregiver verified no other encounters exist for this prescription request: Yes Caregiver confirmed with patient/requestor that no other refills are due, in the near future, with this provider at this time: Yes The last office visit in the department: 08/05/2024 Does the patient have a future office visit with this provider/department: No Requested Prescriptions Pending Prescriptions Disp Refills venlafaxine ER (EFFEXOR XR) 75 mg 24 hr capsule 90 capsule 1 Sig: Take 1 capsule by mouth once daily. Lluvia Bagley RN September 17, 2024 9:19 AM documented in this encounterMansfield Hospital05-05-2025 Telephone encounter Note * Telephone Encounter - Deysi Ramírez MA - 08/26/2024 1:43 PM EDT Pt notified of results via [facility]. Deyis Ramírez Ma [facility] Miscellaneous Notes* Telephone Encounter - Deysi Ramírez MA - 08/26/2024 1:43 PM EDT Pt notified of results via [employer]. Deysi Ramírez Ma * Telephone Encounter - Jay Morales DO - 08/23/2024 5:14 PM EDT Please let her know that her labs look great other than high vitamin D3, okay to hold vitamin D3 supplement through the summer, restart in Jan Jay Morales DO documented in this encounterM[facility]05-[facility]-2025 Telephone encounter Note * Telephone Encounter - Jay Morales DO - 08/23/2024 5:14 PM EDT Please let her know that her labs look great other than high vitamin D3, okay to hold vitamin D3 supplement through the summer, restart in Jan Jay Morales DO [facility]04[facility] Telephone encounter Note* Telephone Encounter - BHAVANA GRIMM - 08/20/2024 11:44 AM EDT Patient notified of results, verbalizes understanding of instructions. Bhavana Grimm LPN [facility]04-29-[facility] Miscellaneous Notes* Telephone Encounter - BHAVANA GRIMM - 08/20/2024 11:44 AM EDT Patient notified of results, verbalizes understanding of instructions. Bhavana Grimm LPN * Telephone Encounter - Jay Morales DO - 08/20/2024 11:26 AM EDT Noted, please let her know to start on rx as below Jay Morales DO The following approved medication requests have been transmitted electronically. Requested Prescriptions Signed Prescriptions Disp Refills cephALEXin (KEFLEX) 500 mg capsule 15 capsule 0 Sig: Take 1 capsule by mouth three times a day for 5 days. Authorizing Provider: JAY MORALES DO * Telephone Encounter - Monique Faria LPN - 08/20/2024 9:02 AM EDT Patient calling she said she came in yesterday and did urine in the lab. computer shows urine culture in process, patient aware. Patient said having lower back discomfort, frequency. Patient said this is ongoing for a while now. Patient said she uses [facility] for her pharmacy. Please advise documented in this encounterM[facility]04-29-2025 Telephone encounter Note * Telephone Encounter - Jay Morales DO - 08/20/2024 11:26 AM EDT Noted, please let her know to start on rx as below Jay Morales DO The following approved medication requests have been transmitted electronically. Requested Prescriptions Signed Prescriptions Disp Refills cephALEXin (KEFLEX) 500 mg capsule 15 capsule 0 Sig: Take 1 capsule by mouth three times a day for 5 days. Authorizing Provider: JAY MORALES DO T [facility]04-29-20[facility] Telephone encounter Note* Telephone Encounter - Monique Faria LPN - 08/20/2024 9:02 AM EDT Patient calling she said she came in yesterday and did urine in the lab. computer shows urine culture in process, patient aware. Patient said having lower back discomfort, frequency. Patient said this is ongoing for a while now. Patient said she uses [facility] her [facility]. Please advise T [facility]04-18-2025 Telephone encounter Note* Telephone Encounter - Swapnil Cowart RN - 08/09/2024 10:29 AM EDT Pt reports pcp prescribed her a zpak for bronchitis on 08/05/24, and she finished that. Reports her cough is pretty bad and keeps her awake and asking if provider to send Rx for tessalon perrles to [facility] in [place]. States that has worked well for her in the past. Reports she is driving there now. Pended. T [facility]04-18-20[facility] Miscellaneous Notes* Telephone Encounter - Swapnil Cowart RN - 08/09/2024 10:29 AM EDT Pt reports pcp prescribed her a zpak for bronchitis on 08/05/24, and she finished that. Reports her cough is pretty bad and keeps her awake and asking if provider to send Rx for tessalon perrles to [facility] in [place]. States that has worked well for her in the past. Reports she is driving there now. Pended. documented in this encounterM[facility]field Hospital04-14-2025 NoteHNO ID: [id number] Author: JAY MORALES, DO Service: ? Author Type: Physician Type: Progress Notes Filed: 08/05/2024 09:22 Note Text: CC: Jacqueline Gaston is a 68 year old female who presents to the office for followu p HPI: Recurrent UTI, recently with E coli UTI, hadn't had a UTI for 5+ years. URI symptoms, cough, chest congestion, decreased voice, PND symptoms,. + sick contacts. Has been trying OTC medications without relief. 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 Willing to do Cologuard for colon cancer screening. PAST MEDICAL HISTORY Diagnosis Date Anxiety disorder [...] GM/< 1987 Current Outpatient Medications Medication Sig TURMERIC ORAL Take by mouth. vitamin b complex capsule Take 1 capsule by mouth once daily. 50 lxszm-ap-2-hod-qjx-xyrejkp-ast (KRILL OIL) 1,233-740-00-80 mg cap Take by mouth. acetylcysteine (NAC ORAL) Take by mouth. azithromycin (ZITHROMAX Z-KASIA) 250 mg tablet Take 2 tablets by mouth one time only for 1 dose. THEN 1 TAB DAILY FOR 4 DAYS. venlafaxine ER (EFFEXOR XR) 75 mg 24 hr capsule Take 1 capsule by mouth once daily. traZODone HCl (DESYREL) 300 mg tablet Take 1 tablet by mouth daily at bedtime. Biotin 10,000 mcg cap Take 1 capsule by mouth once daily. vit A,C,J-Iynm-Xjalgm (OCUVITE PRESERVISION) 7,160-113-100 sxxd-zw-efyk tab Take 1 tablet by mouth daily [...] Never Smokeless tobacco: Never Vaping Use Vaping status: Never Used Substance Use Topics Alcohol use: No Drug use: No ROS: See HIP PE: Ht 5' 3.78 (1.62m) Wt 102 lb (46.3kg) BMI 17.63 kg/(m2). Gen: AANDOX3, NAD, non-toxic appearing, pleasant, cooperative, well dressed HEENT: PERRLA, EOMs intact b/l, nares without drainage, pharynx without erythema, exudate, lesions, + post nasal drainage. Uvula midline. MMM,EAC and TM wnl Neck: No LAD, no thyromegaly, no meningismus. CV: RRR, no murmur Lungs: CTA b/l, no wheezing, coughing, chest congestion, bronchial breath sounds at bases Skin: No rashes, lesions, or wounds on exposed skin. No edema, normal pulses Abd: soft, NT, ND, normal BS, no masses ASSESSMENT/PLAN: 1. Medicare annual wellness visit, subsequent - ICD9: V70.0, ICD10: Z00.00 (primary diagnosis) - Counseled on healthy diet and regular exercise - Colorectal cancer screening - ordered Cologuard 2. Acute bronchitis, unspecified organism - ICD9: 466.0, ICD10: J20.9 rx as below Supportive care - AZITHROMYCIN 250 MG TABLET 3. Screening for colon cancer - ICD9: V76.51, ICD10: Z12.11 - COLOGUARD 4. Recurrent UTI (urinary tract infection) - ICD9: 599.0, ICD10: N39.0 recurrent - Patient education for prevention given - URINALYSIS, WITH MICROSCOPIC - BACTERIAL CULTURE, URINE - BACTERIAL CULTURE, URINE - URINALYSIS, WITH MICROSCOPIC 5. Dyslipidemia - ICD9: 272.4, ICD10: E78.5 - Control undetermined, due for labs - Counseled on healthy diet and regular exercise - COMPREHENSIVE METABOLIC PANEL - COMPLETE BLOOD COUNT AND DIFFERENTIAL - LIPID PANEL, FASTING 6. T3 low in serum - ICD9: 790.6, ICD10: R79.89 Recheck labs - THYROID STIMULATING HORMONE - T4 FREE/FREE THYROXINE 7. Vitamin D deficiency - ICD9: 268.9, ICD10: E55.9 Recheck labs - VITAMIN D 25 HYDROXY 8. Fatigue, unspecified type - ICD9: 780.79, ICD10: R53.83 Recheck labs - VITAMIN D 25 HYDROXY - VITAMIN B12 9. Hyperglycemia - ICD9: 790.29, ICD10: R73.9 - HEMOGLOBIN A1C Jay Morales DO Return if no improvement. Follow up with Jay Morales DO. To ER if develops chest pain, shortness of breath. Discussed risks, benefits, alternatives, and potential side effects of medications. Patient/Guardian expressed understanding and agreed with the p (more content not included)...[facility]04[facility]25 NoteHNO ID: [id number] Author: JAY MORALES DO Service: ? Author Type: Physician Type: Progress Notes Filed: 08/05/2024 09:22 Note Text: Jacqueline Gaston is a 68 year old female here for a Medicare wellness visit. Medicare Health Risk Assessment General Health Very good Exercise: Minutes/Day 30 min Exercise: Days/Week 7 days Alcohol: Daily Use Never Alcohol: Drinks/Day Patient does not drink Alcohol: 6 or more drinks Never Feel off balance Yes Concerns: Teeth/Dentures No Concerns: Sexual function No Troubled by feelings None of the above Frequency: Eating healthy diet Nearly every day ADLs requiring help None of the above Safety precautions in home/vehicle Yes Smoke, vape, chews tobacco No Difficulty hearing No Difficulty seeing No Current Providers Specialists: I have reviewed specialist-related care of the patient in the medical record. Medical/Family history review Reviewed and updated problem list, medical/surgical/family/social history, medications, and allergies. Opioid use review Opioid Medications (last 90 days) No data to display Anxiety/Depression screening PHQ-2 Score: 0 (Lower risk for depression) Recommendation: no further intervention at this time Cognitive screening Mini Cog Score: 5 Cognitive screening reviewed and No further action needed (score 3-5). Functional Observation Was the patient's Timed Up AND Go test unsteady or >= 12 seconds? No Advance Care Planning Surrogate decision maker and/or advance care plan documented Measurements Ht 162 cm (5' 3.78) Wt 46.3 kg (102 lb) BMI 17.63 kg/m? Vision Screening: Follows with optometry/ophthalmology Assessment/Plan Medicare annual wellness visit, subsequent (Z00.00) - Counseled on healthy diet and regular exercise - Fall avoidance information provided - Personalized prevention plan provided Jay Morales, [facility]04-14-2025 History of Present illness Narrative* Jay Morales, DO - 08/05/2024 9:17 AM EDT CC: Jacqueline Gaston is a 68 year old female who presents to the office for followu p HPI: Recurrent UTI, recently with E coli UTI, hadn't had a UTI for 5+ years. URI symptoms, cough, chest congestion, decreased voice, PND symptoms,. + sick contacts. Has been trying OTC medications without relief. 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 Willing to do Cologuard for colon cancer screening. PAST MEDICAL HISTORY Diagnosis Date Anxiety disorder [...] GM/< 1987 Current Outpatient Medications Medication Sig TURMERIC ORAL Take by mouth. vitamin b complex capsule Take 1 capsule by mouth once daily. 50 uaech-ga-0-vxd-pol-xjduytl-ast (KRILL OIL) 1,[id number] mg cap Take by mouth. acetylcysteine (NAC ORAL) Take by mouth. azithromycin (ZITHROMAX Z-KASIA) 250 mg tablet Take 2 tablets by mouth one time only for 1 dose. THEN1 TAB DAILY FOR 4 DAYS. venlafaxine ER (EFFEXOR XR) 75 mg 24 hr capsule Take 1 capsule by mouth once daily. traZODone HCl (DESYREL) 300 mg tablet Take 1 tablet by mouth daily at bedtime. Biotin 10,000 mcg cap Take 1 capsule by mouth once daily. vit A,C,P-Gvqi-Phdndr (OCUVITE PRESERVISION) 7,160-113-100 vahc-dg-xxyg tab Take 1 tablet by mouth daily [...] Never Smokeless tobacco: Never Vaping Use Vaping status: Never Used Substance Use Topics Alcohol use: No Drug use: No ROS: See HIP PE: Ht 5' 3.78 (1.62m) Wt 102 lb (46.3kg) BMI 17.63 kg/(m^2). Gen: A&OX3, NAD, non-toxic appearing, pleasant, cooperative, well dressed HEENT: PERRLA, EOMs intact b/l, nares without drainage, pharynx without erythema, exudate, lesions,+ post nasal drainage. Uvula midline. MMM,EAC and TM wnl Neck: No LAD, no thyromegaly, no meningismus. CV: RRR, no murmur Lungs: CTA b/l, no wheezing, coughing, chest congestion, bronchial breath sounds at bases Skin: No rashes, lesions, or wounds on exposed skin. No edema, normal pulses Abd: soft, NT, ND, normal BS, no masses ASSESSMENT/PLAN: 1. Medicare annual wellness visit, subsequent - ICD9: V70.0, ICD10: Z00.00 (primary diagnosis) - Counseled on healthy diet and regular exercise - Colorectal cancer screening - ordered Cologuard 2. Acute bronchitis, unspecified organism - ICD9: 466.0, ICD10: J20.9 rx as below Supportive care - AZITHROMYCIN 250 MG TABLET 3. Screening for colon cancer - ICD9: V76.51, ICD10: Z12.11 - COLOGUARD 4. Recurrent UTI (urinary tract infection) - ICD9: 599.0, ICD10: N39.0 recurrent - Patient education for prevention given - URINALYSIS, WITH MICROSCOPIC - BACTERIAL CULTURE, URINE - BACTERIAL CULTURE, URINE - URINALYSIS, WITH MICROSCOPIC 5. Dyslipidemia - ICD9: 272.4, ICD10: E78.5 - Control undetermined, due for labs - Counseled on healthy diet and regular exercise - COMPREHENSIVE METABOLIC PANEL - COMPLETE BLOOD COUNT AND DIFFERENTIAL - LIPID PANEL, FASTING 6. T3 low in serum - ICD9: 790.6, ICD10: R79.89 Recheck labs - THYROID STIMULATING HORMONE - T4 FREE/FREE THYROXINE 7. Vitamin D deficiency - ICD9: 268.9, ICD10: E55.9 Recheck labs - VITAMIN D 25 HYDROXY 8. Fatigue, unspecified type - ICD9: 780.79, ICD10: R53.83 Recheck labs - VITAMIN D 25 HYDROXY - VITAMIN B12 9. Hyperglycemia - ICD9: 790.29, ICD10: R73.9 - HEMOGLOBIN A1C Jay Morales DO Return if no improvement. Follow up with Jay Morales DO. To ER if develops chest pain, shortness of breath. Discussed risks, benefits, alternatives, and potential side effects of medications. Patient/Guardian expressed understanding and agreed with the plan. See patient instructions. Jay Morales DO [address] [place] [address] * Jay Morales DO - 08/05/2024 9:17 AM EDT Images from the original note were not included. Jacqueline Gaston is a 68 year old female here for a Medicare wellness visit. Medicare Health Risk Assessment General Health Very good Exercise: Minutes/Day 30 min Exercise: Days/Week 7 days Alcohol: Daily Use Never Alcohol: Drinks/Day Patient does not drink Alcohol: 6 or more drinks Never Feel off balance Yes Concerns: Teeth/Dentures No Concerns: Sexual function No Troubled by feelings None of the above Frequency: Eating healthy diet Nearly every day ADLs requiring help None of the above Safety precautions in home/vehicle Yes Smoke, vape, chews tobacco No Difficulty hearing No Difficulty seeing No Current Providers Specialists: I have reviewed specialist-related care of the patient in the medical record. Medical/Family history review Reviewed and updated problem list, medical/surgical/family/social history, medications, and allergies. Opioid use review Opioid Medications (last 90 days) No data to display Anxiety/Depression screening PHQ-2 Score: 0 (Lower risk for depression) Recommendation: no further intervention at this time Cognitive screening Mini Cog Score: 5 Cognitive screening reviewed and No further action needed (score 3-5). Functional Observation Was the patient's Timed Up & Go test unsteady or >= 12 seconds? No Advance Care Planning Surrogate decision maker and/or advance care plan documented Measurements Ht 162 cm (5' 3.78) Wt 46.3 kg (102 lb) BMI 17.63 kg/m Vision Screening: Follows with optometry/ophthalmology Assessment/Plan Medicare annual wellness visit, subsequent (Z00.00) - Counseled on healthy diet and regular exercise - Fall avoidance information provided - Personalized prevention plan provided Jay Morales DO [facility] Progress note* Result Encounter Note - Korina Caldwell APRN.CNS - 07/29/2024 3:58 PM EDT E, coli bacteria present, susceptible to macrobid [facility] Work Phone: [phone] Miscellaneous Notes* Result Encounter Note - Korina Caldwell APRN.CNS - 07/29/2024 3:58 PM EDT E, coli bacteria present, susceptible to macrobid * Result Encounter Note - Korina Caldwell APRN.CNS - 07/26/2024 8:37 AM EDT Used Azo, recommed repeat urinalysis in 4 weeks. [facility]25 Progress note* Result Encounter Note - Korina Caldwell APRN.CNS - 07/26/2024 8:37 AM EDT Used Azo, recommed repeat urinalysis in 4 weeks. [facility]04-03-2025 NoteHNO ID: [id number] Author: KORINA CALDWELL APRN.CNS Service: ? Author Type: Nurse Specialist Type: Progress Notes Filed: 07/25/2024 15:31 Note Text: Subjective Patient ID: Jacqueline is a 68 year old female who presents for uti symptom. HPI Urinary Tract Symptoms: - History of recurrent UTIs, but has not had one in a long time. - Symptoms began several days ago, including: - Urgency and frequency, with difficulty reaching the bathroom by the end of the day. - Mild dysuria. - Occasional clamminess; denies taking temperature. - No abdominal pain. Some lower back pain. - Took [id number]-[id number] Azo for symptom relief. - Denies allergies to antibiotics. Notes has not received Prolia injection 2023 due to family obligations and insurance concerns. ROS Gastrointestinal: (+) lower abdominal pain Genitourinary: (+) urinary frequency, (+) urinary urgency, (+) dysuria Objective BP 138/82 Pulse 73 Resp 16 Wt 47 kg (103 lb 9.9 oz) BMI 18.02 kg/m? Physical Exam Vitals and nursing note reviewed. Constitutional: Appearance: Normal appearance. HENT: Head: Normocephalic and atraumatic. Eyes: Conjunctiva/sclera: Conjunctivae normal. Cardiovascular: Rate and Rhythm: Normal rate. Pulmonary: Effort: Pulmonary effort is normal. Skin: General: Skin is warm and dry. Neurological: General: No focal deficit present. Mental Status: She is alert and oriented to person, place, and time. 1. UTI symptoms (R39.9) - Symptoms include urinary frequency, urgency, dysuria, and lower abdominal pain. No reported fever. - Urinalysis performed; results may be affected by recent Azo intake. - Urine culture ordered. - Initiated antibiotic therapy. - Prescription sent to [facility]. 2. Osteoporosis without current pathological fracture, unspecified osteoporosis type (M81.0) - Discussed Prolia injection; previous prescription not filled due to insurance and family demands. Will discuss in more detail at upcoming visit with Jay Morales DO. Medical Decision Making: Problems: Low: Acute, uncomplicated illness or injury Data: Unique test(s) ordered: 2 Risk: Moderate: Drug management Medical Decision Making [facility]: [facility] History of Present illness Narrative* Korina Caldwell, LEDA.CRYPTOGRAPHIC TECHNICIAN - 07/25/2024 2:17 PM EDT Subjective Patient ID: Jacqueline is a 68 year old female who presents for uti symptom. HPI Urinary Tract Symptoms: - History of recurrent UTIs, but has not had one in a long time. - Symptoms began several days ago, including: - Urgency and frequency, with difficulty reaching the bathroom by the end of the day. - Mild dysuria. - Occasional clamminess; denies taking temperature. - No abdominal pain. Some lower back pain. - Took [id number]-[id number] Azo for symptom relief. - Denies allergies to antibiotics. Notes has not received Prolia injection 2023 due to family obligations and insurance concerns. ROS Gastrointestinal: (+) lower abdominal pain Genitourinary: (+) urinary frequency, (+) urinary urgency, (+) dysuria Objective BP 138/82 Pulse 73 Resp 16 Wt 47 kg (103 lb 9.9 oz) BMI 18.02 kg/m Physical Exam Vitals and nursing note reviewed. Constitutional: Appearance: Normal appearance. HENT: Head: Normocephalic and atraumatic. Eyes: Conjunctiva/sclera: Conjunctivae normal. Cardiovascular: Rate and Rhythm: Normal rate. Pulmonary: Effort: Pulmonary effort is normal. Skin: General: Skin is warm and dry. Neurological: General: No focal deficit present. Mental Status: She is alert and oriented to person, place, and time. 1. UTI symptoms (R39.9) - Symptoms include urinary frequency, urgency, dysuria, and lower abdominal pain. No reported fever. - Urinalysis performed; results may be affected by recent Azo intake. - Urine culture ordered. - Initiated antibiotic therapy. - Prescription sent to [facility]. 2. Osteoporosis without current pathological fracture, unspecified osteoporosis type (M81.0) - Discussed Prolia injection; previous prescription not filled due to insurance and family demands.Will discuss in more detail at upcoming visit with Jay Morales DO. Medical Decision Making: Problems: Low: Acute, uncomplicated illness or injury Data: Unique test(s) ordered: 2 Risk: Moderate: Drug management Medical Decision Making Level: 3 - Low documented [facility]04-[facility]-2025 Telephone encounter Note * Telephone Encounter - Sara Tarango RN - 07/25/2024 8:14 AM EDT Patient calling to request same day appt for evaluation of urinary symptoms, which began approximately 2-3 days ago. Symptoms include urinary frequency, occasional burning and mild back discomfort. Denies any other symptoms and no severe symptoms mentioned. No appts available with pt's PCP dyad today. Appt made with Korina NJ for 2:20 pm today. Sara Tarango RN [facility]04-03-2025 Miscellaneous Notes* Telephone Encounter - Sara Tarango RN - 07/25/2024 8:14 AM EDT Patient calling to request same day appt for evaluation of urinary symptoms, which began approximately 2-3 days ago. Symptoms include urinary frequency, occasional burning and mild back discomfort. Denies any other symptoms and no severe symptoms mentioned. No appts available with pt's PCP dyad today. Appt made with Korina NJ for 2:20 pm today. Sara Tarango RN documented in this encounterM[facility]01-28-2025 NoteHNO ID: [id number] Author: ?, ?, ? Service: ? Author Type: ? Type: Progress Notes Filed: 06/20/2024 03:03 Note Text: Patient is scheduled for his well visit AND HM -[facility]orectal [facility] 05[facility]01-28[facility] History of Present illness Narrative* Tana Tubbs - 05/21/2024 2:16 PM EST Patient is scheduled for his well visit & HM -Colorectal Cancer Screening with Dr. Morales on August 05 documented [facility]01-27-2025 Instructions* Patient Instructions* Catrachita Diaz RN - 05/20/2024 1:41 PM EST COLONOSCOPY BOWEL PREPARATION INSTRUCTIONS MiraLAX Your doctor has scheduled you for a colonoscopy. To have a successful colonoscopy, you must have a clean colon, that is empty. A clean colon allows your doctor to see the entire colon & diagnose issues like polyps or cancer. For doctors, a clean colon is like driving on a chavo day; a dirty colon like driving in a storm. It is very important that you follow these instructions exactly, or your colonoscopy may not be as effective, could be canceled, and you may need to do the bowel prep and colonoscopy again. TRANSPORTATION REQUIREMENTS You are receiving IV sedation. For your safety, a responsible adult escort must accompany you to and from your procedure: Your adult escort MUST be present with you at check-in for your colonoscopy. Your adult escort MUST remain in the endoscopy area until you are discharged. Your adult escort MUST transport you home once you are discharged. You are NOT allowed to operate any form of transportation (i.e. drive a car, bicycle, etc) or leavethe Endoscopy Center ALONE. It is not safe to do so. If you cannot meet these requirements, your procedure will be canceled. MEDICATION REQUIREMENTS For your safety, certain medications will need to be stopped or adjusted before you can have your procedure: BLOOD THINNERS: If you take blood thinners, such as Coumadin (warfarin), Plavix (clopidogrel), Ticlid (ticlopidine hydrochloride), Agrylin (anagrelide), Xarelto (Rivaroxaban), Pradaxa (Dabigatran), Eliquis (Apixaban), or Effient (Prasugrel), contact the physician who is prescribing these medications at least 2 weeks prior to your procedure to discuss any necessary adjustments. DIABETES: If you take medications for diabetes, your dosage may need to be adjusted. If you are being treated for diabetes with insulin, diabetic pills, or other injectable medicationsdo not take your REGULAR dose after midnight on the day of your procedure. If you are taking any other types of insulin such as Lantus, Humalog, NPH (long- acting insulin), or70/30 insulin, take half your normal dose the day before your procedure. DIABETES/WEIGHT MANAGEMENT: If you take medications for weight-loss, your dosage may need to be adjusted Contact the doctor who prescribes this medication for further instructions. If you take medications for weight-loss like semaglutide (Ozempic, Wegovy, Rybelsus), dulaglutide (Trulicity), liraglutide (Victoza, Saxenda), exenatide (Byetta, Bydureon), or lixisenatide (Adylyxin), stop your medication 1 week prior to your procedure. If you take medications like canagliflozin (Invokana), dapagliflozin (Farxiga, Forxiga), empagliflozin (Jardiance), stop your medication 3 days prior to your procedure. If you take ertugliflozin (Steglatro) stop your medication 4 days prior to your procedure. IRON: If you take iron pills, STOP them 1 week BEFORE your procedure, may resume after. OTHER MEDS: May take all other medications (including aspirin, antibiotics, water pills / diureticslike Lasix or Metolozone, blood pressure meds, etc.) at their usual scheduled time with water. DIET REQUIREMENTS The day before your colonoscopy, you may have a clear liquid diet (see below). The day of your colonoscopy, you may continue a clear liquid diet until 3 hours before your colonoscopy. Within 3 hours of your colonoscopy, take only any medications (as above) with a sip of water. Clear Liquid Diet Broth (chicken, beef or vegetable broth or bullion. Just the broth, no solids). Water Coffee or Tea (NO milk or creamer), but sugar and sugar substitutes are allowed. Clear liquids including clear, yellow, green, blue (NO red, NO orange, NO purple) Sodas / soft drinks; Gatorade or other sports drinks Fruit juice (strained; no-pulp); Rajiv-Aid or flavored drinks Plain Jell-O or other gelatins Popsicles or hard candy Bowel prep can work differently from person to person. Some people's bowels move slowly and they may need different instructions. Please see your doctor in office or virtually for personalized bowel prep instructions if you have: BOWEL PREPARATION (MIRALAX/GATORADE) Split Dosing Bowel Prep: This means drinking your bowel prep in two doses. Split dosing helps cleanyour colon better and makes it less likely that your procedure will be canceled. You will need to purchase the following (no prescriptions are needed): 64 ounces Gatorade, Propel, Crystal Lite or other noncarbonated clear liquid sports drink (NOT red,orange, or purple). Diabetic patients buy sugar-free, e.g. Gatorade G2 4 Dulcolax laxative tablets containing 5mg bisacodyl each (do not buy the stool softener) 8.3 oz MiraLAX (238g) powder or generic polyethylene glycol 3350 (find in laxative aisle) The day before your colonoscopy mix 64 oz of the sports drink with 8.3 oz MiraLAX (238 g) in a pitcher. Stir or shake until MiraLAX completely dissolved. Chill if desired. On the evening before your colonoscopy: 5 PM take 4 Dulcolax laxative tablets with water by mouth. 6 PM drink the first half of the Gatorade/MiraLAX solution Drink one 8-ounce glass every 15 minutes. Six hours before your colonoscopy, drink the second half of the solution. Drink one 8-ounce glass every 15 minutes. You may continue a clear liquid diet until 3 hours before your colonoscopy. Bowel prep can work differently from person to person. Some people's bowels move slowly and they may need different instructions. Please see your doctor in office or virtually for personalized bowel prep instructions if you have: Medical condition that needs special accommodations Had a poor bowel prep results or failed bowel prep attempts in the past. Had difficulty with anesthesia during the procedure. FREQUENTLY ASKED QUESTIONS Q: What if I suffer from constipation? A: Recommend taking extra laxatives to resolve your constipation days prior to entering the bowel prep day. Q: What if have had prior poor preps results in past? A: Contact your physician as you will likely need additional bowel prep instructions. Q: What if I have motility issues like Parkinson's, MS (multiple sclerosis), wheelchair dependent, etc.? or on medications that slow colonic transit times (narcotics, gabapentin, anticholinergic medications etc.) A: Contact your physician as you will likely need extra time and additional laxatives to complete your bowel prep. Q: What if I cannot drink large volume of liquid? A: Start your prep 2-3 hours earlier to allow yourself more time to complete the entire prep. Q: What if I had bariatric surgery? Do I still have to complete the entire prep? A: Yes, gastric bypass surgery involves the stomach & small bowel. You may need to drink smaller amounts, slower (may need more time to complete your bowel prep). Gastric bypass does not alter the length of your colon so you will need to complete the entire bowel prep, it may just take longer time to complete it. Q: What if I am on dialysis? A: Please consult your inseam leveler prior to scheduling to get instructions pertinent to you. In general, dialysis patients take the Likeastorely bowel prep and have the procedure same day of their dialysis (colonoscopy in AM, dialysis in PM). Q: How do I know if something is considered as clear liquid diet? A: If you can pour it in a glass and you can see through it, it is considered clear liquid Q: Can I eat nuts, seeds, beans, popcorn, dried fruits, vegetables & fruits that have skin peel? A: No, you will need to not eat these items starting 3 days prior to procedure. Q: Can I take Uber/Lyft/taxi/bus home? A: An adult MUST be present with you at check-in for your colonoscopy and remain in the endoscopy area until you are discharged. You can take Uber home only if this adult escort is with you at check in, remain in the endoscopy area until you are discharged, and takes the Uber with you to home. Q: Can I sleep it off here and drive myself home? A: No, you must have an adult with you at time of procedure check in, remain in the endoscopy center during your procedure, and drive you home. You cannot drive a vehicle after your procedure the rest of the day. Q: What if I can't finish my bowel prep? A: If you cannot complete your entire bowel prep, there is high likelihood that your colonoscopy will need to be rescheduled due to inadequate prep quality. documented in this encounterM[facility]01-27-2025 NotePatient Outreach ([facility]) JACQUELINE GASTON ([id number]) 1955 F Date Time Provider Department 05/20/24 JAY MORALES [facility] During your visit today, we recorded the following information about you: Catrachita Diaz RN 05/20/2024 1:41 PM Signed COLONOSCOPY BOWEL PREPARATION INSTRUCTIONS MiraLAX? Your doctor has scheduled you for a colonoscopy. To have a successful colonoscopy, you must have a clean colon, that is empty. A clean colon allows your doctor to see the entire colon AND diagnose issues like polyps or cancer. For doctors, a clean colon is like driving on a chavo day; a dirty colon like driving in a storm. It is very important that you follow these instructions exactly, or your colonoscopy may not be as effective, could be canceled, and you may need to do the bowel prep and colonoscopy again. TRANSPORTATION REQUIREMENTS You are receiving IV sedation. For your safety, a responsible adult escort must accompany you to and from your procedure: Your adult escort MUST be present with you at check-in for your colonoscopy. Your adult escort MUST remain in the endoscopy area until you are discharged. Your adult escort MUST transport you home once you are discharged. You are NOT allowed to operate any form of transportation (i.e. drive a car, bicycle, etc) or leave the Endoscopy Center ALONE. It is not safe to do so. If you cannot meet these requirements, your procedure will be canceled. MEDICATION REQUIREMENTS For your safety, certain medications will need to be stopped or adjusted before you can have your procedure: BLOOD THINNERS: If you take blood thinners, such as Coumadin (warfarin), Plavix (clopidogrel), Ticlid (ticlopidine hydrochloride), Agrylin (anagrelide), Xarelto (Rivaroxaban), Pradaxa (Dabigatran), Eliquis (Apixaban), or Effient (Prasugrel), contact the physician who is prescribing these medications at least 2 weeks prior to your procedure to discuss any necessary adjustments. DIABETES: If you take medications for diabetes, your dosage may need to be adjusted. If you are being treated for diabetes with insulin, diabetic pills, or other injectable medications do not take your REGULAR dose after midnight on the day of your procedure. If you are taking any other types of insulin such as Lantus, Humalog, NPH (long-acting insulin), or 70/30 insulin, take half your normal dose the day before your procedure. DIABETES/WEIGHT MANAGEMENT: If you take medications for weight-loss, your dosage may need to be adjusted Contact the doctor who prescribes this medication for further instructions. If you take medications for weight-loss like semaglutide (Ozempic, Wegovy, Rybelsus), dulaglutide (Trulicity), liraglutide (Victoza, Saxenda), exenatide (Byetta, Bydureon), or lixisenatide (Adylyxin), stop your medication 1 week prior to your procedure. If you take medications like canagliflozin (Invokana), dapagliflozin (Farxiga, Forxiga), empagliflozin (Jardiance), stop your medication 3 days prior to your procedure. If you take ertugliflozin (Steglatro) stop your medication 4 days prior to your procedure. IRON: If you take iron pills, STOP them 1 week BEFORE your procedure, may resume after. OTHER MEDS: May take all other medications (including aspirin, antibiotics, water pills / diuretics like Lasix or Metolozone, blood pressure meds, etc.) at their usual scheduled time with water. DIET REQUIREMENTS The day before your colonoscopy, you may have a clear liquid diet (see below). The day of your colonoscopy, you may continue a clear liquid diet until 3 hours before your colonoscopy. Within 3 hours of your colonoscopy, take only any medications (as above) with a sip of water. Clear Liquid Diet Broth (chicken, beef or vegetable broth or bullion. Just the broth, no solids). Water Coffee or Tea (NO milk or creamer), but sugar and sugar substitutes are allowed. Clear liquids including clear, yellow, green, blue (NO red, NO orange, NO purple) Sodas / soft drinks; Gatorade or other sports drinks Fruit juice (strained; no-pulp); Rajiv-Aid or flavored drinks Plain Jell-O or other gelatins Popsicles or hard candy Bowel prep can work differently from person to person. ? Some people's bowels move slowly and they may need different instructions. Please see your doctor in office or virtually for personalized bowel prep instructions if you have: BOWEL PREPARATION (MIRALAX/GATORADE) Split Dosing Bowel Prep: This means drinking your bowel prep in two doses. Split dosing helps clean your colon better and makes it less likely that your procedure will be canceled. You will need to purchase the following (no prescriptions are needed): 64 ounces Gatorade, Propel, Crystal Lite or other noncarbonated clear liquid sports drink (NOT red, orange, or purple). Diabetic patients buy sugar-free, (more content not included)...[facility]11-12-2024 Telephone encounter Note* Telephone Encounter - Meli Portillo LPN - 03/05/2024 1:12 PM EST Prescription Refill Information The patient has been identified by name and date of : Yes Caregiver verified no other encounters exist for this prescription request: Yes Caregiver confirmed with patient/requestor that no other refills are due, in the near future, with this provider at this time: Yes The last office visit in the department: 02/12/24 Does the patient have a future office visit with this provider/department: Yes Requested Prescriptions Pending Prescriptions Disp Refills venlafaxine ER (EFFEXOR XR) 75 mg 24 hr capsule 90 capsule 1 Sig: Take 1 capsule by mouth once daily. Meli Portillo LPN March 05, 2024 1:12 PM [facility]11-12-2024 Miscellaneous Notes* Telephone Encounter - Meli Portillo LPN - 03/05/2024 1:12 PM EST Prescription Refill Information The patient has been identified by name and date of : Yes Caregiver verified no other encounters exist for this prescription request: Yes Caregiver confirmed with patient/requestor that no other refills are due, in the near future, with this provider at this time: Yes The last office visit in the department: 02/12/24 Does the patient have a future office visit with this provider/department: Yes Requested Prescriptions Pending Prescriptions Disp Refills venlafaxine ER (EFFEXOR XR) 75 mg 24 hr capsule 90 capsule 1 Sig: Take 1 capsule by mouth once daily. Meli Portillo LPN March 05, 2024 1:12 PM documented in [facility] encounterM[facility]10-[facility] Instructions* Patient Instructions* Martine Almonte APRN.CNP - 02/12/2024 9:43 AM EDT 1) Medrol taper- as discussed 2) Benzonatate 100 mg 3 x day for cough 3) Call if symptoms worsen or do not improve in a week documented in [facility]10-[facility]24 NoteHNO ID: [id number] Author: MARTINE ALMONTE APRN.CNP Service: ? Author Type: Clinical Nurse Specialist Type: Progress Notes Filed: 02/12/2024 09:43 Note Text: This is a 68 year old female who presents today with: Patient presents with: Acute Visit: Cough, horse voice, chills HISTORY OF PRESENT ILLNESS: Jacqueline Gaston is a 68 year old female. Patient presents with: Acute Visit: Cough, horse voice, chills Went to [place] to visit grandchildren. Started with sore throat. Runny nose. Cough that is keeping her awake at night. Non-productive. Started about a week ago. Started on herbal remedies. Low grade temp and night sweats. Exhausted. No N/V. No diarrhea. PAST MEDICAL HISTORY: PAST MEDICAL HISTORY Diagnosis Date Anxiety disorder [...] LEFT VAGINAL HYSTERECTOMY UTERUS 250 GM/< 1987 ALLERGIES Patient has no known allergies. MEDICATIONS Current Outpatient Medications Medication Sig traZODone HCl (DESYREL) 300 mg tablet Take 1 tablet by mouth daily at bedtime. venlafaxine ER (EFFEXOR XR) 75 mg 24 hr capsule Take 1 capsule by mouth once daily. Biotin 10,000 mcg cap Take 1 capsule by mouth once daily. vit A,C,T-Itzk-Crsirv (OCUVITE PRESERVISION) 7,160-113-100 vnsi-hx-ywum tab Take 1 tablet by mouth daily with breakfast. Cholecalciferol, Vitamin D3, 50 mcg (2,000 unit) cap Take 1 tablet by mouth once daily. Calcium Carb-Cholecalciferol (NUBIA-600 WITH VITAMIN D) 600 (1,500)-200 mg-unit ORAL Tab Take one(1) tablet twice daily. No current facility-administered medications for this visit. FAMILY HISTORY Problem Relation Age of Onset Breast Cancer Mother Cancer Mother Cancer Maternal Grandmother Stroke Maternal Grandmother Cancer Maternal Grandfather Diabetes Maternal Grandfather Prostate Cancer Maternal Grandfather Coronary Artery Disease Father CABG Ischemic Heart Disease Paternal Grandmother CT at 50 Social History Tobacco Use Smoking status: Never Smokeless tobacco: Never Vaping Use Vaping status: Never Used Substance Use Topics Alcohol use: No Drug use: No EXAM: BP 130/82 Pulse 82 Temp 36.8 ?C (98.3 ?F) Wt 46.7 kg (102 lb 15.3 oz) SpO2 97% BMI 17.90 kg/m? PHYSICAL EXAM: Physical Exam Vitals reviewed. Constitutional: Appearance: Normal appearance. HENT: Head: Normocephalic. Right Ear: Tympanic membrane and ear canal normal. There is no impacted cerumen. Left Ear: Tympanic membrane and ear canal normal. There is no impacted cerumen. Nose: Congestion and rhinorrhea present. Mouth/Throat: Mouth: Mucous membranes are moist. Pharynx: Oropharynx is clear. Posterior oropharyngeal erythema present. No oropharyngeal exudate. Comments: Throat is slightly red. Neck: Vascular: No carotid bruit. Cardiovascular: Rate and Rhythm: Normal rate and regular rhythm. Pulses: Normal pulses. Heart sounds: Normal heart sounds. Pulmonary: Effort: Pulmonary effort is normal. No respiratory distress. Breath sounds: Normal breath sounds. No stridor. No wheezing, rhonchi or rales. Musculoskeletal: General: Normal range of motion. Cervical back: Normal range of motion. Lymphadenopathy: Cervical: No cervical adenopathy. Skin: General: Skin is warm and dry. Neurological: Mental Status: She is alert. LABS: ASSESSMENT/PLAN: 1. Seasonal allergic rhinitis, unspecified trigger - ICD9: 477.9, ICD10: J30.2 Ongoing - METHYLPREDNISOLONE 4 MG TABLETS IN A DOSE PACK - BENZONATATE 100 MG CAPSULE - if symptoms worsen, will call Discussed treatment plan and patient voices understanding. Patient's questions answered appropriately. Medications and potential side effects were discussed and patient voices understanding. Return to the office as scheduled or as needed for worsening/no improvement. [facility]monte [facility] History of Present illness Narrative* Martine Almonte APRN.OAPL - 02/12/2024 9:33 AM EDT This is a 68 year old female who presents today with: Patient presents with: Acute Visit: Cough, horse voice, chills HISTORY OF PRESENT ILLNESS: Jacqueline Gaston is a 68 year old female. Patient presents with: Acute Visit: Cough, horse voice, chills Went to [place] to visit grandchildren. Started with sore throat. Runny nose. Cough that is keeping her awake at night. Non-productive. Started about a week ago. Started on herbal remedies. Low grade temp and night sweats. Exhausted. No N/V. No diarrhea. PAST MEDICAL HISTORY: PAST MEDICAL HISTORY Diagnosis Date Anxiety disorder [...] LEFT VAGINAL HYSTERECTOMY UTERUS 250 GM/< 1987 ALLERGIES Patient has no known allergies. MEDICATIONS Current Outpatient Medications Medication Sig traZODone HCl (DESYREL) 300 mg tablet Take 1 tablet by mouth daily at bedtime. venlafaxine ER (EFFEXOR XR) 75 mg 24 hr capsule Take 1 capsule by mouth once daily. Biotin 10,000 mcg cap Take 1 capsule by mouth once daily. vit A,C,X-Cqsd-Vothfk (OCUVITE PRESERVISION) 7,160-113-100 tcas-zx-kiex tab Take 1 tablet by mouth daily with breakfast. Cholecalciferol, Vitamin D3, 50 mcg (2,000 unit) cap Take 1 tablet by mouth once daily. Calcium Carb-Cholecalciferol (NUBIA-600 WITH VITAMIN D) 600 (1,500)-200 mg-unit ORAL Tab Take one(1) tablet twice daily. No current facility-administered medications for this visit. FAMILY HISTORY Problem Relation Age of Onset Breast Cancer Mother Cancer Mother Cancer Maternal Grandmother Stroke Maternal Grandmother Cancer Maternal Grandfather Diabetes Maternal Grandfather Prostate Cancer Maternal Grandfather Coronary Artery Disease Father CABG Ischemic Heart Disease Paternal Grandmother CT at 50 Social History Tobacco Use Smoking status: Never Smokeless tobacco: Never Vaping Use Vaping status: Never Used Substance Use Topics Alcohol use: No Drug use: No EXAM: BP 130/82 Pulse 82 Temp 36.8 C (98.3 F) Wt 46.7 kg (102 lb 15.3 oz) SpO2 97% BMI 17.90 kg/m PHYSICAL EXAM: Physical Exam Vitals reviewed. Constitutional: Appearance: Normal appearance. HENT: Head: Normocephalic. Right Ear: Tympanic membrane and ear canal normal. There is no impacted cerumen. Left Ear: Tympanic membrane and ear canal normal. There is no impacted cerumen. Nose: Congestion and rhinorrhea present. Mouth/Throat: Mouth: Mucous membranes are moist. Pharynx: Oropharynx is clear. Posterior oropharyngeal erythema present. No oropharyngeal exudate. Comments: Throat is slightly red. Neck: Vascular: No carotid bruit. Cardiovascular: Rate and Rhythm: Normal rate and regular rhythm. Pulses: Normal pulses. Heart sounds: Normal heart sounds. Pulmonary: Effort: Pulmonary effort is normal. No respiratory distress. Breath sounds: Normal breath sounds. No stridor. No wheezing, rhonchi or rales. Musculoskeletal: General: Normal range of motion. Cervical back: Normal range of motion. Lymphadenopathy: Cervical: No cervical adenopathy. Skin: General: Skin is warm and dry. Neurological: Mental Status: She is alert. LABS: ASSESSMENT/PLAN: 1. Seasonal allergic rhinitis, unspecified trigger - ICD9: 477.9, ICD10: J30.2 Ongoing - METHYLPREDNISOLONE 4 MG TABLETS IN A DOSE PACK - BENZONATATE 100 MG CAPSULE - if symptoms worsen, will call Discussed treatment plan and patient voices understanding. Patient's questions answered appropriately. Medications and potential side effects were discussed and patient voices understanding. Return to the office as scheduled or as needed for worsening/no improvement. Martine Almonte APRN.OPAL documented in this encounterM[facility]10-02-2024 Telephone encounter Note * Telephone Encounter - Flaca Osborn RN - 01/24/2024 2:48 PM EDT The patient has been identified by name and date of : Yes Caregiver verified no other encounters exist for this prescription request: Yes Caregiver confirmed with patient/requestor that no other refills are due, in the near future, with this provider at this time: Yes The last office visit in the department: 07/20/2023 Does the patient have a future office visit with this provider/department: Yes 01/31/2024 Requested Prescriptions Pending Prescriptions Disp Refills traZODone HCl (DESYREL) 300 mg tablet 90 tablet 2 Sig: Take 1 tablet by mouth daily at bedtime. Flaca Osborn RN January 24, 2024 2:48 PM [facility]10-02-2024 Miscellaneous Notes* Telephone Encounter - Flaca Osborn RN - 01/24/2024 2:48 PM EDT The patient has been identified by name and date of : Yes Caregiver verified no other encounters exist for this prescription request: Yes Caregiver confirmed with patient/requestor that no other refills are due, in the near future, with this provider at this time: Yes The last office visit in the department: 07/20/2023 Does the patient have a future office visit with this provider/department: Yes 01/31/2024 Requested Prescriptions Pending Prescriptions Disp Refills traZODone HCl (DESYREL) 300 mg tablet 90 tablet 2 Sig: Take 1 tablet by mouth daily at bedtime. Flaca Osborn RN January 24, 2024 2:48 PM documented in this encounterM[facility]09-10-2024 History of Present illness Narrative* Tori Gaitan MA - 01/02/2024 9:50 AM EDT POPULATION HEALTH NAVIGATION OUTREACH Action/NABILI Jovon [place] Discuss/Due for: Medicare Wellness, Mammogram, Colorectal Cancer Screening, Influenza Vaccination HCC Score: .[id number] Outcome: 1st attempt - Spoke to patient Scheduled Medicare Wellness/Acute Problem Visit Patient will discuss Colorectal Cancer Screening with Jay Morales DO Patient reports going to [facility] for Mammograms, will scheduled on her own Patient undecided as to when or where getting Influenza Vaccination Reason for Outreach Care Gap/HCC or Scheduling Wellness Visits Care Gaps due: Medicare Annual Wellness Visit Breast Cancer Screening Colorectal Cancer Screening Flu Vaccine Patient Contacted: Spoke to patient/parent/or legal guardian Patient identified by name and : Yes Care Gap/HCC/Scheduling Wellness actions taken: Patient scheduled/pended orders: Medicare Annual Wellness Visit Follow-up Appointment 01/05/2024 in [facility] with ZAIN LANDIN - CAREGIVER FATIGUE/ANXIETY, DISCUSS PROLIA, HCC Gap Closure 08/05/2024 in [facility] with JAY MORALES - MEDICARE WELLNESS Z00.00, HM -COLORECTAL CANCER SCREENING HCC related Navigation Signature: Tori Gaitan MA January 02, 2024 9:50 AM documented in this encounterM[facility] Hospital07-23-2024 Telephone encounter Note * Telephone Encounter - Alyson Pritchett LPN - 11/14/2023 2:06 PM EDT Pt. informed. [facility]07-23-2024 Miscellaneous Notes* Telephone Encounter - Alyson Smith LPN - 11/14/2023 2:06 PM EDT Pt. informed. * Telephone Encounter - Zain Landin APRN.CNP - 11/14/2023 12:45 PM EDT The following approved medication requests have been transmitted electronically. Requested Prescriptions Signed Prescriptions Disp Refills venlafaxine ER (EFFEXOR XR) 75 mg 24 hr capsule 4 capsule 0 Sig: Take 1 capsule by mouth once daily. Authorizing Provider: JAY MORALES Ordering User: ZAIN LANDIN APRN.CNP * Telephone Encounter - Sara Tarango RN - 11/14/2023 11:42 AM EDT Patient states [place] is [place] of [place] and forgot her Effexor medication. Asking if provider could send a script for 4 pills to [facility] in [place], as pended. Please call patient with update at [phone]. Thank you. documented in this encounterM[facility] Hospital07-23-2024 Telephone encounter Note * Telephone Encounter - Zain Landin APRN.CNP - 11/14/2023 12:45 PM EDT The following approved medication requests have been transmitted electronically. Requested Prescriptions Signed Prescriptions Disp Refills venlafaxine ER (EFFEXOR XR) 75 mg 24 hr capsule 4 capsule 0 Sig: Take 1 capsule by mouth once daily. Authorizing Provider: JAY MORALES Ordering User: ZAIN LANDIN APRN.HL7 INTERFACE DEVELOPER [facility]07-23-2024 Telephone encounter Note* Telephone Encounter - Sara Tarango RN - 11/14/2023 11:42 AM EDT Patient states she is [place] of state and forgot her Effexor medication. Asking if provider could send a script for 4 pills to [facility] in [place], as pended. Please call patient with update at [phone]. Thank you. [facility]07-17-2024 Telephone encounter Note* Telephone Encounter - Meli Portillo LPN - 11/08/2023 9:09 AM EDT Prescription Refill Information The patient has been identified by name and date of : Yes Caregiver verified no other encounters exist for this prescription request: Yes Caregiver confirmed with patient/requestor that no other refills are due, in the near future, with this provider at this time: Yes The last office visit in the department: 07/20/23 Does the patient have a future office visit with this provider/department: No Requested Prescriptions Pending Prescriptions Disp Refills venlafaxine ER (EFFEXOR XR) 75 mg 24 hr capsule 90 capsule 1 Sig: Take 1 capsule by mouth once daily. Meli Portillo LPN November 08, 2023 9:09 AM [facility]07-17-2024 Miscellaneous Notes* Telephone Encounter - Meli Portillo LPN - 11/08/2023 9:09 AM EDT Prescription Refill Information The patient has been identified by name and date of : Yes Caregiver verified no other encounters exist for this prescription request: Yes Caregiver confirmed with patient/requestor that no other refills are due, in the near future, with this provider at this time: Yes The last office visit in the department: 07/20/23 Does the patient have a future office visit with this provider/department: No Requested Prescriptions Pending Prescriptions Disp Refills venlafaxine ER (EFFEXOR XR) 75 mg 24 hr capsule 90 capsule 1 Sig: Take 1 capsule by mouth once daily. Meli Portillo LPN November 08, 2023 9:09 AM documented in this encounterMans[facility] Hospital05-01-2024 Telephone encounter Note * Telephone Encounter - Zain Landin APRN.HL7 INTERFACE DEVELOPER - 08/23/2023 4:54 PM EDT The following approved medication requests have been transmitted electronically. Requested Prescriptions Signed Prescriptions Disp Refills denosumab (PROLIA) 60 mg/mL 1 mL 5 Sig: Inject 1 mL subcutaneously one time only for 1 dose. Authorizing Provider: JAY MORALES Ordering User: ZAIN LANDIN APRN.HL7 INTERFACE DEVELOPER [facility]-01-2024 Miscellaneous Notes* Telephone Encounter - Zain Landin APRN.CNP - 08/23/2023 4:54 PM EDT The following approved medication requests have been transmitted electronically. Requested Prescriptions Signed Prescriptions Disp Refills denosumab (PROLIA) 60 mg/mL 1 mL 5 Sig: Inject 1 mL subcutaneously one time only for 1 dose. Authorizing Provider: JAY MORALES Ordering User: ZAIN LANDIN APRN.HL7 INTERFACE DEVELOPER * Telephone Encounter - Radha Shaffer LPN - 08/23/2023 3:50 PM EDT Patient stated that she stated that her bone density showed bone loss and is needing prolia. Patient called her insurance which is [employer]. insurance told her that she will need an approval. Provider services for [employer] is : Advised patient that we will need to order the medication- prolia send it to [facility] They would run the rx through her insurance and then we would find out if it needs a prior authorization or not. Also, advised that our nurse can give the first one and educate her togive herself in the future. Information has been explained to patient and verbalized understanding. We are currently needing rx for prolia to [facility] Please review and advise Radha Shaffer LPN documented in this encounterMansfield Hospital05-01-2024 Telephone encounter Note * Telephone Encounter - Radha Shaffer LPN - 08/23/2023 3:50 PM EDT Patient stated that she stated that her bone density showed bone loss and is needing prolia. Patient called her insurance which is [employer]. insurance told her that she will need an approval. Provider services for [employer] is : Advised patient that we will need to order the medication- prolia send it to [facility] They would run the rx through her insurance and then we would find out if it needs a prior authorization or not. Also, advised that our nurse can give the first one and educate her togive herself in the future. Information has been explained to patient and verbalized understanding. [facility] Please review and advise Radha Shaffer LPN [facility] Work Phone: 1(230) 384-604104-22-2024 Telephone encounter Note* Telephone Encounter - Albina Vazquez MA - 08/14/2023 3:42 PM EDT Pt notified and verbalized understanding. Albina Vazquez MA [facility]04-22-[facility]24 Miscellaneous Notes* Telephone Encounter - Albina Vazquez MA - 08/14/2023 3:42 PM EDT Pt notified and verbalized understanding. Albina Vazquez MA * Telephone Encounter - Zain Landin APRN.CNP - 08/11/2023 1:47 PM EDT Please let Jacqueline know that I was able to speak with Dr. Morales in regards to supplements, etc thatare good for brain health. She recommends a multivitamin daily, vitamin D (which I believe she is already taking?), B-complex. She also recommends healthy fats such as krill/fish oil daily. Zain Landin APRN.HL7 INTERFACE DEVELOPER documented in this encounterMansfield Hospital04-19-2024 Telephone encounter Note * Telephone Encounter - Zain Landin APRN.CNP - 08/11/2023 1:47 PM EDT Please let Jacqueline know that I was able to speak with Dr. Morales in regards to supplements, etc thatare good for brain health. She recommends a multivitamin daily, vitamin D (which I believe she is already taking?), B-complex. She also recommends healthy fats such as krill/fish oil daily. Zain Landin APRN.CNP [facility]-18[facility] History of Present illness Narrative* Hiral Brito RT(Hetal) - 08/10/2023 9:20 AM EDT Radiology Service Progress Note PATIENT NAME: Jacqueline Gaston DATE OF SERVICE: August 10, 2023 TIME: 9:23 AM PATIENT IDENTITY VERIFICATION COMPLETED USING TWO (2) IDENTIFIERS: Name and Date of confirmedby patient verbally. FALL SCREENING: Has the patient had 2 falls in the last year or 1 fall with injury or currently using an Ambulatory Assistive Device (Walker, Cane, Wheelchair, Crutches, etc.)? No PATIENT GENDER DATA: Female. status: : No status: NO. PATIENT RELEVANT IMPLANT DATA REVIEWED: Yes PATIENT PRESENTS WITH AN IMPLANTABLE OR ATTACHED FOOD SERVICE: No RADIOLOGY DEPARTMENT: General X-ray: Exam(s) Completed: Lower Extremity X- Ray(s): Foot, Bilateral and Wt. Bearing PERIPHERAL IV DATA: Not applicable SIGNED BY: RT Porfirio(Hetal) August 10, 2023 9:23 AM documented in this encounterMansfield Hospital04-18-2024 History of Present illness Narrative* Jillian Campbell LPN - 08/10/2023 9:[address] Garcia, Jacqueline was provided with powerstep gel inserts, size 7.5, and instructed/educated in its application, wear, and care. All questions were answered, and patient was able to demonstrate competence with the necessary skills to utilize the above equipment. Jillian Campbell LPN * Jonh Garcia - 08/10/2023 8:56 AM EDT Images from the original note were not included. Consultation requested by Dr. Landin for an opinion regarding foot pain. My final recommendationswill be communicated back to the requesting physician by way of shared Medical record or letter to requesting physician via US mail. Initial Podiatric Office Visit: Chief Complaint: This 67 year old female who presents with chief complaint:painful corn of right 2nd toe HPI Patient presents to clinic for evaluation of right foot Complains of painful corn to right 2nd toe Uses corn padding from Dr. Grant which does help but the callus continues to return. Here to discuss options. PAIN EVALUATION 08/04/2023 0636 08/10/2023 0825 Pain Level: 6 -- Pain Location: -- Other: See Comment bilateral feet Description: Burning;Pressure;Sore -- Duration Units: Days -- Frequency: Continuous -- Intervention/Comfort measure: Medication;Reposition -- No results found for: HBA1C PCP: Jay Morales DO PAST MEDICAL HISTORY Diagnosis Date Anxiety disorder in conditions classified elsewhere Benign neoplasm of colon Diffuse cystic mastopathy 02/13/07 Family history of abdominal aortic aneurysm Female bladder prolapse Insomnia, unspecified Internal hemorrhoids without mention of complication Pneumonia 08/2010 Sleep apnea [address] Anthony Snoring Varicose vein of leg Current Outpatient Medications Medication Sig venlafaxine ER (EFFEXOR XR) 75 mg 24 hr capsule Take 1 capsule by mouth once daily. traZODone HCl (DESYREL) 300 mg tablet Take 1 tablet by mouth daily at bedtime. Biotin 10,000 mcg cap Take 1 capsule by mouth once daily. vit A,C,O-Micd-Mxyrdz (OCUVITE PRESERVISION) 7,160-113-100 bpbz-rt-aifx tab Take 1 tablet by mouth daily with breakfast. Cholecalciferol, Vitamin D3, 50 mcg (2,000 unit) cap Take 1 tablet by mouth once daily. Calcium Carb-Cholecalciferol (NUBIA-600 WITH VITAMIN D) 600 (1,500)-200 mg-unit ORAL Tab Take one(1) tablet twice daily. No current facility-administered medications for this visit. ALLERGIES No Known Allergies PAST SURGICAL HISTORY Procedure Laterality Date COLONOSCOPY FLX DX W/COLLJ SPEC WHEN PFRMD 03/11/2019 Colonoscopy COLSC FLX W/RMVL OF TUMOR POLYP LESION SNARE TQ 11/15/2007 inflammatory polyp OTHER 06/2009 Bladder repair - Dr. Arndt PAST SURGICAL HISTORY OF 1988 varicose stripping, left leg X2 SEPTOPLASTY 09/2010 STEREOTACTIC CORE BIOPSY 02/05/07 LEFT VAGINAL HYSTERECTOMY UTERUS 250 GM/< 1987 FAMILY HISTORY Problem Relation Age of Onset Breast Cancer Mother Cancer Mother Cancer Maternal Grandmother Stroke Maternal Grandmother Cancer Maternal Grandfather Diabetes Maternal Grandfather Prostate Cancer Maternal Grandfather Coronary Artery Disease Father CABG Ischemic Heart Disease Paternal Grandmother CT at 50 Social History Tobacco Use Smoking status: Never Smokeless tobacco: Never Vaping Use Vaping Use: Never used Substance Use Topics Alcohol use: No Drug use: No REVIEW OF SYSTEMS GENERAL: Negative for Malaise, significant weight loss, fever RESPIRATORY: Negative for cough, wheezing and shortness of breath CARDIOVASCULAR: Negative for chest pain, leg swelling and palpitations GI: Negative for abdominal discomfort, blood in stools or black stools and change in bowel habits : Negative for dysuria, frequency and incontinence MUSCULOSKELETAL: Negative for joint pain or swelling, back pain, and muscle pain. SKIN: Negative for lesions, rash, and itching. HEMATOLOGY/LYMPHOLOGY Negative for prolonged bleeding, bruising easily, and swollen nodes. ENDOCRINE: Negative for cold or heat intolerance, polyuria, polydipsia and goiter. NEURO: negative Physical Exam: Constitutional: Pt is a well developed 67 year old female who is alert, oriented and cooperative Eyes: Following during examination. No redness or drainage. Respiratory: RR normal and nonlabored. Even breathing. No evidence of distress or shortness of breath. Psychology: Patient is engaged during conversation. Normal affect and mood. Does not appear depressed or anxious during encounter. Vascular: Dorsalis pedis and posterior tibial pulses palpable as b/l Capillary Fill time < 5 seconds to digits 1-5 b/l Skin temperature warm to warm proximal to distal b/l Hair growth present to digits Neurological: intact light touch/epicritic sensation b/l intact protective sensation no significant neurological deficits Dermatological: Nails 1-5 b/l appear normal. Webspaces clean and dry 1-4 b/l. Skin appears well hydrated and supple. good color, texture, turgor. No open lesions present. Porokeratosis of left 5th metatarsal. No callus at this time on right foot Musculoskeletal/Orthopaedic: Patient has no pain to palpation of b/l feet Medial deviation of lesser toes, right foot most pronounced of right 2nd toe Foot type is neutral structurally AJ ROM is full with knee extended and flexed 1st MPJ is full when loaded and no pain or crepitus are noted with ROM. MTJ, STJ are full and free of pain and crepitus. +5/5 muscle strength dorsiflexion, plantarflexion, inversion, eversion b/l Radiographs: ordered ASSESSMENT: (M20.41) Hammertoe of right foot (primary encounter diagnosis) (L84) Callus between toes (Q82.8) Porokeratosis PLAN: 1. History and physical examination performed. 2.discussed complaint of callus of right 2nd toe. No callus at this time but the cause of callus ishammertoe/medial deviation of right 2nd toe. She has medial deviation of multiple toes. I am going to get xray to evaluate the foot deformity. Options for the callus include periodic filing, use of lambs wool vs toe cap vs surgcial correction of hammertoe vs even amputation of 2nd toe. Will try conservative care for now. 3. Porokeratosis of left foot reduced with 15 blade. Tca applied. Will use gel inserts with offloading pad Jonh Garcia DPM Podiatry [address] [facility] [address] Dept: [phone] Dept * Albina Go RN - 08/10/2023 8:24 AM EDT AMB ROOMING INTAKE FLOWSHEET DATA Pain Pain Level: 6 Pain Location: Other: See Comment (bilateral feet) Description: Burning, Pressure, Sore Duration Units: Days Frequency: Continuous Intervention/Comfort measure: Medication, Reposition Patient presents with: Left Foot - New, Corns, Pain Right Foot - New, Pain, Corns Patient presents for callus/corns to bilateral feet that has been ongoing for years. Left foot she has a spot to lateral ball of foot. Right foot she has a callus/corn between her toes. documented in this encounterM[facility]04-18-2024 Instructions* Patient Instructions* Jonh Garcia - 08/10/2023 9:06 AM EDT Powerstep Original Full length. Can purchase at [facility] [employer] and boots,shoes and more here in [place], [employer] in [place] or [place]. Also can find in [employer] in [facility]. Powersteps can also be purchased online, starting around $45.00 If you have a metatarsal or dancer pad for your feet apply the pad directly to the insole so you can interchange between your shoes. Find a shoe with a removable insole and take this out and replace with your powerstep insole. Always bring powersteps with you when shopping for shoes so that you can make sure that everything fits well together Can use gel toe cap for right 2nd toe Can apply padding to insert to offload the callus on left foot Color callus with lipstick Step on insert Place pad along area of transfer Trichloroacetic acid (TCA) has been applied to the plantar warts. Rinse off in 12 hours and keep clean and dry. May bathe and shower normally starting the day after treatment The area is expected to burn and blister in about 1-3 days, if painful soak in plain, cool water. If blistered, you may drain the blister with a clean, STERILIZED needle and apply OTC antibiotic ointment and band aid to area. Repeat 2-3 times daily as needed. Tylenol or Aleve as needed for pain, provided you have no allergies to either of these. Keep scheduled follow up appointment to have wart(s) re-evaluated and/or additional treatments. documented in this encounterM[facility]04-15-2024 Telephone encounter Note * Telephone Encounter - Carmen Farfan MA - 08/07/2023 3:36 PM EDT Pt informed. Will contact insurance. Carmen Farfan MA [facility]04-[facility] Miscellaneous Notes* Telephone Encounter - Carmen Farfan MA - 08/07/2023 3:36 PM EDT Pt informed. Will contact insurance. Carmen Farfan MA * Telephone Encounter - Zain Landin APRN.CNP - 08/07/2023 3:19 PM EDT I do see that she is on the Prolia, let's do that again. It is an every 6 months injection. There are several ways that this can be done. She will need to call her insurance and find out if they would like her to have the medication supplied by our office or if they would like her pharmacy to supply it. Then we can either schedule it to be given at our office or she can do it at home. If she would like to do it at home, our nurse would be happy to have her come in to show her how to do it. Please let me know what she thinks. Zain Landin APRN.OPAL * Telephone Encounter - Carmen Farfan MA - 08/07/2023 2:45 PM EDT Pt informed, verbalized understanding. Pt reports about 4 years ago she received an injection for the osteoporosis. Asking which one wouldbe more beneficial? Carmen Farfan MA * Telephone Encounter - Zain Landin APRN.CNP - 08/07/2023 2:26 PM EDT Please let Jacqueline know that I received the results of her Dexa bone scan and it shows that she has osteoporosis. There is a medication, Fosamax, that we start people on that have osteoporosis that helps prevent any further decrease in her bone density. She would take this once weekly, with a full glass of water, on an empty stomach. Please let me know if she would like to begin this medication. Zain Landin APRN.CNP documented in this encounterMansfield Hospital04-15-2024 Telephone encounter Note * Telephone Encounter - Zain Landin APRN.CNP - 08/07/2023 3:19 PM EDT I do see that she is on the Prolia, let's do that again. It is an every 6 months injection. There are several ways that this can be done. She will need to call her insurance and find out if they would like her to have the medication supplied by our office or if they would like her pharmacy to supply it. Then we can either schedule it to be given at our office or she can do it at home. If she would like to do it at home, our nurse would be happy to have her come in to show her how to do it. Please let me know what she thinks. Zain Landin APRN.CNP [facility]04-15-[facility] Telephone encounter Note* Telephone Encounter - Carmen Farfan MA - 08/07/2023 2:45 PM EDT Pt informed, verbalized understanding. Pt reports about 4 years ago she received an injection for the osteoporosis. Asking which one wouldbe more beneficial? Carmen Farfan MA [facility]04-15-[facility] Telephone encounter Note* Telephone Encounter - Zain Landin APRN.CNP - 08/07/2023 2:26 PM EDT Please let Jacqueline know that I received the results of her Dexa bone scan and it shows that she has osteoporosis. There is a medication, Fosamax, that we start people on that have osteoporosis that helps prevent any further decrease in her bone density. She would take this once weekly, with a full glass of water, on an empty stomach. Please let me know if she would like to begin this medication. Zain Landin APRN.CNP [facility]04-11-[facility] History of Present illness Narrative* Caio Morejon RT(Hetal) - 08/03/2023 2:15 PM EDT Radiology Service Progress Note PATIENT NAME: Jacqueline Gaston DATE OF SERVICE: August 03, 2023 TIME: 11:09 AM PATIENT IDENTITY VERIFICATION COMPLETED USING TWO (2) IDENTIFIERS: Name and Date of confirmedby patient verbally. FALL SCREENING: Has the patient had 2 falls in the last year or 1 fall with injury or currently using an Ambulatory Assistive Device (Walker, Cane, Wheelchair, Crutches, etc.)? No PATIENT GENDER DATA: Female. status: : No status: NO. PATIENT RELEVANT IMPLANT DATA REVIEWED: Not Applicable PATIENT PRESENTS WITH AN IMPLANTABLE OR ATTACHED FOOD SERVICE: No RADIOLOGY DEPARTMENT: Bone Density PERIPHERAL IV DATA: Not applicable SIGNED BY: RT Damon(Hetal) August 03, 2023 11:09 AM documented in this encounterMansfield Hospital04-09-2024 History of Present illness Narrative* Noemi Starr RT(R) - 08/01/2023 8:20 AM EDT Radiology Service Progress Note PATIENT NAME: Jacqueline Gaston DATE OF SERVICE: August 01, 2023 TIME: 3:15 PM PATIENT IDENTITY VERIFICATION COMPLETED USING TWO (2) IDENTIFIERS: Name and Date of confirmedby patient verbally. FALL SCREENING: Has the patient had 2 falls in the last year or 1 fall with injury or currently using an Ambulatory Assistive Device (Walker, Cane, Wheelchair, Crutches, etc.)? No PATIENT GENDER DATA: Female. status: : No status: NO. PATIENT RELEVANT IMPLANT DATA REVIEWED: Yes PATIENT PRESENTS WITH AN IMPLANTABLE OR ATTACHED FOOD SERVICE: No RADIOLOGY DEPARTMENT: CT; Exam(s) Completed: Brain PERIPHERAL IV DATA: Not applicable SIGNED BY: RT Marcus(R) August 01, 2023 3:15 PM documented in this encounterMansfield Hospital07-10-2023 Miscellaneous Notes* Telephone Encounter - Deysi Ramírez Ma - 10/31/2022 1:40 PM EDT Last office visit: 07/18/22 F/u scheduled: none Deysi Ramírez Ma * Telephone Encounter - Jacqueline Parker - 10/31/2022 10:56 AM EDT Patient has been identified by name and [...] and advise. Jacqueline Amezcua documented in this encounterMansfield Hospital05-11-2023 Miscellaneous Notes* Telephone Encounter - Carmen Farfan - 09/01/2022 11:43 AM EDT PSS calls and reports pt requesting refill trazodone Last refilled 11/22/2021 #[phone] 2 refills. Carmen Farfan documented in this encounterMansfield Hospital05-08-2023 Miscellaneous Notes* Telephone Encounter - Albina Vazquez MA - 08/29/2022 8:35 AM EDT Pharmacy request denied. Patient needs to contact office for refills. Albina Vazquez MA documented in this encounterMansfield Hospital03-29-2023 Miscellaneous Notes* Telephone Encounter - Meli Portillo LPN - 07/20/2022 11:07 AM EDT Pt was notified of results & voiced understanding. Pt states she will repeat in 2-4 wks. Meli Portillo LPN * Telephone Encounter - Parul Casas LPN - 07/20/2022 11:04 AM EDT Left message to return call. * Telephone Encounter - Jay Morales DO - 07/20/2022 10:18 AM EDT Please inform patient that her labs are all okay except for low T3 thyroid levels. Her free t4 and TSH levels for thyroid are normal. Would recommend thyroid labs be rechecked in 2-4 weeks, these areordered Jay Morales DO documented in this encounterMansfield Hospital03-27-2023 History of Present illness Narrative* Jay Morales DO - 07/18/2022 2:24 PM EDT CC: Jacqueline Gaston is a 66 year old female who presents to the office for follow up HPI: Struggling recently with concerns for memory loss. Has had a lot of recent stress in her life sinceher son living in [place] and his with metastatic breast cancer with poor prognosis and her daughter lives in [place] with her other 2 grandchildren and helping care for her aging parents, mother has dementia and father with macular degeneration. 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 Otherwise eats a very healthy high vegetable [...] 1 capsule by mouth once daily. vit A,C,E-Kgex-Gzribr (OCUVITE PRESERVISION) 7,160-113-100 jhtb-qo-pfth tab Take 1 tablet by mouth daily [...] nares without drainage, pharynx without erythema, exudate, lesions,or drainage. Uvula midline. Neck: No LAD, no [...] day month 08/26 2. Where are we? [facility] Floor 08/26 REGISTRATION 3. Name 3 objects, [...] patient copy the design: (Intersecting quadrangles) 04/24 [id number]) Has there ever been a period of [...] have several of these ever happened during thesame period of time? No 3) How much of a problem did any of these cause you, like being unable to work; having family, money or legal troubles; getting into arguments or fights? (select one response only, please) No problem. Normal clock drawing ASSESSMENT/PLAN: 1. Poor short term memory - ICD9: 780.93, ICD10: R41.3 Recommend labs to be checked. MMSE 30. Consider CT brain as d/w her today since her neurologic examination was slightly abnormal. Has risk of dementia- mother with Alzheimer's - TSH BLD - T4 FREE/FREE THYROX - T3 FREE BLD - CBC + DIFF - COMP METABOLIC PANEL - VITAMIN B12 BLOOD - VITAMIN D 25 HYDROXY - FOLATE SERUM - MAGNESIUM BLD Jay Morales DO Return if no improvement. Follow up with Jay Morales DO. To ER if develops chest pain, shortness of breath Discussed risks, benefits, alternatives, and potential side effects of medications. Patient/Guardian expressed understanding and agreed with the plan. See patient instructions. Jay Morales DO [address] [place] [address] documented in this encounterMansfield Hospital01-12-2023 Miscellaneous Notes* Telephone Encounter - Carmen Rosado Ma - 05/05/2022 9:26 AM EST Pt informed, verbalized understanding Carmen Rosado Ma * Telephone Encounter - Jay Morales DO - 05/04/2022 8:20 PM EST Please inform patient that I am absolutely okay with treating her with a steroid and antibiotic to see if cough resolves. If it doesn't, then recommend CT chest Jay Morales DO The following approved medication requests have been transmitted electronically. Requested Prescriptions Signed Prescriptions Disp Refills doxycycline (VIBRA-TABS) 100 mg tablet 20 tablet 0 Sig: Take 1 tablet by mouth twice daily for 10 days. Authorizing Provider: JAY MORALES methylPREDNISolone (MEDROL, KASIA,) 4 mg Dose-Pack 21 tablet 0 Sig: Follow dosing instructions, take with food. Authorizing Provider: JAY MORALES DO * Telephone Encounter - Parul Casas LPN - 05/04/2022 10:18 AM EST Spoke with pt she states yes the bottom of that ct report there is mention of her bottom rt lung. She states and this cough has not gotten better in last two weeks. Brings nothing up with it, no fevers. Family was sick with strep but around mona time. Been just doing teas no meds for this. Statesthis was just caught with lung by accident. * Telephone Encounter - Jay Morales DO - 05/04/2022 7:50 AM EST Please call patient and clarify. I just see a CT abd/pelvis done as ordered by Luci. No lung testing. How long has cough been going on? Any sputum? Any fevers? Sick contacts? Any medication use? Jay Morales DO * Telephone Encounter - Swapnil Cowart RN - 05/03/2022 2:52 PM EST Patient asking pcp to review and advise on CT results. Reports she has a dry cough and is getting worse. No fever. documented in this encounterMansfield Hospital01-03-2023 History of Present illness Narrative* Arturo Noemi Ruiz, RT(R) - 04/26/2022 2:20 PM EST Radiology Service Progress Note DATE OF SERVICE: [...] creatinine assay has traceable calibration to isotope dilution- mass spectrometry. Refer to KDIGO guidelines for clinical interpretation. In patients with unstable renal function, e.g. those with acute kidney injury, the eGFRmay not accurately reflect actual GFR. eGFR- Date Value Ref Range Status 01/08/2019 >60 Final P.O.C.T. RESULTS: POC done: Yes, See Lab Tab April 26, 2022 TREATMENT: N/A PERIPHERAL IV DATA: Ambulatory: A peripheral IV was started in the Left antecubital site with a Angio cath: 22 gauge. RADIOLOGY DEPARTMENT: CT; Exam(s) Completed: Abdomen SIGNATURE: RT Marcus(R) PATIENT NAME: Jacqueline Gaston DATE: April 26, 2022 TIME: 3:40 PM documented in this encounterMansfield Hospital12-21-2022 History of Present illness Narrative* Zain Landin APRN.[facility] - 04/13/2022 3:46 PM EST Chief Complaint Patient presents with: Hernia: Right side of abdomen x couple years, area is painful HPI Jacqueline Gaston is a 66 year old female who presents here today for Above Complaints. Today: For a couple years has had a bulge just below her right ribs in her upper stomach. Now has become painful. Coughing, exercising, carrying grandkids causes increased pain. Memory has been a concern. With significant family stresses right now seems exacerbated. Mother hasdementia. Short term memory is worst. Past medical [...] Father CABG Ischemic Heart Disease Paternal Grandmother CT at 50 Patient Allergies ALLERGIES No Known Allergies Current Medications Current Outpatient Medications on File Prior to Visit Medication Sig venlafaxine ER (EFFEXOR XR) 75 mg 24 hr capsule Take 1 capsule by mouth once daily. traZODone HCl (DESYREL) 300 mg tablet Take 1 tablet by mouth daily at bedtime. Biotin 10,000 mcg cap Take 1 capsule by mouth once daily. vit A,C,X-Ubic-Zzhoyj (OCUVITE PRESERVISION) 7,160-113-100 fkbc-kz-nhwa tab Take 1 tablet by mouth daily [...] 's report over the past 2 years andworsening pain, CT is necessary to assess for hernia. - CT ABDOMEN W IVCON 2. Right upper quadrant abdominal mass - ICD9: 789.31, ICD10: R19.01 Despite negative assessment given today, per patient and 's report over the past 2 years andworsening pain, CT is necessary to assess for [...] at that time, but continue to monitor. Zain Landin APRN.OPAL documented in this encounterMansfield Hospital12-01-2022 Miscellaneous Notes* Telephone Encounter - Deysi Ramírez Ma - 03/24/2022 8:59 AM EST Last office visit: 11/22/21 F/u scheduled: none Deysi Ramírez Ma documented in this encounterMansfield Hospital10-21-2022 Miscellaneous Notes* Telephone Encounter - Jay Morales DO - 02/11/2022 5:00 PM EDT The following approved medication requests have been transmitted electronically. Requested Prescriptions Signed Prescriptions Disp Refills ciprofloxacin HCl (CIPRO) 500 mg tablet 20 tablet 0 Sig: Take 1 tablet by mouth twice daily for 10 days. Authorizing Provider: JAY MORALES DO documented in this encounterMansfield Hospital08-01-2022 Miscellaneous Notes* Telephone Encounter - Flaca Osborn RN - 11/22/2021 5:47 PM EDT Spoke with patient. Given message from provider's office. Patient verbalizes understanding. Flaca Osborn RN * Telephone Encounter - Alyson Pritchett LPN - 11/22/2021 5:25 PM EDT Message left to return call. Alyson Pritchett LPN * Telephone Encounter - Zain Landin APRN.CNP - 11/22/2021 4:52 PM EDT Please let Jacqueline know that there is no fracture in her foot or toes. Let's give the interventions that we planned today, including the boot, 2 weeks. If no improvement or things are worsening, we'll get her in to see podiatry. Zain Landin APRN.OPAL documented in this encounterMansfield Hospital08-01-2022 Instructions* Patient Instructions* Zain Landin APRN.OPAL - 11/22/2021 3:57 PM EDT Cut back your Effexor to 75mg daily. [facility] [place] Have your foot xray completed. Ice your [...] off when you're sleeping. documented in this encounterMansfield Hospital08-01-2022 History of Present illness Narrative* Zain Landin APRN.CNP - 11/22/2021 3:46 PM EDT Chief Complaint Patient presents with: Foot Pain (Midfoot): right foot HPI Jacqueline Gaston is a 65 year old female who presents here today for Above Complaints.. About 5-6 days ago her toes on her right foot started hurting, are swollen. Hurts on the bottoms ofher toes. No injury. Wearing tennis shoes, but [...] Father CABG Ischemic Heart Disease Paternal Grandmother CT at 50 Patient Allergies ALLERGIES No Known Allergies Current Medications Current Outpatient Medications on File Prior to Visit Medication Sig traZODone HCl (DESYREL) 300 mg tablet Take 1 tablet by mouth daily at bedtime. venlafaxine ER (EFFEXOR XR) 150 mg 24 hr capsule Take 1 capsule by mouth once daily. Biotin 10,000 mcg cap Take 1 capsule by mouth once daily. vit A,C,P-Xfem-Iarddn (OCUVITE PRESERVISION) 7,160-113-100 vkim-ib-tolb tab Take 1 tablet by mouth daily [...] 75mg daily. - TRAZODONE 300 MG TABLET Zain Landin APRN.OPAL documented in this encounterMansfield Hospital05-04-2022 Miscellaneous Notes* Telephone Encounter - Parul Casas LPN - 08/25/2021 1:32 PM EDT Message sent through my chart. * Telephone Encounter - Naila Mukherjee APRN.CNP - 08/25/2021 12:41 PM EDT Patient is overdue for blood work. Blood work orders placed. The following approved medication requests have been transmitted electronically. Signed Prescriptions Disp Refills traZODone HCl (DESYREL) 300 mg tablet 90 tablet 0 Sig: Take 1 tablet by mouth daily at bedtime. CHALO: No Authorizing Provider: NAILA MUKHERJEE APRN.CNP * Telephone Encounter - Swapnil Cowart RN - 08/25/2021 9:04 AM EDT Patient has been identified by name and [...] 01/08/2019 21 Please advise. Thank you. Swapnil Cowart RN documented in this encounterMansfield Hospital02-08-2022 Miscellaneous Notes* Telephone Encounter - Jay Morales DO - 06/01/2021 3:50 PM EST The following approved medication requests have been transmitted electronically. Signed Prescriptions Disp Refills venlafaxine ER (EFFEXOR XR) 150 mg 24 hr capsule 10 capsule 0 Sig: Take 1 capsule by mouth once daily. CHALO: No Authorizing Provider: JAY MORALES DO documented in this encounterMansfield HospitalConsult note [facility] Medical Records Department [address] [place] [address] Anesthesia Postop Eval II 02/05/25 1354 MR#: [id number] Acct: [id number] Name: JACQUELINE GASTON Rep #:[id number] 0 : 1955 69 From: Trace Naranjo PCP: Dr. Jay Morales, DO Status:DE P SDC Y Race: C Location: [place] Anesthesia Postop Eval I Sum Postop Eval Completion status Anesthesia document: Postop Eval 1 completed: Yes Anesthesia Postop Eval I Summary Anesthesia Postop Eval I Summary: Anesthesia Postop Eval I: Assessment Summary Airway patent Yes 02/05/25 12:21 [email or web address] Spontaneous unlabored Yes 02/05/25 12:21 [email or web address] respirations Mental status Awake,Calm 02/05/25 12:21 [email or web address] nausea No 02/05/25 12:21 [email or web address] Vomiting No 02/05/25 12:21 [email or web address] Anesthesia Postop Eval I: Fluid Summary Crystalloid volume administer 800 02/05/25 12:21 [email or web address] (ml) Colloids volume administered ( ml) Blood Product volume administered (ml) Total IV fluid infused 800 02/05/25 12:21 [email or web address] Anesthesia Postop Eval I: Summary Notes Anesthesia Complication No 02/05/25 12:21 [email or web address] Anesthesia Complication Comment: Post-operative progress note Anesthesia: Postop Eval II Evaluation Mental status: Awake and Calm Pain Level: 1 nausea: No Vomiting: No Complications Anesthesia Complication: No 02/05/25 1354 MD> Date _ Trace Kimignchika Signature: Date CC: ~ [facility] Jose Inman [facility] Note Date/Time February 05, 2025 1 2:23pm [facility] Medical Records Department [address] [place] [address] Anesthesia Postop Eval I 02/05/25 1219 MR#: [id number] Acct: [id number] Name: JACQUELINE GASTON Rep #:[id number] : 1955 69 From: Jose Inman PCP: Dr. Jay Morales, DO Status:RE G SDC Y Race: C Location: [place] [address] Anesthesia: Postop Eval I Current Vital Signs Temperature: 97.3 F Pulse Rate: 64 Blood Pressure: 109/70 Respiratory Rate: 16 Pulse Ox: 100 Oxygen Delivery Method: Room Air Assessment Airway patent: Yes Spontaneous unlabored respirations: Yes Mental status: Awake and Calm nausea: No Vomiting: No Anesthesia Complication: No Fluid Hydration Crystalloid volume administer (ml): 800 Total IV fluid infused: 800 Progress Note Anesthesia document: Postop Eval 1 completed: Yes 02/05/25 1223 <Electronically signed by Jose Inman > Date _ Jose Inman Cosigner Signature: Date CC: ~ Signed [facility] Work Phone: Consult note Author Trace [facility] Note Date/Time February 05, 2025 1 :54pm [facility] Medical Records Department [address] [place] [address] Anesthesia Postop Eval II 02/05/25 1354 MR#: [id number] Acct: [id number] Name: JACQUELINE GASTON Rep #:[id number] 0 : 1955 69 From: Trace Naranjo PCP: Dr. Jay Morales, DO Status:DE P SDC Y Race: C Location: EN Anesthesia Postop Eval I Sum Postop Eval Completion status Anesthesia document: Postop Eval 1 completed: Yes Anesthesia Postop Eval I Summary Anesthesia Postop Eval I Summary: Anesthesia Postop Eval I: Assessment Summary Airway patent Yes 02/05/25 12:21 [email or web address] Spontaneous unlabored Yes 02/05/25 12:21 [email or web address] respirations Mental status Awake,Calm 02/05/25 12:21 [email or web address] nausea No 02/05/25 12:21 [email or web address] Vomiting No 02/05/25 12:21 [email or web address] Anesthesia Postop Eval I: Fluid Summary Crystalloid volume administer 800 02/05/25 12:21 [email or web address] (ml) Colloids volume administered ( ml) Blood Product volume administered (ml) Total IV fluid infused 800 02/05/25 12:21 [email or web address] Anesthesia Postop Eval I: Summary Notes Anesthesia Complication No 02/05/25 12:21 [email or web address] Anesthesia Complication Comment: Post-operative progress note Anesthesia: Postop Eval II Evaluation Mental status: Awake and Calm Pain Level: 1 nausea: No Vomiting: No Complications Anesthesia Complication: No 02/05/25 1354 <Electronically signed by Trace Harris MD> Date _ Trace Harris MD [facility] Signature: Date CC: ~ Signed [facility] Work Phone: Evaluation note* Diagnosis Dyslipidemia- Primary Other and unspecified hyperlipidemia Chronic insomnia Insomnia, unspecified Screening for diabetes mellitus Screening for thyroid disorder documented in this encounter [facility] note* Diagnosis Encounter for screening mammogram for breast cancer documented in this encounter [facility] note* Diagnosis Foot pain, right- Primary Pain in limb Localized swelling of right foot Chronic insomnia Insomnia, unspecified documented in this encounter [facility] noteNo assessment information availableWKeenan [facility] Work Phone: Evaluation note* Diagnosis RUQ pain- Primary Abdominal pain, right upper quadrant Right upper quadrant abdominal mass Abdominal or pelvic swelling, mass, or lump, right upper quadrant Preprocedural examination Preoperative examination, unspecified Poor short term memory Memory loss Family history of dementia Family history of other neurological diseases documented in this encounter [facility] note* Diagnosis Subacute cough- Primary Cough documented in this encounter [facility] note* Diagnosis Onset Date Resolution Status Atrophic vaginitis acute Cystocele acute Family history of breast cancer in mother acute Encounter for routine gynecological examination noneactive [facility] Work Phone: Evaluation note* Diagnosis Low serum triiodothyronine (T3)- Primary [facility]* Diagnosis Poor short term memory- Primary Memory loss documented in this encounter [facility] note* Diagnosis Encounter for screening mammogram for breast cancer documented in this encounter [facility] note* Diagnosis Chronic insomnia Insomnia, unspecified documented in this encounter [facility] note* Diagnosis Chronic insomnia Insomnia, unspecified documented in this encounter [facility] note* Diagnosis RUQ pain Abdominal pain, right upper quadrant Right upper quadrant abdominal mass Abdominal or pelvic swelling, mass, or lump, right upper quadrant documented in this encounter [facility] note* Diagnosis Onset Date Resolution Status Adnexal mass acute Atrophic vaginitis acute Cystocele acute Family history of breast cancer in mother acute Osteoporosis acute Encounter for routine gynecological examination noneactive [facility] Work Phone: Evaluation note* Diagnosis Screening for osteoporosis Special screening for osteoporosis Forgetfulness Other general symptoms Headaches Family history of dementia Family history of other neurological diseases Poor short term memory Memory loss documented in this encounter [facility] note* Diagnosis Screening for osteoporosis Special screening for osteoporosis Asymptomatic menopause documented in this [facility]* Diagnosis Hammertoe of right foot- Primary Callus between toes Porokeratosis Other specified congenital anomaly of skin documented in this [facility]* Diagnosis Hammertoe of right foot documented in this [facility]* Diagnosis Osteoporosis without current pathological fracture, unspecified osteoporosis type- Primary documented in this [facility]* Diagnosis Foot pain, right Pain in limb Localized swelling of right foot documented in this [facility]* Diagnosis Chronic insomnia Insomnia, unspecified documented in this encounter [facility]* Diagnosis Seasonal allergic rhinitis, unspecified trigger- Primary documented in this [facility]* Diagnosis Screening for colorectal cancer- Primary Special screening for malignant neoplasms, colon documented in this [facility]* Diagnosis UTI symptoms- Primary Other symptoms involving urinary system Osteoporosis without current pathological fracture, unspecified osteoporosis type documented in this encounter [facility]* Diagnosis Medicare annual wellness visit, subsequent- Primary Routine general medical examination at a health care facility Acute bronchitis, unspecified organism Screening for colon cancer Special screening for malignant neoplasms, colon Recurrent UTI (urinary tract infection) Urinary tract infection, site not specified Dyslipidemia Other and unspecified hyperlipidemia T3 low in serum Vitamin D deficiency Unspecified vitamin D deficiency Fatigue, unspecified type Hyperglycemia Other abnormal glucose documented in this encounter [facility] note* Diagnosis Seasonal allergic rhinitis, unspecified trigger documented in this [facility]* Diagnosis Positive colorectal cancer screening using Cologuard test- Primary Screening for colon cancer Special screening for malignant neoplasms, colon documented in this [facility]* Diagnosis Chronic insomnia Insomnia, unspecified documented in this [facility]* Diagnosis Osteoporosis without current pathological fracture, unspecified osteoporosis type documented in this encounter [facility] note* Diagnosis Osteoporosis without current pathological fracture, unspecified osteoporosis type- Primary documented in this encounter [facility] note* Diagnosis Osteoporosis without current pathological fracture, unspecified osteoporosis type- Primary documented in this encounter [facility] note* Diagnosis Encounter for screening mammogram for malignant neoplasm of breast- Primary Other screening mammogram documented in this encounter [facility] for referral (narrative)* Diagnostic Procedure Only (Routine) - Pending Review Specialty Diagnoses / Procedures Referred By Keith tatum Referred To Contact [facility] Diagnoses Encounter for screening mammogram for breast cancer Procedures CHRISTIAN SCREENING W ASIF SCREENING DIGITAL BREAST TOMOSYNTHESIS BI SCREENING MAMMOGRAPHY BI 2-VIEW BREAST INC Jay Vuong DO [address] [place] [address] [facility] [address] [place] [id number] Referral ID Status Reason Start Date Expiration Date Visits Requested Visits Authorized [id number] Pending Review Auto-Generat ed Referral 09/01/2021 10/01/2022 1 1 [facility] Diagnostic Procedure Only (Urgent) - Closed Specialty Diagnoses / Procedures Referred By Keith tatum Referred To Contact XR IMAGING Diagnoses Foot pain, right Localized swelling of right foot Procedures XR FOOT GENERAL 3V AP/LAT/OBL RIGHT RADEX FOOT COMPLETE MINIMUM 3 VIEWS Zain Landin APRN.CNP [address] [place] [address] Xr Imaging Referral ID Status Reason Start Date Expiration Date V isits Requested Visits Authorized [id number] Closed Auto-Generate d Referral 11/22/2021 12/22/2022 1 1 [facility] for referral (narrative)* Diagnostic Procedure Only (Routine) - Pending Review Specialty Diagnoses / Procedures Referred By Contac t Referred To Contact [facility] IM[facility] Diagnoses Encounter for screening mammogram for breast cancer Procedures CHRISTIAN SCREENING W ASIF SCREENING DIGITAL BREAST TOMOSYNTHESIS BI SCREENING MAMMOGRAPHY BI 2-VIEW BREAST INC CAD Jay Morales, [address] [place] [address] [facility] [address] [place] [address] Referral ID Status Reason Start Date Expiration Date Visits Requested Visits Authorized [id number] Pending Review Auto-Generat ed Referral 08/10/2022 09/09/2023 1 1 [facility] for referral (narrative)* Diagnostic Procedure Only (Routine) - Closed Specialty Diagnoses / Procedures Referred By Contac t Referred To Contact XR IMAGING Diagnoses Hammertoe of right foot Procedures XR FOOT GENERAL 3V AP/LAT/OBL BILATERAL RADEX FOOT COMPLETE MINIMUM 3 VIEWS Jonh Garcia [address] [place] [address] [place] [address] Referral ID Status Reason Start Date Expiration Date V isits Requested Visits Authorized [id number] Closed Auto-Generate d Referral 08/10/2023 09/08/2024 1 1 [facility] for referral (narrative)* Diagnostic Procedure Only (Urgent) - Closed Specialty Diagnoses / Procedures Referred By Contac t Referred To Contact XR IMAGING Diagnoses Foot pain, right Localized swelling of right foot Procedures XR FOOT GENERAL 3V AP/LAT/OBL RIGHT RADEX FOOT COMPLETE MINIMUM 3 VIEWS Zain Landin APRN.HL7 INTERFACE DEVELOPER [address] [place] [address] [place] [address] Referral ID Status Reason Start Date Expiration Date V isits Requested Visits Authorized [id number] Closed Auto-Generate d Referral 11/22/2021 12/22/2022 1 1 [facility] for referral (narrative)No reason for referral information availableWKeenan Private Hospital Work Phone[facility]* Diagnostic Procedure Only (Routine) - Closed Specialty Diagnoses / Procedures Referred By Contac t Referred To Contact XR IMAGING Diagnoses Screening for osteoporosis Asymptomatic menopause Procedures DXA-AXIAL SKELETON Zain Landni APRN.HL7 INTERFACE DEVELOPER [address] [place] [address] [place] [address] Referral ID Status Reason Start Date Expiration Date V isits Requested Visits Authorized [id number] Closed Auto-Generate d Referral 07/20/2023 08/18/2024 1 1 [facility] for visit Narrative* Diagnostic Procedure Only (Routine) - Closed Specialty Diagnoses / Procedures Referred By Contac t Referred To Contact XR IMAGING Diagnoses Hammertoe of right foot Procedures XR FOOT GENERAL 3V AP/LAT/OBL BILATERAL RADEX FOOT COMPLETE MINIMUM 3 VIEWS Jonh Garcia [address] [place] [address] [place] [address] Referral ID Status Reason Start Date Expiration Date V isits Requested Visits Authorized [id number] Closed Auto-Generate d Referral 08/10/2023 09/08/2024 1 1 [facility] for visit Narrative* Diagnostic Procedure Only (Urgent) - Closed Specialty Diagnoses / Procedures Referred By Contac t Referred To Contact XR IMAGING Diagnoses Foot pain, right Localized swelling of right foot Procedures XR FOOT GENERAL 3V AP/LAT/OBL RIGHT RADEX FOOT COMPLETE MINIMUM 3 VIEWS Zain Landin, NEWS VIDEO EDITOR.HL7 INTERFACE DEVELOPER [address] [place] [address] [place] [address] Referral ID Status Reason Start Date Expiration Date V isits Requested Visits Authorized [id number] Closed Auto-Generate d Referral 11/22/2021 12/22/2022 1 1 [facility] Advance Directives No Advanced Directives Records FoundDocuments on File Type Date Recorded Patient Canvas Cutter Hand Expl anation Advance Directive(s) 03/11/2019 1:35 PM Documents on File Type Date Recorded Patient Canvas Cutter Hand Expl anation Advance Directive(s) 03/11/2019 1:35 PM Advance Directive Response Recorded Date/ Time Living Will No December 03 2 1:07pm Power of Sheet Metal Smith No December 03 022 1:07pm Advance Directive Response Recorded Date/ Time Living Will No December 03 12:07pm Power of Sheet Metal Smith No December 03 12:07pm Advance Directive Response Recorded Date/ Time Do you have a Healthcare Power of Sheet Metal Smith? Yes February 03, 2025 10:06am Chief Complaint and Reason for Visit Chief Complaint CHEST PAIN Chief Complaint CHEST PAIN SCREENING Chief Complaint SCREENING est annual Reason for Visit Atrophic vaginitis Cystocele Family history of breast cancer in mother Encounter for routine gynecological examination Chief Complaint SCREENING Chief Complaint SCREENING Annual (RANGER AIDE) LT ADNEXAL MASS Reason for Visit Adnexal mass Atrophic vaginitis Cystocele Family history of breast cancer in mother Osteoporosis Encounter for routine gynecological examination Chief Complaint Admit Date SCREENING June 21, 2024 9:08am Chief Complaint Admit Date POS COLOGUARD December 18, 2024 7: 26am Reason for Visit Admit Date Positive colorectal cancer screening usi ng Cologuard test December 18, 2024 7:26am Positive colorectal cancer screening usi ng Cologuard test February 05, 2025 9:43am Family History No Family History Records Found Relationship Condition Age at Onset Recorded Date/T rosalio mother Malignant neoplasm of breast Unknown father Cardiac disease Unknown grandmother Malignant neoplasm of breast Unknown Cerebrovascular accident (CVA) Unknown grandfather Malignant neoplasm of prostate Unknown Diabetes mellitus Unknown Reason for Referral Specialty Diagnoses / Procedures Referred By Contac t Referred To Contact CT IMAGING Diagnoses RUQ pain Right upper quadrant abdominal mass Procedures CT ABDOMEN W IVCON CT ABDOMEN W/CONTRAST Zain Landin, NEWS VIDEO EDITOR.HL7 INTERFACE DEVELOPER [address] [place] [address] Ct Imaging Referral ID Status Reason Start Date Expiration Date Visits Requested Visits Authorized [id number] Authorized Auto-Generat ed Referral 05/28/2022 2 2 Specialty Diagnoses / Procedures Referred By Contac t Referred To Contact CT IMAGING Diagnoses RUQ pain Right upper quadrant abdominal mass Procedures CT ABDOMEN W IVCON CT ABDOMEN W/CONTRAST Zain Landin, NEWS VIDEO EDITOR.HL7 INTERFACE DEVELOPER [address] [place] [address] [place] [address] Referral ID Status Reason Start Date Expiration Date V isits Requested Visits Authorized [id number] Closed Auto-Generate d Referral 04/13/2022 05/28/2022 2 2 Specialty Diagnoses / Procedures Referred By Contac t Referred To Contact CT IMAGING Diagnoses Screening for osteoporosis Forgetfulness Headaches Family history of dementia Poor short term memory Procedures CT BRAIN WO IVCON CT HEAD/BRAIN W/O CONTRAST MATERIAL UrvashiZain eisenberg, NEWS VIDEO EDITOR.HL7 INTERFACE DEVELOPER [address] [place] [address] [place] [address] Referral ID Status Reason Start Date Expiration Date V isits Requested Visits Authorized [id number] Closed Auto-Generate d Referral 07/20/2023 08/18/2024 1 1 Summary Purpose Additional Source Comments Source Comments (unrecognize d section and content) In the event this informatio n is protected by the Federal Confidentiality of Alcohol and Drug Abuse Patient Records regulations: The Federal rules restrict any use of the information to criminally investigate or prosecute any alcohol or drug abuse patient.[facility] the event this information is protected by the Federal Confidentiality of Alcohol and Drug Abuse Patient Records regulations: The Federal rules restrict any use of the information to criminally investigate or prosecute any alcohol or drug abuse patient.[facility] the event this information is protected by the Federal Confidentiality of Alcohol and Drug Abuse Patient Records regulations: The Federal rules restrict any use of the information to criminally investigate or prosecute any alcohol or drug abuse patient.[facility] the event this information is protected by the Federal Confidentiality of Alcohol and Drug Abuse Patient Records regulations: The Federal rules restrict any use of the information to criminally investigate or prosecute any alcohol or drug abuse patient.[facility] the event this information is protected by the Federal Confidentiality of Alcohol and Drug Abuse Patient Records regulations: The Federal rules restrict any use of the information to criminally investigate or prosecute any alcohol or drug abuse patient.[facility] the event this information is protected by the Federal Confidentiality of Alcohol and Drug Abuse Patient Records regulations: The Federal rules restrict any use of the information to criminally investigate or prosecute any alcohol or drug abuse patient.[facility] the event this information is protected by the Federal Confidentiality of Alcohol and Drug Abuse Patient Records regulations: The Federal rules restrict any use of the information to criminally investigate or prosecute any alcohol or drug abuse patient.[facility] Hospital[facility] the event this information is protected by the Federal Confidentiality of Alcohol and Drug Abuse Patient Records regulations: The Federal rules restrict any use of the information to criminally investigate or prosecute any alcohol or drug abuse patient.[facility] the event this information is protected by the Federal Confidentiality of Alcohol and Drug Abuse Patient Records regulations: The Federal rules restrict any use of the information to criminally investigate or prosecute any alcohol or drug abuse patient.[facility] the event this information is protected by the Federal Confidentiality of Alcohol and Drug Abuse Patient Records regulations: The Federal rules restrict any use of the information to criminally investigate or prosecute any alcohol or drug abuse patient.[facility] HospitalIn the event this information is protected by the Federal Confidentiality of Alcohol and Drug Abuse Patient Records regulations: The Federal rules restrict any use of the information to criminally investigate or prosecute any alcohol or drug abuse patient.[facility] the event this information is protected by the Federal Confidentiality of Alcohol and Drug Abuse Patient Records regulations: The Federal rules restrict any use of the information to criminally investigate or prosecute any alcohol or drug abuse patient.[facility] Hospital[facility] the event this information is protected by the Federal Confidentiality of Alcohol and Drug Abuse Patient Records regulations: The Federal rules restrict any use of the information to criminally investigate or prosecute any alcohol or drug abuse patient.[facility] HospitalIn the event this information is protected by the Federal Confidentiality of Alcohol and Drug Abuse Patient Records regulations: The Federal rules restrict any use of the information to criminally investigate or prosecute any alcohol or drug abuse patient.[facility]In the event this information is protected by the Federal Confidentiality of Alcohol and Drug Abuse Patient Records regulations: The Federal rules restrict any use of the information to criminally investigate or prosecute any alcohol or drug abuse patient.[facility] HospitalIn the event this information is protected by the Federal Confidentiality of Alcohol and Drug Abuse Patient Records regulations: The Federal rules restrict any use of the information to criminally investigate or prosecute any alcohol or drug abuse patient.[facility] HospitalIn the event this information is protected by the Federal Confidentiality of Alcohol and Drug Abuse Patient Records regulations: The Federal rules restrict any use of the information to criminally investigate or prosecute any alcohol or drug abuse patient.[facility] HospitalIn the event this information is protected by the Federal Confidentiality of Alcohol and Drug Abuse Patient Records regulations: The Federal rules restrict any use of the information to criminally investigate or prosecute any alcohol or drug abuse patient.[facility] HospitalIn the event this information is protected by the Federal Confidentiality of Alcohol and Drug Abuse Patient Records regulations: The Federal rules restrict any use of the information to criminally investigate or prosecute any alcohol or drug abuse patient.[facility] HospitalIn the event this information is protected by the Federal Confidentiality of Alcohol and Drug Abuse Patient Records regulations: The Federal rules restrict any use of the information to criminally investigate or prosecute any alcohol or drug abuse patient.[facility] HospitalIn the event this information is protected by the Federal Confidentiality of Alcohol and Drug Abuse Patient Records regulations: The Federal rules restrict any use of the information to criminally investigate or prosecute any alcohol or drug abuse patient.[facility] HospitalIn the event this information is protected by the Federal Confidentiality of Alcohol and Drug Abuse Patient Records regulations: The Federal rules restrict any use of the information to criminally investigate or prosecute any alcohol or drug abuse patient.[facility] HospitalIn the event this information is protected by the Federal Confidentiality of Alcohol and Drug Abuse Patient Records regulations: The Federal rules restrict any use of the information to criminally investigate or prosecute any alcohol or drug abuse patient.[facility] HospitalIn the event this information is protected by the Federal Confidentiality of Alcohol and Drug Abuse Patient Records regulations: The Federal rules restrict any use of the information to criminally investigate or prosecute any alcohol or drug abuse patient.[facility] HospitalIn the event this information is protected by the Federal Confidentiality of Alcohol and Drug Abuse Patient Records regulations: The Federal rules restrict any use of the information to criminally investigate or prosecute any alcohol or drug abuse patient.[facility] HospitalIn the event this information is protected by the Federal Confidentiality of Alcohol and Drug Abuse Patient Records regulations: The Federal rules restrict any use of the information to criminally investigate or prosecute any alcohol or drug abuse patient.[facility] HospitalIn the event this information is protected by the Federal Confidentiality of Alcohol and Drug Abuse Patient Records regulations: The Federal rules restrict any use of the information to criminally investigate or prosecute any alcohol or drug abuse patient.[facility] HospitalIn the event this information is protected by the Federal Confidentiality of Alcohol and Drug Abuse Patient Records regulations: The Federal rules restrict any use of the information to criminally investigate or prosecute any alcohol or drug abuse patient.[facility] HospitalIn the event this information is protected by the Federal Confidentiality of Alcohol and Drug Abuse Patient Records regulations: The Federal rules restrict any use of the information to criminally investigate or prosecute any alcohol or drug abuse patient.[facility] HospitalIn the event this information is protected by the Federal Confidentiality of Alcohol and Drug Abuse Patient Records regulations: The Federal rules restrict any use of the information to criminally investigate or prosecute any alcohol or drug abuse patient.[facility] HospitalIn the event this information is protected by the Federal Confidentiality of Alcohol and Drug Abuse Patient Records regulations: The Federal rules restrict any use of the information to criminally investigate or prosecute any alcohol or drug abuse patient.[facility] HospitalIn the event this information is protected by the Federal Confidentiality of Alcohol and Drug Abuse Patient Records regulations: The Federal rules restrict any use of the information to criminally investigate or prosecute any alcohol or drug abuse patient.[facility] HospitalIn the event this information is protected by the Federal Confidentiality of Alcohol and Drug Abuse Patient Records regulations: The Federal rules restrict any use of the information to criminally investigate or prosecute any alcohol or drug abuse patient.[facility] HospitalIn the event this information is protected by the Federal Confidentiality of Alcohol and Drug Abuse Patient Records regulations: The Federal rules restrict any use of the information to criminally investigate or prosecute any alcohol or drug abuse patient.[facility] HospitalIn the event this information is protected by the Federal Confidentiality of Alcohol and Drug Abuse Patient Records regulations: The Federal rules restrict any use of the information to criminally investigate or prosecute any alcohol or drug abuse patient.[facility] HospitalIn the event this information is protected by the Federal Confidentiality of Alcohol and Drug Abuse Patient Records regulations: The Federal rules restrict any use of the information to criminally investigate or prosecute any alcohol or drug abuse patient.[facility] HospitalIn the event this information is protected by the Federal Confidentiality of Alcohol and Drug Abuse Patient Records regulations: The Federal rules restrict any use of the information to criminally investigate or prosecute any alcohol or drug abuse patient.[facility] HospitalIn the event this information is protected by the Federal Confidentiality of Alcohol and Drug Abuse Patient Records regulations: The Federal rules restrict any use of the information to criminally investigate or prosecute any alcohol or drug abuse patient.[facility] HospitalIn the event this information is protected by the Federal Confidentiality of Alcohol and Drug Abuse Patient Records regulations: The Federal rules restrict any use of the information to criminally investigate or prosecute any alcohol or drug abuse patient.[facility] HospitalIn the event this information is protected by the Federal Confidentiality of Alcohol and Drug Abuse Patient Records regulations: The Federal rules restrict any use of the information to criminally investigate or prosecute any alcohol or drug abuse patient.[facility] HospitalIn the event this information is protected by the Federal Confidentiality of Alcohol and Drug Abuse Patient Records regulations: The Federal rules restrict any use of the information to criminally investigate or prosecute any alcohol or drug abuse patient.[facility] HospitalIn the event this information is protected by the Federal Confidentiality of Alcohol and Drug Abuse Patient Records regulations: The Federal rules restrict any use of the information to criminally investigate or prosecute any alcohol or drug abuse patient.[facility] HospitalIn the event this information is protected by the Federal Confidentiality of Alcohol and Drug Abuse Patient Records regulations: The Federal rules restrict any use of the information to criminally investigate or prosecute any alcohol or drug abuse patient.[facility] HospitalIn the event this information is protected by the Federal Confidentiality of Alcohol and Drug Abuse Patient Records regulations: The Federal rules restrict any use of the information to criminally investigate or prosecute any alcohol or drug abuse patient.[facility] HospitalIn the event this information is protected by the Federal Confidentiality of Alcohol and Drug Abuse Patient Records regulations: The Federal rules restrict any use of the information to criminally investigate or prosecute any alcohol or drug abuse patient.[facility] HospitalIn the event this information is protected by the Federal Confidentiality of Alcohol and Drug Abuse Patient Records regulations: The Federal rules restrict any use of the information to criminally investigate or prosecute any alcohol or drug abuse patient.[facility] HospitalIn the event this information is protected by the Federal Confidentiality of Alcohol and Drug Abuse Patient Records regulations: The Federal rules restrict any use of the information to criminally investigate or prosecute any alcohol or drug abuse patient.[facility] HospitalIn the event this information is protected by the Federal Confidentiality of Alcohol and Drug Abuse Patient Records regulations: The Federal rules restrict any use of the information to criminally investigate or prosecute any alcohol or drug abuse patient.[facility] HospitalIn the event this information is protected by the Federal Confidentiality of Alcohol and Drug Abuse Patient Records regulations: The Federal rules restrict any use of the information to criminally investigate or prosecute any alcohol or drug abuse patient.[facility] HospitalIn the event this information is protected by the Federal Confidentiality of Alcohol and Drug Abuse Patient Records regulations: The Federal rules restrict any use of the information to criminally investigate or prosecute any alcohol or drug abuse patient.[facility] HospitalIn the event this information is protected by the Federal Confidentiality of Alcohol and Drug Abuse Patient Records regulations: The Federal rules restrict any use of the information to criminally investigate or prosecute any alcohol or drug abuse patient.[facility] Reason for Visit (unrecogniz ed section and content) Reason Comments Radiology CT Specialty Diagnoses / Procedures Referred By Contac t Referred To Contact CT IMAGING Diagnoses RUQ pain Right upper quadrant abdominal mass Procedures CT ABDOMEN W IVCON CT ABDOMEN W/CONTRAST Zain Landin, NEWS VIDEO EDITOR.HL7 INTERFACE DEVELOPER [address] [place] [address] [place] [address] Referral ID Status Reason Start Date Expiration Date V isits Requested Visits Authorized [id number] Closed Auto-Generate d Referral 04/13/2022 05/28/2022 2 [...] 10/31/2022 Specialty Diagnoses / Procedures Referred By Contac t Referred To Contact CT IMAGING Diagnoses Screening for osteoporosis Forgetfulness Headaches Family history of dementia Poor short term memory Procedures CT BRAIN WO IVCON CT HEAD/BRAIN W/O CONTRAST MATERIAL Zain Landin, NEWS VIDEO EDITOR.HL7 INTERFACE DEVELOPER [address] [place] [address] [place] [address] Referral ID Status Reason Start Date Expiration Date V isits Requested Visits Authorized [id number] Closed Auto-Generate d Referral 07/20/2023 08/18/2024 1 1 Reason Comments [place] Pain Specialty Diagnoses / Procedures Referred By Contac t Referred To Contact Podiatry Diagnoses Callus between toes Procedures CONSULT TO PODIATRY OFFICE/OUTPATIENT NEW HIGH MDM 60 MINUTES Zain Landin, NEWS VIDEO EDITOR.HL7 INTERFACE DEVELOPER [address] [place] [address] Referral ID Status Reason Start Date Expiration Date V isits Requested Visits Authorized [id number] Closed PCP Requested Referral 07/20/2023 07/19/2024 1 1 Reason Comments Patient Update Reason Comments Medication Problem patient is having pr oblems with insurance covering prolia injection Reason Onset Date Comments Refill Request 11/08/2023 Reason Comments Patient Request Reason Onset Date Comments Population Health Navigation Outreach 01/02/2024 RomanmonseLliianejaniceVal wheat Reason Onset Date Comments Refill Request 01/24/2024 Reason Comments Acute Visit Cough, horse voice, chills Reason Onset Date Comments Refill Request 03/05/2024 Reason Onset Date Comments Outpatient Colonoscopy 05/20/2024 Patient o td for colorectal cancer screening. (since 2019). Please schedule open access colonoscopy Reason Comments uti symptom Reason Comments Medicare Wellness Exam Reason Onset Date Comments Refill Request 08/09/2024 Reason Comments UTI symptoms still Reason Onset Date Comments Refill Request 09/17/2024 Reason Onset Date Comments Population Health Navigation Outreach 09/23/2024 Darwinrcmonse Villarrealmonijarret Mason aVl PCSA Reason Comments Appointment Reason Onset Date Comments Refill Request 10/30/2024 Reason Comments Referral Information Medication Question Reason Comments Medication Update Reason Comments Imm/Inj Specialty Diagnoses / Procedures Referred By Contac t Referred To Contact Internal Medicine / FAMILY MEDICINE Diagnoses Age-related osteoporosis without current pathological fracture Prolia Injection Procedures DENOSUMAB INJECTION NURSE Zain Landin APRN.[facility] [address] [place] [address] Phone: tel: fax: Nurse, [place] [address] [place] [address] Phone: tel: Referral ID Status Reason Start Date Expiration Date V isits Requested Visits Authorized [id number] Authorized 11/05/2024 11/05/2025 2 2 Reason Comments Insurance Authorization Reason Onset Date Comments Population Health Navigation Outreach 12/04/2024 Darwinrcmonse Geniejarret Val Reason Onset Date Comments Population Health Navigation Outreach 01/03/2025 Darwinrcmonse Lilianeerynmonijarret Neal Care Teams (unrecognized sec tion and content) Dog Handler Relationship Specialty Start Date End Date Jay Morales DO [address] [place], [place] [id number] PCP - General Family Practice 05/13/19 Dog Handler Relationship Specialty Start Date End Date Jay Morales DO [address] [place], [place] [address] PCP - General Family Practice 05/13/19 Dog Handler Relationship Specialty Start Date End Date Jay Morales, DO [address] [place] [address] PCP - General Family Practice 05/13/19 Dog Handler Relationship Specialty Start Date End Date Jay Morales, DO [address] [place] [address] PCP - General Family Practice 05/13/19 Dog Handler Relationship Specialty Start Date End Date Jay Morales, DO [address] [place] [address] PCP - General Family Practice 05/13/19 Dog Handler Relationship Specialty Start Date End Date Jay Morales, DO [address] [place] [address] PCP - General Family Medicine 05/13/19 Dog Handler Relationship Specialty Start Date End Date Jay Morales, DO [address] [place] [address] PCP - General Family Medicine 05/13/19 Dog Handler Relationship Specialty Start Date End Date Jay Morales, DO [address] [place] [address] PCP - General Family Medicine 05/13/19 Team Status: Active Member Role Status Dates Dr. Shiva Walls MD Family Provider Active Dr. Jay Morales DO Primary Care Provider Active Team Status: Inactive Member Role Status Dates Dr. Jay Morales DO Primary Care Provider, Referr ing Provider Active Tanvi Ibarra SPEECH CORRECTION ASSISTANT, SPEECH CORRECTION ASSISTANT-C Attending Provider Active Team Status: Inactive Member Role Status Dates Dr. Jay Morales DO Primary Care Provider Active Tanvi Ibarra SPEECH CORRECTION ASSISTANT, SPEECH CORRECTION ASSISTANT-C Attending Provider Active Team Status: Inactive Member Role Status Dates Dr. Jay Morales DO Primary Care Provider Active Tanvi Ibarra SPEECH CORRECTION ASSISTANT, SPEECH CORRECTION ASSISTANT-C Attending Provider, Referring Provider Active Dog Handler Relationship Specialty Start Date End Date Jay Morales, DO [address] [facility] [place] [address] PCP - General Family Medicine 05/13/19 Dog Handler Relationship Specialty Start Date End Date Jay Morales DO [address] [facility] [place] [address] PCP - General Family Medicine 05/13/19 Dog Handler Relationship Specialty Start Date End Date Jay Morales DO [address] [place] [address] PCP - General Family Medicine 05/13/19 Dog Handler Relationship Specialty Start Date End Date Jay Morales DO [address] [place] [address] PCP - General Family Medicine 05/13/19 Dog Handler Relationship Specialty Start Date End Date Jay Morales DO [address] [place] [address] PCP - General Family Medicine 05/13/19 Dog Handler Relationship Specialty Start Date End Date Jay Morales DO [address] [place] [address] PCP - General Family Medicine 05/13/19 Dog Handler Relationship Specialty Start Date End Date Jay Morales DO [address] [place] [address] PCP - General Family Medicine 05/13/19 Dog Handler Relationship Specialty Start Date End Date Jay Morales DO [address] [place] [address] PCP - General Family Medicine 05/13/19 Dog Handler Relationship Specialty Start Date End Date Jay Morales DO [address] [place] [address] PCP - General Family Medicine 05/13/19 Dog Handler Relationship Specialty Start Date End Date Jay Morales DO [address] [place] [address] PCP - General Family Medicine 05/13/19 Dog Handler Relationship Specialty Start Date End Date Jay Morales DO [address] [place] [address] PCP - General Family Medicine 05/13/19 Dog Handler Relationship Specialty Start Date End Date Jay Morales DO [address] [place] [address] PCP - General Family Medicine 05/13/19 Dog Handler Relationship Specialty Start Date End Date Jay Morales DO [address] [place] [address] PCP - General Family Medicine 05/13/19 Dog Handler Relationship Specialty Start Date End Date Jay Morales DO [address] [place] [address] PCP - General Family Medicine 05/13/19 Dog Handler Relationship Specialty Start Date End Date Jay Morales DO [address] [place] [address] PCP - General Family Medicine 05/13/19 Dog Handler Relationship Specialty Start Date End Date Jay Morales DO [address] [place] [address] PCP - General Family Medicine 05/13/19 Dog Handler Relationship Specialty Start Date End Date Jay Morales DO [address] [place] [address] PCP - General Family Medicine 05/13/19 Dog Handler Relationship Specialty Start Date End Date Jay Morales DO [address] [place] [address] PCP - General Family Medicine 05/13/19 Dog Handler Relationship Specialty Start Date End Date Jay Morales DO [address] [place] [address] PCP - General Family Medicine 05/13/19 Dog Handler Relationship Specialty Start Date End Date Jay Morales DO [address] [facility], [place] [address] PCP - General Family Medicine 05/13/19 Naila Pereyra APRN.HL7 INTERFACE DEVELOPER [address] [facility], [place] [address] Pipe Line Repairer Family Medicine 03/31/24 Zain Landin APRN.HL7 INTERFACE DEVELOPER [address] [place], [place] [address] Pipe Line Repairer Family Medicine 03/31/24 Team Status: Active Member Role Status Dates Dr. Jay Morales DO Primary Care Provider Active Team Status: Inactive Member Role Status Dates Dr. Jay Morales DO Primary Care Provider Active Start: June 21, 2024 End: June 21, 2024 Tanvi Ibarra SPEECH CORRECTION ASSISTANT, SPEECH CORRECTION ASSISTANT-C Attending Provider Active Start: June 21, 2024 End: June 21, 2024 Tanvi Ibarra SPEECH CORRECTION ASSISTANT, SPEECH CORRECTION ASSISTANT-C Referring Provider Active Start: June 21, 2024 End: June 21, 2024 Dog Handler Relationship Specialty Start Date End Date Jay Morales DO [address] [place], [place] [id number] [phone] PCP - General Family Medicine 05/13/19 Zain Landin, NEWS VIDEO EDITOR.HL7 INTERFACE DEVELOPER [address] [place] [address] Pipe Line Repairer Family Medicine 03/31/24 Dog Handler Relationship Specialty Start Date End Date Jay Morales DO [address] [place] [address] PCP - General Family Medicine 05/13/19 Zain Landin, NEWS VIDEO EDITOR.HL7 INTERFACE DEVELOPER [address] [place] [address] Pipe Line Repairer Family Medicine 03/31/24 Dog Handler Relationship Specialty Start Date End Date Jay Morales DO [address] [place] [address] PCP - General Family Medicine 05/13/19 Zain Landin, NEWS VIDEO EDITOR.HL7 INTERFACE DEVELOPER [address] [place] [address] Pipe Line Repairer Family Medicine 03/31/24 Dog Handler Relationship Specialty Start Date End Date Jay Morales DO [address] [place] [address] PCP - General Family Medicine 05/13/19 Zain Landin, NEWS VIDEO EDITOR.HL7 INTERFACE DEVELOPER [address] [place] [address] Pipe Line Repairer Family Medicine 03/31/24 Dog Handler Relationship Specialty Start Date End Date Jay Morales DO [address] [facility] [place] [address] PCP - General Family Medicine 05/13/19 Zain Landin, NEWS VIDEO EDITOR.HL7 INTERFACE DEVELOPER [address] [facility] [place] [address] Pipe Line Repairer Family Medicine 03/31/24 Dog Handler Relationship Specialty Start Date End Date Jay Morales DO [address] [facility] [place] [address] PCP - General Family Medicine 05/13/19 Zain Landin, NEWS VIDEO EDITOR.HL7 INTERFACE DEVELOPER [address] [facility] [place] [address] Pipe Line Repairer Family [facility] 03/31/24 Dog Handler Relationship Specialty Start Date End Date Jay Morales DO [address] [facility] [place] [address] PCP - General Family Medicine 05/13/19 Zain Landin, NEWS VIDEO EDITOR.HL7 INTERFACE DEVELOPER [address] [facility] [place] [address] [facility] 03/31/24 Dog Handler Relationship Specialty Start Date End Date Jay Morales DO [address] [place] [address] PCP - General Family Medicine 05/13/19 Zain Landin, NEWS VIDEO EDITOR.HL7 INTERFACE DEVELOPER [address] [place] [address] Pipe Line Repairer Family [facility] 03/31/24 Dog Handler Relationship Specialty Start Date End Date Jay Morales DO [address] [place] [address] PCP - General Family Medicine 05/13/19 UrvashiZain, NEWS VIDEO EDITOR.HL7 INTERFACE DEVELOPER [address] [place] [address] Pipe Line Repairer Family Medicine 03/31/24 Leela Anguiano, NEWS VIDEO EDITOR.HL7 INTERFACE DEVELOPER [address] [place] [address] Pipe Line Repairer Family [facility] 10/07/24 Dog Handler Relationship Specialty Start Date End Date Jay Morales DO [address] [place] [address] PCP - General Family Medicine 05/13/19 UrvashiZain, NEWS VIDEO EDITOR.HL7 INTERFACE DEVELOPER [address] [place] [address] Pipe Line Repairer Family Medicine 03/31/24 Leela Anguiano, NEWS VIDEO EDITOR.HL7 INTERFACE DEVELOPER [address] [place] [address] [facility] 10/07/24 Dog Handler Relationship Specialty Start Date End Date Jay Morales DO [address] [place] [address] PCP - General Family Medicine 05/13/19 [facility], NEWS VIDEO EDITOR.HL7 INTERFACE DEVELOPER [address] [place] [address] [facility] Family Medicine 03/31/24 Leela Anguiano, NEWS VIDEO EDITOR.HL7 INTERFACE DEVELOPER [address] [place] [address] Former[facility] 10/07/24 Dog Handler Relationship Specialty Start Date End Date Jay Morales DO [address] [place] [address] PCP - General Family Medicine 05/13/19 Zain Landin, NEWS VIDEO EDITOR.HL7 INTERFACE DEVELOPER [address] [place] [address] Pipe Line Repairer Family Medicine 03/31/24 Leela Anguiano, NEWS VIDEO EDITOR.HL7 INTERFACE DEVELOPER [address] [place] [address] Pipe Line Repairer Family Medicine 10/07/24 Dog Handler Relationship Specialty Start Date End Date Jay Morales DO [address] [place] [address] PCP - General Family Medicine 05/13/19 Zain Landin, NEWS VIDEO EDITOR.HL7 INTERFACE DEVELOPER [address] [place] [address] Pipe Line Repairer Family Medicine 03/31/24 Leela Anguiano, NEWS VIDEO EDITOR.HL7 INTERFACE DEVELOPER [address] [place] [address] Pipe Line Repairer Family Medicine 10/07/24 Dog Handler Relationship Specialty Start Date End Date Jay Morales DO [address] [place] [address] PCP - General Family Medicine 05/13/19 Zain Landin, NEWS VIDEO EDITOR.HL7 INTERFACE DEVELOPER [address] [place] [address] Pipe Line Repairer Family Medicine 03/31/24 Leela Anguiano, NEWS VIDEO EDITOR.HL7 INTERFACE DEVELOPER [address] [place] [address] Pipe Line Repairer [facility] Medicine 10/07/24 Dog Handler Relationship Specialty Start Date End Date Jya Morales DO [address] [place] [address] PCP - General Family Medicine 05/13/19 Zain Landin, NEWS VIDEO EDITOR.HL7 INTERFACE DEVELOPER [address] [place] [address] Pipe Line Repairer Family Medicine 03/31/24 Leela Anguiano, NEWS VIDEO EDITOR.HL7 INTERFACE DEVELOPER [address] [place] [address] [facility] 10/07/24 Dog Handler Relationship Specialty Start Date End Date Jay Morales DO [address] [place] [address] PCP - General Family Medicine 05/13/19 Zain Landin, NEWS VIDEO EDITOR.HL7 INTERFACE DEVELOPER [address] [place] [address] P[facility] 03/31/24 Leela Anguiano, NEWS VIDEO EDITOR.HL7 INTERFACE DEVELOPER [address] [place] [address] [facility]ly [facility] 10/07/24 Team Status: Active Member Role/Relationship Status Dates Dr. Jay Morales DO Primary Care Provider Active Team Status: Inactive Member Role/Relationship Status Dates Dr. Jay Morales DO Primary Care Provider Active Start: December 18, 2024 End: December 18, 2024 Dr. Jay Morales DO Referring Provider Active Start: December 18, 2024 End: December 18, 2024 Dr. Miguelangel Waller DO Attending Provider Active Start: December 18, 2024 End: December 18, 2024 Dog Handler Relationship Specialty Start Date End Date Jay Morales DO [address] [place], [place] [address] PCP - General Family Medicine 05/13/19 Zain Landin APRN.HL7 INTERFACE DEVELOPER [address] [place], [place] [address] Pipe Line Repairer Family [facility] 03/31/24 Leela Anguiano NEWS VIDEO EDITOR.HL7 INTERFACE DEVELOPER [address] [place], [place] [id number] [facility] 10/07/24 Team Status: Active Member Role/Relationship Status Dates Dr. Jay Morales DO Primary care physician Active Team Status: Inactive Member Role/Relationship Status Dates Dr. Jay Morales DO Primary care physician Active Start: December 18, 2024 End: December 18, 2024 Dr. Jay Morales DO Referring Provider Active Start: December 18, 2024 End: December 18, 2024 Dr. Miguelangel Waller DO Attending physician Active Start: December 18, 2024 End: December 18, 2024 Team Status: Inactive Member Role/Relationship Status Dates Dr. Jay Morales DO Primary care physician Active Start: February 05, 2025 End: February 05, 2025 Dr. Jay Morales DO Referring Provider Active Start: February 05, 2025 End: February 05, 2025 Dr. Miguelangel Waller DO Attending physician Active Start: February 05, 2025 End: February 05, 2025 Team Status: Active Member Role/Relationship Status Dates Dr. Jay Morales DO Primary care physician Active Start: February 05, 2025 Dr. Jay Morales DO Referring Provider Active Start: February 05, 2025 Dr. Miguelangel Waller DO Attending physician Active Start: February 05, 2025 Dr. Miguelangel Waller DO Nurse Practitioner Active Start: February 05, 2025 Goals (unrecognized section and content) Goals may be documented in a n alternate sectionGoals may be documented in an alternate sectionGoals may be documented in an alternate sectionGoals may be documented in an alternate sectionGoals may be documented in an alternate sectionGoals may be documented in an alternate sectionGoals may be documented in an alternate section INFORMATION SOURCE (unrecogn ized section and content) DATE CREATED AUTHOR 02/05/2025 [facility] DATE CREATED AUTHOR AUTHOR'S JEREL ATALFREDO 02/21/2025 [facility] FOR RECORDS PERTAINING TO PATIENTS WHO ARE [...] BE BASED ON THE PRIMARY CLINICAL RECORDS. [employer] provides no warranty or guarantee of the accuracy or completeness of information in this document.
--- NOTE | 2025-03-16 15:56 | CT_ITS ---
PROCEDURE: SPINE CERVICAL WITHOUT CONTRAS; BRAIN/HEAD WITHOUT CONTRAST N/A REASON FOR EXAM: FALL UNABLE TO CLEAR C-SPINE; ACUTE HEADACHE, GCS 3, DISCONJUGATE GAZE TECHNIQUE: Procedure Code: CTSPC; CTBR Modality: CT Procedure: SPINE CERVICAL WITHOUT CONTRAS; BRAIN/HEAD WITHOUT CONTRAST Coronal and Sagittal reconstruction series were provided. One or more dose reduction techniques were used (e.g., Automated exposure control, adjustment of the mA and/or kV according to patient size, use of iterative reconstruction technique. RADIATION DOSE SUMMARY: CTDlvol: 12.26 mGy DLP: 1187.42 mGycm COMPARISON: None. FINDINGS: CT head: Large acute intraventricular hemorrhage with hemodynamic level and ventriculomegaly. The hemorrhage is likely originating from acute parenchymal right basilar ganglia hemorrhage. Diffuse brain edema. Midline shift to the left by 8 mm. No uncal or transtentorial herniation. CT cervical spine: Alignment: Normal alignment. Vertebrae: No acute bony abnormalities. Soft Tissues: No soft tissue abnormalities. ET tube and NG tube are in place. Disc levels: Disc space narrowing, facet joint arthropathy and mild bilateral foramina stenosis at C3-C4. Left facet joint arthropathy at C2-C3 causing severe left foramina stenosis. Tubes and lines: NG tube and ET tube are in place. CT/Spine Cervical without Contras IMPRESSION: Acute parenchymal and intraventricular hemorrhage with ventriculomegaly. Midli ne shift to the left by 8 mm. No acute skull fracture. No acute injury to the cervical spine. Findings were discussed with Dr. Garsia on 03/16/2025 4:28 p.m. Reading Location: [facility]
[2025-03-16 16:07] LABS: Mucous, Urine 0 SEEN /hpf (<or=2+); Squamous Epithelial Cells - UA 0 SEEN /hpf (5-10)
[2025-03-16 16:12] LABS: Color, Urine Straw (Yellow); Glucose, Dipstick 50 mg/dl (Normal); Ketone-Dipstick 15 mg/dl (Negative); Leukocyte Esterase-Dipstick Negative /ul (Negative); Nitrite-Dipstick Negative (Negative); Occult Blood-Urine 10 /ul (Negative); Protein-Dipstick 30 mg/dl (Negative); Specific Gravity, Urine 1.015 (1.002-1.030); Urine Bilirubin Dipstick Negative (Negative)
[2025-03-16 16:18] LABS: Red Blood Cells-Urine 0-5 SEEN /hpf (0-5)
--- NOTE | 2025-03-16 16:20 | RAD_ITS ---
PROCEDURE: CHEST 1 VIEW (PORTABLE) 03/16/2025 REASON FOR EXAM: INTUBATION TECHNIQUE: Frontal view of the chest. FINDINGS: Endotracheal tube terminates at the level of the lower clavicular heads. Orogastric tube terminates below the radiograph with the side hole below the gastroesophageal junction. The lungs are clear. Heart is normal in size. No acute osseous abnormalities. RAD/Chest 1 View (Portable) IMPRESSION: No Acute Findings. Support devices as above. Reading Location: [id number]
[2025-03-16 16:21] LABS: Base Excess 2 mmol/L (-2 to +2); FI02 100.0; PEEP 5; PO2 487 mmHG (75-100); RR 14; SITE R Radial; SO2 100 % (94-98)
[2025-03-16] MEDS: Nicardipine HCl-0.9% Sod Chlor 20 MG/200 ML IV.SOLN 50 MG CONT INF (16:22)
--- NOTE | 2025-03-16 16:22 | CM.ED ---
Social Work Date of referral: 03/16/25 Reason for referral: Stroke Alert Referred by: Social Work Identification Customer Service Voice provided emotional support to patient's Den and patient's brother Jeet until other family members arrived. Customer Service Voice kept going back and forth between patient and providing updates for patient's family. Customer Service Voice continued to offer support and updates through the time patient's transport arrived and family left. Patient's family expressed appreciation. (16:22) Tori Carvajal, ASSISTANT ELEMENTARY TEACHER, READING ASSISTANT
[2025-03-16] MEDS: Propofol 10MG/Ml 1,000 MG/100 ML Bottle 3.2 MG CONT INF (16:30)
[2025-03-16] MEDS: Mannitol 50gm/250ml 50 GM in Premixed Bag 1 BAG IV (16:34)
[2025-03-16 16:37] LABS: Hematocrit 44.6 % (37-47); Hemoglobin 14.8 g/dL (12.0-15.0); Immature Granulocytes Count 0.040 X10^3/uL (0.0-0.0); Mean Corp Hgb Conc 33.2 g/dL (32-36); Mean Corpuscular Volume 90.3 fL (81-99); Mean Platelet Vol. 10.0 fl (6.2-12.0); NRBC Flagged by Analyzer 0 % (0-5); Platelet Count 263 K/mm3 (150-450); RBC Distribution Width CV 13.0 % (11.6-14.6); RBC Distribution Width SD 42.7 fl (35.1-43.9); Red Blood Count 4.94 M/mm3 (4.2-5.4); White Blood Count 13.8 K/mm3 (4.4-11.0)
[2025-03-16 17:04] LABS: AST(SGOT) 35 U/L (<=31); Alanine Aminotransfer ALT/SGPT 26 U/L (<=34); Albumin, Serum 4.9 g/dL (3.4-4.8); Alkaline Phosphatase 77 U/L (35-104); Anion Gap 16 (5-15); BUN 14 mg/dL (4-19); BUN/Creat Ratio 16.3 RATIO (10-20); Calcium,Total 8.9 mg/dL (7.6-11.0); Carbon Dioxide 24.6 mmol/L (21.0-32.0); Chloride 96 mmol/L (98-108); Estimated Creatinine Clearance 54.14 ml/min (50-250); Globulin 3.2 g/dL (2.2-4.2); Glucose 201 mg/dL (70-99); Potassium 3.4 mmol/L (3.3-5.1)
[2025-03-16 17:05] LABS: Troponin T High Sensitivity 27 ng/L (<=14)
[2025-03-16 17:07] LABS: Prothrombin Time (Protime)PT. 13.4 SECONDS (11.7-14.9)
[2025-03-16 17:08] LABS: Partial Thromboplast Time 23.1 Seconds (24.1-36.2)
[2025-03-16 17:14] LABS: CPK Total, Creatine Kinase 87 U/L (24-195); Triglycerides 90 mg/dL
== END 2025-03-16 17:29 | disposition short-term general hospital (02) ==
PROVIDERS: Emergency Provider Emergency Medicine; PCP Student in an Organized Health Care Education/Training Program; Visit Provider Emergency Medicine
DX: I61.8 Other nontraumatic intracerebral hemorrhage (principal); J69.0 Pneumonitis due to inhalation of food and vomit; I16.1 Hypertensive emergency
CPT/HCPCS: 31500; 36415; 36600; 70450; 71045; 72125; 80053; 81001; 82550; 82803; 83605; 84478; 84484; 85025; 85610; 85730; 93005; 94002; 96365; 96368; 96375; 99252; 99285; A4216; G0463; J0295